=== PATIENT | male | born 1955 | race Caucasian/White ===

== ENCOUNTER 2016-04-20 08:52 | Inpatient (IN) | payer OTHER ==
--- NOTE | 2016-04-20 09:09 | ED ---
General Adult HPI - General Stated complaint: rt facial droop, difficulty speaking Time Seen by Provider: 04/20/16 08:55 Source: RN notes reviewed - History of Present Illness Initial comments: This is a 61-year-old male presents emergency Department because of facial droop on the right. Patient states he was at work and he started to notice that he had really make an effort 20 months status words properly. Patient then noted that the right side of his face was a little droopy. Patient states this happened about 25 minutes ago. Patient denies any numbness or weakness patient denies any headache patient denies any visual disturbance patient denies any ataxia. Patient denies any fever or chills. Patient denies any chest pain palpitations difficulty breathing or shortness of breath per patient denies abdominal pain. Patient denies any nausea vomiting or diarrhea. Patient denies any upper her symptoms. - Related Data Home Medications Medication Instructions Recorded Confirmed Atorvastatin [Lipitor] 80 mg PO HS 04/20/16 04/20/16 Cholestyramine (with Sugar) 4 gm PO QID 04/20/16 04/20/16 [Questran] Fenofibrate 160 mg PO DAILY 04/20/16 04/20/16 Insulin Degludec [Tresiba 64 unit SQ HS 04/20/16 04/20/16 Flextouch U-200] Insulin Lispro [humaLOG Kwikpen] 10 unit SQ TID-W/MEALS 04/20/16 04/20/16 Lisinopril [Zestril] 5 mg PO DAILY 04/20/16 04/20/16 Niacin 500 mg PO HS 04/20/16 04/20/16 Allergies Allergy/AdvReac Type Severity Reaction Status Date / Time No Known Allergies Allergy Verified 04/20/16 09:28 Review of Systems ROS Statement: Those systems with pertinent positive or pertinent negative responses have been documented in the HPI. ROS Other: All systems not noted in ROS Statement are negative. General Exam - General Exam Comments Initial Comments: GENERAL: Patient is well-developed and well-nourished. Patient is nontoxic and well- hydrated and is in mild distress. ENT: Neck is soft and supple. No significant lymphadenopathy is noted. Oropharynx is clear. Moist mucous membranes. Neck has full range of motion without eliciting any pain. EYES: The sclera were anicteric and conjunctiva were pink and moist. Extraocular movements were intact and pupils were equal round and reactive to light. Eyelids were unremarkable. PULMONARY: Unlabored respirations. Good breath sounds bilaterally. No audible rales rhonchi or wheezing was noted. CARDIOVASCULAR: There is a regular rate and rhythm without any murmurs gallops or rubs. ABDOMEN: Soft and nontender with normal bowel sounds. No palpable organomegaly was noted. There is no palpable pulsatile mass. SKIN: Skin is clear with no lesions or rashes and otherwise unremarkable. NEUROLOGIC: Patient is alert and oriented x3. Patient has some facial droop on the right side he also has some weakness to the upper eyelid when he is trying to close his eye. Motor and sensory are also intact. Normal speech, volume and content. Symmetrical smile. Patient's finger to nose testing was normal. Patient had no drift. MUSCULOSKELETAL: Normal extremities with adequate strength and full range of motion. No lower extremity swelling or edema. No calf tenderness. LYMPHATICS: No significant lymphadenopathy is noted PSYCHIATRIC: Normal psychiatric evaluation. Normal interpersonal interactions appears functionally intact in deals appropriately with others. No signs of depression. No signs of anxiety. Course Vital Signs 04/20/16 04/20/16 04/20/16 09:00 09:15 09:30 Temperature 98.7 F Pulse Rate 91 86 86 Respiratory 15 14 14 Rate Blood Pressure 160/81 125/69 138/67 O2 Sat by Pulse 92 L 92 L 95 Oximetry 04/20/16 04/20/16 04/20/16 09:45 10:23 10:45 Temperature Pulse Rate 83 86 82 Respiratory 15 15 14 Rate Blood Pressure 134/69 134/78 130/63 O2 Sat by Pulse 95 95 95 Oximetry Medical Decision Making - Medical Decision Making EKG shows normal sinus rhythm at 83 bpm VA interval is 186 QRS is 86 QT interval 384 QTC is 451 per patient's EKG shows no ST segment elevation or depression or T-wave abnormalities are noted. Patient's CT of the head shows no acute abdomen. Patient's chest x-ray shows no acute abnormality. Patient's NIH was 1 therefore we did not give the patient TPA - Lab Data Result diagrams: 04/20/16 09:26 04/20/16 09:26 Lab Results 04/20/16 04/20/16 04/20/16 Range/Units 09:18 09:26 09:26 WBC 5.5 (3.8-10.6) k/uL RBC 4.96 (4.30-5.90) m/uL Hgb 15.3 (13.0-17.5) gm/dL Hct 42.8 (39.0-53.0) % MCV 86.2 (80.0-100.0) fL MCH 30.6 (25.0-35.0) pg MCHC 35.7 (31.0-37.0) g/dL RDW 13.6 (11.5-15.5) % Plt Count 146 L (150-450) k/uL Neutrophils % 47 % Lymphocytes % 39 % Monocytes % 8 % Eosinophils % 3 % Basophils % 1 % Neutrophils # 2.6 (1.3-7.7) k/uL Lymphocytes # 2.2 (1.0-4.8) k/uL Monocytes # 0.4 (0-1.0) k/uL Eosinophils # 0.2 (0-0.7) k/uL Basophils # 0.0 (0-0.2) k/uL Sodium (137-145) mmol/L Potassium (3.5-5.1) mmol/L Chloride (98-107) mmol/L Carbon Dioxide (22-30) mmol/L Anion Gap mmol/L BUN (9-20) mg/dL Creatinine (0.66-1.25) mg/dL Est GFR (MDRD) Af Amer (>60 ml/min/1.73 sqM) Est GFR (MDRD) Non-Af (>60 ml/min/1.73 sqM) Glucose (74-99) mg/dL POC Glucose (mg/dL) 408 H (75-99) mg/dL POC Glu City Attorney ID Pebbles Becker A Calcium (8.4-10.2) mg/dL Total Bilirubin (0.2-1.3) mg/dL AST (17-59) U/L ALT (21-72) U/L Alkaline Phosphatase (38-126) U/L Total Creatine Kinase 95 (55-170) U/L CK-MB (CK-2) 2.7 H* (0.0-2.4) ng/mL CK-MB (CK-2) Rel Index 2.8 Troponin I 0.019 (0.000-0.034) ng/mL Total Protein (6.3-8.2) g/dL Albumin (3.5-5.0) g/dL 04/20/16 Range/Units 09:26 WBC (3.8-10.6) k/uL RBC (4.30-5.90) m/uL Hgb (13.0-17.5) gm/dL Hct (39.0-53.0) % MCV (80.0-100.0) fL MCH (25.0-35.0) pg MCHC (31.0-37.0) g/dL RDW (11.5-15.5) % Plt Count (150-450) k/uL Neutrophils % % Lymphocytes % % Monocytes % % Eosinophils % % Basophils % % Neutrophils # (1.3-7.7) k/uL Lymphocytes # (1.0-4.8) k/uL Monocytes # (0-1.0) k/uL Eosinophils # (0-0.7) k/uL Basophils # (0-0.2) k/uL Sodium 134 L (137-145) mmol/L Potassium 4.8 (3.5-5.1) mmol/L Chloride 102 (98-107) mmol/L Carbon Dioxide 20 L (22-30) mmol/L Anion Gap 12 mmol/L BUN 17 (9-20) mg/dL Creatinine 0.71 (0.66-1.25) mg/dL Est GFR (MDRD) Af Amer >60 (>60 ml/min/1.73 sqM) Est GFR (MDRD) Non-Af >60 (>60 ml/min/1.73 sqM) Glucose 422 H (74-99) mg/dL POC Glucose (mg/dL) (75-99) mg/dL POC Glu City Attorney ID Calcium 8.7 (8.4-10.2) mg/dL Total Bilirubin 0.6 (0.2-1.3) mg/dL AST 23 (17-59) U/L ALT 47 (21-72) U/L Alkaline Phosphatase 79 (38-126) U/L Total Creatine Kinase (55-170) U/L CK-MB (CK-2) (0.0-2.4) ng/mL CK-MB (CK-2) Rel Index Troponin I (0.000-0.034) ng/mL Total Protein 7.6 (6.3-8.2) g/dL Albumin 3.9 (3.5-5.0) g/dL Disposition Clinical Impression: Cerebrovascular accident, Hyperglycemia Disposition: ADMITTED IP TO THIS HOSP Time of Disposition: 10:48
--- NOTE | 2016-04-20 09:23 | CT ---
EXAMINATION TYPE: CT brain wo con DATE OF EXAM: 04/20/2016 9:18 AM COMPARISON: NONE HISTORY: Rt facial droop, difficulty with speech code stroke. CT DLP: 1147 mGycm. Automated Exposure Control for Dose Reduction was Utilized. TECHNIQUE: CT scan of the head is performed without contrast. FINDINGS: There is no acute intracranial hemorrhage or midline shift identified. There is mild vent ricular and sulcal prominence consistent with mild age-related cerebral atrophy. Vascular calcificati on of distal internal carotid arteries is present bilaterally. Sheth-white matter differentiation is f airly well-maintained. The globes are intact and the visualized sinuses are clear. IMPRESSION: No acute intracranial hemorrhage or midline shift is seen. Mild diffuse cerebral atrophy is noted. If clinical concern for acute stroke persists further investigation with MRI study may be warranted.
[2016-04-20 09:29] LABS: Glucose,Whole Blood 408 mg/dL (75-99)
[2016-04-20 09:49] LABS: Chloride 102 mmol/L (98-107); Potassium 4.8 mmol/L (3.5-5.1); Sodium 134 mmol/L (137-145)
[2016-04-20 09:54] LABS: Basophils % (A) 1 %; CH 30.6; CHCM 35.7; Eosinophils # (A) 0.2 k/uL (0-0.7); Eosinophils % (A) 3 %; HCT 42.8 % (39.0-53.0); HDW 3.02; Luc # (Auto) 0.13; Luc % (Auto) 2; Lymphocytes # (A) 2.2 k/uL (1.0-4.8); Lymphocytes % (A) 39 %; MCV 86.2 fL (80.0-100.0); Mean Platelet Volume 9.4; Monocytes # (A) 0.4 k/uL (0-1.0); Monocytes % (A) 8 %; Neutrophils # (A) 2.6 k/uL (1.3-7.7); Neutrophils % (A) 47 %; RBC 4.96 m/uL (4.30-5.90); RDW 13.6 % (11.5-15.5); WBC 5.5 k/uL (3.8-10.6); WBC (Perox) 4.93
[2016-04-20 09:56] LABS: HGB 15.3 gm/dL (13.0-17.5)
[2016-04-20 09:57] LABS: MCH 30.6 pg (25.0-35.0); MCHC 35.7 g/dL (31.0-37.0)
[2016-04-20 10:11] LABS: Anion Gap 12 mmol/L; Non-African American GFR(MDRD) >60 (>60 ml/min/1.73 sqM)
[2016-04-20] MEDS ORDERED: SODIUM CHLORIDE 0.9% 1,000 ML IV ONE (10:11)
[2016-04-20 10:12] LABS: Blood Urea Nitrogen 17 mg/dL (9-20); Carbon Dioxide 20 mmol/L (22-30); Glucose 422 mg/dL (74-99)
[2016-04-20] MEDS ORDERED: ATORVASTATIN 80 MG TAB PO STA (10:12)
[2016-04-20] MEDS ORDERED: ASPIRIN 81 MG CHEW PO STA (10:12)
--- NOTE | 2016-04-20 10:12 | XR ---
EXAMINATION TYPE: XR chest 2V DATE OF EXAM: 04/20/2016 10:04 AM COMPARISON: 07/16/2014 HISTORY: 61 year-old male altered mental status TECHNIQUE: PA and lateral views FINDINGS: Heart is normal size. Aorta within normal limits. Mild interstitial prominence is unchanged and chron ic. Strandy atelectasis at the left base. Continued elevation of left hemidiaphragm. No consolidation or pleural effusion seen. IMPRESSION: Chronic changes, including elevation of the left hemidiaphragm. Strandy atelectasis at the left base. No acute process seen.
[2016-04-20 10:13] LABS: ALT 47 U/L (21-72); AST 23 U/L (17-59); Alkaline Phosphatase 79 U/L (38-126); Calcium 8.7 mg/dL (8.4-10.2); Total Bilirubin 0.6 mg/dL (0.2-1.3); Total Protein 7.6 g/dL (6.3-8.2)
[2016-04-20 10:41] LABS: Creatine Kinase MB 2.7 ng/mL (0.0-2.4); Troponin I 0.019 ng/mL (0.000-0.034)
[2016-04-20] MEDS ORDERED: INSULIN LISPRO (humaLOG) 300 UNIT/3 ML VIAL SQ ONE (10:45)
--- NOTE | 2016-04-20 12:44 | US ---
EXAMINATION TYPE: US carotid duplex BILAT DATE OF EXAM: 04/20/2016 11:49 AM COMPARISON: CT on PACS CLINICAL HISTORY: Stenosis. EC Patient presented with Right facial numbness and difficulty speaking EXAM MEASUREMENTS: RIGHT: Peak Systolic Velocity (PSV) cm/sec ----- Right CCA: 70.3 ----- Right ICA: 44.8 ----- Right ECA: 72.6 ICA/CCA ratio: 0.6 RIGHT: End Diastole cm/sec ----- Right CCA: 16.8 ----- Right ICA: 9.9 ----- Right ECA: 10.4 LEFT: Peak Systolic Velocity (PSV) cm/sec ----- Left CCA: 67.0 ----- Left ICA: 76.7 ----- Left ECA: 65.9 ICA/CCA ratio: 1.1 LEFT: End Diastole cm/sec ----- Left CCA: 16.4 ----- Left ICA: 27.8 ----- Left ECA: 8.7 VERTEBRALS (direction of flow): Right Vertebral: Antegrade Left Vertebral: Antegrade TECHNOLOGIST IMPRESSION: Mild intimal wall changes at bilateral carotid bifurcation and PSV is wnl b ilaterally. Mild eccentric hyperechoic plaque at right carotid bulb is present on grayscale images. No significan t plaque at left carotid bulb is seen. Velocity measurements and ratios in visualized portion of both internal carotid arteries is within normal limits. IMPRESSION: No hemodynamically significant stenosis is seen in either internal carotid artery.
[2016-04-20] MEDS ORDERED: valACYclovir 500 MG TAB PO STA (13:39)
[2016-04-20] MEDS ORDERED: predniSONE 20 MG TAB PO STA (13:41)
[2016-04-20 13:43] LABS: Glucose,Whole Blood 290 mg/dL (75-99)
[2016-04-20] MEDS: INSULIN LISPRO (humaLOG) 300 UNIT/3 ML VIAL SQ SCH ×4 (13:45→22:00)
[2016-04-20 14:29] VITALS: BMI 33.2
--- NOTE | 2016-04-20 15:18 | HP ---
DATE OF ADMISSION: Patient is a 61-year-old who came in with right-sided facial droop, which started in the morning and patient does not have any clear-cut HSV exacerbation, herpes simplex, or varicella zoster lesions at this point of time. Patient has left-sided facial droop along with involvement of forehead muscles although patient does have weakness in the auricular muscles as well, but able to close the eyes well. Patient denied any other weakness. Patient is complaining of some numbness in the right side of the face as well. Patient denied any fever, chills, denied any nausea or vomiting, patient denied any visual disturbance. Patient denied any speech abnormalities. 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 Patient has elevated blood sugars, because of his insurance issues, he is dealing with approval of his insulin. Patient is very high dose of insulin, which is 64 units of Tresiba which is long acting insulin as well as lispro t.i.d. a.c. Patient will be restarted on these medications. Patient is started on Valtrex as well as prednisone and patient is admitted for rule out TIA or a stroke and Neurology was consulted. Patient had a carotid Doppler, which was essentially within normal limits. REVIEW OF SYSTEMS: CONSTITUTIONAL: No fever, no malaise, no fatigue. HEENT: No recent visual problems or hearing problems. Denied any sore throat. CARDIOVASCULAR: No chest pain, orthopnea, PND, no palpitations, no syncope. PULMONARY: No shortness of breath, no cough, no hemoptysis. GASTROINTESTINAL: No diarrhea, no nausea, no vomiting, no abdominal pain. Normoactive bowel sounds. HEMATOLOGICAL: Denies any bleeding or petechiae. GENITOURINARY: Denies any burning micturition, frequency, or urgency. MUSCULOSKELETAL/RHEUMATOLOGICAL: Denies any joint pain, swelling, or any muscle pain. ENDOCRINE: Denies any polyuria or polydipsia. NEUROLOGICAL: As described in HPI. The rest of the 14 point review of systems is negative. HOME MEDICATIONS: 1. Atorvastatin. 2. Cholestyramine. 3. Fenofibrate. 4. Tresiba. 5. Insulin lispro. 6. Lisinopril. 7. Niacin. ALLERGIES: No known drug allergies. PHYSICAL EXAMINATION: VITAL SIGNS: Temperature 97.5, pulse of 79, respiratory rate of 20, blood pressure is 130/70, saturating at 93% on room air. GENERAL: The patient is alert and oriented x3, not in any acute distress. Well developed, well nourished. HEENT: Pupils are round and equally reacting to light. EOMI. No scleral icterus. No conjunctival pallor. Normocephalic, atraumatic. No pharyngeal erythema. No thyromegaly. CARDIOVASCULAR: S1 and S2 present. No murmurs, rubs, or gallops. PULMONARY: Chest is clear to auscultation, no wheezing or crackles. ABDOMEN: Soft, nontender, nondistended, normoactive bowel sounds. No palpable organomegaly. MUSCULOSKELETAL: No joint swelling or deformity. EXTREMITIES: No cyanosis, clubbing, or pedal edema. SKIN: No rashes. NEUROLOGICAL EXAMINATION: Pretty much as described above in the HPI itself, that is facial droop, right-sided, involvement of forehead muscles consistent with ( ) palsy of the facial nerve which is pretty much Gonzalez's palsy. No other focal neurological deficits were appreciated. LABORATORY DATA: CBC, CMP are abnormal for mildly low potassium, sodium of 134, this is pseudohyponatremia due to hyperglycemia and highly elevated blood sugars of 420s because of noncompliance with his medication regimen due to his insurance issues. ASSESSMENT AND PLAN: 1. Right-sided facial droop, ( ) palsy which is Gonzalez's palsy. Patient is on Valtrex and prednisone, which will be continued and patient probably will be discharged tomorrow with prednisone and patient is basically admitted for neurological evaluation and Neurology was consulted from ER. Patient's carotid Doppler is negative. I do not believe patient needs extensive work-up for transient ischemic attack. This is clear-cut Gonzalez's palsy. 2. Pseudohyponatremia from hyperglycemia, blood sugars need to be corrected to correct sodium. 3. Highly elevated blood sugars due to noncompliance with medications. Patient will be resumed on his regimen long acting insulin at 64 units and patient is apparently awaiting approval from the insurance company, but unfortunately his blood sugars will be elevated at home as well as patient will be discharged on steroids. 4. Hypertension. Patient is on lisinopril probably for ( ) properties because of his diabetes, I believe. 5. Hyperlipidemia. [facility]
[2016-04-20 17:02] LABS: Glucose,Whole Blood 263 mg/dL (75-99)
[2016-04-20] MEDS: CHOLESTYRAMINE (WITH SUGAR) 4 GM PACKET PO SCH ×2 (17:15→20:02)
[2016-04-20] MEDS ORDERED: ARTIFICIAL TEARS-HYPROMELLOSE DROPS 15 ML BTL RIGHT EYE PRN (18:24)
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
[2016-04-20] MEDS: valACYclovir 500 MG TAB PO SCH (20:07)
[2016-04-20] MEDS: predniSONE 20 MG TAB PO SCH (20:07)
[2016-04-20] MEDS ORDERED: NIACIN TR 500 MG CAPSULE.ER PO SCH (21:00)
[2016-04-20] MEDS ORDERED: INSULIN DEGLUDEC 64 UNIT SQ SCH (21:00)
[2016-04-20] MEDS ORDERED: predniSONE 50 MG TAB PO SCH (21:00)
[2016-04-20] MEDS ORDERED: ATORVASTATIN 80 MG TAB PO SCH (21:00)
[2016-04-20] MEDS ORDERED: INSULIN DETEMIR 100 UNIT/ML 10 ML VIAL SQ SCH (21:00)
[2016-04-20 21:33] LABS: Glucose,Whole Blood 368 mg/dL (75-99)
[2016-04-21 06:09] LABS: Glucose,Whole Blood 296 mg/dL (75-99)
[2016-04-21] MEDS: INSULIN LISPRO (humaLOG) 300 UNIT/3 ML VIAL SQ SCH ×4 (07:17→12:13)
[2016-04-21] MEDS: CHOLESTYRAMINE (WITH SUGAR) 4 GM PACKET PO SCH ×2 (08:30→12:13)
[2016-04-21] MEDS: valACYclovir 500 MG TAB PO SCH (08:30)
[2016-04-21] MEDS: predniSONE 20 MG TAB PO SCH ×2 (08:31→08:32)
[2016-04-21 08:43] VITALS: RESP 16; TEMP 96.5
[2016-04-21] MEDS ORDERED: LISINOPRIL 5 MG TAB PO SCH (09:00)
[2016-04-21] MEDS ORDERED: FENOFIBRATE 160 MG TAB PO SCH (09:00)
[2016-04-21] MEDS ORDERED: LORazepam 1 MG TAB PO ONE (10:00)
--- NOTE | 2016-04-21 10:47 | ECHOF ---
Referral Reason:TIA MEASUREMENTS -------- HEIGHT: 177.8 cm WEIGHT: 110.2 kg BP: 118/60 IVSd: 1.3 cm (0.6 - 1.1) LVIDd: 3.0 cm (3.9 - 5.3) LVPWd: 1.3 cm (0.6 - 1.1) IVSs: 1.5 cm LVIDs: 2.1 cm LVPWs: 1.6 cm Ao Diam: 4.4 cm (2.0 - 3.7) AV Cusp: 2.2 cm (1.5 - 2.6) LA Diam: 4.0 cm (2.7 - 3.8) MV EXCURSION: 15.271 mm (> 18.000) MV EF SLOPE: 96 mm/s (70 - 150) EPSS: 1.0 cm MV E Jigar: 1.46 m/s MV DecT: 153 ms MV A Jigar: 0.35 m/s MV E/A Ratio: 4.15 RAP: 5.00 mmHg RVSP: 9.27 mmHg FINDINGS -------- Sinus rhythm. This was a technically difficult study with suboptimal views. There is mild concentric left ventricular hypertrophy. Overall left ventricular systolic function is normal with, an EF between 55 - 60 %. The right ventricle is normal in size and function. The left atrium is normal in size. The right atrium is normal in size. 1.5mg of Definity was utilized for enhancement of images The aortic valve was not well visualized. The mitral valve leaflets are mildly thickened. There is trace mitral regurgitation. Trace tricuspid regurgitation present. The right ventricular systolic pressure, as measured by Doppler, is 9.27mmHg. Pulmonic valve appears structurally normal. The aortic root size is normal. The pericardium is normal. CONCLUSIONS -------- 1. Sinus rhythm. 2. The mitral valve leaflets are mildly thickened. 3. There is trace mitral regurgitation. 4. Trace tricuspid regurgitation present. 5. The right ventricular systolic pressure, as measured by Doppler, is 9.27mmHg. 6. Pulmonic valve appears structurally normal. 7. The aortic root size is normal. 8. The pericardium is normal. 9. This was a technically difficult study with suboptimal views. 10. There is mild concentric left ventricular hypertrophy. 11. Overall left ventricular systolic function is normal with, an EF between 55 - 60 %. 12. The right ventricle is normal in size and function. 13. The left atrium is normal in size. 14. The right atrium is normal in size. 15. 1.5mg of Definity was utilized for enhancement of images 16. The aortic valve was not well visualized. [employer]: Kassi Edward RDCS
[2016-04-21 12:02] LABS: Glucose,Whole Blood 323 mg/dL (75-99)
[2016-04-21 12:21] VITALS: BP 119/69; PULSE 101
--- NOTE | 2016-04-22 14:08 | DS ---
DATE OF ADMISSION: 04/20/2016 DATE OF DISCHARGE: 04/21/2016 The patient is a 61-year-old admitted with right sided facial droop, ( ) palsy secondary to facial palsy, Gonzalez's palsy. Patient has significantly improved symptoms with steroids, systemic steroids. Patient is being discharged on Medrol Dosepak, Valtrex for about a week and an eye patch and Lachrilube. Patient otherwise clinically doing well. The patient underwent work-up for transient ischemic attack. Negative carotid Doppler and echocardiogram are essentially within normal limits. The patient was evaluated by neurology as well. Patient was seen and examined on the day of discharge. Vital signs stable. PHYSICAL EXAMINATION: GENERAL: The patient is alert and oriented x3, not in any acute distress. Well developed, well nourished. HEENT: Pupils are round and equally reacting to light. EOMI. No scleral icterus. No conjunctival pallor. Normocephalic, atraumatic. No pharyngeal erythema. No thyromegaly. CARDIOVASCULAR: S1 and S2 present. No murmurs, rubs, or gallops. PULMONARY: Chest is clear to auscultation, no wheezing or crackles. ABDOMEN: Soft, nontender, nondistended, normoactive bowel sounds. No palpable organomegaly. MUSCULOSKELETAL: No joint swelling or deformity. EXTREMITIES: No cyanosis, clubbing, or pedal edema. NEUROLOGICAL: Improved weakness in the right-sided facial paralysis, although continues to have fascial droop. No issues with closing eye but the patient does not have any other neurological deficits. SKIN: No rashes. The patient's has elevated blood sugars because of his insurance issues, and his long acting insulin which he is going to get in a day and patient will be discharged today. ASSESSMENT AND PLAN: 1. Right-sided facial droop secondary to Gonzalez's palsy. 2. Type 2 diabetes mellitus. 3. Pseudohyponatremia secondary to elevated blood sugars. 4. Hyperlipidemia. 5. Hypertension. Spent greater than 35 minutes in total discharge process. Please refer to my depart summary for further details of discharge medications. Activity as tolerated. DISCHARGE DIET: Cardiac and ADA 1800 calorie diet.
== END 2016-04-21 13:45 | disposition home or self-care (01) | DRG 74 ==
LOC: EC 08:52 → 6SEL 11:09
PROVIDERS: ADMIT Internal Medicine; ATTEND Internal Medicine
DX: G51.0 Bell's palsy (principal); E11.65 Type 2 diabetes mellitus with hyperglycemia; I10 Essential (primary) hypertension; E78.5 Hyperlipidemia, unspecified; F32.9 Major depressive disorder, single episode, unspecified; F41.9 Anxiety disorder, unspecified; Z85.820 Personal history of malignant melanoma of skin; Z91.14 Patient's other noncompliance with medication regimen; Z79.4 Long term (current) use of insulin; Z79.899 Other long term (current) drug therapy
CPT/HCPCS: 36415; 70450; 71020; 80053; 82550; 82553; 84484; 85025; 93005; 93306; 93880

== ENCOUNTER → 2016-12-15 | Outpatient (CLI) | payer OTHER ==
--- NOTE | 2016-12-15 11:59 | US ---
EXAMINATION TYPE: US scrotum with doppler. TECHNIQUE: Grayscale and color Doppler Duplex imaging performed of the scrotum. DATE OF EXAM: 12/15/2016 COMPARISON: NONE CLINICAL HISTORY: 61-year-old male Testicular Pain Left side N50.819 for one week. FINDINGS: EXAM MEASUREMENTS: TESTICLES: Right Testicle: 3.4 x 2.4 x 2.4 cm with a 1.6 cm cyst within. Some internal debris is present. Satis factory arterial flow. Venous flow cannot be documented by the flying instructor. Left Testicle: 4.1 x 2.3 x 3.0 cm with satisfactory arterial and venous flow. Right testicle is slightly smaller but both show normal homogeneous echotexture. EPIDIDYMIS HEAD: Right Epididymis: 0.6 x 0.6 x 0.8 cm Left Epididymis: 1.0 x 1.1 x 1.3 cm Presence of hydroceles: no Presence of varicoceles: Small left-sided varicocele. IMPRESSION: 1. On the left, there is no sonographic evidence for testicular torsion. 2. While venous flow could not be demonstrated in the right testicle, the smaller size, normal homoge neous appearance, and lack of symptoms on the right side argues against testicular torsion. 3. Incidental 1.6 cm cyst or spermatocele within the right testicle. 4. Small left-sided varicocele.
== END | disposition home or self-care (01) ==
LOC: RADUSWWP 10:56
PROVIDERS: ATTEND Family Medicine
DX: I86.1 Scrotal varices (principal); N50.819 Testicular pain, unspecified
CPT/HCPCS: 76870; 93975

== ENCOUNTER → 2016-12-15 | Outpatient (CLI) | payer OTHER ==
--- NOTE | 2016-12-15 14:54 | CT ---
EXAMINATION TYPE: CT abdomen pelvis wo con DATE OF EXAM: 12/15/2016 COMPARISON: Prior CT 04/11/2011 HISTORY: Low back pain, left groin pain CT DLP: 1198.6 mGycm Automated exposure control for dose reduction was used. TECHNIQUE: Helical acquisition of images from the lung bases through the pelvis. FINDINGS: Lack of contrast could compromise sensitivity. LUNG BASES: Some minimal basilar atelectatic change suspected on the left. No pleural or pericardial effusion. AORTA: No significant abnormality is appreciated. LIVER/GB: Liver shows low attenuation likely due to hepatic steatosis, the liver is enlarged. Gallbla dder is unremarkable.. PANCREAS: No significant abnormality is seen. SPLEEN: Spleen is enlarged. ADRENALS: No significant abnormality is seen. KIDNEYS: No significant interval change is seen. REPRODUCTIVE ORGANS: Prostate shows associated calcifications and is enlarged. URINARY BLADDER: No significant abnormality is seen. BOWEL: There is retained stool in much of the colon, colon is redundant. No evident bowel obstructio n. Small anterior abdominal wall hernia in the supraumbilical region contains fat. Small umbilical he rnia contains fat.. FREE AIR: No Free Air is visible. ASCITES: None visible. PELVIC ADENOPATHY: None visualized. RETROPERITONEAL ADENOPATHY: No Retroperitoneal Adenopathy visible. 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 IMPRESSION: NONCONTRAST EXAM. CORRELATE FOR FECAL STASIS. HEPATOSPLENOMEGALY, POSSIBLE HEPATIC STEATOSIS. SPONDYL OLYSIS AT L5.
== END | disposition home or self-care (01) ==
LOC: RADCTMAIN 13:09
PROVIDERS: ATTEND Family Medicine
DX: M47.816 Spondylosis without myelopathy or radiculopathy, lumbar region (principal)
CPT/HCPCS: 74176

== ENCOUNTER 2017-09-24 20:01 | Emergency (ER) | payer OTHER ==
[2017-09-24 20:33] VITALS: RESP 18
[2017-09-24] MEDS ORDERED: MORPHINE SULFATE 4 MG/ML SYRINGE IM STA (21:00)
[2017-09-24] MEDS ORDERED: ORPHENADRINE 30 MG/ML 2 ML VIAL IM STA (21:02)
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
--- NOTE | 2017-09-24 23:23 | CT ---
EXAM: CT Thoracic Spine Without Intravenous Contrast CLINICAL HISTORY: : Pain TECHNIQUE: Axial computed tomography images of the thoracic spine without intravenous contrast. CTDI is 23.4 mGy and DLP is 2927 mGy-cm. This CT exam was performed using one or more of the following dose reduction techniques: automated exposure control, adjustment of the mA and/or kV according to patient size, and/or use of iterative reconstruction technique. Coronal and sagittal reformatted images were created and reviewed. COMPARISON: CT abdomen and pelvis 12/15/16 FINDINGS: : Compression deformity of T12 which is new from the prior study there is approximate 5 mm loss of height anteriorly. The fracture line does not extend into the pedicles or posterior elements. There is minimal retropulsion of the posterior margin of the vertebral body into the canal. There is no evidence for impingement on the conus.. The remaining portion of the thoracic vertebral bodies are unchanged the prior study . Note is made of some atelectasis left lung base. IMPRESSION: Acute fracture T12 vertebral body with 5 mm loss of height anteriorly. Minimal effacement the canal. Fracture line does not involve the pedicles or posterior elements EXAM: CT Lumbar Spine Without Intravenous Contrast CLINICAL HISTORY: Pain TECHNIQUE: Axial computed tomography images of the lumbar spine without intravenous contrast. CTDI is 23.04 mGy and DLP is 2927 mGy-cm. This CT exam was performed using one or more of the following dose reduction techniques: automated exposure control, adjustment of the mA and/or kV according to patient size, and/or use of iterative reconstruction technique. Coronal and sagittal reformatted images were created and reviewed. COMPARISON: CT abdomen and pelvis 12/15/16 FINDINGS: No change in alignment of lumbar spinal compared to prior study. There is bilateral spondylolysis at L5-S1 with no significant spondylolisthesis. This finding is unchanged the prior study. There is a fracture of T12 compression deformity in the prior study 5 mm loss of height anteriorly minimal retropulsion the posterior margin into the canal. No evidence for impingement on the conus. IMPRESSION: Normal lumbar spine CT. Compression deformity of T12 vertebral body 5 mm loss of height with no impingement on the conus. Minimal effacement the canal.
[2017-09-25 00:25] VITALS: BP 154/78; PULSE 55; TEMP 98.2
[2017-09-25] MEDS ORDERED: ACET/COD 300 MG/30 MG STARTER PACK 6 TAB BTL PO STA (00:26)
== END 2017-09-25 00:37 | disposition home or self-care (01) ==
LOC: EC 20:01
DX: S22.089A Unspecified fracture of T11-T12 vertebra, initial encounter for closed fracture (principal); M54.5 Low back pain; E11.9 Type 2 diabetes mellitus without complications; E78.5 Hyperlipidemia, unspecified; Z79.84 Long term (current) use of oral hypoglycemic drugs; Z79.899 Other long term (current) drug therapy; W01.0XXA Fall on same level from slipping, tripping and stumbling without subsequent striking against object, initial encounter; Y92.832 Beach as the place of occurrence of the external cause
CPT/HCPCS: 99284; 96372 ×2; 72128; 72131; J2270; J2360

== ENCOUNTER 2017-10-01 11:24 | Emergency (ER) | payer OTHER ==
[2017-10-01 11:43] VITALS: RESP 18
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
[2017-10-01 12:44] LABS: Basophils % (A) 1 %; Eosinophils # (A) 0.1 k/uL (0-0.7); Eosinophils % (A) 2 %; HCT 49.7 % (39.0-53.0); HGB 16.2 gm/dL (13.0-17.5); Lymphocytes # (A) 1.3 k/uL (1.0-4.8); Lymphocytes % (A) 30 %; MCH 28.4 pg (25.0-35.0); MCHC 32.6 g/dL (31.0-37.0); Mean Platelet Volume 8.1; Monocytes # (A) 0.4 k/uL (0-1.0); Monocytes % (A) 8 %; Neutrophils # (A) 2.5 k/uL (1.3-7.7); Neutrophils % (A) 57 %; Platelet Count 125 k/uL (150-450); RBC 5.71 m/uL (4.30-5.90); RDW 13.7 % (11.5-15.5); WBC 4.5 k/uL (3.8-10.6)
[2017-10-01 12:55] LABS: Anion Gap 12 mmol/L; Blood Urea Nitrogen 23 mg/dL (9-20); Calcium 9.3 mg/dL (8.4-10.2); Carbon Dioxide 19 mmol/L (22-30); Chloride 106 mmol/L (98-107); Glucose 181 mg/dL (74-99); Potassium 4.7 mmol/L (3.5-5.1); Sodium 137 mmol/L (137-145)
--- NOTE | 2017-10-01 13:44 | CT ---
EXAMINATION TYPE: CT abdomen pelvis w con DATE OF EXAM: 10/01/2017 REFERENCE: NONE HISTORY: Pain-Constipation HISTORY: Patient complains of generalized pain and constipation. REFERENCE: NONE CT DLP: 1753.5 mGy Automated exposure control for dose reduction was used. TECHNIQUE: Helical acquisition through the abdomen and pelvis was obtained following the oral ingesti on of without Oral Contrast and following intravenous administration of 100 mL of Isovue 300. The ayden a was reformatted in axial, coronal and sagittal projections. FINDINGS: There is marked elevation of the left hemidiaphragm. This has worsened from the previous s tudy. There are areas of platelike atelectasis within the left lingula and left lower lobe. Visualize d portions of the right lung are clear. There is no pleural or pericardial fluid. The heart is not en larged. Within the abdomen the liver is enlarged measuring 21.7 cm. Is fatty infiltration of the liver. The s pleen is enlarged measuring 16 cm. Both adrenal glands are normal. Both kidneys demonstrate function and appear morphologically normal. The pancreas is unremarkable. There is no significant retroperitoneal, iliac or inguinal adenopathy. The bladder is distended. There is a questionable soft tissue mass at the region of the trigone on th e left. There is some calcification of the prostate gland. There is marked dilatation of the transverse colon and also part of the sigmoid colon. The remaining interval segments are normal in caliber. There is a moderate amount of right sided fecal material. Th e appendix is normal. Small bowel caliber is normal. There is no free fluid and no free air. There is a mild dextroscoliosis. There is been interval development of a wedge compression fracture of the T12 vertebral body this sarbjit ears acute. It is wedged by approximately 10% of the vertebral body height. There is no evidence of r etropulsion. No other bony lesion is seen. IMPRESSION: 1. HEPATOSPLENOMEGALY. 2. DILATED SEGMENTS OF: WITH AREAS IN BETWEEN WHICH ARE NORMAL IN CALIBER MAY REFLECT COLONIC ILEUS. 3. NEWLY APPEARING WEDGE COMPRESSION FRACTURE OF THE T12 VERTEBRAL BODY. 4. ELEVATION OF THE LEFT HEMIDIAPHRAGM WITH ASSOCIATED ATELECTATIC CHANGE. 5. QUESTIONABLE SOFT TISSUE MASS NEAR THE LEFT TRIGONE OF THE BLADDER. DIRECT VISUALIZATION WOULD BE SUGGESTED.
[2017-10-01] MEDS ORDERED: MAGNESIUM CITRATE 296 ML BOTTLE PO ONE (17:12)
[2017-10-01 17:29] VITALS: BP 155/87; PULSE 92; TEMP 98.1
== END 2017-10-01 17:29 | disposition home or self-care (01) ==
LOC: EC 11:24
DX: K56.7 Ileus, unspecified (principal); K59.00 Constipation, unspecified; E11.9 Type 2 diabetes mellitus without complications; E78.5 Hyperlipidemia, unspecified; Z85.820 Personal history of malignant melanoma of skin; Z79.84 Long term (current) use of oral hypoglycemic drugs; Z79.899 Other long term (current) drug therapy
CPT/HCPCS: 36415; 80048; 85025; 74177; 99284; Q9967

== ENCOUNTER 2017-10-05 14:46 | Inpatient (IN) | payer OTHER ==
[2017-10-05] MEDS ORDERED: ACETAMINOPHEN TAB 500 MG TAB PO STA (15:30)
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
[2017-10-05] MEDS: SODIUM CHLORIDE 0.9% 500 ML IV SCH ×2 (16:34→16:35)
[2017-10-05 16:46] LABS: Basophils % (A) 1 %; Eosinophils # (A) 0.1 k/uL (0-0.7); Eosinophils % (A) 1 %; HCT 48.2 % (39.0-53.0); HGB 16.6 gm/dL (13.0-17.5); Lymphocytes # (A) 1.6 k/uL (1.0-4.8); Lymphocytes % (A) 30 %; MCH 29.3 pg (25.0-35.0); MCHC 34.5 g/dL (31.0-37.0); MCV 84.9 fL (80.0-100.0); Mean Platelet Volume 7.4; Monocytes # (A) 0.4 k/uL (0-1.0); Monocytes % (A) 9 %; Neutrophils # (A) 2.9 k/uL (1.3-7.7); Neutrophils % (A) 56 %; Platelet Count 137 k/uL (150-450); RBC 5.68 m/uL (4.30-5.90); RDW 13.4 % (11.5-15.5); WBC 5.1 k/uL (3.8-10.6)
[2017-10-05 16:55] LABS: Albumin 3.9 g/dL (3.5-5.0); Calcium 9.4 mg/dL (8.4-10.2); INR 1.1 (<1.2); Partial Thromboplastin Time 24.4 sec (22.0-30.0); Potassium 4.9 mmol/L (3.5-5.1); Prothrombin Time 10.3 sec (9.0-12.0); Total Bilirubin 0.5 mg/dL (0.2-1.3); Total Protein 7.4 g/dL (6.3-8.2)
[2017-10-05 17:05] LABS: Creatine Kinase 76 U/L (55-170)
[2017-10-05 17:18] LABS: Creatine Kinase MB 1.6 ng/mL (0.0-2.4); Troponin I <0.012 ng/mL (0.000-0.034)
[2017-10-05 18:11] LABS: Amorphous Sediment,Urine Rare /hpf; Appearance,Urine Clear (Clear); Bilirubin,Urine Negative (Negative); Blood,Urine Small (Negative); Color,Urine Yellow; Glucose,Urine (UA) 4+ (Negative); Hyaline Casts,Urine 14 /lpf (0-2); Ketones,Urine 1+ (Negative); Leukocyte Esterase,Urine Negative (Negative); Mucus,Urine Rare /hpf; Nitrite,Urine Negative (Negative); Protein,Urine 3+ (Negative); RBC,Urine 32 /hpf (0-5); Squamous Epithelial Cell,Urine <1 /hpf (0-4); Urobilinogen,Urine <2.0 mg/dL (<2.0); WBC,Urine 4 /hpf (0-5)
--- NOTE | 2017-10-05 18:46 | CT ---
EXAMINATION TYPE: CT abdomen pelvis w con DATE OF EXAM: 10/05/2017 COMPARISON: 10/01/2017 HISTORY: Increased pain with decreased bowel mvements CT DLP: 1982 mGycm Automated exposure control for dose reduction was used. TECHNIQUE: Helical acquisition of images was performed from the lung bases through the pelvis. CONTRAST: Performed without Oral Contrast and with IV Contrast, patient injected with 100 mL of Isovue 300. FINDINGS: LUNG BASES: No significant abnormality is appreciated. LIVER/GB: No significant abnormality is appreciated. PANCREAS: No significant abnormality is seen. SPLEEN: No significant abnormality is seen. ADRENALS: No significant abnormality is seen. KIDNEYS: No significant abnormality is seen. FREE AIR: No free air is visualized. RETROPERITONEAL ADENOPATHY: None visualized REPRODUCTIVE ORGANS: No significant abnormality is seen URINARY BLADDER: SOFT TISSUE MASS NOTED AGAIN, NEAR THE LEFT TRIGONE OF THE BLADDER. DIRECT VISUALIZ ATION IS REQUESTED. MODERATE PLUS URINARY BLADDER DISTENTION NOTED. PELVIC ADENOPATHY: None visualized. OSSEOUS STRUCTURES: No new findings. T12 vertebral compression redemonstrated. BOWEL: The overall gaseous distention pattern seen on the 10/01/2017 study appears mildly improved on today's study. Colonic stool remains throughout the right colon. VASCULATURE: No acute findings. IMPRESSION: 1. MILD IMPROVEMENT IN THE BOWEL GAS PATTERN. 2. SOFT TISSUE MASS, SUSPICIOUS FOR TRANSITIONAL CELL CARCINOMA, NEAR THE LEFT TRIGONE OF THE BLADDER . DIRECT VISUALIZATION WOULD BE SUGGESTED
[2017-10-05] MEDS ORDERED: MORPHINE SULFATE 4 MG/ML SYRINGE IVP STA (19:06)
[2017-10-05] MEDS ORDERED: LIDOCAINE URO-JET JELLY 2% 5 ML KIT URETHRAL ONE (19:26)
[2017-10-05] MEDS ORDERED: NALOXONE 0.4 MG/ML 1 ML VIAL IV PRN (20:02)
[2017-10-05] MEDS ORDERED: MORPHINE SULFATE 4 MG/ML SYRINGE IV PRN (20:09)
[2017-10-05] MEDS ORDERED: ONDANSETRON 4 MG/2 ML VIAL IVP PRN (20:09)
[2017-10-05] MEDS ORDERED: MAGNESIUM CITRATE 296 ML BOTTLE PO PRN (20:50)
--- NOTE | 2017-10-05 21:30 | XR ---
EXAMINATION TYPE: XR chest 2V DATE OF EXAM: 10/05/2017 COMPARISON: 04/20/2016 HISTORY: Constipation TECHNIQUE: Frontal and lateral views of the chest are obtained. FINDINGS: There is elevated left diaphragm. There is patchy linear density at the left lung base. Th e right lung is clear of consolidation. There is no heart failure. Heart size is normal. There are di stended gas-filled loops of bowel in the left upper quadrant. IMPRESSION: Chronic elevated left diaphragm with left basilar atelectasis that is worse than last ex am. No heart failure. Large bowel ileus.
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
[2017-10-05] MEDS: INSULIN DETEMIR 100 UNIT/ML 10 ML VIAL SQ SCH (21:53)
[2017-10-05] MEDS: HEPARIN SODIUM,PORCINE 5,000 UNIT/ML 1 ML VIAL SQ SCH (21:54)
[2017-10-05] MEDS: ATORVASTATIN 80 MG TAB PO SCH (21:54)
[2017-10-06] MEDS: ACETAMINOPHEN TAB 325 MG TAB PO PRN (03:15)
[2017-10-06] MEDS: SODIUM CHLORIDE 0.9% 1,000 ML IV SCH ×3 (04:12→21:33)
[2017-10-06 07:37] LABS: Basophils % (A) 1 %; Eosinophils # (A) 0.1 k/uL (0-0.7); Eosinophils % (A) 2 %; HCT 46.1 % (39.0-53.0); HGB 15.3 gm/dL (13.0-17.5); Lymphocytes # (A) 1.5 k/uL (1.0-4.8); Lymphocytes % (A) 33 %; MCH 29.1 pg (25.0-35.0); MCHC 33.3 g/dL (31.0-37.0); MCV 87.3 fL (80.0-100.0); Mean Platelet Volume 7.3; Monocytes # (A) 0.3 k/uL (0-1.0); Monocytes % (A) 6 %; Neutrophils # (A) 2.6 k/uL (1.3-7.7); Neutrophils % (A) 55 %; Platelet Count 134 k/uL (150-450); RBC 5.28 m/uL (4.30-5.90); RDW 13.4 % (11.5-15.5); WBC 4.7 k/uL (3.8-10.6)
[2017-10-06 07:55] LABS: Anion Gap 8 mmol/L; Blood Urea Nitrogen 25 mg/dL (9-20); Calcium 8.8 mg/dL (8.4-10.2); Carbon Dioxide 24 mmol/L (22-30); Chloride 103 mmol/L (98-107); Glucose 141 mg/dL (74-99); Potassium 4.5 mmol/L (3.5-5.1); Sodium 135 mmol/L (137-145)
[2017-10-06 07:56] LABS: Glucose,Whole Blood 136 mg/dL (75-99)
[2017-10-06] MEDS: INSULIN ASPART 100 UNIT/ML 1 ML 10 ML VIAL SQ SCH ×3 (08:08→18:37)
[2017-10-06] MEDS: KETOROLAC 30 MG/ML 1 ML VIAL IVP PRN ×2 (08:08→19:35)
[2017-10-06] MEDS: HEPARIN SODIUM,PORCINE 5,000 UNIT/ML 1 ML VIAL SQ SCH ×2 (08:09→21:30)
[2017-10-06] MEDS ORDERED: PANTOPRAZOLE 40 MG/10 ML VIAL IV SCH (09:00)
[2017-10-06 11:23] VITALS: BMI 32.1
[2017-10-06 11:59] LABS: Glucose,Whole Blood 128 mg/dL (75-99)
[2017-10-06] MEDS ORDERED: LORazepam 2 MG/ML INJ IV PRN (13:15)
[2017-10-06] MEDS: MOVANTIK 25MG PO SCH (16:31)
[2017-10-06] MEDS: FARXIGA 10MG PO SCH (16:31)
[2017-10-06 17:18] LABS: Glucose,Whole Blood 154 mg/dL (75-99)
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
--- NOTE | 2017-10-06 18:55 | PN ---
PROGRESS NOTE DATE OF SERVICE: 10/06/2017 This 62-year-old gentleman who was admitted with abdominal distention , possible ileus, also had urinary retention. The patient was suspected to have a bladder cancer, also. Dr. Johnson is planning outpatient evaluation. Patient also had significant fall and patient also had colonic dilatation. Surgical evaluation pending at this time. The patient is constipated almost like 2 weeks and the patient also sustained a T12 fracture as well. PAST MEDICAL HISTORY: Reviewed. REVIEW OF SYSTEMS: CARDIOVASCULAR: No angina. RESPIRATORY: No cough. GI: As mentioned earlier. : No dysuria. NERVOUS: No numbness or weakness. CURRENT MEDICATIONS: Reviewed, include: 1. Tylenol 650 every 6 hours p.r.n. 2. Lipitor 80 mg q.h.s. 3. Flexeril 10 mg p.o. t.i.d. 4. Heparin 5 subcu b.i.d. 5. Motrin 400 mg every 6 hours p.r.n. 6. NovoLog. 7. Levemir 82 units subcu q.h.s. 8. Toradol 30 mg every 6 hours. 9. Ativan 0.5 mg . 10.Morphine sulfate. 11.Narcan. 12.Farxiga 10 mg p.o. daily. 13.Movantik 25 mg b.i.d. 14.Zofran 4 mg q.8h p.r.n. 15.Protonix 40 mg daily. PHYSICAL EXAM: Patient is alert, oriented x3. Pulse is 94, blood pressure 130/75, respirations 16, temperature 97.6, pulse ox 93% on room air. HEENT: Conjunctivae normal. Oral mucosa moist. NECK: No jugular venous distention. No carotid bruits. No lymph node enlargement. CARDIOVASCULAR: S1, S2 muffled. RESPIRATORY: Breath sounds diminished in the bases. No rhonchi. No crackles. ABDOMEN: Soft, obese nontender. No mass palpable. LEGS: No edema. No swelling. NERVOUS SYSTEM: No focal deficits. LABS: At this time WBC 4.6, platelets 135. Accu-Cheks noted. UA noted. ASSESSMENT: 1. Abdominal distention, possibly ileus. 2. Urinary retention, on Argueta catheter. 3. Possible trigonal mass suspicious for transitional carcinoma. 4. History of recent T12 fracture. 5. Diabetes mellitus type 2. 6. Hyperlipidemia. 7. History of melanoma. 8. History of hernia repair. 9. Anxiety, depression. 10.Obesity with recent weight loss of about 30 pounds. 11.FULL CODE. RECOMMENDATIONS AND DISCUSSION: Recommend to continue current medical management and symptomatic treatment. Otherwise, closely follow with Surgery and Urology,continue with a conservative line of management. The patient was started on lactulose. Will continue to monitor. Repeat labs. DVT prophylaxis, proton pump inhibitors. Use ketorolac. See orders for further details. Guarded prognosis. Further recommendations to follow. MMODL / IJN: [id number] / MARIE
[2017-10-06] MEDS: LACTULOSE 20 GM/30 ML CUP PO SCH ×2 (19:35→21:31)
[2017-10-06] MEDS ORDERED: MORPHINE ORAL SOLN 10 MG/5 ML CUP PO PRN (20:00)
[2017-10-06 21:29] LABS: Glucose,Whole Blood 161 mg/dL (75-99)
[2017-10-06] MEDS: INSULIN DETEMIR 100 UNIT/ML 10 ML VIAL SQ SCH (21:30)
[2017-10-06] MEDS: ATORVASTATIN 80 MG TAB PO SCH (21:30)
[2017-10-07] MEDS: KETOROLAC 30 MG/ML 1 ML VIAL IVP PRN ×4 (02:18→22:12)
[2017-10-07 06:41] LABS: Glucose,Whole Blood 135 mg/dL (75-99)
[2017-10-07 06:45] LABS: Basophils % (A) 1 %; Eosinophils # (A) 0.1 k/uL (0-0.7); Eosinophils % (A) 3 %; HGB 14.9 gm/dL (13.0-17.5); Lymphocytes # (A) 2.1 k/uL (1.0-4.8); Lymphocytes % (A) 46 %; MCH 28.8 pg (25.0-35.0); MCHC 33.2 g/dL (31.0-37.0); MCV 86.9 fL (80.0-100.0); Mean Platelet Volume 8.3; Monocytes # (A) 0.3 k/uL (0-1.0); Monocytes % (A) 7 %; Neutrophils # (A) 1.8 k/uL (1.3-7.7); Neutrophils % (A) 40 %; Platelet Count 119 k/uL (150-450); RBC 5.18 m/uL (4.30-5.90); RDW 13.2 % (11.5-15.5); WBC 4.5 k/uL (3.8-10.6)
[2017-10-07 07:12] LABS: Anion Gap 7 mmol/L; Calcium 8.7 mg/dL (8.4-10.2); Carbon Dioxide 21 mmol/L (22-30); Chloride 104 mmol/L (98-107); Glucose 133 mg/dL (74-99); Sodium 132 mmol/L (137-145)
[2017-10-07 07:19] LABS: Blood Urea Nitrogen 28 mg/dL (9-20); Potassium 4.6 mmol/L (3.5-5.1)
[2017-10-07] MEDS: INSULIN ASPART 100 UNIT/ML 1 ML 10 ML VIAL SQ SCH ×3 (07:53→17:35)
[2017-10-07] MEDS: HEPARIN SODIUM,PORCINE 5,000 UNIT/ML 1 ML VIAL SQ SCH ×2 (08:03→21:22)
[2017-10-07] MEDS: PANTOPRAZOLE 40 MG TABLET PO SCH (08:05)
[2017-10-07] MEDS: FARXIGA 10MG PO SCH (08:06)
[2017-10-07] MEDS: LACTULOSE 20 GM/30 ML CUP PO SCH ×4 (08:07→21:22)
--- NOTE | 2017-10-07 10:25 | P.PN ---
Subjective Progress Note Date: 10/07/17 Principal diagnosis: Colonic ileus Patient doing well today. He did pass flatus. Still no bowel movement. He is still receiving a variety of stool softeners and cathartics. Denies pain. No nausea or vomiting. Objective - Vital Signs Vital signs: Vital Signs Temp 97.5 F L 10/07/17 05:00 Pulse 92 10/07/17 08:00 Resp 16 10/07/17 08:00 BP 144/84 10/07/17 05:00 Pulse Ox 96 10/07/17 05:00 Intake & Output 10/06/17 10/07/17 10/07/17 18:59 06:59 18:59 Intake Total 500 650 Output Total 1400 1400 Balance -900 650 -1400 Weight 107.501 kg 107.501 kg Intake: Oral 500 650 Output: Urine 1400 1400 Other: Voiding Method Indwelling Catheter Indwelling Catheter Indwelling Catheter - Exam Abdomen: Soft, mild distention, nontender - Labs CBC & Chem 7: 10/07/17 05:58 10/07/17 05:58 Labs: Abnormal Lab Results - Last 24 Hours (Table) 10/06/17 10/06/17 10/06/17 Range/Units 11:58 17:15 21:28 Plt Count (150-450) k/uL Sodium (137-145) mmol/L Carbon Dioxide (22-30) mmol/L BUN (9-20) mg/dL Glucose (74-99) mg/dL POC Glucose (mg/dL) 128 H 154 H 161 H (75-99) mg/dL 10/07/17 10/07/17 10/07/17 Range/Units 05:58 05:58 06:40 Plt Count 119 L (150-450) k/uL Sodium 132 L (137-145) mmol/L Carbon Dioxide 21 L (22-30) mmol/L BUN 28 H (9-20) mg/dL Glucose 133 H (74-99) mg/dL POC Glucose (mg/dL) 135 H (75-99) mg/dL Microbiology - Last 24 Hours (Table) 10/05/17 17:44 Urine Culture - Final Urine,Voided 10/05/17 16:30 Blood Culture - Preliminary Blood No Growth after 24 hours Assessment and Plan Plan: Continue stool softeners and cathartics. Ambulate as tolerated. Outpatient colonoscopy advised.
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
[2017-10-07 11:19] LABS: Glucose,Whole Blood 250 mg/dL (75-99)
[2017-10-07] MEDS: SODIUM CHLORIDE 0.9% 1,000 ML IV SCH ×3 (13:50→23:28)
[2017-10-07 16:59] LABS: Glucose,Whole Blood 135 mg/dL (75-99)
[2017-10-07] MEDS: MOVANTIK 25MG PO SCH (17:32)
[2017-10-07 20:26] LABS: Glucose,Whole Blood 209 mg/dL (75-99)
[2017-10-07] MEDS: INSULIN DETEMIR 100 UNIT/ML 10 ML VIAL SQ SCH (21:22)
[2017-10-07] MEDS: ATORVASTATIN 80 MG TAB PO SCH (21:22)
--- NOTE | 2017-10-07 21:32 | PN ---
PROGRESS NOTE DATE OF SERVICE: 10/07/2017 PRESENTING COMPLAINT: Abdominal distention. INTERVAL HISTORY: This is a patient admitted with ileus and urinary retention. The patient has a Argueta catheter. Dr. Johnson will do an outpatient evaluation. The patient was given multiple laxatives, has passed flatus, but not any bowel movement. No nausea, vomiting. No abdominal pain. The patient has not had a bowel movement for close to 2 weeks. The patient also had a T12 fracture. REVIEW OF SYSTEMS: Done for constitutional, cardiovascular, GI, pulmonary; relevant findings as above. CURRENT MEDICATIONS: Reviewed. The patient has not been taking any pain medications, but has pretty much been in the bed. EXAMINATION: Temperature 98.6, pulse 98, respirations 18, blood pressure 139/86, pulse ox 92% on room air. GENERAL APPEARANCE: Lying in bed, comfortable, awake. EYES: Pupils equal. Conjunctivae normal. HEENT: External appearance of nose and ears normal. Oral cavity dry. NECK: JVD not raised. Mass not palpable. RESPIRATORY: Effort normal. LUNGS: Decreased breath sounds. CARDIOVASCULAR: First and second sounds normal. No edema. ABDOMEN: Distended, soft. Hyperactive bowel sounds. Liver, spleen not palpable. PSYCHIATRY: Alert and oriented x3. Mood and affect were normal. INVESTIGATIONS: White count 4.5, hemoglobin 14.9. Potassium 4.6, BUN 28, creatinine 1.0. Accu-Cheks are noted. ASSESSMENT: 1. Persistent ileus, has failed to improve/respond to multiple laxatives, probably a combination of patient being bedridden, T12 fracture and the patient having received outpatient narcotics. 2. Urinary bladder mass suspicious for malignancy on an outpatient bladder scope. 3. T12 fracture secondary to fall. 4. Diabetes mellitus type 2, chronically on insulin. 5. Hyperlipidemia. 6. Anxiety, depression not otherwise specified. 7. Obesity; BMI 32.1. PLAN: Encourage the patient to ambulate. Continue with the laxative to see how he does. The patient has no nausea, vomiting; hence, I am not sure if NG tube will help at this point. We may have to give the patient a rectal tube. Will get abdominal x-ray in the morning. Care was discussed at the length. Will see how he does with ambulation, if that helps with any bowel passage. MMODL / IJN: [id number] /
[2017-10-08] MEDS: KETOROLAC 30 MG/ML 1 ML VIAL IVP PRN ×4 (04:19→22:18)
[2017-10-08 06:59] LABS: Glucose,Whole Blood 208 mg/dL (75-99)
[2017-10-08] MEDS: INSULIN ASPART 100 UNIT/ML 1 ML 10 ML VIAL SQ SCH ×3 (09:02→18:32)
[2017-10-08 09:07] LABS: Basophils % (A) 1 %; Eosinophils # (A) 0.2 k/uL (0-0.7); Eosinophils % (A) 4 %; HCT 42.7 % (39.0-53.0); HGB 14.5 gm/dL (13.0-17.5); Lymphocytes # (A) 1.3 k/uL (1.0-4.8); Lymphocytes % (A) 34 %; MCH 29.1 pg (25.0-35.0); MCHC 34.1 g/dL (31.0-37.0); MCV 85.4 fL (80.0-100.0); Mean Platelet Volume 7.6; Monocytes # (A) 0.3 k/uL (0-1.0); Monocytes % (A) 7 %; Neutrophils # (A) 1.9 k/uL (1.3-7.7); Neutrophils % (A) 50 %; Platelet Count 131 k/uL (150-450); RDW 13.1 % (11.5-15.5); WBC 3.9 k/uL (3.8-10.6)
[2017-10-08 09:18] LABS: Anion Gap 6 mmol/L; Blood Urea Nitrogen 24 mg/dL (9-20); Calcium 8.7 mg/dL (8.4-10.2); Carbon Dioxide 22 mmol/L (22-30); Chloride 107 mmol/L (98-107); Glucose 228 mg/dL (74-99); Sodium 135 mmol/L (137-145)
[2017-10-08] MEDS: LACTULOSE 20 GM/30 ML CUP PO SCH ×4 (09:20→21:05)
[2017-10-08] MEDS: MOVANTIK 25 MG PO SCH (09:20)
[2017-10-08] MEDS: FARXIGA 10MG PO SCH (09:21)
[2017-10-08] MEDS: HEPARIN SODIUM,PORCINE 5,000 UNIT/ML 1 ML VIAL SQ SCH (09:21)
[2017-10-08] MEDS: PANTOPRAZOLE 40 MG TABLET PO SCH (09:21)
--- NOTE | 2017-10-08 10:02 | XR ---
EXAMINATION TYPE: XR abdomen 2V , 4 VIEWS DATE OF EXAM ORDERED: 10/08/2017 HISTORY: f/u ileus. COMPARISON: Previous study dated 04/12/2011. FINDINGS: The right side of the colon and part of the small bowel is dilated and air-filled. There i s moderate stool present. No free air is seen. There are phleboliths within the pelvis. Both hips are nonspherical. IMPRESSION: 1. DILATED LOOPS OF LARGE AND SMALL BOWEL MAY REFLECT ILEUS. 2. CONSTIPATION. 3. PLEASE CORRELATE CLINICALLY FOR FEMOROACETABULAR IMPINGEMENT SYNDROME.
[2017-10-08] MEDS: ACETAMINOPHEN TAB 325 MG TAB PO PRN ×3 (10:40→22:17)
[2017-10-08] MEDS: CYCLOBENZAPRINE 10 MG TAB PO PRN (10:40)
[2017-10-08] MEDS: BISACODYL 10 MG SUPP RECTAL SCH (10:40)
--- NOTE | 2017-10-08 10:42 | P.PN ---
Subjective Progress Note Date: 10/08/17 Principal diagnosis: Colonic ileus Patient's morning started have some increased back pain. Still passing flatus. Today he says he feels somewhat bloated. No bowel movement. Today's abdominal x-rays show air-filled proximal colon and some small bowel loops as well. No seen and abdominal pain. He is afebrile. Labs reviewed. Objective - Vital Signs Vital signs: Vital Signs Temp 97.8 F 10/08/17 05:00 Pulse 88 10/08/17 05:00 Resp 16 10/08/17 05:00 BP 184/91 10/08/17 05:00 Pulse Ox 92 L 10/08/17 05:00 Intake & Output 10/07/17 10/08/17 10/08/17 18:59 06:59 18:59 Intake Total 600 1780 Output Total 3000 1700 500 Balance -2400 80 -500 Weight 107.501 kg Intake: IV 600 Sodium Chloride 0.9% 1, 600 000 ml @ 75 mls/hr IV . [id number] [facility] Rx#:[id number] Oral 600 1180 Output: Urine 3000 1700 500 Uretheral (Argueta) 1700 Other: Voiding Method Indwelling Catheter Indwelling Catheter # Voids 1 - Exam Abdomen: Soft, mild distention, mild tympany, nontender - Labs CBC & Chem 7: 10/08/17 08:47 10/08/17 08:47 Labs: Abnormal Lab Results - Last 24 Hours (Table) 10/07/17 10/07/17 10/07/17 Range/Units 11:17 16:57 20:25 Plt Count (150-450) k/uL Sodium (137-145) mmol/L BUN (9-20) mg/dL Glucose (74-99) mg/dL POC Glucose (mg/dL) 250 H 135 H 209 H (75-99) mg/dL 10/08/17 10/08/17 10/08/17 Range/Units 06:56 08:47 08:47 Plt Count 131 L (150-450) k/uL Sodium 135 L (137-145) mmol/L BUN 24 H (9-20) mg/dL Glucose 228 H (74-99) mg/dL POC Glucose (mg/dL) 208 H (75-99) mg/dL Microbiology - Last 24 Hours (Table) 10/05/17 16:30 Blood Culture - Preliminary Blood No Growth after 48 hours Assessment and Plan (1) Ileus Narrative/Plan: We'll add Dulcolax daily. Ambulate. Monitor for possible need for decompressive colonoscopy or neostigmine. Current Visit: Yes Status: Acute Code(s): K56.7 - ILEUS, UNSPECIFIED SNOMED Code(s): 943701289
[2017-10-08 11:04] LABS: Glucose,Whole Blood 166 mg/dL (75-99)
[2017-10-08] MEDS ORDERED: LORazepam 2 MG/ML INJ IV STA (12:08)
[2017-10-08] MEDS: SODIUM CHLORIDE 0.9% 1,000 ML IV SCH (14:31)
[2017-10-08 16:57] LABS: Glucose,Whole Blood 172 mg/dL (75-99)
--- NOTE | 2017-10-08 17:30 | PN ---
PROGRESS NOTE DATE OF SERVICE: 10/08/17. PRESENTING COMPLAINT: Abdominal distention. INTERVAL HISTORY: This is a patient who presented with ileus and urinary retention. Has a Argueta catheter for some blood in the same. Dr. Johnson to follow this as an outpatient. The patient was given laxatives. The patient has been passing flatus. Later this afternoon patient had probably about 3 golf ball size bowel movements. Abdominal x-ray showing persistent ileus. The patient recently has T12 fracture and does wear a brace to get about. The patient has been tolerating his diet. REVIEW OF SYSTEMS: Done for constitutional, cardiovascular, GI, pulmonary; relevant findings as above. CURRENT MEDICATIONS: Reviewed that include now Dulcolax. PHYSICAL EXAMINATION: Temperature 98.2, pulse 102, respiratory 20, blood pressure 116/77, pulse 96% on room air. GENERAL APPEARANCE: Lying in bed, comfortable, eating. EYES: Pupils equal. Conjunctivae normal. HEENT: External appearance of nose and ears normal. Oral cavity normal. NECK: JVD not raised. Mass not palpable. RESPIRATORY: Effort, lungs decreased breath sounds. CARDIOVASCULAR: first and second sounds, no edema. ABDOMEN: Distended, soft. Hyperactive bowel sounds. Liver and spleen not palpable. PSYCHIATRY: Alert and oriented x3. Mood and affect normal. INVESTIGATIONS: Abdominal x-ray film interpreted by me shows multiple dilated small and large bowel. Some stool is present. Potassium 5, BUN 24, creatinine 0.90. Accu-Cheks are noted. ASSESSMENT: 1. Persistent ileus, failed treatment with laxatives. The patient had 2 to 3 golf ball sized bowel movement today. 2. Urinary bladder mass suspicious for malignancy. Outpatient bladder scope. 3. T12 fracture secondary to fall, wears a brace. 4. Diabetes mellitus type 2, chronically on insulin. 5. Hyperlipidemia. 6. Anxiety and depression, not otherwise specified. 7. Obesity; BMI 32.1. PLAN: Discussed the abdominal x-ray with Dr. Marti. He will discuss with Dr. Lafleur tomorrow. I did inform the patient that either we may give the patient neostigmine or do a therapeutic colonoscopy if there is no further bowel movements. Encouraged the patient to ambulate. MMODL / IJN: [id number] /
[2017-10-08 20:08] LABS: Glucose,Whole Blood 216 mg/dL (75-99)
[2017-10-08] MEDS: INSULIN DETEMIR 100 UNIT/ML 10 ML VIAL SQ SCH (21:05)
[2017-10-08] MEDS: ATORVASTATIN 80 MG TAB PO SCH (21:05)
[2017-10-09] MEDS: SODIUM CHLORIDE 0.9% 1,000 ML IV SCH ×3 (04:11→18:07)
[2017-10-09] MEDS: KETOROLAC 30 MG/ML 1 ML VIAL IVP PRN ×2 (04:29→19:42)
[2017-10-09] MEDS: ACETAMINOPHEN TAB 325 MG TAB PO PRN ×2 (04:29→19:41)
[2017-10-09 07:11] LABS: Glucose,Whole Blood 164 mg/dL (75-99)
[2017-10-09 07:30] LABS: Basophils % (A) 1 %; Eosinophils # (A) 0.1 k/uL (0-0.7); Eosinophils % (A) 3 %; HCT 42.5 % (39.0-53.0); HGB 14.2 gm/dL (13.0-17.5); Lymphocytes # (A) 1.6 k/uL (1.0-4.8); Lymphocytes % (A) 37 %; MCHC 33.5 g/dL (31.0-37.0); MCV 86.7 fL (80.0-100.0); Mean Platelet Volume 7.7; Monocytes # (A) 0.3 k/uL (0-1.0); Monocytes % (A) 7 %; Neutrophils # (A) 2.1 k/uL (1.3-7.7); Neutrophils % (A) 48 %; Platelet Count 122 k/uL (150-450); RBC 4.89 m/uL (4.30-5.90); RDW 13.3 % (11.5-15.5); WBC 4.3 k/uL (3.8-10.6)
[2017-10-09 07:50] LABS: Anion Gap 9 mmol/L; Blood Urea Nitrogen 16 mg/dL (9-20); Calcium 8.6 mg/dL (8.4-10.2); Carbon Dioxide 23 mmol/L (22-30); Chloride 106 mmol/L (98-107); Glucose 170 mg/dL (74-99); Potassium 4.4 mmol/L (3.5-5.1); Sodium 138 mmol/L (137-145)
[2017-10-09] MEDS: INSULIN ASPART 100 UNIT/ML 1 ML 10 ML VIAL SQ SCH ×3 (08:47→18:03)
[2017-10-09] MEDS: MOVANTIK 25 MG PO SCH (08:49)
[2017-10-09] MEDS: LACTULOSE 20 GM/30 ML CUP PO SCH ×7 (08:50→21:21)
[2017-10-09] MEDS: PANTOPRAZOLE 40 MG TABLET PO SCH (08:51)
[2017-10-09] MEDS: FARXIGA 10MG PO SCH (08:52)
[2017-10-09] MEDS: BISACODYL 10 MG SUPP RECTAL SCH (08:53)
[2017-10-09] MEDS: MORPHINE SULFATE 4 MG/ML SYRINGE IVP PRN ×2 (09:30→13:15)
[2017-10-09 11:21] LABS: Glucose,Whole Blood 153 mg/dL (75-99)
[2017-10-09] MEDS ORDERED: LORazepam 2 MG/ML INJ IV STA (13:13)
--- NOTE | 2017-10-09 14:30 | P.PN ---
Subjective Progress Note Date: 10/09/17 62-year-old male sitting up on the edge of the bed scheduled today for an MRI of the back states has not had a bowel movement not passing gas states he' s had 3 small hard stools over the last several days. Indwelling Argueta catheter in place gross hematuria noted hemoglobin 14.2 this morning being followed by Surgical service for an ileus Objective - Vital Signs Vital signs: Vital Signs Temp 97.9 F 10/09/17 05:00 Pulse 86 10/09/17 08:00 Resp 16 10/09/17 08:00 BP 177/103 10/09/17 05:00 Pulse Ox 94 L 10/09/17 05:00 Intake & Output 10/08/17 10/09/17 10/09/17 18:59 06:59 18:59 Intake Total 900 590 Output Total 2700 1300 1600 Balance -1800 -710 -1600 Weight 107.501 kg Intake: Intake, IV Titration 900 Amount Sodium Chloride 0.9% 1, 900 000 ml @ 75 mls/hr IV . [id number] [facility] Rx#:[id number] Oral 590 Output: Urine 2700 1300 1600 Uretheral (Argueta) 1600 Other: Voiding Method Indwelling Catheter Indwelling Catheter Indwelling Catheter # Voids 1 - Exam Physical exam 62-year-old male sitting up on the edge the bed. Patient states continues to have back discomfort not passing gas with abdominal discomfort Lungs adequate air movement bilaterally Heart S1-S2 audible regular abdomen mildly distended nontender indwelling Argueta catheter in place 3 small hard bowel movements per patient report over the last 48 hours states no nausea no vomiting Extremities no edema - Labs CBC & Chem 7: 10/09/17 07:16 10/09/17 07:16 Labs: Abnormal Lab Results - Last 24 Hours (Table) 10/08/17 10/08/17 10/09/17 Range/Units 16:54 20:06 07:01 Plt Count (150-450) k/uL Glucose (74-99) mg/dL POC Glucose (mg/dL) 172 H 216 H 164 H (75-99) mg/dL 10/09/17 10/09/17 10/09/17 Range/Units 07:16 07:16 11:18 Plt Count 122 L (150-450) k/uL Glucose 170 H (74-99) mg/dL POC Glucose (mg/dL) 153 H (75-99) mg/dL Microbiology - Last 24 Hours (Table) 10/05/17 16:30 Blood Culture - Preliminary Blood No Growth after 72 hours Assessment and Plan Assessment: Impression Present on admission abdominal pain suspect due to an ileus Present on admission urinary retention History of bladder cancer Chronic constipation Plan Continue with the bowel regime as ordered Will give an additional lactulose 30 g every 2 hours for 3 doses monitor the response Will follow with you The above impression and plan of care have been discussed and directed by signing physician. Loretta Lee nurse practitioner acting as scribe for signing physician.
--- NOTE | 2017-10-09 15:32 | MR ---
EXAMINATION TYPE: MR tspine/lspine wo/w con DATE OF EXAM: 10/09/2017 COMPARISON: CT thoracic and lumbar spine September 24, 2017 HISTORY: T12 fracture, back pain, hx bladder ca TECHNIQUE: Multiplanar, multisequence images of the thoracic and lumbar spine are performed without and with IV contrast, utilizing 10 mL intravenous Gadavist FINDINGS: L-SPINE: Sagittal images of the lumbar spine show vertebral body heights to appear satisfactory. There is mini mal or slight grade 1 anterolisthesis of L5 on S1. Bilateral pars defects L5 level are seen better on CT. There is disc desiccation L4-L5 level otherwise the intervertebral discs demonstrate normal heig hts and hydration. Small posterior disc herniation L4-L5 level as seen on sagittal images. The conus medullaris is normal in position and signal attending T12-L1 disc space level. The bone marrow signa l intensity is within normal limits. No suspicious postcontrast enhancement is seen. Axial images show the T12-L1, L1-L2, and L2-L3 levels all to appear within normal limits. Axial images at L3-L4 level show mild facet degenerative changes bilaterally. Spinal canal is preserv ed. Bilateral neural foramina are patent. Axial images at L4-L5 level shows central disc protrusion mildly effacing anterior thecal sac and axi al image 10. Mild facet degenerative changes are present bilaterally. Bilateral neural foramina are p atent. Axial images at L5-S1 level show mild facet arthropathy bilaterally. Spinal canal is preserved. Bilat eral neural foramina are patent. No suspicious retroperitoneal findings are seen. IMPRESSION: Some multilevel degenerative changes mid to lower lumbar spine as detailed above. Bilater al pars defects L5-S1 level with minimal spondylolisthesis. T-SPINE: FINDINGS: Coronal images redemonstrate levoconvex scoliosis in the upper thoracic spine. Spinal cord shows normal caliber and signal as it courses the thoracic spine. There is redemonstration of mild height loss due to acute/subacute fracture involving T12 vertebra. Vertebral body heights and alignme nt otherwise are satisfactory. Disc space heights are maintained. No large posterior disc herniations are seen on sagittal images. There is some effacement of the anterior thecal sac at site of compress ion fracture due to slight posterior retropulsion along superior margin this is best seen on lumbar s pine series 201 image 8. There is some diminished T1 and T2 signal throughout the T12 vertebra with s ome heterogeneous enhancement sparing the fracture involving anterior and superior endplate seen best postcontrast sagittal image 9 series 1701. Review of the axial images shows shows left paracentral effacement due to slight posterior retropulsi on of the superior T12 vertebra. Remainder levels are satisfactory in the thoracic spine. IMPRESSION: No convincing evidence of osseous metastatic disease. Redemonstration of acute/subacute fracture involving T12 vertebra with slight posterior retropulsion of the superior aspect of vertebra into spinal canal estimated 3 mm effacing anterolateral thecal sac to left of midline.
[2017-10-09 17:01] LABS: Glucose,Whole Blood 133 mg/dL (75-99)
--- NOTE | 2017-10-09 17:32 | P.PN ---
Progress Note - Text Progress Note Date: 10/09/17 Mr. Downs's constipation has persisted, and he will likely undergo colonoscopy. He has developed hematuria per the Argueta catheter. This may be due to bladder decompression, though it is of some concern that the computed tomography scan suggested the possibility of a bladder tumor. He is to be discharged home with the Argueta catheter, and arrangements will be made for him to undergo office cystoscopy upon discharge.
--- NOTE | 2017-10-09 18:01 | PN ---
PROGRESS NOTE DATE OF SERVICE: 10/09/2017 PRESENTING COMPLAINT: Abdominal distention. INTERVAL HISTORY: The patient presents with ileus and urinary retention. The patient had a couple of gall sized bowel movements yesterday and none further than that. The patient has been tolerating a diet. Abdomen is still distended. The patient is still having hematuria. Subcu heparin was discontinued yesterday. The patient has got a brace for a recent T12 fracture. The patient had passed some flatus. REVIEW OF SYSTEMS: Done for constitutional, cardiovascular, GI, pulmonary; relevant findings as above. The patient continues to have hematuria. CURRENT MEDICATIONS: Reviewed and include Dulcolax and lactulose. PHYSICAL EXAMINATION: VITAL SIGNS: Temperature 97.6, pulse 94, respiration 16, blood pressure 164/87, pulse ox 96% on room air. GENERAL APPEARANCE: Sitting up in bed, awake. EYES: Pupils equal. Conjunctivae normal. HEENT: External appearance of nose and ears normal. Oral cavity normal. NECK: JVD not raised. Mass not palpable. RESPIRATORY: Effort normal. LUNGS: Decreased breath sounds. CARDIOVASCULAR: 1st and 2nd sounds normal. No edema. ABDOMEN: Distended, soft. Hyperactive bowel sounds. Liver and spleen not palpable. PSYCHIATRY: Alert and oriented x3. Mood and affect normal. INVESTIGATIONS: White count 4.3, hemoglobin 14.2, potassium 4.4. Thoracolumbar spine MRI shows acute subacute fracture T12 vertebra. ASSESSMENT: 1. Persistent ileus, failed treatment with laxatives. Abdomen still distended. 2. Urinary bladder masses, patient with malignancy with persistent hematuria which is actually increased. Will probably need inpatient intervention as patient continues to bleed. 3. Subacute T12 fracture for which patient is wearing a brace. 4. Diabetes mellitus type 2, chronically on insulin. 5. Hyperlipidemia. 6. Anxiety and depression, not otherwise specified. 7. Obesity; BMI 32.1. 8. Severe hematuria from bladder mass. Hemoglobin has dropped from 16.6 down to 14.2. PLAN: Discussed with Dr. Lafleur. He wishes to continue with laxative today. Otherwise, we will do further intervention tomorrow. Urology is being reconsulted for possible intervention in view of persistent severe hematuria. We will keep a close eye on patient's hemoglobin. Care was discussed with the patient. MMODL / IJN: [id number] /
[2017-10-09 20:08] LABS: Glucose,Whole Blood 173 mg/dL (75-99)
[2017-10-09] MEDS: INSULIN DETEMIR 100 UNIT/ML 10 ML VIAL SQ SCH (20:36)
[2017-10-09] MEDS: ATORVASTATIN 80 MG TAB PO SCH (20:36)
[2017-10-10] MEDS: KETOROLAC 30 MG/ML 1 ML VIAL IVP PRN ×3 (01:43→16:07)
[2017-10-10] MEDS: ACETAMINOPHEN TAB 325 MG TAB PO PRN ×2 (01:44→07:28)
[2017-10-10 07:07] LABS: Glucose,Whole Blood 152 mg/dL (75-99)
[2017-10-10 07:08] LABS: Basophils % (A) 1 %; Eosinophils # (A) 0.2 k/uL (0-0.7); Eosinophils % (A) 2 %; HCT 41.5 % (39.0-53.0); HGB 13.8 gm/dL (13.0-17.5); Lymphocytes # (A) 1.6 k/uL (1.0-4.8); Lymphocytes % (A) 21 %; MCHC 33.3 g/dL (31.0-37.0); Mean Platelet Volume 7.4; Monocytes # (A) 0.5 k/uL (0-1.0); Monocytes % (A) 6 %; Neutrophils # (A) 5.3 k/uL (1.3-7.7); Neutrophils % (A) 68 %; Platelet Count 144 k/uL (150-450); RBC 4.78 m/uL (4.30-5.90); RDW 13.2 % (11.5-15.5); WBC 7.8 k/uL (3.8-10.6)
[2017-10-10 07:18] LABS: Anion Gap 4 mmol/L; Blood Urea Nitrogen 13 mg/dL (9-20); Calcium 8.5 mg/dL (8.4-10.2); Carbon Dioxide 25 mmol/L (22-30); Chloride 107 mmol/L (98-107); Glucose 151 mg/dL (74-99); Potassium 4.3 mmol/L (3.5-5.1); Sodium 136 mmol/L (137-145)
[2017-10-10] MEDS: LACTULOSE 20 GM/30 ML CUP PO SCH ×4 (07:26→20:24)
[2017-10-10] MEDS: PANTOPRAZOLE 40 MG TABLET PO SCH (07:27)
[2017-10-10] MEDS: FARXIGA 10MG PO SCH (07:34)
[2017-10-10] MEDS: MOVANTIK 25 MG PO SCH (07:34)
[2017-10-10] MEDS: INSULIN ASPART 100 UNIT/ML 1 ML 10 ML VIAL SQ SCH ×3 (08:08→17:30)
--- NOTE | 2017-10-10 09:34 | P.PN ---
Progress Note - Text Progress Note Date: 10/10/17 The patient had a small bowel movement overnight. He reports lower back and lower abdominal pain. The Argueta catheter continues to drain bloody urine. The hemoglobin level today was 13.8. Rather than perform cystoscopy in the office as an outpatient, he may benefit from cystoscopy with possible bladder tumor resection under anesthesia on October 12. This of course is somewhat dependent on plans for colonoscopy. CLARIFICATION: Mr. Downs has no prior history of bladder cancer. He has never been diagnosed with bladder cancer. The computed tomography scan has shown a possible bladder lesion. The false positive rate regarding computed tomography scan findings of the bladder is high. Cystoscopy will be performed to confirm whether or not he indeed has a bladder tumor, but in the meantime it should not be stated as fact that he has bladder cancer.
--- NOTE | 2017-10-10 10:14 | P.PN ---
Subjective Progress Note Date: 10/10/17 62-year-old male sitting up on the edge of the bed. Patient states has had a small hard formed stool last evening nonsense. Indwelling Argueta catheter gross hematuria persist. Hemoglobin 13.8. Electrolytes reviewed within normal limits continues on a bowel regime has received lactulose 30 g every 2 hours for 3 doses yesterday in addition to lactulose 20 g 4 times a day abdomen slightly distended few hypoactive bowel tones noted continues to report having bilateral lower back pain lower abdominal pain Objective - Vital Signs Vital signs: Vital Signs Temp 98.3 F 10/10/17 06:05 Pulse 90 10/10/17 06:05 Resp 16 10/10/17 06:05 BP 169/94 10/10/17 06:05 Pulse Ox 95 10/10/17 06:05 Intake & Output 10/09/17 10/10/17 10/10/17 18:59 06:59 18:59 Intake Total 600 1180 Output Total 3300 700 400 Balance -2700 480 -400 Weight 107.501 kg Intake: IV 600 Sodium Chloride 0.9% 1, 600 000 ml @ 75 mls/hr IV . [id number] [facility] Rx#:[id number] Oral 1180 Output: Urine 3300 700 400 Uretheral (Argueta) 2000 Other: Voiding Method Indwelling Catheter Indwelling Catheter # Voids 1 - Exam Physical exam 62-year-old male sitting up on the edge of the bed lungs adequate air movement bilaterally on room air no cough no shortness of breath Heart S1-S2 audible denies chest pain Abdomen slightly distended few hypoactive bowel tones indwelling Argueta catheter in place bloody urine noted no bowel movement except small hard formed stool last evening nonsense states no appetite extremities no edema - Labs CBC & Chem 7: 10/10/17 06:44 10/10/17 06:44 Labs: Abnormal Lab Results - Last 24 Hours (Table) 10/09/17 10/09/17 10/09/17 Range/Units 11:18 16:59 20:07 Plt Count (150-450) k/uL Sodium (137-145) mmol/L Glucose (74-99) mg/dL POC Glucose (mg/dL) 153 H 133 H 173 H (75-99) mg/dL 10/10/17 10/10/17 10/10/17 Range/Units 06:44 06:44 07:04 Plt Count 144 L (150-450) k/uL Sodium 136 L (137-145) mmol/L Glucose 151 H (74-99) mg/dL POC Glucose (mg/dL) 152 H (75-99) mg/dL Microbiology - Last 24 Hours (Table) 10/05/17 16:30 Blood Culture - Preliminary Blood No Growth after 96 hours Assessment and Plan Assessment: Impression Present on admission abdominal pain suspect due to an ileus Present on admission urinary retention Chronic constipation Plan Continue recommendations by urology Continue with the bowel regime as ordered Give milk of molasses enema now Will follow with you The above impression and plan of care have been discussed and directed by signing physician. Loretta Lee nurse practitioner acting as scribe for signing physician.
[2017-10-10 11:09] LABS: Glucose,Whole Blood 192 mg/dL (75-99)
[2017-10-10] MEDS ORDERED: PEG 3350-NA SULF,BICARB,CL/KCL 4,000 ML BOTTLE PO ONE (12:01)
[2017-10-10] MEDS: BISACODYL 10 MG SUPP RECTAL SCH (14:16)
[2017-10-10 16:34] LABS: Glucose,Whole Blood 228 mg/dL (75-99)
[2017-10-10 20:11] LABS: Glucose,Whole Blood 154 mg/dL (75-99)
[2017-10-10] MEDS: INSULIN DETEMIR 100 UNIT/ML 10 ML VIAL SQ SCH (20:20)
[2017-10-10] MEDS: ATORVASTATIN 80 MG TAB PO SCH (20:21)
[2017-10-10] MEDS: IBUPROFEN 400 MG TAB PO PRN (22:37)
--- NOTE | 2017-10-11 04:20 | PN ---
PROGRESS NOTE DATE OF SERVICE: 10/10/2017 PRESENTING COMPLAINT: Severe ileus. INTERVAL HISTORY: The patient presents severe ileus and urinary retention. The patient had a bowel movement earlier today, has been ordered GoLYTELY by Dr. Lafleur. Abdominal distention is still present. Patient has been tolerating some diet. The patient's hematuria still present. Dr. Johnson is planning to do a cystoscopy. REVIEW OF SYSTEMS: Review of systems done for constitutional, cardiovascular, GI, pulmonary; relevant findings as above. Hematuria persists. CURRENT MEDICATIONS: Current medications are reviewed including laxatives and GoLYTELY. PHYSICAL EXAMINATION: On examination, temperature 98.5, pulse 100, respirations 16, blood pressure 154/90, pulse ox 93% on room air. GENERAL APPEARANCE: Sitting at the edge of bed, awake. EYES: Pupils equal. Conjunctivae normal. HENT: External appearance of nose and ears normal. Oral cavity normal. NECK: JVD not raised. Mass not palpable. RESPIRATORY: Effort normal. LUNGS: Decreased breath sounds. CARDIOVASCULAR: First and second sounds normal. No edema. ABDOMEN: Distended, soft. Hyperactive bowel sounds. Liver and spleen not palpable. PSYCHIATRY: Alert and oriented x3. Mood and affect normal. Argueta catheter showing hematuria. INVESTIGATIONS: Hemoglobin 13.8. Accu-Cheks are noted. ASSESSMENT: 1. Persistent ileus with some response to laxative. Patient did have a bowel movement earlier today, now currently on GoLYTELY. 2. Urinary bladder mass with persistent hematuria pending cystoscopy by Dr. Johnson. 3. Acute T12 fracture for which patient is wearing a brace. 4. Diabetes mellitus type 2, chronically on insulin. 5. Hyperlipidemia. 6. Anxiety and depression, not otherwise specified. 7. Obesity, body mass index 32.1. PLAN: We will see how patient does with GoLYTELY, did have a of bowel movement earlier today. Because of hematuria still persisting, looking for a cystoscopy to be done. At the present time, it is not known whether the patient actually has a malignancy or not in the bladder. Will follow. MMODL / IJN: [id number] /
[2017-10-11] MEDS: IBUPROFEN 400 MG TAB PO PRN (04:57)
[2017-10-11] MEDS: SODIUM CHLORIDE 0.9% 1,000 ML IV SCH ×4 (05:01→19:24)
[2017-10-11 07:21] LABS: Glucose,Whole Blood 150 mg/dL (75-99)
[2017-10-11 08:13] LABS: HGB 12.6 gm/dL (13.0-17.5); MCH 29.4 pg (25.0-35.0); MCHC 34.1 g/dL (31.0-37.0); MCV 86.3 fL (80.0-100.0); Mean Platelet Volume 7.6; Platelet Count 132 k/uL (150-450); RBC 4.29 m/uL (4.30-5.90); RDW 13.6 % (11.5-15.5)
[2017-10-11 11:37] LABS: Glucose,Whole Blood 194 mg/dL (75-99)
[2017-10-11] MEDS: BISACODYL 10 MG SUPP RECTAL SCH (12:49)
[2017-10-11] MEDS: INSULIN ASPART 100 UNIT/ML 1 ML 10 ML VIAL SQ SCH ×3 (12:49→17:03)
[2017-10-11] MEDS: PANTOPRAZOLE 40 MG TABLET PO SCH (12:50)
[2017-10-11] MEDS: FARXIGA 10MG PO SCH (12:50)
[2017-10-11] MEDS: LACTULOSE 20 GM/30 ML CUP PO SCH ×5 (12:50→21:41)
[2017-10-11] MEDS: MOVANTIK 25 MG PO SCH (12:50)
--- NOTE | 2017-10-11 16:22 | P.PN ---
Progress Note - Text Progress Note Date: 10/11/17 The patient had only a small bowel movement following GoLYTELY. His discomfort is essentially unchanged. His Argueta catheter became plugged by a clot last night, requiring irrigation. 1700 mL of urine drained from the bladder. Hematuria is still present. He is scheduled to undergo cystoscopy, evacuation of clot, and possible transurethral resection of bladder tumor on 10/12/2017. I reviewed the procedure in detail with the patient. Potential risks include anesthesia, persistent bleeding, infection, and bladder perforation.
[2017-10-11 16:57] LABS: Glucose,Whole Blood 121 mg/dL (75-99)
[2017-10-11] MEDS ORDERED: MAGNESIUM CITRATE 296 ML BOTTLE PO ONE (17:09)
[2017-10-11] MEDS: KETOROLAC 30 MG/ML 1 ML VIAL IVP PRN (17:59)
--- NOTE | 2017-10-11 17:59 | PN ---
PROGRESS NOTE DATE OF SERVICE: 10/11/2017 PRESENTING COMPLAINT: Ileus and hematuria. INTERVAL HISTORY: This patient presented with severe ileus, for which patient has had multiple laxatives, was given GoLYTELY yesterday, had some bowel movement but not a whole lot. Patient has been tolerating some diet. The patient has been having persistent hematuria; pending cystoscopy tomorrow. Does feel tired. Does wear a back brace. REVIEW OF SYSTEMS: Done for constitutional, cardiovascular, GI, pulmonary, genitourinary; relevant findings as above. Hematuria is persisting. CURRENT MEDICATIONS: Reviewed. They include IV fluids. PHYSICAL EXAMINATION: Temperature 98.1, pulse 90, respiration 16, blood pressure 149/82, pulse ox 94% on room air. GENERAL APPEARANCE: Sitting on bed, awake. EYES: Pupils equal. Conjunctivae normal. HEENT: External appearance of nose and ears normal. Oral cavity normal. NECK: JVD not raised. Mass not palpable. RESPIRATORY: Effort normal. LUNGS: Decreased breath sounds. CARDIOVASCULAR: First and second sounds normal. No edema. ABDOMEN: Distended, soft. Liver and spleen not palpable. PSYCHIATRY: Alert and oriented x3. Mood and affect normal. Argueta catheter is still showing significant hematuria. INVESTIGATIONS: White count 6, hemoglobin 12.6. ASSESSMENT: 1. Severe ileus with some response to laxatives. The patient has had multiple laxatives, being followed by Dr. Lafleur. 2. Urinary bladder mass with persistent hematuria, pending cystoscopy by Dr. Johnson due for tomorrow. 3. T12 fracture, for which patient wears a brace. 4. Diabetes mellitus, type 2, chronically on insulin. 5. Hyperlipidemia. 6. Anxiety and depression not otherwise specified. 7. Obesity; body mass index 32.1. 8. Acute blood loss anemia. Patient dropped hemoglobin from 16.2 to 12.6. PLAN: Continue current medication and treatment plan. Await cystoscopy tomorrow and follow with Dr. Lafleur. MMODL / IJN: [id number] /
--- NOTE | 2017-10-11 18:55 | P.PN ---
Progress Note - Text Progress Note Date: 10/11/17 The patient had a bowel prep yesterday. He states he had 3 small bowel movements. He is also had some flatus. He is slightly less distended. On exam his vital signs are stable. His abdomen is soft. There is some distention. Patient's is concerned that he feels he should've have more stool output after the bowel prep. Colonic ileus. Patiently given a bottle of Citro mag. We'll also start him on Reglan.
[2017-10-11] MEDS ORDERED: SODIUM CHLORIDE 0.9% IVPB ONE (19:30)
[2017-10-11] MEDS ORDERED: NEOSTIGMINE IVPB ONE (19:30)
[2017-10-11] MEDS: METOCLOPRAMIDE 5 MG/ML 2 ML VIAL IVP SCH (19:43)
[2017-10-11 20:23] LABS: Glucose,Whole Blood 245 mg/dL (75-99)
[2017-10-11] MEDS: INSULIN DETEMIR 100 UNIT/ML 10 ML VIAL SQ SCH (21:41)
[2017-10-11] MEDS: ATORVASTATIN 80 MG TAB PO SCH (21:41)
[2017-10-12] MEDS: METOCLOPRAMIDE 5 MG/ML 2 ML VIAL IVP SCH ×5 (00:36→23:38)
[2017-10-12] MEDS: KETOROLAC 30 MG/ML 1 ML VIAL IVP PRN ×3 (03:15→23:38)
[2017-10-12] MEDS: CYCLOBENZAPRINE 10 MG TAB PO PRN (06:59)
[2017-10-12 07:12] LABS: Glucose,Whole Blood 210 mg/dL (75-99)
[2017-10-12 07:12] LABS: Basophils % (A) 1 %; Eosinophils # (A) 0.2 k/uL (0-0.7); Eosinophils % (A) 3 %; HCT 35.9 % (39.0-53.0); Lymphocytes # (A) 1.7 k/uL (1.0-4.8); Lymphocytes % (A) 32 %; MCH 29.1 pg (25.0-35.0); MCHC 33.4 g/dL (31.0-37.0); MCV 87.1 fL (80.0-100.0); Mean Platelet Volume 7.3; Monocytes # (A) 0.4 k/uL (0-1.0); Monocytes % (A) 7 %; Neutrophils # (A) 2.9 k/uL (1.3-7.7); Neutrophils % (A) 55 %; Platelet Count 141 k/uL (150-450); RBC 4.12 m/uL (4.30-5.90); RDW 13.3 % (11.5-15.5); WBC 5.3 k/uL (3.8-10.6)
[2017-10-12] MEDS: PANTOPRAZOLE 40 MG TABLET PO SCH (08:18)
[2017-10-12] MEDS: INSULIN ASPART 100 UNIT/ML 1 ML 10 ML VIAL SQ SCH ×3 (08:19→18:02)
[2017-10-12] MEDS: MOVANTIK 25 MG PO SCH ×2 (08:19→08:21)
[2017-10-12] MEDS: FARXIGA 10MG PO SCH (08:21)
[2017-10-12] MEDS: BISACODYL 10 MG SUPP RECTAL SCH (08:24)
[2017-10-12] MEDS: LACTULOSE 20 GM/30 ML CUP PO SCH ×4 (08:24→21:04)
--- NOTE | 2017-10-12 10:08 | XR ---
EXAMINATION TYPE: XR abdomen 2V DATE OF EXAM: 10/12/2017 CLINICAL DATA: 62-year-old male with ileus, [facility] COMPARISON: 10/08/2017 FINDINGS: No evidence for free intraperitoneal air. Marked diffuse gaseous distention of the colon. Some scattered air-fluid levels are present on the ri ght. Distal transverse colon measures up to 10.9 cm in caliber versus 8.3 cm, previously. No dilated small bowel loops are seen. Paucity of rectal gas. IMPRESSION: 1. Overall worsening diffuse gaseous distention of the colon now measuring up to 10.9 cm versus 8.3 c m, previously. Given the paucity of rectal gas, consider distal colonic obstruction. Clinically cor relate to exclude the possibility of sigmoid volvulus. 2. No free air seen.
[2017-10-12] MEDS: SODIUM CHLORIDE 0.9% 1,000 ML IV SCH ×2 (11:46→18:28)
[2017-10-12 12:04] LABS: Glucose,Whole Blood 137 mg/dL (75-99)
[2017-10-12 13:06] LABS: Glucose,Whole Blood 133 mg/dL (75-99)
--- NOTE | 2017-10-12 14:01 | P.PN ---
Subjective Progress Note Date: 10/12/17 62-year-old male sitting up on the edge of the bed. Patient is scheduled today by urology to undergo procedure cystoscopy evacuation of a, possible transurethral resection of the bladder tumor today for workup of hematuria patient states he has had 2-3 small bowel movements yesterday evening passing some gas. Abdomen less distended this morning. Indwelling Argueta catheter hematuria persist Objective - Vital Signs Vital signs: Vital Signs Temp 98.2 F 10/12/17 05:00 Pulse 93 10/12/17 05:00 Resp 16 10/12/17 05:00 BP 161/87 10/12/17 05:00 Pulse Ox 96 10/12/17 05:00 Intake & Output 10/11/17 10/12/17 10/12/17 18:59 06:59 18:59 Intake Total 525 50 Output Total 1800 820 Balance -1275 -770 Weight 107.501 kg Intake: Intake, IV Titration 525 50 Amount Neostigmine 0.5 mg In 50 Sodium Chloride 0.9% 50 ml @ 606 mls/hr IVPB ONCE ONE Rx#:[id number] Sodium Chloride 0.9% 1, 525 000 ml @ 75 mls/hr IV . [id number] [facility] Rx#:[id number] Output: Urine 1800 820 Other: Voiding Method Indwelling Catheter Indwelling Catheter Indwelling Catheter - Exam Physical exam 62-year-old male sitting up on the edge of the bed reports he continues to have abdominal discomfort no stool this morning lungs adequate air movement no shortness of breath Heart S1-S2 audible denies chest pain Abdomen slightly distended few hypoactive bowel tones indwelling Argueta catheter in place bloody urine noted states had 2-3 small hard stools last evening extremities no edema - Labs CBC & Chem 7: 10/12/17 06:41 10/10/17 06:44 Labs: Abnormal Lab Results - Last 24 Hours (Table) 10/11/17 10/11/17 10/12/17 Range/Units 16:57 20:22 06:41 RBC 4.12 L (4.30-5.90) m/uL Hgb 12.0 L (13.0-17.5) gm/dL Hct 35.9 L (39.0-53.0) % Plt Count 141 L (150-450) k/uL POC Glucose (mg/dL) 121 H 245 H (75-99) mg/dL 10/12/17 10/12/17 10/12/17 Range/Units 07:10 12:02 13:05 RBC (4.30-5.90) m/uL Hgb (13.0-17.5) gm/dL Hct (39.0-53.0) % Plt Count (150-450) k/uL POC Glucose (mg/dL) 210 H 137 H 133 H (75-99) mg/dL Microbiology - Last 24 Hours (Table) 10/05/17 16:30 Blood Culture - Final Blood No Growth after 144 hours Assessment and Plan Assessment: Impression Present on admission abdominal pain suspect due to an ileus Present on admission urinary retention Chronic constipation Plan Continue recommendations by urology Continue with the bowel regime as ordered Attempt to increase activity Continue with Reglan as ordered Will follow with you The above impression and plan of care have been discussed and directed by signing physician. Loretta Lee nurse practitioner acting as scribe for signing physician.
[2017-10-12] MEDS ORDERED: HYDROmorphone 0.5 MG/0.5 ML SYRINGE IVP PRN (14:12)
[2017-10-12] MEDS ORDERED: IV FLUID CONTINUATION 1,000 ML IV ONE (14:20)
[2017-10-12] MEDS ORDERED: SUCCINYLCHOLINE CHLORIDE 100 MG/5 ML SYR IV ONE (15:36)
[2017-10-12] MEDS ORDERED: ROCURONIUM BROMIDE 10 MG/ML 10 ML VIAL IV ONE (15:36)
[2017-10-12] MEDS ORDERED: PHENYLEPHRINE-0.9% NACL SYG 1 MG/10 ML SYRINGE ONE (15:36)
[2017-10-12] MEDS ORDERED: MIDAZOLAM 2 MG/2 ML VIAL ONE (15:36)
[2017-10-12] MEDS ORDERED: NEOSTIGMINE 1 MG/ML 10 ML VIAL ONE (15:36)
[2017-10-12] MEDS ORDERED: GLYCOPYRROLATE 0.2 MG/ML 2 ML VIAL ONE (15:36)
[2017-10-12] MEDS ORDERED: ONDANSETRON 4 MG/2 ML VIAL ONE (15:36)
[2017-10-12] MEDS ORDERED: HYDROmorphone (PF) 1 MG/ML ONE (15:36)
[2017-10-12] MEDS ORDERED: fentaNYL (PF) 50 MCG/ML 2 ML AMP ONE (15:36)
[2017-10-12] MEDS ORDERED: PROPOFOL 10 MG/ML 20 ML VIAL IV ONE (15:36)
[2017-10-12] MEDS ORDERED: LACTATED RINGERS 1,000 ML IV ONE (15:44)
--- NOTE | 2017-10-12 16:55 | P.OP ---
Date of Procedure: 10/12/17 Preoperative Diagnosis: Gross Hematuria, Bladder Tumor Postoperative Diagnosis: Same, Urinary Clot Retention Procedure(s) Performed: Cystoscopy, evacuation of clot, TURBT (Medium) Anesthesia: ANGELOA Surgeon: Leonardo Johnson Estimated Blood Loss (ml): 20 IV fluids (ml): 500 Pathology: other (Bladder tumor fragments) Condition: stable Disposition: PACU Indications for Procedure: The patient is a 62-year-old male who recently sustained a T12 compression fracture. He was found to be in urinary retention. A computed tomography scan showed a possible left posterior lateral bladder wall tumor. He has since developed gross hematuria with clots. Operative Findings: A large amount of clot was noted within the bladder. A tumor was noted to overlie the left hemitrigone, obscuring the left ureteral orifice. This appears to have a low-grade, noninvasive appearance. Description of Procedure: The patient was taken in the operating room and placed in the dorsal lithotomy position, with his legs supported in Marek stirrups. The external genitalia was prepped and draped sterilely. The 30 lens was used to introduce the 19- Vietnamese start cystoscopic sheath through the urethra and into the bladder under direct vision. The anterior urethra appeared normal. The prostatic urethra showed evidence of lateral lobe enlargement. A large amount of clot was noted within the bladder. This was removed using the [employer] evacuator. It was then possible to visually inspect the bladder. The right ureteral orifice appeared normal. The left ureteral orifice was obscured by a papillary tumor, measuring approximately 3-4 cm in size. There was evidence of catheter cystitis diffusely throughout the bladder. No additional tumors or foreign bodies were seen. The cystoscope was removed, and the 24-Vietnamese Storz resectoscope sheath was introduced into the bladder. Using the cutting loop, the tumor was resected down to the muscle. Excellent hemostasis was attained. Care was taken to identify the left ureteral orifice, and to avoid the use of electrocautery immediately adjacent to it. Following the resection, clear urine effluxed from the left ureteral orifice. The resected tissue was saved and sent for pathologic examination. An 18-Vietnamese Argueta catheter was inserted. The return was essentially clear. The patient tolerated the procedure well. He was taken to the recovery room in stable condition.
[2017-10-12 16:57] LABS: Glucose,Whole Blood 149 mg/dL (75-99)
[2017-10-12] MEDS: LACTATED RINGERS 1,000 ML IV SCH (17:38)
[2017-10-12 19:57] LABS: Glucose,Whole Blood 172 mg/dL (75-99)
[2017-10-12] MEDS: INSULIN DETEMIR 100 UNIT/ML 10 ML VIAL SQ SCH (21:03)
[2017-10-12] MEDS: ATORVASTATIN 80 MG TAB PO SCH (21:04)
[2017-10-12 22:50] VITALS: RESP 16
--- NOTE | 2017-10-12 23:07 | PN ---
PROGRESS NOTE DATE OF SERVICE: 10/12/2017 PRESENTING COMPLAINT: Ileus and hematuria. INTERVAL HISTORY: This patient presented with severe ileus, received multiple laxatives, has had intermittent bowel movements. Being followed by Dr. Lafleur. No bowel movement today. The patient has been n.p.o. after midnight since yesterday. The patient did go down for a cystoscopy by Dr. Johnson. Papillary tumor was removed as well as blood clot was removed. The patient is now back in the room. There is some blood in the urinary bag, though much transit manager. No nausea, vomiting. Slight abdominal distention. REVIEW OF SYSTEMS: Done for constitutional, cardiovascular, GI, pulmonary, genitourinary; relevant findings as above. CURRENT MEDICATIONS: Reviewed. PHYSICAL EXAMINATION: Temperature 97, pulse 90, respiration 16, blood pressure 140/79, pulse ox 98% on room air. GENERAL APPEARANCE: Lying in bed, awake. EYES: Pupils equal. Conjunctivae normal. HEENT: External appearance of nose and ears normal. Oral cavity normal. NECK: JVD not raised. Mass not palpable. RESPIRATORY: Effort normal. LUNGS: Decreased breath sounds. CARDIOVASCULAR: First and second sounds normal. No edema. ABDOMEN: Distended less. Soft. Bowel sounds are present. Liver and spleen not palpable. PSYCHIATRY: Alert and oriented x3. Mood and affect normal. Argueta catheter showing much transit manager hematuria. INVESTIGATIONS: Accu-Cheks are noted. Hemoglobin is 12.0. ASSESSMENT: 1. Severe ileus with some response to laxatives, as the patient has had some bowel movements. Being followed by Dr. Lafleur. No nausea, vomiting. No abdominal tenderness. 2. Urinary bladder mass with persistent hematuria. Patient did undergo cystoscopy today. Papillary mass was removed along with blood clots. 3. T12 fracture, subacute, for which patient wears a brace. 4. Diabetes mellitus, type 2, chronically on insulin. 5. Hyperlipidemia. 6. Anxiety, depression not otherwise specified. 7. Obesity; body mass index 32.1. 8. Acute blood loss anemia from severe hematuria. PLAN: Repeat a CBC in the morning. Care was discussed with the patient. Will follow up with Dr. Lafleur. MMODL / IJN: [id number] /
[2017-10-13] MEDS: METOCLOPRAMIDE 5 MG/ML 2 ML VIAL IVP SCH ×4 (05:41→23:33)
[2017-10-13] MEDS: SODIUM CHLORIDE 0.9% 1,000 ML IV SCH ×2 (05:42→17:43)
[2017-10-13 07:10] LABS: Glucose,Whole Blood 150 mg/dL (75-99)
[2017-10-13 07:22] LABS: HCT 35.2 % (39.0-53.0); HGB 11.6 gm/dL (13.0-17.5); MCH 28.9 pg (25.0-35.0); MCHC 32.9 g/dL (31.0-37.0); MCV 87.8 fL (80.0-100.0); Mean Platelet Volume 7.3; Platelet Count 155 k/uL (150-450); RBC 4.01 m/uL (4.30-5.90); RDW 13.2 % (11.5-15.5); WBC 8.3 k/uL (3.8-10.6)
[2017-10-13] MEDS ORDERED: PROPOFOL 10 MG/ML 20 ML VIAL IV ONE (07:51)
[2017-10-13] MEDS ORDERED: LIDOCAINE 1% INJ 10MG/ML (20 ML MDV) ONE (07:51)
--- NOTE | 2017-10-13 07:56 | P.PN ---
Progress Note - Text Progress Note Date: 10/13/17 Mr. Downs underwent cystoscopy, evacuation of clot, and bladder tumor resection yesterday. He is currently quite comfortable, rating his pain as a "2 ". The Argueta catheter is draining blood-tinged urine. He is urologically stable for discharge. Arrangements will be made for him to undergo a cystometrogram in the office in approximately 2 weeks.
[2017-10-13] MEDS: PANTOPRAZOLE 40 MG TABLET PO SCH (08:04)
[2017-10-13] MEDS: INSULIN ASPART 100 UNIT/ML 1 ML 10 ML VIAL SQ SCH ×3 (08:04→17:38)
[2017-10-13] MEDS: FARXIGA 10MG PO SCH (08:05)
[2017-10-13] MEDS: LACTULOSE 20 GM/30 ML CUP PO SCH ×4 (08:05→20:44)
[2017-10-13] MEDS: MOVANTIK 25 MG PO SCH (08:05)
[2017-10-13] MEDS: BISACODYL 10 MG SUPP RECTAL SCH (08:09)
[2017-10-13 12:14] LABS: Glucose,Whole Blood 117 mg/dL (75-99)
--- NOTE | 2017-10-13 14:22 | P.PN ---
Subjective Progress Note Date: 10/13/17 Principal diagnosis: Colonic ileus Patient still passing air and did have a small bowel movement today. No nausea or vomiting. Denies abdominal pain. Yesterday's x-rays suspected possible distal colonic obstruction. Objective - Vital Signs Vital signs: Vital Signs Temp 98.4 F 10/13/17 08:53 Pulse 101 H 10/13/17 08:53 Resp 16 10/13/17 08:53 BP 132/78 10/13/17 08:53 Pulse Ox 94 L 10/13/17 08:53 Intake & Output 10/12/17 10/13/17 10/13/17 18:59 06:59 18:59 Intake Total 1450 2260 Output Total 1170 1300 500 Balance 280 960 -500 Intake: IV 1450 600 Sodium Chloride 0.9% 1, 750 600 000 ml @ 75 mls/hr IV . [id number] LINETTE Rx#:[id number] Oral 0 1660 Output: Urine 1150 1300 500 Uretheral (Argueta) 500 Estimated Blood Loss 20 Other: Voiding Method Indwelling Catheter Indwelling Catheter Indwelling Catheter # Voids 1 - Exam Abdomen: Soft, mild distention, mild tympany, nontender - Labs CBC & Chem 7: 10/13/17 06:51 10/10/17 06:44 Labs: Abnormal Lab Results - Last 24 Hours (Table) 10/12/17 10/12/17 10/13/17 Range/Units 16:54 19:55 06:51 RBC 4.01 L (4.30-5.90) m/uL Hgb 11.6 L (13.0-17.5) gm/dL Hct 35.2 L (39.0-53.0) % POC Glucose (mg/dL) 149 H 172 H (75-99) mg/dL 10/13/17 10/13/17 Range/Units 07:09 12:13 RBC (4.30-5.90) m/uL Hgb (13.0-17.5) gm/dL Hct (39.0-53.0) % POC Glucose (mg/dL) 150 H 117 H (75-99) mg/dL Assessment and Plan (1) Ileus Narrative/Plan: Will order a Gastrografin enema today. Continue ambulation. Current Visit: Yes Status: Acute Code(s): K56.7 - ILEUS, UNSPECIFIED SNOMED Code(s): 211413331
[2017-10-13] MEDS: LACTATED RINGERS 1,000 ML IV SCH (14:32)
--- NOTE | 2017-10-13 16:22 | FL ---
EXAMINATION TYPE: FL barium enema DATE OF EXAM: 10/13/2017 COMPARISON: 10/12/2017, 10/05/2017 HISTORY: Abdominal distention TECHNIQUE: A double contrast barium enema study is performed. FINDINGS: Records Analysis Manager view of the abdomen shows diffuse dilation of the bowel with a maximum dimension trang suring 11 cm. Following contrast administration there is marked dilation of the sigmoid colon. There is a question of a subtle area of irregularity and narrowing of the sigmoid colon. The patient could not retain the contrast which spilled onto the table. Contrast could only be seen to fill to the level of the splen ic flexure. Transverse colon and right colon were not seen. No free air or free contrast noted. Case discussed with the referring physician. IMPRESSION: 1. Limited exam. The patient could only tolerate a small amount of contrast to the level of the splen ic flexure. There did appear to be marked dilation of the sigmoid colon with a question of an area of irregularity involving the mid sigmoid colon. Given the limitations exam direct visualization is rec ommended to exclude a mucosal lesion or obstruction.
[2017-10-13] MEDS: KETOROLAC 30 MG/ML 1 ML VIAL IVP PRN (16:39)
[2017-10-13 17:07] LABS: Glucose,Whole Blood 167 mg/dL (75-99)
--- NOTE | 2017-10-13 18:53 | PN ---
PROGRESS NOTE DATE OF SERVICE: 10/13/2017 PRESENTING COMPLAINT: Abdominal distention. INTERVAL HISTORY: This patient presented with hematuria, status post bladder tumor being removed. Now he has got some blood-stained urine. Abdomen is still distended. No nausea or vomiting. No pain. He has been tolerating his diet. Very small bowel movement. REVIEW OF SYSTEMS: Done for constitutional, cardiovascular, GI, pulmonary; relevant findings as above. CURRENT MEDICATIONS: Reviewed. PHYSICAL EXAMINATION: Temperature 98.4, pulse 101, respiration 16, blood pressure 132/78, pulse ox 94% on room air. GENERAL APPEARANCE: Sitting in bed, comfortable. EYES: Pupils equal. Conjunctivae normal. HEENT: External appearance of nose and ears normal. Oral cavity normal. NECK: JVD not raised. Mass not palpable. RESPIRATORY: Effort normal. LUNGS: Decreased breath sounds. CARDIOVASCULAR: First and second sounds normal. No edema. ABDOMEN: Distended, soft. Bowel sounds are present. Liver and spleen not palpable. PSYCHIATRY: Alert and oriented x3. Mood and affect normal. GENITOURINARY: Blood-tinged urine in the urinary bag. INVESTIGATIONS: White count 8.3, hemoglobin 11.6. Abdominal x-ray shows ileus with colonic stool. ASSESSMENT: 1. Ileus with colonic stool. Cannot rule out obstruction. Patient has been passing flatus. 2. Urinary bladder mass with persistent hematuria, status post papillary mass removed. Per Dr. Johnson, patient to have a Argueta for another 2 weeks. Will follow up with him in the office. 3. T12 fracture, for which patient has a brace. 4. Diabetes mellitus, type 2, chronically on insulin. 5. Hyperlipidemia. 6. Anxiety and depression not otherwise specified. 7. Obesity; body mass index 32.1. 8. Acute blood loss anemia from hematuria from bladder mass. PLAN: Dr. Marti is covering for Dr. Lafleur. We both individually looked at the belly films. We both agreed that the patient needs further testing. Barium enema was done. I did look at the film. There are distant loops of bowel with a question about distal colon obstruction. I did talk to Dr. Marti again. He is planning to do a lower endoscopy tomorrow. I think that will put the matter to rest. Total time spent today was about 45 minutes, with over 25 minutes of discussion. MMODL / IJN: [id number] /
[2017-10-13 20:37] LABS: Glucose,Whole Blood 155 mg/dL (75-99)
[2017-10-13] MEDS: ATORVASTATIN 80 MG TAB PO SCH (20:44)
[2017-10-13] MEDS: INSULIN DETEMIR 100 UNIT/ML 10 ML VIAL SQ SCH (20:44)
[2017-10-14] MEDS: METOCLOPRAMIDE 5 MG/ML 2 ML VIAL IVP SCH ×2 (05:51→13:03)
[2017-10-14] MEDS: KETOROLAC 30 MG/ML 1 ML VIAL IVP PRN (05:57)
[2017-10-14 05:59] VITALS: BP 148/82; PULSE 84; TEMP 97.3
[2017-10-14 07:28] LABS: HCT 33.4 % (39.0-53.0); HGB 10.8 gm/dL (13.0-17.5); MCH 27.8 pg (25.0-35.0); MCHC 32.3 g/dL (31.0-37.0); Mean Platelet Volume 7.6; Platelet Count 155 k/uL (150-450); RBC 3.88 m/uL (4.30-5.90); RDW 13.2 % (11.5-15.5); WBC 6.6 k/uL (3.8-10.6)
[2017-10-14 07:30] LABS: Glucose,Whole Blood 188 mg/dL (75-99)
[2017-10-14] MEDS ORDERED: IV FLUID CONTINUATION 950 ML IV ONE (07:54)
--- NOTE | 2017-10-14 08:20 | P.PCN ---
Date of Procedure: 10/14/17 Procedure(s) Performed: PREOPERATIVE DIAGNOSIS: Ileus versus obstruction POSTOPERATIVE DIAGNOSIS: Eric syndrome PROCEDURE: Decompressive colonoscopy ANESTHESIA: [facility] [place] SURGEON: Arnie Marti M.D. SPECIMENS: None ENDOSCOPIC PROCEDURE: The patient was placed on the endoscopy table in the left decubitus position. The Olympus colonoscope was inserted into the anus and passed under direct visualization to the mid transverse colon. The patient had liquid stool with enough particulate matter that I could not evacuate the stool in the transverse colon. As I was evaluating the distal colon there were several areas that were air filled. There was no mucosal abnormalities identified. I did not see evidence of sigmoid volvulus on this evaluation. All air was evacuated that could be visualized in the distal one half of the colon. Digital rectal examination was normal. The patient was taken to the recovery room in stable condition per anesthesia guidelines. RECOMMENDATIONS: Resume diet. Discharge per medicine.
[2017-10-14] MEDS: FARXIGA 10MG PO SCH (09:44)
[2017-10-14] MEDS: MOVANTIK 25 MG PO SCH (09:44)
[2017-10-14] MEDS: LACTULOSE 20 GM/30 ML CUP PO SCH ×2 (09:47→13:01)
[2017-10-14] MEDS: PANTOPRAZOLE 40 MG TABLET PO SCH (09:47)
[2017-10-14] MEDS: INSULIN ASPART 100 UNIT/ML 1 ML 10 ML VIAL SQ SCH ×2 (09:47→13:01)
[2017-10-14] MEDS: BISACODYL 10 MG SUPP RECTAL SCH (09:48)
[2017-10-14 11:21] LABS: Glucose,Whole Blood 215 mg/dL (75-99)
--- NOTE | 2017-10-14 11:49 | P.PN ---
Progress Note - Text Progress Note Date: 10/14/17 The patient is feeling much better today, and reports minimal discomfort. Sigmoidoscopy revealed no pathology. The Argueta catheters draining clear yellow urine. He may be discharged home today with the Argueta catheter. Arrangements will be made for him to undergo a cystometrogram in my office in approximately 2 weeks. The pathology report is pending at this time.
[2017-10-14] MEDS: LACTATED RINGERS 1,000 ML IV SCH (17:13)
[2017-10-14] MEDS: SODIUM CHLORIDE 0.9% 1,000 ML IV SCH (17:13)
--- NOTE | 2017-10-15 07:31 | DS ---
DISCHARGE SUMMARY DATE OF ADMISSION: 10/05/17. DATE OF DISCHARGE: 10/14/17 FINAL DIAGNOSES: 1. Acute ileus, present on admission. 2. Urinary bladder mass causing severe hematuria. 3. Subacute T12 fracture for which patient has a brace. 4. Diabetes mellitus type 2, chronically on insulin. 5. Hyperlipidemia. 6. Anxiety and depression, not otherwise specified. 7. Obesity; BMI 32.1. 8. Acute blood loss anemia from hematuria from bladder mass. HOSPITAL COURSE: This patient recently had a fall with a T12 fracture, has a brace. Presented with abdominal distention. Found to have ileus. Several rounds of laxatives were given. Did have some response. Patient had been passing gas. No nausea, vomiting. Minimal abdominal pain if any. The patient yesterday did undergo decompressive colonoscopy. Several areas of air- filled colon was noticed. Air was evacuated. The patient is doing much better. The patient is also having severe hematuria and a bladder tumor was resected. Hematuria did improve. The patient did drop his hemoglobin from 16.6 down to 10.8, but remained hemodynamically stable. On examination today, afebrile, pulse 84, blood pressure 148/82, pulse 84. ABDOMEN: Slightly distended, soft, nontender. Bowel sounds are present. LUNGS: Slightly decreased breath sounds. Hematuria cleared up. The patient will be going home with a Argueta catheter. I discussed with Dr. Johnson at length today and also discussed with the patient and also discussed with Dr. Marti from General Surgery. CONSULTATION: 1. Dr. Johnson from Urology. 2. Dr. Marti and Dr. Lafleur from General Surgery. DISCHARGE MEDICATIONS: 1. Lipitor 80 mg q.h.s. 2. Farxiga 10 mg a day. 3. Tresiba 2 units subcu q.h.s. 4. Lispro 20 units subcu a.c. t.i.d. 5. Flexeril 10 mg p.o. t.i.d. p.r.n. 6. Mag citrate p.r.n. daily. 7. Tylenol 650 mg q.6h p.r.n. 8. Metamucil 6 grams p.o. b.i.d. 9. Lactulose 20 g p.o. daily. 10.Naproxen 250 mg p.o. b.i.d. The patient to keep the Argueta catheter. Follow up with Dr. Marti in 1 week, Dr. Johnson in 2 weeks and the office will call to make appointment. Dr. Brett Choe in 3-5 days. CBC to be done. CBC and BMP to be done in 3 days. Discussion and discharge planning more than 35 minutes. MMCELINAL / HARLEYN: [id number] /
--- NOTE | 2017-10-19 16:28 | CDI ---
Last Revision, February 2017 Documentation Clarification Form Date: 10/19/17 From: Madie Stovall Phone: If you have a question regardint this query, please contact Iona Gabriel at [phone] between 8am and 5pm. Admit Date: 10/10/2017 7:59:00 AM Patient Name: Neo Downs Visit Number: [id number] Discharge Date: 10/14/17 ATTENTION: The Clinical Documentation Specialists (CDI) and [facility] Coding Staff appreciate your assistance in clarifying documentation. Please respond to the clarification below the line at the bottom and electronically sign. The CDI & [facility] Coding staff will review the response and follow-up if needed. Please note: Queries are made part of the Legal Health Record. If you have any questions, please contact the author of this message via ITS. 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 Abdundant blood clot. Documentation states: Urinary bladder mass. Patient history/risk factors: Patient admitted for acute ileus and also had hematuira. Clinical Indicators: Severe hematuria with large amount of clot in the bladder. Treatment: Resection of the bladder tumor. In your professional opinion, do you agree with the pathology report specifying papillary transitional cell carcinoma as malignant neoplasm of bladder? Yes No Other (please specify) Unable to determine low grade papillary TCC not invoving either lamina propia or muscularis propria MTDD
== END 2017-10-14 16:45 | disposition home health service (06) | DRG 345 ==
LOC: EC 14:46 → 5MS5E 20:01 → OBSVTOIN 10-09 17:50 → INTOOBSV 10-09 17:50 → 5MS5E 10-09 23:52 → OBSVTOIN 10-10 07:59 → 5MS5E 10-13 15:40
PROVIDERS: ADMIT Hospitalist; ATTEND Hospitalist
PROC: 0TCB8ZZ Extirpation of Matter from Bladder, Via Natural or Artificial Opening Endoscopic (ICD-10-PCS; 2017-10-12)
PROC: 0TBB8ZZ Excision of Bladder, Via Natural or Artificial Opening Endoscopic (ICD-10-PCS; 2017-10-12 13:50)
PROC: 0D9G8ZZ Drainage of Left Large Intestine, Via Natural or Artificial Opening Endoscopic (ICD-10-PCS; principal; 2017-10-14 08:00)
DX: K56.7 Ileus, unspecified (principal); S22.089A Unspecified fracture of T11-T12 vertebra, initial encounter for closed fracture; D62 Acute posthemorrhagic anemia; N02.9 Recurrent and persistent hematuria with unspecified morphologic changes; C67.0 Malignant neoplasm of trigone of bladder; N32.9 Bladder disorder, unspecified; I10 Essential (primary) hypertension; E11.9 Type 2 diabetes mellitus without complications; E66.9 Obesity, unspecified; E78.5 Hyperlipidemia, unspecified; F32.9 Major depressive disorder, single episode, unspecified; F41.9 Anxiety disorder, unspecified; M54.5 Low back pain; R33.9 Retention of urine, unspecified; K59.09 Other constipation; T40.605A Adverse effect of unspecified narcotics, initial encounter; F40.240 Claustrophobia; Z68.32 Body mass index [BMI] 32.0-32.9, adult; Z74.01 Bed confinement status; Z79.4 Long term (current) use of insulin; Z79.899 Other long term (current) drug therapy; Z85.820 Personal history of malignant melanoma of skin; Z85.89 Personal history of malignant neoplasm of other organs and systems; Z82.3 Family history of stroke; Z80.0 Family history of malignant neoplasm of digestive organs; Z80.3 Family history of malignant neoplasm of breast; Y92.009 Unspecified place in unspecified non-institutional (private) residence as the place of occurrence of the external cause
CPT/HCPCS: 36415; 45393; 51702; 51798; 71046; 72157; 72158; 74019; 74177; 74270; 80048; 80053; 81001; 82272; 82550; 82553; 83605; 84484; 85025; 85027; 85610; 85652; 85730; 86140; 87040; 87086; 88307; 93005; 94760; 96361; 96374; 99285

== ENCOUNTER 2018-11-27 13:11 | Inpatient (IN) | payer OTHER ==
[2018-11-27 13:57] LABS: Basophils # (A) 0.2 k/uL (0-0.2); Basophils % (A) 2 %; Eosinophils # (A) 0.1 k/uL (0-0.7); Eosinophils % (A) 1 %; HCT 41.7 % (39.0-53.0); HGB 14.2 gm/dL (13.0-17.5); Lymphocytes # (A) 1.9 k/uL (1.0-4.8); Lymphocytes % (A) 19 %; MCH 29.1 pg (25.0-35.0); MCV 85.7 fL (80.0-100.0); Mean Platelet Volume 7.4; Monocytes # (A) 0.7 k/uL (0-1.0); Monocytes % (A) 7 %; Neutrophils # (A) 6.9 k/uL (1.3-7.7); Neutrophils % (A) 69 %; Platelet Count 213 k/uL (150-450); RBC 4.87 m/uL (4.30-5.90); RDW 12.7 % (11.5-15.5)
[2018-11-27 14:08] LABS: Albumin 3.7 g/dL (3.5-5.0); Calcium 8.7 mg/dL (8.4-10.2); Potassium 4.4 mmol/L (3.5-5.1); Total Bilirubin 0.4 mg/dL (0.2-1.3); Total Protein 7.6 g/dL (6.3-8.2)
[2018-11-27] MEDS ORDERED: ONDANSETRON 4 MG/2 ML VIAL IVP STA (15:42)
[2018-11-27] MEDS ORDERED: SODIUM CHLORIDE 0.9% 1,000 ML IV STA (15:42)
[2018-11-27 15:48] LABS: Appearance,Urine Clear (Clear); Bilirubin,Urine Negative (Negative); Blood,Urine Small (Negative); Color,Urine Yellow; Glucose,Urine (UA) 4+ (Negative); Hyaline Casts,Urine 12 /lpf (0-2); Ketones,Urine Negative (Negative); Leukocyte Esterase,Urine Small (Negative); Mucus,Urine Few /hpf; Nitrite,Urine Positive (Negative); PH, Urine 5.5 (5.0-8.0); Protein,Urine 2+ (Negative); RBC,Urine 1 /hpf (0-5); Squamous Epithelial Cell,Urine <1 /hpf (0-4); Urobilinogen,Urine <2.0 mg/dL (<2.0); WBC,Urine 20 /hpf (0-5)
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
--- NOTE | 2018-11-27 16:29 | CT ---
EXAMINATION TYPE: CT abdomen pelvis w con DATE OF EXAM: 11/27/2018 COMPARISON: 10/05/2017 HISTORY: 63-year-old male Right sided pain with nausea TECHNIQUE: Contiguous axial scanning of the abdomen and pelvis following administration of 100 ml Iso virgen 300 IV contrast. Delayed images through the kidneys and coronal/sagittal reconstructions perform ed. CT DLP: 2321 mGycm Automated exposure control for dose reduction was used. FINDINGS: Heart normal size without pericardial effusion. Strandy atelectasis left base. Liver enlarged measuring 22.1 cm with low attenuation compatible with hepatic steatosis. Portal venou s system is patent. No biliary ductal dilatation. Gallbladder, adrenal glands, kidneys, and atrophic pancreas show no gross abnormal body. Spleen enlar ged at 16.0 cm on coronal series. No dilated small bowel, free fluid, or free air. No mesenteric or retroperitoneal lymphadenopathy. There is masslike annular thickening at the base of the cecum and a thickened, fluid-filled appendix measuring 1.5 cm wide and focal devitalization/perforation seen on axial image 69. Severe regional in flammation and fat stranding is demonstrated. Mild to moderate circumferential bladder wall thickening. Prostate gland measures 5.1 cm wide. No abn ormal fluid collection in the pelvis or pelvic lymphadenopathy. Bones: Degenerative changes right SI joint and facet arthropathy mid to lower lumbar spine. There is vertebral compression collapse of T12 with mild retropulsion into the ventral spinal canal and a hori zontal cleft of air. The vertebral body fracture was seen on 10/05/2017 but height loss has progressed since then. IMPRESSION: 1. RUPTURED ACUTE APPENDICITIS. SEVERE REGIONAL INFLAMMATION WITHOUT FREE AIR OR ABSCESS. 2. ANNULAR THICKENING AT THE BASE OF THE CECUM LIKELY CONTIGUOUS INFLAMMATION RATHER THAN NEOPLASM. A TTENTION AT SURGERY. 3. HEPATOSPLENOMEGALY (LIVER 22.1 CM AND SPLEEN 16.0 CM). HEPATIC STEATOSIS. 4. CIRCUMFERENTIAL BLADDER WALL THICKENING COULD REPRESENT CHRONIC BLADDER WALL HYPERTROPHY OR CYSTIT IS. 5. 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 THERE IS A HORIZONT AL CLEFT OF AIR WITHIN THAT COULD REPRESENT KUMMEL'S DISEASE.
[2018-11-27] MEDS ORDERED: PIPERACILLIN-TAZOBACTAM 3.375 GM in SODIUM CHLORIDE 0.9% 100 ML IVPB STA (16:41)
[2018-11-27] MEDS ORDERED: NALOXONE 0.4 MG/ML 1 ML VIAL IV PRN (16:42)
[2018-11-27] MEDS: SODIUM CHLORIDE 0.9% 1,000 ML IV SCH (17:33)
[2018-11-27] MEDS: MORPHINE SULFATE 4 MG/ML SYRINGE IV PRN ×2 (18:55→23:51)
[2018-11-28 07:15] LABS: Glucose,Whole Blood 222 mg/dL (75-99)
[2018-11-28] MEDS: MORPHINE SULFATE 4 MG/ML SYRINGE IV PRN ×5 (07:17→23:03)
[2018-11-28] MEDS: PIPERACILLIN-TAZOBACTAM 3.375 GM in SODIUM CHLORIDE 0.9% 100 ML IVPB SCH ×2 (10:25→18:01)
[2018-11-28 12:13] LABS: Glucose,Whole Blood 195 mg/dL (75-99)
[2018-11-28] MEDS: SODIUM CHLORIDE 0.9% 1,000 ML IV SCH (12:43)
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
[2018-11-28] MEDS: metroNIDAZOLE-NS PMX 500 MG in SALINE 1 100ML.BAG IVPB SCH ×2 (16:06→23:04)
[2018-11-28] MEDS ORDERED: MORPHINE SULFATE 4 MG/ML SYRINGE IV PRN (16:13)
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
[2018-11-28 17:06] LABS: Glucose,Whole Blood 185 mg/dL (75-99)
[2018-11-28] MEDS: INSULIN ASPART (NovoLOG) 100 UNIT/ML VIAL SQ SCH ×2 (18:02→21:17)
[2018-11-28 20:35] LABS: Glucose,Whole Blood 169 mg/dL (75-99)
[2018-11-28] MEDS: ACETAMINOPHEN TAB 325 MG TAB PO PRN (21:28)
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
[2018-11-29] MEDS: PIPERACILLIN-TAZOBACTAM 3.375 GM in SODIUM CHLORIDE 0.9% 100 ML IVPB SCH ×3 (00:36→16:34)
[2018-11-29 02:50] LABS: Glucose,Whole Blood 147 mg/dL (75-99)
[2018-11-29] MEDS: SODIUM CHLORIDE 0.9% 1,000 ML IV SCH ×2 (03:57→18:10)
[2018-11-29] MEDS: MORPHINE SULFATE 4 MG/ML SYRINGE IV PRN (03:57)
[2018-11-29] MEDS: ONDANSETRON 4 MG/2 ML VIAL IVP PRN (04:01)
[2018-11-29 07:32] LABS: Glucose,Whole Blood 183 mg/dL (75-99)
[2018-11-29] MEDS: INSULIN ASPART (NovoLOG) 100 UNIT/ML VIAL SQ SCH ×4 (08:04→21:32)
[2018-11-29] MEDS: metroNIDAZOLE-NS PMX 500 MG in SALINE 1 100ML.BAG IVPB SCH ×3 (08:04→23:40)
[2018-11-29 08:18] LABS: African American GFR (CKD) >90 (>60 ml/min/1.73 sqM); Anion Gap 8 mmol/L; Blood Urea Nitrogen 16 mg/dL (9-20); Carbon Dioxide 26 mmol/L (22-30); Chloride 101 mmol/L (98-107); Glucose 176 mg/dL (74-99); Potassium 4.5 mmol/L (3.5-5.1); Sodium 135 mmol/L (137-145)
[2018-11-29 08:24] LABS: Basophils # (A) 0.1 k/uL (0-0.2); Basophils % (A) 1 %; Eosinophils # (A) 0.1 k/uL (0-0.7); Eosinophils % (A) 1 %; HCT 35.8 % (39.0-53.0); Lymphocytes # (A) 1.8 k/uL (1.0-4.8); Lymphocytes % (A) 15 %; MCH 29.3 pg (25.0-35.0); MCHC 33.6 g/dL (31.0-37.0); MCV 87.3 fL (80.0-100.0); Mean Platelet Volume 7.9; Monocytes # (A) 0.6 k/uL (0-1.0); Monocytes % (A) 5 %; Neutrophils # (A) 9.4 k/uL (1.3-7.7); Neutrophils % (A) 76 %; Platelet Count 177 k/uL (150-450); RDW 12.5 % (11.5-15.5); WBC 12.3 k/uL (3.8-10.6)
[2018-11-29] MEDS: traMADol 50 MG TAB PO PRN ×3 (09:10→21:47)
--- NOTE | 2018-11-29 11:39 | P.PN ---
Subjective Progress Note Date: 11/29/18 Principal diagnosis: ruptured appendicitis Patient was seen and examined. No acute events overnight. Patient reports pain that is well-controlled in the abdomen. Only got tramadol this morning. Tolerating clear liquid diet well. He denies any chest pain, shortness of breath or palpitations. No nausea or vomiting. No fever or chills. Objective - Vital Signs Vital signs: Vital Signs Temp 99.4 F 11/29/18 07:00 Pulse 89 11/29/18 07:00 Resp 14 11/29/18 07:00 BP 142/80 11/29/18 07:00 Pulse Ox 90 L 11/29/18 07:00 Intake & Output 11/28/18 11/29/18 11/29/18 18:59 06:59 18:59 Intake Total 1954 Output Total 400 Balance 1955 - Intake: Intake, IV Titration 1155 Amount Piperacillin-Tazobactam 3 100 .375 gm In Sodium Chloride 0.9% 100 ml @ 25 mls/hr IVPB Q8HR [facility] Rx# :[id number] Sodium Chloride 0.9% 1, 455 000 ml @ 70 mls/hr IV . [id number] [facility] Rx#:[id number] Sodium Chloride 0.9% 1, 600 000 ml @ 999 mls/hr IV . Q1H1M STA Rx#:[id number] Oral 800 Output: Urine 400 Other: # Voids 1 - Exam General: [non toxic], [mild distress], [appears at stated age] Derm: [warm], [dry] Head: [atraumatic], [normocephalic], [symmetric] Eyes: [EOMI], [no lid lag], [anicteric sclera] Mouth: [no lip lesion], [mucus membranes moist] Cardiovascular: [S1S2 reg], [no murmur], [positive DP pulse bilateral], Lungs: [CTA bilateral], [no rhonchi, no rales] , [no accessory muscle use] Abdominal: [soft], [tenderness to palpation in the right lower quadrant with rebound], [no guarding], [no appreciable organomegaly], [positive psoas sign], [midline surgical abdominal scar noted] Ext: [no gross muscle atrophy], [no edema], [no contractures] Neuro: [ CN II-XI grossly intact], [no focal neuro deficits] Psych: [Alert], [oriented], [appropriate affect] - Labs CBC & Chem 7: 11/29/18 07:19 11/29/18 07:19 Labs: Abnormal Lab Results - Last 24 Hours (Table) 11/28/18 11/28/18 11/28/18 Range/Units 12:11 17:00 20:34 WBC (3.8-10.6) k/uL RBC (4.30-5.90) m/uL Hgb (13.0-17.5) gm/dL Hct (39.0-53.0) % Neutrophils # (1.3-7.7) k/uL Sodium (137-145) mmol/L Glucose (74-99) mg/dL POC Glucose (mg/dL) 195 H 185 H 169 H (75-99) mg/dL Calcium (8.4-10.2) mg/dL 11/29/18 11/29/18 11/29/18 Range/Units 02:49 07:19 07:19 WBC 12.3 H (3.8-10.6) k/uL RBC 4.10 L (4.30-5.90) m/uL Hgb 12.0 L (13.0-17.5) gm/dL Hct 35.8 L (39.0-53.0) % Neutrophils # 9.4 H (1.3-7.7) k/uL Sodium 135 L (137-145) mmol/L Glucose 176 H (74-99) mg/dL POC Glucose (mg/dL) 147 H (75-99) mg/dL Calcium 8.0 L (8.4-10.2) mg/dL 11/29/18 Range/Units 07:31 WBC (3.8-10.6) k/uL RBC (4.30-5.90) m/uL Hgb (13.0-17.5) gm/dL Hct (39.0-53.0) % Neutrophils # (1.3-7.7) k/uL Sodium (137-145) mmol/L Glucose (74-99) mg/dL POC Glucose (mg/dL) 183 H (75-99) mg/dL Calcium (8.4-10.2) mg/dL Microbiology - Last 24 Hours (Table) 11/29/18 02:50 Urine Culture - Preliminary Urine,Voided 11/27/18 17:00 Blood Culture - Preliminary Blood No Growth after 24 hours Assessment and Plan Assessment: Assessment and plan Acute ruptured appendicitis Urinary tract infection Diabetes mellitus, insulin-dependent with hyperglycemia History of bladder cancer History of melanoma Resolved: acute kidney injury Patient is afebrile with no leukocytosis (upturning leukocytosis of 12.3 today). As seen on CT abdomen and pelvis. Patient does not appear toxic at this time. He appears hemodynamically stable as well. Plans: Start Zosyn and Flagyl. Continue normal saline at 70 mL per hour. Zofran as needed for nausea or vomiting. Morphine 4 mg IV every 4 hours as needed for severe pain, tramadol. Tylenol as needed for fever. As per surgery, no surgical intervention at this time, treat with antibiotics, surgery deferred to about few weeks. Clear liquid diet and advance. Follow blood culture. Follow infectious disease consultation. Urinalysis shows small leukocyte esterase. Reports UTI like symptoms. CT abdomen and pelvis shows signs of cystitis. Plans: Continue IV antibiotics. Follow urine culture. Orlrl-bc-wxeu glucose 183. Patient is on 116 units Tresiba at night and 26 unit of Lispro 3 times a day with meals. Plans: Insulin sliding scale. Regular Accu-Cheks. Hypoglycemic precautions. Patient sees Dr. Shane for treatment of bladder cancer. Plans: Need adequate outpatient follow-up. Plans: Needs adequate outpatient follow-up. [Patient admitted for ruptured appendicitis. WBC count of trending today. On IV antibiotics. General surgery and ID on board. Possible DC in 2-3 days.]
[2018-11-29 11:53] LABS: Glucose,Whole Blood 183 mg/dL (75-99)
--- NOTE | 2018-11-29 13:27 | P.PN ---
Subjective Progress Note Date: 11/29/18 CHIEF COMPLAINT: Abdominal pain HISTORY OF PRESENT ILLNESS: Patient examined this morning at the bedside. He continues to report abdominal pain. He states it is about the same as yesterday. Tolerating clear liquid diet. Denies nausea or vomiting. WBC increased to 12.3. T-max over the last 24 hours 101.2F. Temperature this morning 99.4. PHYSICAL EXAM: VITAL SIGNS: Reviewed. GENERAL: Well-developed in no acute distress. HEENT: No sclera icterus. Extraocular movements grossly intact. Moist buccal mucosa. Head is atraumatic, normocephalic. ABDOMEN: Soft. Obese. Mildly distended. Tenderness to right lower quadrant. Old midline surgical scar. NEUROLOGIC: Alert and oriented. Cranial nerves II through XII grossly intact. ASSESSMENT: 1. Acute ruptured appendicitis PLAN: Monitor WBC. Continue antibiotics. Infectious disease following Continue clear liquid diet Per Dr. Lafleur, due to inflammation at the base of the cecum, no immediate surgical intervention as patient would also require colectomy. Patient will require appendectomy in a few weeks per Dr. Lafleur. Nurse practitioner note has been reviewed by physician. Signing provider agrees with the documented findings, assessment, and plan of care. Objective - Vital Signs Vital signs: Vital Signs Temp 99.4 F 11/29/18 07:00 Pulse 89 11/29/18 07:00 Resp 14 11/29/18 07:00 BP 142/80 11/29/18 07:00 Pulse Ox 90 L 11/29/18 07:00 Intake & Output 11/28/18 11/29/18 11/29/18 18:59 06:59 18:59 Intake Total 1954 Output Total 400 Balance 1954 - Intake: Intake, IV Titration 1155 Amount Piperacillin-Tazobactam 3 100 .375 gm In Sodium Chloride 0.9% 100 ml @ 25 mls/hr IVPB Q8HR [facility] Rx# :[id number] Sodium Chloride 0.9% 1, 455 000 ml @ 70 mls/hr IV . [id number] [facility] Rx#:[id number] Sodium Chloride 0.9% 1, 600 000 ml @ 999 mls/hr IV . Q1H1M STA Rx#:[id number] Oral 800 Output: Urine 400 Other: # Voids 1 - Labs CBC & Chem 7: 11/29/18 07:19 11/29/18 07:19 Labs: Abnormal Lab Results - Last 24 Hours (Table) 11/28/18 11/28/18 11/29/18 Range/Units 17:00 20:34 02:49 WBC (3.8-10.6) k/uL RBC (4.30-5.90) m/uL Hgb (13.0-17.5) gm/dL Hct (39.0-53.0) % Neutrophils # (1.3-7.7) k/uL Sodium (137-145) mmol/L Glucose (74-99) mg/dL POC Glucose (mg/dL) 185 H 169 H 147 H (75-99) mg/dL Calcium (8.4-10.2) mg/dL 11/29/18 11/29/18 11/29/18 Range/Units 07:19 07:19 07:31 WBC 12.3 H (3.8-10.6) k/uL RBC 4.10 L (4.30-5.90) m/uL Hgb 12.0 L (13.0-17.5) gm/dL Hct 35.8 L (39.0-53.0) % Neutrophils # 9.4 H (1.3-7.7) k/uL Sodium 135 L (137-145) mmol/L Glucose 176 H (74-99) mg/dL POC Glucose (mg/dL) 183 H (75-99) mg/dL Calcium 8.0 L (8.4-10.2) mg/dL 11/29/18 Range/Units 11:51 WBC (3.8-10.6) k/uL RBC (4.30-5.90) m/uL Hgb (13.0-17.5) gm/dL Hct (39.0-53.0) % Neutrophils # (1.3-7.7) k/uL Sodium (137-145) mmol/L Glucose (74-99) mg/dL POC Glucose (mg/dL) 183 H (75-99) mg/dL Calcium (8.4-10.2) mg/dL Microbiology - Last 24 Hours (Table) 11/29/18 02:50 Urine Culture - Preliminary Urine,Voided 11/27/18 17:00 Blood Culture - Preliminary Blood No Growth after 24 hours
[2018-11-29 17:16] LABS: Glucose,Whole Blood 159 mg/dL (75-99)
[2018-11-29 21:05] LABS: Glucose,Whole Blood 152 mg/dL (75-99)
--- NOTE | 2018-11-29 23:53 | PN ---
PROGRESS NOTE DATE OF SERVICE: 11/29/2018. REASON FOR FOLLOWUP: Ruptured appendicitis. INTERVAL HISTORY: The patient is currently afebrile. The patient has been breathing comfortably. The patient's abdominal pain is about 5 out of 10 today. Has been slightly controlled with oral pain medication, then IV. No nausea or vomiting. Did have some diarrhea but no worsening. PHYSICAL EXAMINATION: Blood pressure is 152/82 with a pulse of 94, temperature 98.9. He is 95% on room air. General description is a middle-aged male lying in bed in no distress. Respiratory system: Unlabored breathing. Clear to auscultation anteriorly. Heart S1, S2. Regular rate and rhythm. Abdomen soft, mildly distended. No guarding. No rigidity. LABS: No new labs have been obtained today. DIAGNOSTIC IMPRESSION AND PLAN: Patient with acute ruptured appendicitis and inflammation in the right lower quadrant area with no evidence of any abscess. Currently on Zosyn. We will try to arrange for IV Rocephin x10 days along with oral Flagyl. Continue supportive care. MMODL / IJN: [id number] /
[2018-11-30] MEDS: PIPERACILLIN-TAZOBACTAM 3.375 GM in SODIUM CHLORIDE 0.9% 100 ML IVPB SCH ×3 (01:53→17:23)
[2018-11-30 02:51] LABS: Glucose,Whole Blood 121 mg/dL (75-99)
[2018-11-30] MEDS: traMADol 50 MG TAB PO PRN ×3 (05:13→21:48)
[2018-11-30 07:14] LABS: Glucose,Whole Blood 137 mg/dL (75-99)
[2018-11-30] MEDS: INSULIN ASPART (NovoLOG) 100 UNIT/ML VIAL SQ SCH ×4 (07:30→21:48)
[2018-11-30] MEDS: metroNIDAZOLE-NS PMX 500 MG in SALINE 1 100ML.BAG IVPB SCH ×2 (07:31→17:25)
[2018-11-30] MEDS: SODIUM CHLORIDE 0.9% 1,000 ML IV SCH ×2 (07:38→21:51)
[2018-11-30 07:40] LABS: Basophils % (A) 0 %; Eosinophils # (A) 0.2 k/uL (0-0.7); Eosinophils % (A) 2 %; HCT 34.7 % (39.0-53.0); HGB 11.7 gm/dL (13.0-17.5); Lymphocytes # (A) 1.5 k/uL (1.0-4.8); Lymphocytes % (A) 14 %; MCH 29.4 pg (25.0-35.0); MCHC 33.7 g/dL (31.0-37.0); MCV 87.1 fL (80.0-100.0); Mean Platelet Volume 7.9; Monocytes # (A) 0.6 k/uL (0-1.0); Monocytes % (A) 6 %; Neutrophils # (A) 8.3 k/uL (1.3-7.7); Neutrophils % (A) 77 %; Platelet Count 180 k/uL (150-450); RBC 3.99 m/uL (4.30-5.90); RDW 12.4 % (11.5-15.5); WBC 10.9 k/uL (3.8-10.6)
[2018-11-30 08:16] LABS: ALT 24 U/L (21-72); AST 21 U/L (17-59); African American GFR (CKD) >90 (>60 ml/min/1.73 sqM); Alkaline Phosphatase 77 U/L (38-126); Anion Gap 10 mmol/L; Blood Urea Nitrogen 15 mg/dL (9-20); Calcium 7.6 mg/dL (8.4-10.2); Carbon Dioxide 24 mmol/L (22-30); Chloride 100 mmol/L (98-107); Glucose 135 mg/dL (74-99); Potassium 4.3 mmol/L (3.5-5.1); Sodium 134 mmol/L (137-145); Total Bilirubin 0.7 mg/dL (0.2-1.3); Total Protein 6.4 g/dL (6.3-8.2)
--- NOTE | 2018-11-30 11:21 | P.PN ---
Subjective Progress Note Date: 11/30/18 Principal diagnosis: ruptured appendicitis Patient was seen and examined. No acute events overnight. Patient reports pain that his abdominal pain is well-controlled. Only got tramadol this morning. Tolerating clear liquid diet well, requesting something more substantial. He denies any chest pain, shortness of breath or palpitations. No nausea or vomiting. No fever or chills. Objective - Vital Signs Vital signs: Vital Signs Temp 99.0 F 11/30/18 07:00 Pulse 87 11/30/18 07:00 Resp 18 11/30/18 07:00 BP 152/88 11/30/18 07:00 Pulse Ox 94 L 11/30/18 07:00 Intake & Output 11/29/18 11/30/18 11/30/18 18:59 06:59 18:59 Intake Total 356 10 Balance 356 10 Intake: Oral 356 10 Other: # Voids 3 - Exam General: [non toxic], [mild distress], [appears at stated age] Derm: [warm], [dry] Head: [atraumatic], [normocephalic], [symmetric] Eyes: [EOMI], [no lid lag], [anicteric sclera] Mouth: [no lip lesion], [mucus membranes moist] Cardiovascular: [S1S2 reg], [no murmur], [positive DP pulse bilateral], Lungs: [CTA bilateral], [no rhonchi, no rales] , [no accessory muscle use] Abdominal: [soft], [tenderness to palpation in the right lower quadrant with rebound], [no guarding], [no appreciable organomegaly], [positive psoas sign], [midline surgical abdominal scar noted] Ext: [no gross muscle atrophy], [no edema], [no contractures] Neuro: [ CN II-XI grossly intact], [no focal neuro deficits] Psych: [Alert], [oriented], [appropriate affect] - Labs CBC & Chem 7: 11/30/18 07:18 11/30/18 07:18 Labs: Abnormal Lab Results - Last 24 Hours (Table) 11/29/18 11/29/18 11/29/18 Range/Units 11:51 17:04 20:54 WBC (3.8-10.6) k/uL RBC (4.30-5.90) m/uL Hgb (13.0-17.5) gm/dL Hct (39.0-53.0) % Neutrophils # (1.3-7.7) k/uL Sodium (137-145) mmol/L Glucose (74-99) mg/dL POC Glucose (mg/dL) 183 H 159 H 152 H (75-99) mg/dL Calcium (8.4-10.2) mg/dL Albumin (3.5-5.0) g/dL 11/30/18 11/30/18 11/30/18 Range/Units 02:39 07:02 07:18 WBC 10.9 H (3.8-10.6) k/uL RBC 3.99 L (4.30-5.90) m/uL Hgb 11.7 L (13.0-17.5) gm/dL Hct 34.7 L (39.0-53.0) % Neutrophils # 8.3 H (1.3-7.7) k/uL Sodium (137-145) mmol/L Glucose (74-99) mg/dL POC Glucose (mg/dL) 121 H 137 H (75-99) mg/dL Calcium (8.4-10.2) mg/dL Albumin (3.5-5.0) g/dL 11/30/18 Range/Units 07:18 WBC (3.8-10.6) k/uL RBC (4.30-5.90) m/uL Hgb (13.0-17.5) gm/dL Hct (39.0-53.0) % Neutrophils # (1.3-7.7) k/uL Sodium 134 L (137-145) mmol/L Glucose 135 H (74-99) mg/dL POC Glucose (mg/dL) (75-99) mg/dL Calcium 7.6 L (8.4-10.2) mg/dL Albumin 3.0 L (3.5-5.0) g/dL Microbiology - Last 24 Hours (Table) 11/27/18 17:00 Blood Culture - Preliminary Blood No Growth after 48 hours 11/29/18 02:50 Urine Culture - Preliminary Urine,Voided Assessment and Plan Assessment: Assessment and plan Acute ruptured appendicitis Urinary tract infection Diabetes mellitus, insulin-dependent with hyperglycemia History of bladder cancer History of melanoma Resolved: acute kidney injury Patient is afebrile with a mild leukocytosis that is downtrending today from 12.3-10.9. As seen on CT abdomen and pelvis. Patient does not appear toxic at this time. He appears hemodynamically stable as well. Plans: Continue Zosyn and Flagyl, attempting to get coverage for IV Rocephin as per ID. Continue normal saline at 70 mL per hour. Zofran as needed for nausea or vomiting. Mor phine 4 mg IV every 4 hours as needed for severe pain, tramadol. Tylenol as needed for fever. As per surgery, no surgical intervention at this time, treat with antibiotics, surgery deferred to about few weeks. Clear liquid diet and advance. Follow blood culture. Follow infectious disease consultation. Urinalysis shows small leukocyte esterase. Reports UTI like symptoms. CT abdomen and pelvis shows signs of cystitis. Urine culture negative. Blood cultures are negative at 48 hours. Plans: Continue IV antibiotics. Follow urine culture. [id number] glucose 135. Patient is on 116 units Tresiba at night and 26 unit of Lispro 3 times a day with meals. Plans: Insulin sliding scale. Regular Accu-Cheks. Hypoglycemic precautions. Patient sees Dr. Shane for treatment of bladder cancer. Plans: Need adequate outpatient follow-up. Plans: Needs adequate outpatient follow-up. [Patient admitted for ruptured appendicitis. Checking approval for Rocephin, obtain midline if approved, will need 10 days along with oral Flagyl. Needs ID clearance. Follow general surgery for discharge planning.]
[2018-11-30 11:47] LABS: Glucose,Whole Blood 121 mg/dL (75-99)
--- NOTE | 2018-11-30 12:34 | P.PN ---
Progress Note - Text Progress Note Date: 11/30/18 The patient feels better. His pain is a 1-2 out of 10. He is requesting more to eat. On exam his vital signs are stable. His abdomen soft. Status post perforated appendicitis. Patient continue receive IV antibiotic. We anticipate discharge home on Monday or Monday. He will undergo interval appendectomy 4-6 weeks from now
[2018-11-30] MEDS: ACETAMINOPHEN TAB 325 MG TAB PO PRN (14:15)
[2018-11-30 16:57] LABS: Glucose,Whole Blood 148 mg/dL (75-99)
--- NOTE | 2018-11-30 17:15 | PN ---
PROGRESS NOTE DATE OF SERVICE: 11/30/2018. REASON FOR FOLLOWUP: Acute appendicitis, perforation. INTERVAL HISTORY: The patient did spike a fever of 101 degrees Fahrenheit this afternoon. This morning the patient was afebrile. He was overall feeling better. Denies having any chest pain or shortness of breath or cough. No worsening abdominal pain. No nausea, vomiting or diarrhea. PHYSICAL EXAMINATION: Blood pressure 152/83 with a pulse of 101, temperature 101.1. He is 93% on room air. General description is a middle-aged male lying in bed in no distress. RESPIRATORY SYSTEM: Unlabored breathing. Clear to auscultation anteriorly. HEART: S1, S2. Regular rate and rhythm. ABDOMEN: Soft. Mildly distended. No guarding or rigidity. No organomegaly. EXTREMITIES: No edema of the feet. LABS: Hemoglobin is 11.7 with a white count of 10.9, BUN of 15, creatinine 0.83. Blood culture initial has been negative. DIAGNOSTIC IMPRESSION AND PLAN: Patient with acute perforated appendicitis with no drainable abscess. The patient did spike a new fever. Recommend holding his discharge until the patient is afebrile for at least 48 hours. Blood culture repeated. Currently on broad-spectrum antibiotics that is to continue while monitoring his clinical course closely. at the bedside with multiple questions. Those were answered. MMODL / IJN: [id number] /
[2018-11-30 21:14] LABS: Glucose,Whole Blood 155 mg/dL (75-99)
[2018-11-30] MEDS: MELATONIN 3 MG TABLET PO SCH (22:23)
[2018-12-01] MEDS: metroNIDAZOLE-NS PMX 500 MG in SALINE 1 100ML.BAG IVPB SCH ×4 (00:26→23:33)
[2018-12-01] MEDS: PIPERACILLIN-TAZOBACTAM 3.375 GM in SODIUM CHLORIDE 0.9% 100 ML IVPB SCH ×4 (01:47→23:33)
[2018-12-01 02:53] LABS: Glucose,Whole Blood 137 mg/dL (75-99)
[2018-12-01] MEDS: traMADol 50 MG TAB PO PRN (06:00)
[2018-12-01 07:22] LABS: Glucose,Whole Blood 140 mg/dL (75-99)
[2018-12-01 07:54] LABS: Basophils # (A) 0.1 k/uL (0-0.2); Basophils % (A) 1 %; Eosinophils # (A) 0.2 k/uL (0-0.7); Eosinophils % (A) 2 %; HCT 34.5 % (39.0-53.0); HGB 11.6 gm/dL (13.0-17.5); Lymphocytes # (A) 1.4 k/uL (1.0-4.8); Lymphocytes % (A) 15 %; MCH 29.4 pg (25.0-35.0); MCHC 33.7 g/dL (31.0-37.0); MCV 87.4 fL (80.0-100.0); Mean Platelet Volume 7.7; Monocytes # (A) 0.6 k/uL (0-1.0); Monocytes % (A) 7 %; Neutrophils # (A) 6.4 k/uL (1.3-7.7); Neutrophils % (A) 73 %; Platelet Count 194 k/uL (150-450); RBC 3.94 m/uL (4.30-5.90); RDW 12.5 % (11.5-15.5); WBC 8.8 k/uL (3.8-10.6)
[2018-12-01] MEDS: INSULIN ASPART (NovoLOG) 100 UNIT/ML VIAL SQ SCH ×4 (09:01→21:00)
--- NOTE | 2018-12-01 09:51 | P.PN ---
Subjective Progress Note Date: 12/01/18 Principal diagnosis: ruptured appendicitis Patient was seen and examined. No acute events overnight. Patient reports slight worsening of his right lower quadrant pain, 4/10 in severity today. Tolerating low fiber diet well. He denies any chest pain, shortness of breath or palpitations. No nausea or vomiting. No fever or chills. Objective - Vital Signs Vital signs: Vital Signs Temp 98.6 F 12/01/18 02:45 Pulse 83 12/01/18 02:45 Resp 17 12/01/18 02:45 BP 135/78 12/01/18 02:45 Pulse Ox 95 12/01/18 02:45 Intake & Output 11/30/18 12/01/18 12/01/18 18:59 06:59 18:59 Intake Total 250 Balance 250 Intake: Oral 250 Other: # Voids 3 1 - Exam General: [non toxic], [mild distress], [appears at stated age] Derm: [warm], [dry] Head: [atraumatic], [normocephalic], [symmetric] Cardiovascular: [S1S2 reg], [no murmur], [positive DP pulse bilateral], Lungs: [CTA bilateral], [no rhonchi, no rales] , [no accessory muscle use] Abdominal: [soft], [tenderness to palpation in the right lower quadrant with rebound], [no guarding], [no appreciable organomegaly], [positive psoas sign], [midline surgical abdominal scar noted] Ext: [no gross muscle atrophy], [no edema], [no contractures] Neuro: [no focal neuro deficits] Psych: [Alert], [oriented], [appropriate affect] - Labs CBC & Chem 7: 12/01/18 06:57 11/30/18 07:18 Labs: Abnormal Lab Results - Last 24 Hours (Table) 11/30/18 11/30/18 11/30/18 Range/Units 11:36 16:47 21:12 RBC (4.30-5.90) m/uL Hgb (13.0-17.5) gm/dL Hct (39.0-53.0) % POC Glucose (mg/dL) 121 H 148 H 155 H (75-99) mg/dL 12/01/18 12/01/18 12/01/18 Range/Units 02:53 06:57 07:20 RBC 3.94 L (4.30-5.90) m/uL Hgb 11.6 L (13.0-17.5) gm/dL Hct 34.5 L (39.0-53.0) % POC Glucose (mg/dL) 137 H 140 H (75-99) mg/dL Microbiology - Last 24 Hours (Table) 11/27/18 17:00 Blood Culture - Preliminary Blood No Growth after 72 hours 11/29/18 02:50 Urine Culture - Final Urine,Voided Assessment and Plan Assessment: Assessment and plan Acute ruptured appendicitis Urinary tract infection Diabetes mellitus, insulin-dependent with hyperglycemia History of bladder cancer History of melanoma Resolved: acute kidney injury Patient is afebrile with a mild leukocytosis that is downtrending today from 12.3-10.9-within normal limits. As seen on CT abdomen and pelvis. Patient does not appear toxic at this time. He appears hemodynamically stable as well. Plans: Continue Zosyn and Flagyl, attempting to get coverage for IV Rocephin as per ID. Continue normal saline at 70 mL per hour. Zofran as needed for nausea or vomiting. Toradol IV every 6 hours as needed for severe pain, tramadol. Tylenol as needed for fever. As per surgery, no surgical intervention at this time, treat with antibiotics, surgery deferred to about few weeks. Low fiber diet and advance. Follow blood culture. Follow infectious disease consultation. Urinalysis shows small leukocyte esterase. Reports UTI like symptoms. CT abdomen and pelvis shows signs of cystitis. Urine culture negative. Blood cultures are negative at 72 hours. Urine culture negative. Plans: Continue IV antibiotics. [id number] glucose 140. Patient is on 116 units Tresiba at night and 26 unit of Lispro 3 times a day with meals. Plans: Insulin sliding scale. Regular Accu-Cheks. Hypoglycemic precautions. Patient sees Dr. Shane for treatment of bladder cancer. Plans: Need adequate outpatient follow-up. Plans: Needs adequate outpatient follow-up. [Patient admitted for ruptured appendicitis. Has mid-line, plans for IV Rocephin on DC. Needs to be afebrile for 48H as per ID. Follow general surgery for discharge planning.]
[2018-12-01] MEDS: KETOROLAC 30 MG/ML 1 ML VIAL IVP PRN ×3 (10:33→23:34)
--- NOTE | 2018-12-01 10:54 | P.PN ---
Subjective Progress Note Date: 12/01/18 Principal diagnosis: Appendicitis Patient says his pain today is slightly more than it was yesterday. T-max 101.1. Blood cell count 8.8. No nausea or vomiting. Objective - Vital Signs Vital signs: Vital Signs Temp 98.5 F 12/01/18 07:00 Pulse 90 12/01/18 07:00 Resp 18 12/01/18 07:00 BP 145/80 12/01/18 07:00 Pulse Ox 95 12/01/18 07:00 Intake & Output 11/30/18 12/01/18 12/01/18 18:59 06:59 18:59 Intake Total 250 Output Total 350 Balance 250 -350 Intake: Oral 250 Output: Urine 350 Other: # Voids 3 1 1 - Exam Abdomen: Soft, mild distention, mild lower right tenderness - Labs CBC & Chem 7: 12/01/18 06:57 11/30/18 07:18 Labs: Abnormal Lab Results - Last 24 Hours (Table) 11/30/18 11/30/18 11/30/18 Range/Units 11:36 16:47 21:12 RBC (4.30-5.90) m/uL Hgb (13.0-17.5) gm/dL Hct (39.0-53.0) % POC Glucose (mg/dL) 121 H 148 H 155 H (75-99) mg/dL 12/01/18 12/01/18 12/01/18 Range/Units 02:53 06:57 07:20 RBC 3.94 L (4.30-5.90) m/uL Hgb 11.6 L (13.0-17.5) gm/dL Hct 34.5 L (39.0-53.0) % POC Glucose (mg/dL) 137 H 140 H (75-99) mg/dL Microbiology - Last 24 Hours (Table) 11/27/18 17:00 Blood Culture - Preliminary Blood No Growth after 72 hours 11/29/18 02:50 Urine Culture - Final Urine,Voided Assessment and Plan (1) Acute appendicitis with rupture Narrative/Plan: Continue antibiotics. Continue diet as ordered. Repeat labs tomorrow. Ambulate. Current Visit: Yes Status: Acute Code(s): K35.32 - ACUTE APPENDICITIS WITH PERF AND LOC PERITONITIS, W/O ABSCS SNOMED Code(s): 82593326
[2018-12-01 11:57] LABS: Glucose,Whole Blood 169 mg/dL (75-99)
[2018-12-01] MEDS: SODIUM CHLORIDE 0.9% 1,000 ML IV SCH (13:37)
--- NOTE | 2018-12-01 15:15 | P.PN ---
Subjective Progress Note Date: 12/01/18 63-year-old male who has a history of some abdominal pain presents and was found evidence of a ruptured appendix. Due to the status he is being treated with antibiotic therapy with surgical intervention being planned in the future. He was still having some fever and there is no been some change of his antibiotic therapy. He is feeling slowly better today but still having abdominal pain. Appetite is poor is not having nausea or emesis. He is no hematemesis motor medication. He is not having significant diarrhea. Objective - Vital Signs Vital signs: Vital Signs Temp 98.5 F 12/01/18 07:00 Pulse 90 12/01/18 07:00 Resp 18 12/01/18 07:00 BP 145/80 12/01/18 07:00 Pulse Ox 95 12/01/18 07:00 Intake & Output 11/30/18 12/01/18 12/01/18 18:59 06:59 18:59 Intake Total 250 1720 Output Total 350 Balance 250 1370 Intake: Intake, IV Titration 760 Amount Piperacillin-Tazobactam 3 100 .375 gm In Sodium Chloride 0.9% 100 ml @ 25 mls/hr IVPB Q8HR [facility] Rx# :[id number] Sodium Chloride 0.9% 1, 560 000 ml @ 70 mls/hr IV . [id number] [facility] Rx#:[id number] metroNIDAZOLE-NS PMX 500 100 mg In Saline 1 100ml.bag @ 100 mls/hr IVPB Q8HR [facility] Rx#:[id number] Oral 250 960 Output: Urine 350 Other: # Voids 3 1 1 - Exam Pleasant 63-year-old male still has some abdominal pain HEENT: Anicteric conjunctiva are pink and moist nasal mucosa grossly intact without significant lesions, there is no thrush. Neck: The neck is supple without significant lymphadenopathy or thyromegaly. Lungs: Good bilateral air entry without significant crackles or wheezing. There is no significant bronchial sounds. There is no egophony or dullness. Heart: Regular rate and rhythm with an audible S1-S2, no S3 no S4. There is no significant murmur click or rub, PMI was nondisplaced. Abdomen: Obese, Positive bowel sounds soft some generalized tenderness especially right lower quadrant but without palpable masses or organomegaly. There was no guarding or rebound. Extremities: The upper extremities have excellent pulses they are symmetric, no significant petechiae or telangiectasia. No splinter hemorrhages were noted. The lower extremities are free from significant edema. The peripheral pulses were 2+ and symmetric. Neuro: Awake alert oriented to person place and time. There are no acute new gross focal sensory motor deficits. - Labs CBC & Chem 7: 12/01/18 06:57 11/30/18 07:18 Labs: Abnormal Lab Results - Last 24 Hours (Table) 11/30/18 11/30/18 12/01/18 Range/Units 16:47 21:12 02:53 RBC (4.30-5.90) m/uL Hgb (13.0-17.5) gm/dL Hct (39.0-53.0) % POC Glucose (mg/dL) 148 H 155 H 137 H (75-99) mg/dL 12/01/18 12/01/18 12/01/18 Range/Units 06:57 07:20 11:56 RBC 3.94 L (4.30-5.90) m/uL Hgb 11.6 L (13.0-17.5) gm/dL Hct 34.5 L (39.0-53.0) % POC Glucose (mg/dL) 140 H 169 H (75-99) mg/dL Microbiology - Last 24 Hours (Table) 11/27/18 17:00 Blood Culture - Preliminary Blood No Growth after 72 hours 11/29/18 02:50 Urine Culture - Final Urine,Voided Laboratory Results WBC 8.8 k/uL (3.8-10.6) 12/01/18 06:57 RBC 3.94 m/uL (4.30-5.90) L 12/01/18 06:57 Hgb 11.6 gm/dL (13.0-17.5) L 12/01/18 06:57 Hct 34.5 % (39.0-53.0) L 12/01/18 06:57 MCV 87.4 fL (80.0-100.0) 12/01/18 06:57 MCH 29.4 pg (25.0-35.0) 12/01/18 06:57 MCHC 33.7 g/dL (31.0-37.0) 12/01/18 06:57 RDW 12.5 % (11.5-15.5) 12/01/18 06:57 Plt Count 194 k/uL (150-450) 12/01/18 06:57 Neutrophils % 73 % 12/01/18 06:57 Lymphocytes % 15 % 12/01/18 06:57 Monocytes % 7 % 12/01/18 06:57 Eosinophils % 2 % 12/01/18 06:57 Basophils % 1 % 12/01/18 06:57 Neutrophils # 6.4 k/uL (1.3-7.7) 12/01/18 06:57 Lymphocytes # 1.4 k/uL (1.0-4.8) 12/01/18 06:57 Monocytes # 0.6 k/uL (0-1.0) 12/01/18 06:57 Eosinophils # 0.2 k/uL (0-0.7) 12/01/18 06:57 Basophils # 0.1 k/uL (0-0.2) 12/01/18 06:57 Sodium 134 mmol/L (137-145) L 11/30/18 07:18 Potassium 4.3 mmol/L (3.5-5.1) 11/30/18 07:18 Chloride 100 mmol/L (98-107) 11/30/18 07:18 Carbon Dioxide 24 mmol/L (22-30) 11/30/18 07:18 Anion Gap 10 mmol/L 11/30/18 07:18 BUN 15 mg/dL (9-20) 11/30/18 07:18 Creatinine 0.83 mg/dL (0.66-1.25) 11/30/18 07:18 Est GFR (CKD-EPI)AfAm >90 (>60 ml/min/1.73 sqM) 11/30/18 07:18 Est GFR (CKD-EPI)NonAf >90 (>60 ml/min/1.73 sqM) 11/30/18 07:18 Glucose 135 mg/dL (74-99) H 11/30/18 07:18 POC Glucose (mg/dL) 169 mg/dL (75-99) H 12/01/18 11:56 POC Glu D[employer] BELLA Evangelina Villalpando 12/01/18 11:56 Plasma Lactic Acid Román 1.0 mmol/L (0.7-2.0) 11/30/18 15:58 Calcium 7.6 mg/dL (8.4-10.2) L 11/30/18 07:18 Total Bilirubin 0.7 mg/dL (0.2-1.3) 11/30/18 07:18 AST 21 U/L (17-59) 11/30/18 07:18 ALT 24 U/L (21-72) 11/30/18 07:18 Alkaline Phosphatase 77 U/L (38-126) 11/30/18 07:18 Total Protein 6.4 g/dL (6.3-8.2) 11/30/18 07:18 Albumin 3.0 g/dL (3.5-5.0) L 11/30/18 07:18 Amylase 40 U/L (30-110) 11/27/18 13:35 Lipase 38 U/L (23-300) 11/27/18 13:35 Urine Color Yellow 11/27/18 15:30 Urine Appearance Clear (Clear) 11/27/18 15:30 Urine pH 5.5 (5.0-8.0) 11/27/18 15:30 Ur Specific [place] 1.020 (1.001-1.035) 11/27/18 15:30 Urine Protein 2+ (Negative) H 11/27/18 15:30 Urine Glucose (UA) 4+ (Negative) H 11/27/18 15:30 Urine Ketones Negative (Negative) 11/27/18 15:30 Urine Blood Small (Negative) H 11/27/18 15:30 Urine Nitrite Positive (Negative) 11/27/18 15:30 Urine Bilirubin Negative (Negative) 11/27/18 15:30 Urine Urobilinogen <2.0 mg/dL (<2.0) 11/27/18 15:30 Ur Leukocyte Esterase Small (Negative) H 11/27/18 15:30 Urine RBC 1 /hpf (0-5) 11/27/18 15:30 Urine WBC 20 /hpf (0-5) H 11/27/18 15:30 Urine WBC Clumps Few /hpf (None) H 11/27/18 15:30 Ur Squamous Epith Cells <1 /hpf (0-4) 11/27/18 15:30 Hyaline Casts 12 /lpf (0-2) H 11/27/18 15:30 Urine Mucus Few /hpf (None) H 11/27/18 15:30 Microbiology 11/27/18 17:00 Blood Blood Culture - Preliminary No Growth after 72 hours 11/29/18 02:50 Urine,Voided Urine Culture - Final Assessment and Plan (1) Acute appendicitis with rupture Narrative/Plan: 63-year-old male who has a history of diabetes mellitus type 2 somewhat poorly controlled with some neuropathy presents to hospital with significant abdominal pain but evidence of a ruptured appendix by computed tomography scan. He was seen by surgery and his plans for late surgical intervention. He did have some fever that was persisting and antibiotic therapy was altered. He is now feeling somewhat better. Still has poor appetite. He does have a midline into the left arm. At this time will be prudent for the patient to present for outpatient intravenous antibiotic therapy likely transition to ertapenem for outpatient therapy for a few weeks given the current acuity of his difficulties. Close follow-up with the surgeon for the late surgical intervention. Current Visit: Yes Status: Acute Code(s): K35.32 - ACUTE APPENDICITIS WITH PERF AND LOC PERITONITIS, W/O ABSCS SNOMED Code(s): 54866883 (2) Fever Current Visit: Yes Status: Acute Code(s): R50.9 - FEVER, UNSPECIFIED SNOMED Code(s): 215954170 (3) Leukocytosis Current Visit: Yes Status: Acute Code(s): D72.829 - ELEVATED WHITE BLOOD CE LL COUNT, UNSPECIFIED SNOMED Code(s): 837310528
[2018-12-01 17:28] LABS: Glucose,Whole Blood 144 mg/dL (75-99)
[2018-12-01] MEDS: ONDANSETRON 4 MG/2 ML VIAL IVP PRN (18:12)
[2018-12-01 20:23] LABS: Glucose,Whole Blood 144 mg/dL (75-99)
[2018-12-01] MEDS: MELATONIN 3 MG TABLET PO SCH (21:00)
[2018-12-02 01:38] LABS: Glucose,Whole Blood 151 mg/dL (75-99)
[2018-12-02] MEDS: ACETAMINOPHEN TAB 325 MG TAB PO PRN ×2 (03:39→22:52)
[2018-12-02] MEDS: SODIUM CHLORIDE 0.9% 1,000 ML IV SCH ×2 (03:40→17:54)
[2018-12-02 06:48] LABS: Basophils # (A) 0.1 k/uL (0-0.2); Basophils % (A) 1 %; Eosinophils # (A) 0.1 k/uL (0-0.7); Eosinophils % (A) 2 %; HCT 34.3 % (39.0-53.0); HGB 11.6 gm/dL (13.0-17.5); Lymphocytes % (A) 12 %; MCH 29.3 pg (25.0-35.0); MCHC 33.7 g/dL (31.0-37.0); Mean Platelet Volume 7.6; Monocytes # (A) 0.6 k/uL (0-1.0); Monocytes % (A) 7 %; Neutrophils # (A) 6.8 k/uL (1.3-7.7); Neutrophils % (A) 77 %; Platelet Count 202 k/uL (150-450); RBC 3.94 m/uL (4.30-5.90); RDW 12.5 % (11.5-15.5); WBC 8.8 k/uL (3.8-10.6)
[2018-12-02 07:00] LABS: Glucose,Whole Blood 144 mg/dL (75-99)
[2018-12-02 07:16] LABS: African American GFR (CKD) >90 (>60 ml/min/1.73 sqM); Anion Gap 7 mmol/L; Blood Urea Nitrogen 18 mg/dL (9-20); Calcium 7.8 mg/dL (8.4-10.2); Carbon Dioxide 24 mmol/L (22-30); Chloride 102 mmol/L (98-107); Glucose 144 mg/dL (74-99); Sodium 133 mmol/L (137-145)
[2018-12-02] MEDS: metroNIDAZOLE-NS PMX 500 MG in SALINE 1 100ML.BAG IVPB SCH ×3 (07:42→22:51)
[2018-12-02] MEDS: INSULIN ASPART (NovoLOG) 100 UNIT/ML VIAL SQ SCH ×4 (07:42→20:27)
[2018-12-02] MEDS: KETOROLAC 30 MG/ML 1 ML VIAL IVP PRN ×3 (07:43→20:27)
--- NOTE | 2018-12-02 08:59 | P.PN ---
Subjective Progress Note Date: 12/02/18 Principal diagnosis: Ruptured appendicitis 12/02/2018: Patient rates his pain as 4/10 mostly in the right lower quadrant. He has been nauseated with no vomiting. He states that his pain was better Monday then has been worse since. He denies chest pain or shortness of breath. He is able to tolerate a diet. He has been constipated but this passing flatus. Remains afebrile since 11/30/2018 Objective - Vital Signs Vital signs: Vital Signs Temp 98.8 F 12/02/18 07:00 Pulse 81 12/02/18 07:00 Resp 16 12/02/18 07:00 BP 156/73 12/02/18 07:00 Pulse Ox 95 12/02/18 07:00 Intake & Output 12/01/18 12/02/18 12/02/18 18:59 06:59 18:59 Intake Total 1720 900 Output Total 350 Balance 1370 900 Intake: Intake, IV Titration 760 900 Amount Piperacillin-Tazobactam 3 100 100 .375 gm In Sodium Chloride 0.9% 100 ml @ 25 mls/hr IVPB Q8HR [facility] Rx# :[id number] Sodium Chloride 0.9% 1, 560 700 000 ml @ 70 mls/hr IV . [id number] [facility] Rx#:[id number] metroNIDAZOLE-NS PMX 500 100 100 mg In Saline 1 100ml.bag @ 100 mls/hr IVPB Q8HR [facility] Rx#:[id number] Oral 960 Output: Urine 350 Other: Voiding Method Toilet # Voids 1 2 - Exam General: [non toxic], not in distress, [appears at stated age] Derm: [warm], [dry] Head: [atraumatic], [normocephalic], [symmetric] Cardiovascular: [S1S2 reg], [no murmur] Lungs: [CTA bilateral], [no rhonchi, no rales] , [no accessory muscle use] Abdominal: [soft], [tenderness to palpation in the right lower quadrant with rebound], [no guarding], [no appreciable organomegaly], , [midline surgical abdominal scar noted] obese. Ext: [no gross muscle atrophy], [no edema], [no contractures] Neuro: [no focal neuro deficits] Psych: [Alert], [oriented], [appropriate affect] - Labs CBC & Chem 7: 12/02/18 06:04 12/02/18 06:04 Labs: Abnormal Lab Results - Last 24 Hours (Table) 12/01/18 12/01/18 12/01/18 Range/Units 11:56 17:27 20:22 RBC (4.30-5.90) m/uL Hgb (13.0-17.5) gm/dL Hct (39.0-53.0) % Sodium (137-145) mmol/L Glucose (74-99) mg/dL POC Glucose (mg/dL) 169 H 144 H 144 H (75-99) mg/dL Calcium (8.4-10.2) mg/dL 12/02/18 12/02/18 12/02/18 Range/Units 01:37 06:04 06:04 RBC 3.94 L (4.30-5.90) m/uL Hgb 11.6 L (13.0-17.5) gm/dL Hct 34.3 L (39.0-53.0) % Sodium 133 L (137-145) mmol/L Glucose 144 H (74-99) mg/dL POC Glucose (mg/dL) 151 H (75-99) mg/dL Calcium 7.8 L (8.4-10.2) mg/dL 12/02/18 Range/Units 06:58 RBC (4.30-5.90) m/uL Hgb (13.0-17.5) gm/dL Hct (39.0-53.0) % Sodium (137-145) mmol/L Glucose (74-99) mg/dL POC Glucose (mg/dL) 144 H (75-99) mg/dL Calcium (8.4-10.2) mg/dL Microbiology - Last 24 Hours (Table) 11/27/18 17:00 Blood Culture - Preliminary Blood No Growth after 96 hours 11/30/18 15:36 Blood Culture - Preliminary Blood No Growth after 24 hours Assessment and Plan Plan: Assessment and plan 1. Acute ruptured appendicitis: Continue IV Zosyn and Flagyl, ID following, surgery following. Patient remains afebrile since 11/30/2018, leukocytoses resolved. Continue pain control as indicated, continue normal saline at 70 mL per hour. No surgical intervention at this time. Low fiber diet and advance 2. Acute Urinary tract infection, unspecified organism on location: Continue IV Zosyn 3. Diabetes mellitus, insulin-dependent 2 with hyperglycemia: Continue insulin sliding scale. 4. History of bladder cancer: Patient sees Dr. Shane for treatment of bladder cancer. Plans: Need adequate outpatient follow-up. 5. History of melanoma: Outpatient follow-up 6. Acute kidney injury secondary to hypovolemia: Resolved, continue IV fluids, avoid nephrotoxins, monitor. [Patient admitted for ruptured appendicitis. Has mid-line, plans for IV Rocephin on DC. Needs to be afebrile for 48H as per ID. Follow general surgery for discharge planning. Possible discharge tomorrow if abdominal pain is better.]
[2018-12-02] MEDS: PIPERACILLIN-TAZOBACTAM 3.375 GM in SODIUM CHLORIDE 0.9% 100 ML IVPB SCH ×2 (10:07→17:01)
[2018-12-02] MEDS: traMADol 50 MG TAB PO PRN ×3 (10:16→22:50)
--- NOTE | 2018-12-02 11:07 | P.PN ---
Subjective Progress Note Date: 12/02/18 Principal diagnosis: Appendicitis Patient doing well today. Pain is about the same as yesterday. T-max 99.3. White blood cell count normal. Passing flatus. No nausea or vomiting. Objective - Vital Signs Vital signs: Vital Signs Temp 98.8 F 12/02/18 07:00 Pulse 81 12/02/18 07:00 Resp 16 12/02/18 07:00 BP 156/73 12/02/18 07:00 Pulse Ox 95 12/02/18 07:00 Intake & Output 12/01/18 12/02/18 12/02/18 18:59 06:59 18:59 Intake Total 1720 900 Output Total 350 Balance 1370 900 Intake: Intake, IV Titration 760 900 Amount Piperacillin-Tazobactam 3 100 100 .375 gm In Sodium Chloride 0.9% 100 ml @ 25 mls/hr IVPB Q8HR [facility] Rx# :[id number] Sodium Chloride 0.9% 1, 560 700 000 ml @ 70 mls/hr IV . [id number] [facility] Rx#:[id number] metroNIDAZOLE-NS PMX 500 100 100 mg In Saline 1 100ml.bag @ 100 mls/hr IVPB Q8HR [facility] Rx#:[id number] Oral 960 Output: Urine 350 Other: Voiding Method Toilet # Voids 1 2 - Exam Abdomen: Soft, mild distention, mild right lower quadrant tenderness - Labs CBC & Chem 7: 12/02/18 06:04 12/02/18 06:04 Labs: Abnormal Lab Results - Last 24 Hours (Table) 12/01/18 12/01/18 12/01/18 Range/Units 11:56 17:27 20:22 RBC (4.30-5.90) m/uL Hgb (13.0-17.5) gm/dL Hct (39.0-53.0) % Sodium (137-145) mmol/L Glucose (74-99) mg/dL POC Glucose (mg/dL) 169 H 144 H 144 H (75-99) mg/dL Calcium (8.4-10.2) mg/dL 12/02/18 12/02/18 12/02/18 Range/Units 01:37 06:04 06:04 RBC 3.94 L (4.30-5.90) m/uL Hgb 11.6 L (13.0-17.5) gm/dL Hct 34.3 L (39.0-53.0) % Sodium 133 L (137-145) mmol/L Glucose 144 H (74-99) mg/dL POC Glucose (mg/dL) 151 H (75-99) mg/dL Calcium 7.8 L (8.4-10.2) mg/dL 12/02/18 Range/Units 06:58 RBC (4.30-5.90) m/uL Hgb (13.0-17.5) gm/dL Hct (39.0-53.0) % Sodium (137-145) mmol/L Glucose (74-99) mg/dL POC Glucose (mg/dL) 144 H (75-99) mg/dL Calcium (8.4-10.2) mg/dL Microbiology - Last 24 Hours (Table) 11/27/18 17:00 Blood Culture - Preliminary Blood No Growth after 96 hours 11/30/18 15:36 Blood Culture - Preliminary Blood No Growth after 24 hours Assessment and Plan (1) Acute appendicitis with rupture Narrative/Plan: Patient doing well with nonoperative management. Continue IV antibiotics. Continue diet as tolerated. Current Visit: Yes Status: Acute Code(s): K35.32 - ACUTE APPENDICITIS WITH PERF AND LOC PERITONITIS, W/O ABSCS SNOMED Code(s): 98200149
[2018-12-02 11:43] LABS: Glucose,Whole Blood 177 mg/dL (75-99)
[2018-12-02 17:21] LABS: Glucose,Whole Blood 195 mg/dL (75-99)
[2018-12-02 20:17] LABS: Glucose,Whole Blood 182 mg/dL (75-99)
[2018-12-02] MEDS: MELATONIN 3 MG TABLET PO SCH (20:27)
[2018-12-03] MEDS: PIPERACILLIN-TAZOBACTAM 3.375 GM in SODIUM CHLORIDE 0.9% 100 ML IVPB SCH ×3 (00:17→15:52)
[2018-12-03 02:09] LABS: Glucose,Whole Blood 144 mg/dL (75-99)
[2018-12-03] MEDS: KETOROLAC 30 MG/ML 1 ML VIAL IVP PRN (04:33)
[2018-12-03 06:46] LABS: Glucose,Whole Blood 132 mg/dL (75-99)
[2018-12-03 07:55] LABS: Basophils # (A) 0.1 k/uL (0-0.2); Basophils % (A) 1 %; Eosinophils # (A) 0.2 k/uL (0-0.7); Eosinophils % (A) 2 %; HCT 36.6 % (39.0-53.0); HGB 12.2 gm/dL (13.0-17.5); Lymphocytes # (A) 1.3 k/uL (1.0-4.8); Lymphocytes % (A) 14 %; MCH 28.9 pg (25.0-35.0); MCHC 33.2 g/dL (31.0-37.0); MCV 87.1 fL (80.0-100.0); Mean Platelet Volume 7.8; Monocytes # (A) 0.6 k/uL (0-1.0); Monocytes % (A) 7 %; Neutrophils % (A) 76 %; Platelet Count 238 k/uL (150-450); RDW 13.4 % (11.5-15.5); WBC 9.3 k/uL (3.8-10.6)
[2018-12-03 08:09] LABS: ALT 27 U/L (21-72); AST 22 U/L (17-59); African American GFR (CKD) >90 (>60 ml/min/1.73 sqM); Albumin 2.8 g/dL (3.5-5.0); Alkaline Phosphatase 90 U/L (38-126); Anion Gap 8 mmol/L; Blood Urea Nitrogen 18 mg/dL (9-20); Calcium 7.9 mg/dL (8.4-10.2); Carbon Dioxide 27 mmol/L (22-30); Chloride 100 mmol/L (98-107); Glucose 143 mg/dL (74-99); Potassium 4.2 mmol/L (3.5-5.1); Sodium 135 mmol/L (137-145); Total Bilirubin 0.4 mg/dL (0.2-1.3); Total Protein 6.4 g/dL (6.3-8.2)
[2018-12-03] MEDS: INSULIN ASPART (NovoLOG) 100 UNIT/ML VIAL SQ SCH ×4 (09:04→20:33)
[2018-12-03] MEDS: metroNIDAZOLE-NS PMX 500 MG in SALINE 1 100ML.BAG IVPB SCH ×3 (09:04→23:04)
[2018-12-03] MEDS: traMADol 50 MG TAB PO PRN ×2 (09:18→15:53)
[2018-12-03] MEDS: IOPAMIDOL-300 CONTRAST 30 ML VIAL (ORAL USE) PO PRN ×2 (11:35→12:33)
[2018-12-03 12:18] LABS: Glucose,Whole Blood 136 mg/dL (75-99)
--- NOTE | 2018-12-03 12:38 | P.PN ---
Subjective Progress Note Date: 12/03/18 CHIEF COMPLAINT: Abdominal pain HISTORY OF PRESENT ILLNESS: Patient examined this morning at the bedside. Patient reports his pain increased Monday evening and has not improved since then. He is currently rating it 5/10. He is tolerating diet. He is passing flatu s. No BM. Patient states he does not think he has had a bowel movement in about a week. WBC 9.3. Patient febrile yesterday with tmax 100.3. Afebrile this AM. PHYSICAL EXAM: VITAL SIGNS: Reviewed. GENERAL: Well-developed in no acute distress. HEENT: No sclera icterus. Extraocular movements grossly intact. Moist buccal mucosa. Head is atraumatic, normocephalic. ABDOMEN: Soft. Obese. Tenderness to right lower quadrant. Old midline surgical scar. NEUROLOGIC: Alert and oriented. Cranial nerves II through XII grossly intact. ASSESSMENT: 1. Acute ruptured appendicitis PLAN: Monitor WBC. Continue antibiotics. Possible IV antibiotics at discharge. Defer to infectious disease Continue diet as tolerated Repeat CT scan abdomen pelvis with IV and oral contrast Nurse practitioner note has been reviewed by physician. Signing provider agrees with the documented findings, assessment, and plan of care. Objective - Vital Signs Vital signs: Vital Signs Temp 98.8 F 12/03/18 07:00 Pulse 78 12/03/18 08:00 Resp 16 12/03/18 08:00 BP 154/81 12/03/18 07:00 Pulse Ox 95 12/03/18 07:00 Intake & Output 12/02/18 12/03/18 12/03/18 18:59 06:59 18:59 Intake Total 120 1360 Balance 120 1360 Intake: Intake, IV Titration 1110 Amount Piperacillin-Tazobactam 3 100 .375 gm In Sodium Chloride 0.9% 100 ml @ 25 mls/hr IVPB Q8HR [facility] Rx# :[id number] Sodium Chloride 0.9% 1, 910 000 ml @ 70 mls/hr IV . [id number] [facility] Rx#:[id number] metroNIDAZOLE-NS PMX 500 100 mg In Saline 1 100ml.bag @ 100 mls/hr IVPB Q8HR [facility] Rx#:[id number] Oral 120 250 Other: Voiding Method Toilet Toilet # Voids 2 - Labs CBC & Chem 7: 12/03/18 07:02 12/03/18 07:02 Labs: Abnormal Lab Results - Last 24 Hours (Table) 12/02/18 12/02/18 12/03/18 Range/Units 17:19 20:13 02:08 RBC (4.30-5.90) m/uL Hgb (13.0-17.5) gm/dL Hct (39.0-53.0) % Sodium (137-145) mmol/L Glucose (74-99) mg/dL POC Glucose (mg/dL) 195 H 182 H 144 H (75-99) mg/dL Calcium (8.4-10.2) mg/dL Albumin (3.5-5.0) g/dL 12/03/18 12/03/18 12/03/18 Range/Units 06:44 07:02 07:02 RBC 4.20 L (4.30-5.90) m/uL Hgb 12.2 L (13.0-17.5) gm/dL Hct 36.6 L (39.0-53.0) % Sodium 135 L (137-145) mmol/L Glucose 143 H (74-99) mg/dL POC Glucose (mg/dL) 132 H (75-99) mg/dL Calcium 7.9 L (8.4-10.2) mg/dL Albumin 2.8 L (3.5-5.0) g/dL 12/03/18 Range/Units 12:06 RBC (4.30-5.90) m/uL Hgb (13.0-17.5) gm/dL Hct (39.0-53.0) % Sodium (137-145) mmol/L Glucose (74-99) mg/dL POC Glucose (mg/dL) 136 H (75-99) mg/dL Calcium (8.4-10.2) mg/dL Albumin (3.5-5.0) g/dL Microbiology - Last 24 Hours (Table) 11/27/18 17:00 Blood Culture - Preliminary Blood No Growth after 120 hours 11/30/18 15:36 Blood Culture - Preliminary Blood No Growth after 48 hours
--- NOTE | 2018-12-03 14:16 | CT ---
EXAMINATION TYPE: CT abdomen pelvis w con DATE OF EXAM: 12/03/2018 COMPARISON: 11/27/2018 INDICATION: Acute ruptured appendix DLP: 2106.2 mGycm, Automated exposure control for dose reduction was used. CONTRAST: 100 mL of Isovue 300. Study performed with Oral Contrast TECHNIQUE: Axial images were obtained from above the diaphragm to the pubic rami in the axial plane a t 5 mm thick sections. Reconstructed images are reviewed on the computer in the coronal plane. FINDINGS: Limited CT sections are obtained the lung bases. The lung bases are clear. There is elevation of th e left diaphragm. Some compressive atelectasis may be adjacent. Minimal coronary artery calcification s present. CT ABDOMEN: Liver: Mild fatty infiltration of liver. Spleen: Normal Pancreas: Normal Adrenal glands: The adrenal glands are normal. Gallbladder: Normal Kidneys: No masses are evident. No hydronephrosis is present. No cysts are present. Delayed images were obtained through the kidneys, which remain unremarkable. Aorta: Normal Inferior vena cava: Normal. CT PELVIS: Within the right lower quadrant there are inflammatory changes. Slight conformation or abscess may be present with lobulated hypodensity measuring 1.8 and 2.5 cm in transverse dimension. These may commu nicate and are near the region of the patient's recent ruptured appendix. Findings are developing fro m comparison have increased in size. There are loops of bowel which are incompletely distended or lack oral contrast limiting their evalu ation. Distended loops of bowel appear unremarkable. Oral contrast extends to the distal small bowel. Appendix: Not visualized. Urinary bladder: Distended Genitourinary structures: Prostate is somewhat prominent Osseous structures: No suspicious lytic or sclerotic lesions. IMPRESSIONS: 1. Phlegmon or abscess formation at the right lower quadrant is developing from 11/27/2018. These are as appear to communicate. The largest area measures 2.5 cm.
--- NOTE | 2018-12-03 14:38 | XR ---
EXAMINATION TYPE: XR abdomen 2V DATE OF EXAM: 12/03/2018 COMPARISON: 10/13/2017 INDICATION: Postop ileus TECHNIQUE: Single view abdomen upright view FINDINGS: There is prominent colonic bowel gas. Nonspecific small bowel gas is present. No free air is evident. No mass effect is evident. Psoas margins are normal. No suspicious differential air-fluid levels are present. No organomegaly is present. IMPRESSION: 1. Nonspecific abdomen.
[2018-12-03] MEDS: ENOXAPARIN 40 MG/0.4 ML SYRINGE SQ SCH (15:41)
[2018-12-03 16:54] LABS: Glucose,Whole Blood 118 mg/dL (75-99)
--- NOTE | 2018-12-03 17:08 | P.PN ---
Subjective Progress Note Date: 12/03/18 Patient seen and examined follow-up, reports to be weak and has been up and ambulatory but does get pretty fatigued. Denies bowel movement but is passing gas, rates pain at a 3 or 4-10. Leukocytosis has resolved continues on antibiotics per ID Objective - Vital Signs Vital signs: Vital Signs Temp 98.8 F 12/03/18 15:00 Pulse 86 12/03/18 15:00 Resp 16 12/03/18 15:00 BP 165/98 12/03/18 15:00 Pulse Ox 94 L 12/03/18 15:00 Intake & Output 12/02/18 12/03/18 12/03/18 18:59 06:59 18:59 Intake Total 120 1360 590 Balance 120 1360 590 Intake: Intake, IV Titration 1110 590 Amount Piperacillin-Tazobactam 3 100 .375 gm In Sodium Chloride 0.9% 100 ml @ 25 mls/hr IVPB Q8HR [facility] Rx# :[id number] Sodium Chloride 0.9% 1, 910 490 000 ml @ 70 mls/hr IV . [id number] [facility] Rx#:[id number] metroNIDAZOLE-NS PMX 500 100 100 mg In Saline 1 100ml.bag @ 100 mls/hr IVPB Q8HR [facility] Rx#:[id number] Oral 120 250 Other: Voiding Method Toilet Toilet # Voids 2 - Exam Constitutional: No acute distress, conversant, pleasant Eyes: Anicteric sclerae, moist conjunctiva, no lid-lag, PERRLA ENMT: NC/AT,Oropharynx clear, no erythema, exudates Neck:Supple, FROM, no masses, or JVD, No carotid bruits; No thyromegaly Lungs: Clear to auscultation, Clear to percussion, Normal respiratory effort, no accessory muscle use Cardiovascular: Heart regular in rate and rhythm, No murmurs, gallops, or rubs no peripheral edema Abdominal: Soft tender to palpation right lower quadrant, nom distended, no guarding, no rebound or rigidity, Normoactive bowel sounds No hepatomegaly, No splenomegaly, No palpable mass No abdominal wall hernia noted Skin: Normal temperature, tone, texture, turgor, No induration No subcutaneous nodules, No rash, lesions, No ulcers Extremities:No digital cyanosis No clubbing, Pedal pulses intact and symmetrical Radial pulses intact and symmetrical Normal gait and station, No calf tenderness Psychiatric: Alert and oriented to person, place and time, Appropriate affect Intact judgement Neuro: Muscles Strength 5/5 in all 4 extremities, Sensation to light touch grossly present throughout, Cranial nerves II-XII grossly intact. No focal s ensory deficits - Labs CBC & Chem 7: 12/03/18 07:02 12/03/18 07:02 Labs: Abnormal Lab Results - Last 24 Hours (Table) 12/02/18 12/02/18 12/03/18 Range/Units 17:19 20:13 02:08 RBC (4.30-5.90) m/uL Hgb (13.0-17.5) gm/dL Hct (39.0-53.0) % Sodium (137-145) mmol/L Glucose (74-99) mg/dL POC Glucose (mg/dL) 195 H 182 H 144 H (75-99) mg/dL Calcium (8.4-10.2) mg/dL Albumin (3.5-5.0) g/dL 12/03/18 12/03/18 12/03/18 Range/Units 06:44 07:02 07:02 RBC 4.20 L (4.30-5.90) m/uL Hgb 12.2 L (13.0-17.5) gm/dL Hct 36.6 L (39.0-53.0) % Sodium 135 L (137-145) mmol/L Glucose 143 H (74-99) mg/dL POC Glucose (mg/dL) 132 H (75-99) mg/dL Calcium 7.9 L (8.4-10.2) mg/dL Albumin 2.8 L (3.5-5.0) g/dL 12/03/18 12/03/18 Range/Units 12:06 16:51 RBC (4.30-5.90) m/uL Hgb (13.0-17.5) gm/dL Hct (39.0-53.0) % Sodium (137-145) mmol/L Glucose (74-99) mg/dL POC Glucose (mg/dL) 136 H 118 H (75-99) mg/dL Calcium (8.4-10.2) mg/dL Albumin (3.5-5.0) g/dL Microbiology - Last 24 Hours (Table) 11/27/18 17:00 Blood Culture - Preliminary Blood No Growth after 120 hours 11/30/18 15:36 Blood Culture - Preliminary Blood No Growth after 48 hours Assessment and Plan (1) Sepsis Narrative/Plan: * Secondary to acute appendicitis with rupture and subsequent appendiceal abscess as seen on repeat CT today * Febrile overnight, no leukocytosis * Continue current antibiotic regimen with Flagyl and Zosyn Current Visit: Yes Status: Acute Code(s): A41.9 - SEPSIS, UNSPECIFIED ORGANISM SNOMED Code(s): 47724837 (2) Appendiceal abscess Narrative/Plan: * IR consulted for I&D however abscess appears to small at this time and not amenable for drainage * Continue antibiotics * Defer management to general surgery Current Visit: Yes Status: Acute Code(s): K35.33 - ACUTE APPENDICITIS WITH PERF AND LOC PERITONITIS, WITH ABSCS SNOMED Code(s): 95320700 (3) Acute appendicitis with rupture Current Visit: Yes Status: Acute Code(s): K35.32 - ACUTE APPENDICITIS WITH PERF AND LOC PERITONITIS, W/O ABSCS SNOMED Code(s): 04517028 (4) Type 2 diabetes mellitus with peripheral neuropathy Narrative/Plan: * Blood sugar stable and controlled continue current regimen * Current Visit: Yes Status: Acute Code(s): E11.42 - TYPE 2 DIABETES MELLITUS WITH DIABETIC POLYNEUROPATHY SNOMED Code(s): 04767039 Plan: * Disposition continue current treatment plan * Patient may need to have appendectomy/colectomy
--- NOTE | 2018-12-03 19:15 | PN ---
PROGRESS NOTE DATE OF SERVICE: 12/03/2018. REASON FOR FOLLOWUP: Perforated appendix with abdominal abscess. INTERVAL HISTORY: The patient is currently afebrile. Patient has been breathing comfortably. Patient denies chest pain, shortness of breath or cough. No nausea, no vomiting. No abdominal pain, no worsening abdominal pain. No diarrhea. PHYSICAL EXAMINATION: Blood pressure 165/90 with a pulse of 86, temperature 98.8. He is 94% on room air. General description is a middle-aged male lying in bed in no distress. Respiratory system: Unlabored breathing. Clear to auscultation anteriorly. Heart S1, S2. Regular rate and rhythm. Abdomen soft, no tenderness. No guarding. No rigidity. Extremities: No edema of the feet. LABS: Hemoglobin is 12.1, white count 9.3, BUN of 18, creatinine 0.7. Repeat CT showing development of an abscess. DIAGNOSTIC IMPRESSION AND PLAN: Patient admitted to the hospital with abdominal pain. The patient has been diagnosed with acute ruptured appendicitis. The patient did have a fever. Further workup including a CT now showing evidence of an abscess. The patient would benefit from a CT- guided drainage of this abscess in order to completely clear up this infection. Continue Zosyn at this point. Monitor clinical course closely. Continue supportive care. MMODL / IJN: [id number] /
[2018-12-03 20:16] LABS: Glucose,Whole Blood 172 mg/dL (75-99)
[2018-12-03] MEDS: SODIUM CHLORIDE 0.9% 1,000 ML IV SCH ×2 (20:30→20:34)
[2018-12-03] MEDS: MELATONIN 3 MG TABLET PO SCH (20:33)
[2018-12-04] MEDS: PIPERACILLIN-TAZOBACTAM 3.375 GM in SODIUM CHLORIDE 0.9% 100 ML IVPB SCH ×2 (00:09→09:18)
--- NOTE | 2018-12-04 00:12 | P.PN ---
Progress Note - Text Progress Note Date: 12/03/18 Interval history: Patient admitted with ruptured appendix. Being managed with IV antibiotics. Today-abdomen is distended. Did pass some flatus. No bowel movement. Her nausea vomiting. Tired. Running low-grade fevers Review of systems: Was done for constitutional, cardiovascular, GI, pulmonary. relevant finding as above Active Medications Acetaminophen (Tylenol Tab) 650 mg PO Q6HR PRN PRN Reason: Mild Pain or Fever > 100.5 Last Admin: 12/02/18 22:52 Dose: 650 mg Documented by: Enoxaparin Sodium (Lovenox) 40 mg SQ DAILY [facility] Last Admin: 12/03/18 15:41 Dose: Not Given Documented by: Sodium Chloride (Saline 0.9%) 1,000 mls @ 70 mls/hr IV .[id number] [facility] Last Admin: 12/03/18 20:34 Dose: 70 mls/hr Documented by: Piperacillin Sod/Tazobactam (Sod 3.375 gm/ Sodium Chloride) 100 mls @ 25 mls/hr IVPB Q8HR [facility] Last Admin: 12/03/18 15:52 Dose: 25 mls/hr Documented by: Metronidazole 500 mg/ IV (Solution) 100 mls @ 100 mls/hr IVPB Q8HR [facility] Last Admin: 12/03/18 23:04 Dose: 100 mls/hr Documented by: Insulin Aspart (Novolog) 0 unit SQ ACHS [facility]; Protocol Last Admin: 12/03/18 20:33 Dose: 2 unit Documented by: Ketorolac Tromethamine (Toradol) 15 mg IVP Q6HR PRN PRN Reason: Breakthrough Pain Stop: 12/05/18 09:43 Last Admin: 12/03/18 04:33 Dose: 15 mg Documented by: Melatonin (Melatonin) 3 mg PO HS [facility] Last Admin: 12/03/18 20:33 Dose: 3 mg Documented by: Naloxone HCl (Narcan) 0.2 mg IV Q2M PRN PRN Reason: Opioid Reversal Ondansetron HCl (Zofran) 4 mg IVP Q8HR PRN PRN Reason: Nausea And Vomiting Last Admin: 12/01/18 18:12 Dose: 4 mg Documented by: Tramadol HCl (Ultram) 50 mg PO Q6H PRN PRN Reason: Moderate Pain Last Admin: 12/03/18 15:53 Dose: 50 mg Documented by: On examination: VITAL SIGNS: 98.8, 78, 16, 154/81, 95% room air GENERAL APPEARANCE: Propped up in a chair, but tired. HEENT: Normal external appearance of nose and ear. Oral cavity normal EYES: Pupils equal. Conjunctiva normal. NECK: JVD not raised. Mass not palpable. RESPIRATORY: Respiratory effort normal. Lungs clear to auscultation. CARDIOVASCULAR: First and second sounds normal. No edema. ABDOMEN: Abdomen distended, some tenderness, tympanitic bowel sounds PSYCHIATRY: Alert and oriented x3. Mood and affect normal. INVESTIGATIONS, reviewed in the clinical context: White count 9.3 hemoglobin 12.2 potassium 4.2 creatinine [address] abdomen-reports abscess formation right lower quadrant Assessment: -Ruptured appendix, with sepsis -Right lower quadrant abscess formation will need surgical intervention -Diabetes mellitus type 2 -Hyperlipidemia -Anxiety depression not otherwise specified -Obesity BMI 33.9 Plan: Patient is an IV Zosyn. Also in IV Flagyl. Surgical intervention to be decided by Dr. Lafleur. On Lovenox for DVT prophylaxis.
[2018-12-04] MEDS: traMADol 50 MG TAB PO PRN (00:50)
[2018-12-04 01:35] LABS: Glucose,Whole Blood 127 mg/dL (75-99)
[2018-12-04 07:25] LABS: Basophils # (A) 0.1 k/uL (0-0.2); Basophils % (A) 2 %; Eosinophils # (A) 0.2 k/uL (0-0.7); Eosinophils % (A) 2 %; HCT 35.7 % (39.0-53.0); HGB 11.7 gm/dL (13.0-17.5); Lymphocytes # (A) 1.3 k/uL (1.0-4.8); Lymphocytes % (A) 14 %; MCH 28.3 pg (25.0-35.0); MCHC 32.6 g/dL (31.0-37.0); MCV 86.8 fL (80.0-100.0); Mean Platelet Volume 7.2; Monocytes # (A) 0.5 k/uL (0-1.0); Monocytes % (A) 6 %; Neutrophils # (A) 7.3 k/uL (1.3-7.7); Neutrophils % (A) 76 %; Platelet Count 244 k/uL (150-450); RBC 4.12 m/uL (4.30-5.90); RDW 12.4 % (11.5-15.5); WBC 9.7 k/uL (3.8-10.6)
[2018-12-04 07:38] LABS: Glucose,Whole Blood 119 mg/dL (75-99)
[2018-12-04 07:48] LABS: ALT 23 U/L (21-72); AST 21 U/L (17-59); African American GFR (CKD) >90 (>60 ml/min/1.73 sqM); Albumin 2.8 g/dL (3.5-5.0); Alkaline Phosphatase 87 U/L (38-126); Anion Gap 8 mmol/L; Blood Urea Nitrogen 12 mg/dL (9-20); Calcium 8.1 mg/dL (8.4-10.2); Carbon Dioxide 27 mmol/L (22-30); Chloride 99 mmol/L (98-107); Glucose 128 mg/dL (74-99); Potassium 4.3 mmol/L (3.5-5.1); Sodium 134 mmol/L (137-145); Total Bilirubin 0.4 mg/dL (0.2-1.3); Total Protein 6.4 g/dL (6.3-8.2)
[2018-12-04] MEDS: INSULIN ASPART (NovoLOG) 100 UNIT/ML VIAL SQ SCH ×2 (07:55→13:30)
[2018-12-04] MEDS: metroNIDAZOLE-NS PMX 500 MG in SALINE 1 100ML.BAG IVPB SCH (08:00)
[2018-12-04] MEDS: ENOXAPARIN 40 MG/0.4 ML SYRINGE SQ SCH (08:00)
[2018-12-04 08:47] VITALS: BP 150/85; PULSE 82; RESP 16; TEMP 98.6
[2018-12-04] MEDS: SODIUM CHLORIDE 0.9% 1,000 ML IV SCH (09:19)
--- NOTE | 2018-12-04 09:54 | P.PN ---
Subjective Progress Note Date: 12/04/18 Patient seen and examined follow-up, afebrile. Wanting to go home Objective - Vital Signs Vital signs: Vital Signs Temp 98.6 F 12/04/18 07:26 Pulse 82 12/04/18 07:26 Resp 16 12/04/18 07:26 BP 150/85 12/04/18 07:26 Pulse Ox 93 L 12/04/18 07:26 Intake & Output 12/03/18 12/04/18 12/04/18 18:59 06:59 18:59 Intake Total 590 236 Balance 590 236 Intake: Intake, IV Titration 590 Amount Sodium Chloride 0.9% 1, 490 000 ml @ 70 mls/hr IV . [id number] [facility] Rx#:[id number] metroNIDAZOLE-NS PMX 500 100 mg In Saline 1 100ml.bag @ 100 mls/hr IVPB Q8HR [facility] Rx#:[id number] Oral 236 Other: Voiding Method Toilet Toilet Toilet # Voids 2 - Exam Constitutional: No acute distress, conversant, pleasant Eyes: Anicteric sclerae, moist conjunctiva, no lid-lag, PERRLA ENMT: NC/AT,Oropharynx clear, no erythema, exudates Neck:Supple, FROM, no masses, or JVD, No carotid bruits; No thyromegaly Lungs: Clear to auscultation, Clear to percussion, Normal respiratory effort, no accessory muscle use Cardiovascular: Heart regular in rate and rhythm, No murmurs, gallops, or rubs no peripheral edema Abdominal: Soft tender to palpation right lower quadrant, nom distended, no guarding, no rebound or rigidity, Normoactive bowel sounds No hepatomegaly, No splenomegaly, No palpable mass No abdominal wall hernia noted Skin: Normal temperature, tone, texture, turgor, No induration No subcutaneous nodules, No rash, lesions, No ulcers Extremities:No digital cyanosis No clubbing, Pedal pulses intact and symmetrical Radial pulses intact and symmetrical Normal gait and station, No calf tenderness Psychiatric: Alert and oriented to person, place and time, Appropriate affect Intact judgement Neuro: Muscles Strength 5/5 in all 4 extremities, Sensation to light touch grossly present throughout, Cranial nerves II-XII grossly intact. No focal sensory deficits - Labs CBC & Chem 7: 12/04/18 06:23 12/04/18 06:23 Labs: Abnormal Lab Results - Last 24 Hours (Table) 12/03/18 12/03/18 12/03/18 Range/Units 12:06 16:51 20:15 RBC (4.30-5.90) m/uL Hgb (13.0-17.5) gm/dL Hct (39.0-53.0) % Sodium (137-145) mmol/L Glucose (74-99) mg/dL POC Glucose (mg/dL) 136 H 118 H 172 H (75-99) mg/dL Calcium (8.4-10.2) mg/dL Albumin (3.5-5.0) g/dL 12/04/18 12/04/18 12/04/18 Range/Units 01:33 06:23 06:23 RBC 4.12 L (4.30-5.90) m/uL Hgb 11.7 L (13.0-17.5) gm/dL Hct 35.7 L (39.0-53.0) % Sodium 134 L (137-145) mmol/L Glucose 128 H (74-99) mg/dL POC Glucose (mg/dL) 127 H (75-99) mg/dL Calcium 8.1 L (8.4-10.2) mg/dL Albumin 2.8 L (3.5-5.0) g/dL 12/04/18 Range/Units 07:27 RBC (4.30-5.90) m/uL Hgb (13.0-17.5) gm/dL Hct (39.0-53.0) % Sodium (137-145) mmol/L Glucose (74-99) mg/dL POC Glucose (mg/dL) 119 H (75-99) mg/dL Calcium (8.4-10.2) mg/dL Albumin (3.5-5.0) g/dL Microbiology - Last 24 Hours (Table) 11/27/18 17:00 Blood Culture - Final Blood No Growth after 144 hours 11/30/18 15:36 Blood Culture - Preliminary Blood No Growth after 72 hours Assessment and Plan (1) Sepsis Narrative/Plan: * Secondary to acute appendicitis with rupture and subsequent appendiceal abscess as seen on repeat CT today * Febrile overnight, no leukocytosis * Appendiceal abscess too small for CT-guided IR drainage * ID recommending continuing antibiotics with Invanz for 2 weeks * The patient to follow-up with general surgery the outpatient setting Status: Acute Code(s): A41.9 - SEPSIS, UNSPECIFIED ORGANISM SNOMED Code(s): 59297526 (2) Appendiceal abscess Narrative/Plan: * IR consulted for I&D however abscess appears to small at this time and not amenable for drainage * Continue antibiotics * Defer management to general surgery Status: Acute Code(s): K35.33 - ACUTE APPENDICITIS WITH PERF AND LOC PERITONITIS, WITH ABSCS SNOMED Code(s): 73007210 (3) Acute appendicitis with rupture Status: Acute Code(s): K35.32 - ACUTE APPENDICITIS WITH PERF AND LOC PERITONITIS, W/O ABSCS SNOMED Code(s): 95402971 (4) Type 2 diabetes mellitus with peripheral neuropathy Narrative/Plan: * Blood sugar stable and controlled continue current regimen * Status: Acute Code(s): E11.42 - TYPE 2 DIABETES MELLITUS WITH DIABETIC POLYNEUROPATHY SNOMED Code(s): 69476416 Plan: * Disposition continue current treatment plan * Patient may need to have appendectomy/colectomy
[2018-12-04 12:00] LABS: Glucose,Whole Blood 152 mg/dL (75-99)
[2018-12-04] MEDS ORDERED: NA PHOS,M-B/NA PHOS,DI-BA 133 ML ENEMA RECTAL STA (12:20)
--- NOTE | 2018-12-04 13:04 | P.DS ---
Providers Date of admission: 11/27/18 17:02 Expected date of discharge: 12/04/18 Attending physician: Liam Lafleur Consults: 11/28/18 08:44 Consult Physician Routine Consulting Provider: Sebastian Story Consult Reason/Comments: medical management Do you want consulting provider notified?: Yes 11/28/18 14:48 Consult Physician Routine Consulting Provider: Madeline Larsen Consult Reason/Comments: acute ruptured appendix Do you want consulting provider notified?: Yes Primary care physician: Brett [facility] Hospital Course: 63-year-old male who presented to emergency room due to to abdominal pain. Patient reports his pain began the Monday before Labor Day. It has been intermittent since that time. He reports episodes of nausea, vomiting, and diarrhea. He states he saw his PCP on Monday after Labor Day and was told if it did not get better by that Monday to come back. Patient states he never went back to be reevaluated by his PCP. He states he went to urgent care yesterday and was sent to the hospital for further evaluation. Patient underwent workup in ER including CT scan abdomen and pelvis revealing acute ruptured appendicitis. Patient was started on IV antibiotics and infectious disease consult was obtained. Due to significant surrounding inflammation of the colon, the patient was managed nonsurgically as he would likely require colectomy also if surgical intervention performed immediately. He is being discharged today in stable condition on IV antibiotics per ID recommendations. He will follow up with Dr. Lafleur in 1 week to discuss future appendectomy Discharge Diagnosis: 1. Acute ruptured appendicitis Nurse practitioner note has been reviewed by physician. Signing provider agrees with the documented findings, assessment, and plan of care. Patient Condition at Discharge: Stable Plan - Discharge Summary Discharge Rx Participant: No New Discharge Prescriptions: New Hydrocodone/Acetaminophen [[place] 5-325] 1 tab PO Q4HR PRN 3 Days #18 tab PRN Reason: Pain Ertapenem [INVanz] 1 gm IVPB Q24H #14 bag No Action Insulin Lispro [humaLOG Kwikpen] 26 unit SQ AC-TID Insulin Degludec [Tresiba Flextouch U-200] 116 unit SQ HS Naproxen 250 mg PO BID PRN PRN Reason: Pain Discharge Medication List Insulin Degludec [Tresiba Flextouch U-200] 116 unit SQ HS 11/27/18 [History] Insulin Lispro [humaLOG Kwikpen] 26 unit SQ AC-TID 11/27/18 [History] Naproxen 250 mg PO BID PRN 11/27/18 [History] Ertapenem [INVanz] 1 gm IVPB Q24H #14 bag 12/04/18 [Rx] Hydrocodone/Acetaminophen [[place] 5-325] 1 tab PO Q4HR PRN 3 Days #18 tab 12/04/18 [Rx] Follow up Appointment(s)/Referral(s): [facility], [NON-STAFF] - Brett Choe DO [Primary Care Provider] - 1-2 days Madeline Larsen MD [STAFF PHYSICIAN] - 1 Week Liam Lafleur MD [STAFF PHYSICIAN] - 1 Week Ambulatory/Diagnostic Orders: Basic Metabolic Panel [LAB.AMB] Location: None Selected C Reactive Protein [LAB.AMB] Location: None Selected Complete Blood Count w/diff [LAB.AMB] Location: None Selected Activity/Diet/Wound Care/Special Instructions: IV antibiotics through [facility] #[phone] - they will call prior to delivery either tonight or early on 12/05/18. [facility] care will be out on 12/05/18 to start infusions and education.
[2018-12-04 13:24] VITALS: BMI 33.9
[2018-12-04] MEDS ORDERED: ERTAPENEM 1 GM in SODIUM CHLORIDE 0.9% 50 ML IVPB ONE (13:30)
--- NOTE | 2018-12-04 15:21 | PN ---
PROGRESS NOTE DATE OF SERVICE: 12/04/2018 REASON FOR FOLLOWUP: Ruptured appendicitis with an abscess. INTERVAL HISTORY: The patient is currently afebrile. The patient has been breathing comfortably. The patient's abdominal pain has been steadily controlled with pain medication. No worsening, no nausea, no vomiting and no diarrhea. PHYSICAL EXAMINATION: Blood pressure is 150/85 with a pulse of 82, temperate is 98.6, he is 93% on room air. General description is a middle-aged male, lying in bed in no distress. RESPIRATORY SYSTEM: Unlabored breathing, clear to auscultation anteriorly. HEART: S1, S2. Regular rate and rhythm. ABDOMEN: Soft, no tenderness. EXTREMITIES: No edema of the feet. LABS: Hemoglobin is 11.9, white count of 9.5, BUN of 12, creatinine 0.90. DIAGNOSTIC IMPRESSION AND PLAN: Patient with acute appendicitis with a developed abscess. On repeat CT which was considered to be too small to be drained, a CT-guided, in view of developing abscess, antibiotic for discharge will be switched to Invanz 1 g daily with a dose before discharge. Continue with Invanz 1 g daily for 2 weeks with a repeat CT at that point. Prescription provided to the nurse case management and follow up in the office in 1 week. Continue supportive care. MMODL / IJN: [id number] /
--- NOTE | 2018-12-05 01:24 | P.PN ---
Progress Note - Text Progress Note Date: 12/04/18 Interval history: Patient admitted with ruptured appendix. Being managed with IV antibiotics. Today-putting his diet. Has not had a bowel movement. Has passed flatus. PICC line has been placed. Review of systems: Was done for constitutional, cardiovascular, GI, pulmonary. relevant finding as above Current medications reviewed from today's electronic records On examination: VITAL SIGNS: 98.6, 82, 16, 150/85, 93% room air GENERAL APPEARANCE: Propped up in a chair, but tired. HEENT: Normal external appearance of nose and ear. Oral cavity normal EYES: Pupils equal. Conjunctiva normal. NECK: JVD not raised. Mass not palpable. RESPIRATORY: Respiratory effort normal. Lungs clear to auscultation. CARDIOVASCULAR: First and second sounds normal. No edema. ABDOMEN: Abdomen distended, some tenderness, bowel sounds present PSYCHIATRY: Alert and oriented x3. Mood and affect normal. INVESTIGATIONS, reviewed in the clinical context: White count 9.3 hemoglobin 12.2 potassium 4.2 creatinine [address] abdomen-reports abscess formation right lower quadrant Assessment: -Ruptured appendix, with sepsis -Right lower quadrant abscess formation will need surgical intervention -Diabetes mellitus type 2 -Hyperlipidemia -Anxiety depression not otherwise specified -Obesity BMI 33.9 Plan: Dr. Lafleur's discharging the patient. Antibiotics are being arranged by Dr. Fischer. Care was discussed the patient.
--- NOTE | 2018-12-05 09:21 | CDI ---
Documentation Clarification Form Date: 12/05/2018 From: Na Mena Phone: If questions call Iona Gabriel @ [phone], Hours-8:30 am & 5 pm M- Gita Admit Date: 11/27/2018 5:02:00 PM Patient Name: Neo Downs Visit Number: [id number] Discharge Date: 12/04/2018 2:54:00 PM ATTENTION: The Clinical Documentation Specialists (CDI) and [facility] Coding Staff appreciate your assistance in clarifying documentation. Please respond to the clarification below the line at the bottom and electronically sign. The CDI & [facility] Coding staff will review the response and follow-up if needed. Please note: Queries are made part of the Legal Health Record. If you have any questions, please contact the author of this message via ITS. Dr. Liam Lafleur The diagnosis sepsis was documented in the Dr Larsen's consult, PNs 12/03, 12/04 & 12/05, but is not consistently noted in subsequent documentation. History/Risk Factors: acute ruptured appendicitis Clinical Indicators: On 11/29: WBC-12.3, neutrophils 9.4, lactic acid 0.8 on 11/30-1.0 On 11/28: T-101.2 On 11/30: P-101 Treatment: IV fluids, IV Zosyn then IV Invanz Please clarify if sepsis was: Sepsis- POA Sepsis - not POA Sepsis ruled out Other, please specify Clinically unable to determine Sepsis not present on admission MTDD
--- NOTE | 2018-12-07 16:35 | P.PN ---
Progress Note - Text Progress Note Date: 12/02/18 REASON FOR FOLLOWUP: Perforated appendix with abdominal abscess. INTERVAL HISTORY: The patient did have low-grade fever 100.3 today. Patient has been breathing comfortably. Patient denies chest pain, shortness of breath or cough. No nausea, no vomiting. The patient denies worsening abdominal pain and No diarrhea. PHYSICAL EXAMINATION: Blood pressure 165/90 with a pulse of 86, temperature 98.8. He is 94% on room air. General description is a middle-aged male lying in bed in no distress. Respiratory system: Unlabored breathing. Clear to auscultation anteriorly. Heart S1, S2. Regular rate and rhythm. Abdomen soft, no tenderness. No guarding. No rigidity. Extremities: No edema of the feet. LABS: Hemoglobin is 12.1, white count 8.8, BUN of 18, creatinine 0.7. DIAGNOSTIC IMPRESSION AND PLAN: Patient admitted to the hospital with abdominal pain. The patient has been diagnosed with acute ruptured appendicitis. The patient did have a fever over the weekend in view of this new fever Recommend obtaining a CT of abdominal pelvis in the a.m. to make sure patient not developing any abscess that may need to be be drained, Continue with Zosyn at this point and continue supportive care care.
== END 2018-12-04 14:54 | disposition home health service (06) | DRG 371 ==
LOC: EC 13:11 → 4SSUR 17:02
PROVIDERS: ADMIT Surgery; ATTEND Surgery
PROC: 05HF33Z Insertion of Infusion Device into Left Cephalic Vein, Percutaneous Approach (ICD-10-PCS; principal; 2018-11-30 13:30)
DX: K35.33 Acute appendicitis with perforation, localized peritonitis, and gangrene, with abscess (principal); A41.9 Sepsis, unspecified organism; N17.9 Acute kidney failure, unspecified; N39.0 Urinary tract infection, site not specified; E11.42 Type 2 diabetes mellitus with diabetic polyneuropathy; E11.65 Type 2 diabetes mellitus with hyperglycemia; G51.0 Bell's palsy; E78.5 Hyperlipidemia, unspecified; F41.8 Other specified anxiety disorders; E66.9 Obesity, unspecified; Z68.33 Body mass index [BMI] 33.0-33.9, adult; Z79.4 Long term (current) use of insulin; Z71.3 Dietary counseling and surveillance; Z85.51 Personal history of malignant neoplasm of bladder; Z85.820 Personal history of malignant melanoma of skin; Z87.81 Personal history of (healed) traumatic fracture; Z85.3 Personal history of malignant neoplasm of breast; Z85.038 Personal history of other malignant neoplasm of large intestine; Z98.890 Other specified postprocedural states; Z82.3 Family history of stroke; E86.1 Hypovolemia; K59.00 Constipation, unspecified
CPT/HCPCS: 36410; 36415; 74019; 74177; 76937; 80048; 80053; 81001; 82150; 83605; 83690; 85025; 87040; 87086; 96361; 96365; 96375; 99285

== ENCOUNTER 2018-12-15 20:25 | Inpatient (IN) | payer OTHER ==
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
[2018-12-15] MEDS: SODIUM CHLORIDE 0.9% 1,000 ML IV SCH (22:04)
[2018-12-15 22:05] LABS: Basophils # (A) 0.1 k/uL (0-0.2); Basophils % (A) 1 %; Eosinophils # (A) 0.2 k/uL (0-0.7); Eosinophils % (A) 2 %; HCT 37.3 % (39.0-53.0); HGB 12.7 gm/dL (13.0-17.5); Lymphocytes # (A) 2.2 k/uL (1.0-4.8); Lymphocytes % (A) 20 %; MCH 29.6 pg (25.0-35.0); MCHC 34.2 g/dL (31.0-37.0); MCV 86.6 fL (80.0-100.0); Mean Platelet Volume 7.1; Monocytes # (A) 0.7 k/uL (0-1.0); Monocytes % (A) 6 %; Neutrophils # (A) 7.9 k/uL (1.3-7.7); Neutrophils % (A) 70 %; Platelet Count 285 k/uL (150-450); RDW 12.4 % (11.5-15.5); WBC 11.3 k/uL (3.8-10.6)
[2018-12-15 22:15] LABS: INR 1.1 (<1.2); Partial Thromboplastin Time 25.9 sec (22.0-30.0); Prothrombin Time 11.3 sec (9.0-12.0)
[2018-12-15 22:22] LABS: ALT 28 U/L (21-72); AST 19 U/L (17-59); African American GFR (CKD) >90 (>60 ml/min/1.73 sqM); Albumin 3.2 g/dL (3.5-5.0); Alkaline Phosphatase 99 U/L (38-126); Anion Gap 9 mmol/L; Blood Urea Nitrogen 20 mg/dL (9-20); Calcium 8.6 mg/dL (8.4-10.2); Carbon Dioxide 26 mmol/L (22-30); Chloride 99 mmol/L (98-107); Glucose 246 mg/dL (74-99); Potassium 4.2 mmol/L (3.5-5.1); Sodium 134 mmol/L (137-145); Total Bilirubin 0.4 mg/dL (0.2-1.3); Total Protein 7.1 g/dL (6.3-8.2)
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
[2018-12-15] MEDS ORDERED: MORPHINE SULFATE 4 MG/ML SYRINGE IVP STA (23:26)
[2018-12-15] MEDS ORDERED: ONDANSETRON 4 MG/2 ML VIAL IVP STA (23:26)
[2018-12-16] MEDS ORDERED: HYDROmorphone 0.5 MG/0.5 ML SYRINGE IVP PRN (00:27)
[2018-12-16] MEDS ORDERED: NALOXONE 0.4 MG/ML 1 ML VIAL IV PRN (00:27)
[2018-12-16] MEDS: MORPHINE SULFATE 4 MG/ML SYRINGE IV PRN ×5 (03:18→23:00)
[2018-12-16] MEDS: SODIUM CHLORIDE 0.9% 1,000 ML IV SCH ×3 (05:27→21:43)
[2018-12-16 07:17] LABS: Glucose,Whole Blood 225 mg/dL (75-99)
[2018-12-16] MEDS: INSULIN ASPART (NovoLOG) 100 UNIT/ML VIAL SQ SCH ×4 (08:44→21:44)
[2018-12-16] MEDS: ONDANSETRON 4 MG/2 ML VIAL IVP PRN ×2 (08:53→19:57)
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
[2018-12-16] MEDS: metroNIDAZOLE-NS PMX 500 MG in SALINE 1 100ML.BAG IVPB SCH ×3 (10:42→23:58)
--- NOTE | 2018-12-16 10:47 | XR ---
EXAMINATION TYPE: XR chest 2V DATE OF EXAM: 12/16/2018 HISTORY: cough. REFERENCE: Previous study dated 10/05/2017. FINDINGS: There is elevation of the left hemidiaphragm and there is colonic interposition on the left . There is atelectasis of the left lung base. There is also some mild airspace disease in the right kristopher g base. The heart is not enlarged. Pleural spaces are clear. IMPRESSION: 1. CHRONIC ELEVATION OF THE LEFT HEMIDIAPHRAGM. 2. BIBASILAR ATELECTASIS OR EARLY AIRSPACE DISEASE.
[2018-12-16 12:00] LABS: Glucose,Whole Blood 203 mg/dL (75-99)
[2018-12-16] MEDS: PIPERACILLIN-TAZOBACTAM 3.375 GM in SODIUM CHLORIDE 0.9% 100 ML IVPB SCH ×2 (12:00→18:30)
[2018-12-16] MEDS: ALBUTEROL NEBULIZED 2.5 MG/3 ML INHALATION PRN ×2 (12:43→16:50)
[2018-12-16 17:28] LABS: Glucose,Whole Blood 171 mg/dL (75-99)
[2018-12-16 21:02] LABS: Glucose,Whole Blood 181 mg/dL (75-99)
[2018-12-16] MEDS ORDERED: ACETAMINOPHEN TAB 325 MG TAB PO PRN (23:05)
[2018-12-17] MEDS: PIPERACILLIN-TAZOBACTAM 3.375 GM in SODIUM CHLORIDE 0.9% 100 ML IVPB SCH ×3 (00:58→15:28)
[2018-12-17] MEDS: SODIUM CHLORIDE 0.9% 1,000 ML IV SCH ×3 (06:08→21:15)
[2018-12-17 07:04] LABS: Glucose,Whole Blood 165 mg/dL (75-99)
[2018-12-17] MEDS: metroNIDAZOLE-NS PMX 500 MG in SALINE 1 100ML.BAG IVPB SCH ×3 (07:45→23:59)
[2018-12-17] MEDS: INSULIN ASPART (NovoLOG) 100 UNIT/ML VIAL SQ SCH ×4 (07:46→21:15)
[2018-12-17] MEDS ORDERED: IV FLUID CONTINUATION 600 ML IV ONE (08:38)
[2018-12-17] MEDS ORDERED: LIDOCAINE 1% 20 ML VIAL (10MG/ML) FOR IV START INTRADERMA ONE (09:05)
[2018-12-17 09:07] LABS: Glucose,Whole Blood 181 mg/dL (75-99)
[2018-12-17] MEDS ORDERED: LACTATED RINGERS 1,000 ML IV ONE ×3 (09:07→11:14)
[2018-12-17] MEDS ORDERED: MIDAZOLAM PF (FBP) 2 MG/2 ML VIAL IVP ONE (09:23)
[2018-12-17] MEDS ORDERED: fentaNYL (PF) 50 MCG/ML 2 ML AMP IVP ONE (09:23)
[2018-12-17] MEDS ORDERED: DEXAMETHASONE SOD PHOSPHATE 10 MG/ML 1 ML VIAL IV ONE (09:43)
[2018-12-17] MEDS ORDERED: ONDANSETRON 4 MG/2 ML VIAL IVP ONE (09:43)
[2018-12-17] MEDS ORDERED: NALOXONE 0.4 MG/ML 1 ML VIAL IV PRN ×2 (09:46→11:14)
[2018-12-17] MEDS ORDERED: IV FLUID CONTINUATION 100 ML IV ONE (09:54)
[2018-12-17] MEDS ORDERED: LIDOCAINE 1% INJ 10MG/ML (20 ML MDV) ONE (09:55)
[2018-12-17] MEDS ORDERED: fentaNYL (PF) 50 MCG/ML 2 ML AMP ONE (09:55)
[2018-12-17] MEDS ORDERED: MIDAZOLAM 2 MG/2 ML VIAL ONE (09:55)
[2018-12-17] MEDS ORDERED: GLYCOPYRROLATE 0.2 MG/ML 2 ML VIAL ONE (09:55)
[2018-12-17] MEDS ORDERED: SUCCINYLCHOLINE CHLORIDE 100 MG/5 ML SYR IV ONE (09:55)
[2018-12-17] MEDS ORDERED: NEOSTIGMINE 1 MG/ML 10 ML VIAL ONE (09:55)
[2018-12-17] MEDS ORDERED: ROCURONIUM BROMIDE 10 MG/ML 10 ML VIAL IV ONE (09:55)
[2018-12-17] MEDS ORDERED: PROPOFOL 10 MG/ML 20 ML VIAL IV ONE (09:55)
[2018-12-17] MEDS ORDERED: ROPIVACAINE 400 MG, HYDROMORPHONE (PF) 5 MG in SODIUM CHLORIDE 0.9% 170 ML EPIDURAL PRN (10:00)
[2018-12-17] MEDS ORDERED: HYDROcodone/APAP 5-325MG 1 EACH TAB PO PRN (11:14)
[2018-12-17] MEDS ORDERED: ACETAMINOPHEN TAB 325 MG TAB PO PRN (11:14)
[2018-12-17 11:16] LABS: Glucose,Whole Blood 186 mg/dL (75-99)
[2018-12-17] MEDS: HYDROmorphone 0.5 MG/0.5 ML SYRINGE IVP PRN ×2 (11:20→17:22)
--- NOTE | 2018-12-17 11:32 | P.OP ---
Date of Procedure: 12/17/18 Preoperative Diagnosis: Perforated appendicitis with abscess Postoperative Diagnosis: Perforated appendicitis with abscess Incisional hernia Adhesions Procedure(s) Performed: Exploratory laparotomy Lysis of adhesions Drainage of abdominal abscess Appendectomy Repair of incisional hernia Anesthesia: RUMA Surgeon: Liam Lafleur Estimated Blood Loss (ml): 50 Pathology: other (Appendix, abscess cavity culture) Condition: stable Disposition: PACU Description of Procedure: The patient's placed on the operative table in supine position. He received general anesthesia. His abdomen was prepped and draped usual fashion. A shunt had a previous laparotomy scar the lower portion spell incised and then the abdomen was entered through a midline. Cautery used to dissect through the subcutaneous tissue. The fascia was opened midline. There were adhesions noted to the abdominal wall these were lysed with sharp dissection proximal to 15 minutes of operative time used to lyse adhesions. The Bookwalter tract with wound. The area was explored. There is known to any inflammatory changes within the perineal cavity. In the right lower quadrant there was significant inflammation. The cecum was bluntly dissected off of the abdominal wall and abscess cavity is entered. The abscess cavity was aspirated approximately 60 mL appear fluid was removed. The abscess was cultured. At this point the cecum and terminal ileum examined. The appendix was visualized. The distal appendiceal tip was obliterated. At this point the appendix was mobilized the mesentery was divided with left cautery and then the appendix was ligated with a PDS Endoloop. Vic scissors the appendix and was sent to pathology. The abdomen was irrigated. A 10 flat MELVIN drain was placed through separate stab incision and the catheter was positioned in the abscess cavity the fascia was closed with looped #1 PDS suture. The hernia was repaired with fascial closure. Skin was closed stable. Silverlon dressing was applied. Abdominal binder was applied. Patient top she will was sent to recovery room in stable condition.
[2018-12-17] MEDS ORDERED: MEPERIDINE 50 MG/ML SYRINGE IVP ONE (11:52)
[2018-12-17 13:33] LABS: Glucose,Whole Blood 264 mg/dL (75-99)
--- NOTE | 2018-12-17 16:40 | P.PN ---
Subjective Progress Note Date: 12/17/18 Patient is a 63-year-old male with a PMH of diabetes mellitus and hyperlipidemia who was admitted for persistent right lower quadrant abdominal pain due to ruptured appendicitis, diagnosed with abscess. The patient is status post POD # 0 for exploratory laparotmy, lysis of adhesions, and drainage of the abdominal abscess. The patient was seen at the bedside on 12/17. He notes 3/10 continued abdominal pain at the surgical site. He denied fever, chills, chest pain, or SOB. Objective - Vital Signs Vital signs: Vital Signs Temp 98.1 F 12/17/18 13:15 Pulse 92 12/17/18 13:15 Resp 16 12/17/18 13:15 BP 131/79 12/17/18 13:15 Pulse Ox 91 L 12/17/18 13:15 Intake & Output 12/16/18 12/17/18 12/17/18 18:59 06:59 18:59 Intake Total 720 2000 Output Total 660 Balance 720 1340 Intake: IV 2000 Oral 720 Output: Drainage 60 Right Lower Abdomen 60 Urine 500 Estimated Blood Loss 100 Other: Voiding Method Toilet # Voids 3 2 # Bowel Movements 0 - Exam General: Non-toxic, in no acute distress, appears stated age, normal weight HEENT: NC/AT, anicteric sclerae, moist conjunctiva, no lid-lag, PERRLA Cardiovascular: S1/S2 wnl, no murmurs, rubs, or gallops Lungs: Clear to auscultation, normal respiratory effort, no accessory muscle use Abdominal: Post-surgical, dressing clean and dry Skin: Warm, dry Extremities: No edema or contractures Psychiatric: Alert and oriented to person, place and time, appropriate affect Neuro: CN II-XII grossly intact, no focal neuro deficits - Labs CBC & Chem 7: 12/15/18 21:42 12/15/18 21:42 Labs: Abnormal Lab Results - Last 24 Hours (Table) 12/16/18 12/16/18 12/17/18 Range/Units 17:26 21:01 07:01 POC Glucose (mg/dL) 171 H 181 H 165 H (75-99) mg/dL 12/17/18 12/17/18 12/17/18 Range/Units 09:04 11:13 13:31 POC Glucose (mg/dL) 181 H 186 H 264 H (75-99) mg/dL Microbiology - Last 24 Hours (Table) 12/15/18 22:05 Blood Culture - Preliminary Blood No Growth after 24 hours Assessment and Plan Plan: Acute ruptures appendicitis w/ abscess, s/p ex-lap w/ drainage POD # 0 -As per the surgical service -Currently on Zosyn and Flagyl -C/w IVFs -Pain control -F/u cultures Hx of bladder ca -Follows as outpt w/ Dr Shane Type 2 DM -WOJCIECH with FS -C/w Levemir 20 U qhs DVT prophylaxis -Heparin Discussed with: Patient Anticipated discharge date: 12/[address]: Home A total of 35 minutes was spent on the care of this complex patient more than 50% of the time was spent in counseling and care coordination.
[2018-12-17] MEDS ORDERED: BENZOCAINE/MENTHOL LOZENG 1 EACH LOZENGE MUCOUS MEM PRN (16:59)
[2018-12-17 17:04] LABS: Glucose,Whole Blood 226 mg/dL (75-99)
[2018-12-17] MEDS: guaiFENesin SYRUP 100MG/5ML 200 MG/10 ML CUP PO PRN (17:22)
[2018-12-17 20:38] LABS: Glucose,Whole Blood 171 mg/dL (75-99)
[2018-12-17] MEDS: INSULIN DETEMIR (LEVEMIR) 100 UNIT/ML SYR SQ SCH (21:14)
[2018-12-17] MEDS: HEPARIN SODIUM,PORCINE 5,000 UNIT/ML 1 ML VIAL SQ SCH (21:15)
[2018-12-18] MEDS: HYDROmorphone 0.5 MG/0.5 ML SYRINGE IVP PRN
[2018-12-18] MEDS: PIPERACILLIN-TAZOBACTAM 3.375 GM in SODIUM CHLORIDE 0.9% 100 ML IVPB SCH ×3 (01:43→16:03)
[2018-12-18] MEDS: guaiFENesin SYRUP 100MG/5ML 200 MG/10 ML CUP PO PRN ×3 (03:14→19:38)
[2018-12-18] MEDS: SODIUM CHLORIDE 0.9% 1,000 ML IV SCH ×2 (06:12→13:00)
[2018-12-18 07:04] LABS: Glucose,Whole Blood 127 mg/dL (75-99)
[2018-12-18] MEDS: INSULIN ASPART (NovoLOG) 100 UNIT/ML VIAL SQ SCH ×4 (07:09→23:20)
[2018-12-18] MEDS: metroNIDAZOLE-NS PMX 500 MG in SALINE 1 100ML.BAG IVPB SCH ×2 (08:39→16:04)
[2018-12-18] MEDS: HEPARIN SODIUM,PORCINE 5,000 UNIT/ML 1 ML VIAL SQ SCH ×2 (08:40→23:19)
[2018-12-18 09:11] LABS: Calcium 8.2 mg/dL (8.4-10.2); Potassium 4.8 mmol/L (3.5-5.1); Total Bilirubin 0.7 mg/dL (0.2-1.3); Total Protein 6.7 g/dL (6.3-8.2)
[2018-12-18 09:26] LABS: Basophils # (A) 0.1 k/uL (0-0.2); Basophils % (A) 1 %; Eosinophils % (A) 0 %; HCT 34.2 % (39.0-53.0); Lymphocytes # (A) 1.5 k/uL (1.0-4.8); Lymphocytes % (A) 15 %; MCH 28.7 pg (25.0-35.0); MCHC 32.2 g/dL (31.0-37.0); MCV 89.3 fL (80.0-100.0); Mean Platelet Volume 6.9; Monocytes # (A) 0.6 k/uL (0-1.0); Monocytes % (A) 6 %; Neutrophils # (A) 7.7 k/uL (1.3-7.7); Neutrophils % (A) 77 %; Platelet Count 248 k/uL (150-450); RBC 3.84 m/uL (4.30-5.90); RDW 12.2 % (11.5-15.5); WBC 10.1 k/uL (3.8-10.6)
--- NOTE | 2018-12-18 10:58 | P.PN ---
Subjective Progress Note Date: 12/18/18 Patient is a 63-year-old male with a PMH of diabetes mellitus and hyperlipidemia who was admitted for persistent right lower quadrant abdominal pain due to ruptured appendicitis, diagnosed with abscess. The patient is status post POD # 1 for exploratory laparotmy, lysis of adhesions, and drainage of the abdominal abscess. The patient was seen at the bedside on 12/18. The patient notes that his pain has improved to a 1/10. He was in good spirits and denied additional complaints. Denied fever, chills, nausea, vomiting, or diarrhea. Objective - Vital Signs Vital signs: Vital Signs Temp 98.6 F 12/18/18 05:10 Pulse 89 12/18/18 05:10 Resp 16 12/18/18 05:10 BP 105/62 12/18/18 05:10 Pulse Ox 90 L 12/18/18 05:10 Intake & Output 12/17/18 12/18/18 12/18/18 18:59 06:59 18:59 Intake Total 2000 Output Total 760 220 Balance 1240 -220 Intake: IV 1999 Output: Gastric Drainage 60 Drainage 160 160 Right Lower Abdomen 160 160 Urine 500 Estimated Blood Loss 100 Other: Voiding Method Indwelling Catheter Indwelling Catheter Indwelling Catheter - Exam General: Non-toxic, in no acute distress, appears stated age, normal weight HEENT: NC/AT, anicteric sclerae, moist conjunctiva, no lid-lag, PERRLA Cardiovascular: S1/S2 wnl, no murmurs, rubs, or gallops Lungs: Clear to auscultation, normal respiratory effort, no accessory muscle use Abdominal: Post-surgical, dressing clean and dry Skin: Warm, dry Extremities: No edema or contractures Psychiatric: Alert and oriented to person, place and time, appropriate affect Neuro: CN II-XII grossly intact, no focal neuro deficits - Labs CBC & Chem 7: 12/18/18 08:18 12/18/18 08:18 Labs: Abnormal Lab Results - Last 24 Hours (Table) 12/17/18 12/17/18 12/17/18 Range/Units 11:13 13:31 17:02 RBC (4.30-5.90) m/uL Hgb (13.0-17.5) gm/dL Hct (39.0-53.0) % Sodium (137-145) mmol/L BUN (9-20) mg/dL Glucose (74-99) mg/dL POC Glucose (mg/dL) 186 H 264 H 226 H (75-99) mg/dL Calcium (8.4-10.2) mg/dL Albumin (3.5-5.0) g/dL 12/17/18 12/18/18 12/18/18 Range/Units 20:28 07:00 08:18 RBC 3.84 L (4.30-5.90) m/uL Hgb 11.0 L (13.0-17.5) gm/dL Hct 34.2 L (39.0-53.0) % Sodium (137-145) mmol/L BUN (9-20) mg/dL Glucose (74-99) mg/dL POC Glucose (mg/dL) 171 H 127 H (75-99) mg/dL Calcium (8.4-10.2) mg/dL Albumin (3.5-5.0) g/dL 12/18/18 Range/Units 08:18 RBC (4.30-5.90) m/uL Hgb (13.0-17.5) gm/dL Hct (39.0-53.0) % Sodium 136 L (137-145) mmol/L BUN 22 H (9-20) mg/dL Glucose 126 H (74-99) mg/dL POC Glucose (mg/dL) (75-99) mg/dL Calcium 8.2 L (8.4-10.2) mg/dL Albumin 3.0 L (3.5-5.0) g/dL Microbiology - Last 24 Hours (Table) 12/17/18 11:00 Gram Stain - Preliminary Appendix Wound Culture - Preliminary Gram Neg Bacilli 12/15/18 22:05 Blood Culture - Preliminary Blood No Growth after 48 hours 12/17/18 11:00 Anaerobic Culture - Preliminary Appendix Assessment and Plan Plan: Acute ruptured appendicitis w/ abscess, s/p ex-lap w/ drainage POD # 1 -Management as per the surgical service -Currently on Zosyn and Flagyl -C/w IVFs -Pain control as per surgery service -F/u cultures Hx of bladder ca -Follows as outpt w/ Dr Shane Type 2 DM -WOJCIECH with FS -C/w Levemir 20 U qhs DVT prophylaxis -Heparin Discussed with: Patient Anticipated discharge date: 12/[address]: Home A total of 35 minutes was spent on the care of this complex patient more than 50% of the time was spent in counseling and care coordination.
[2018-12-18 11:10] LABS: Glucose,Whole Blood 128 mg/dL (75-99)
--- NOTE | 2018-12-18 13:40 | P.PN ---
Subjective Progress Note Date: 12/18/18 CHIEF COMPLAINT: perforated appendicitis with abscess HISTORY OF PRESENT ILLNESS: patient is status post exploratory laparotomy, lysis of adhesions, drainage of abdominal abscess, appendectomy, and repair of incisional hernia. Postoperative #1. Patient examined at the bedside. Patient denies abdominal pain. Epidural infusing. Argueta catheter noted. MELVIN drain with serosanguineous drainage. Patient is tolerating clear liquid diet. Denies nausea or vomiting. Potassium flatus. He is requesting of his diet advanced. WBC 10.1. Hemoglobin 11.0. PHYSICAL EXAM: VITAL SIGNS: Reviewed. GENERAL: Well-developed in no acute distress. HEENT: No sclera icterus. Extraocular movements grossly intact. Moist buccal mucosa. Head is atraumatic, normocephalic. ABDOMEN: Soft. Nondistended. Nontender. Surgical dressing noted. MELVIN drain wi th serosanguineous drainage. NEUROLOGIC: Alert and oriented. Cranial nerves II through XII grossly intact. ASSESSMENT: 1. Perforated appendicitis with abscess, status post exploratory laparotomy, lysis of adhesions, drainage of abdominal abscess, appendectomy, and repair of i ncisional hernia PLAN: 1. Pain control. Continue epidural. Will discontinue postoperative day #3 () 2. Continue Argueta catheter while epidural is in place 3. Incentive spirometer 10 times an hour while awake 4. Activity as tolerated 5. Continue antibiotics 6. Advance diet to full liquids Nurse practitioner note has been reviewed by physician. Signing provider agrees with the documented findings, assessment, and plan of care. Objective - Vital Signs Vital signs: Vital Signs Temp 98.6 F 12/18/18 05:10 Pulse 89 12/18/18 05:10 Resp 16 12/18/18 05:10 BP 105/62 12/18/18 05:10 Pulse Ox 90 L 12/18/18 05:10 Intake & Output 12/17/18 12/18/18 12/18/18 18:59 06:59 18:59 Intake Total 1999 Output Total 760 220 Balance 1240 -220 Intake: IV 1999 Output: Gastric Drainage 60 Drainage 160 160 Right Lower Abdomen 160 160 Urine 500 Estimated Blood Loss 100 Other: Voiding Method Indwelling Catheter Indwelling Catheter Indwelling Catheter - Labs CBC & Chem 7: 12/18/18 08:18 12/18/18 08:18 Labs: Abnormal Lab Results - Last 24 Hours (Table) 12/17/18 12/17/18 12/18/18 Range/Units 17:02 20:28 07:00 RBC (4.30-5.90) m/uL Hgb (13.0-17.5) gm/dL Hct (39.0-53.0) % Sodium (137-145) mmol/L BUN (9-20) mg/dL Glucose (74-99) mg/dL POC Glucose (mg/dL) 226 H 171 H 127 H (75-99) mg/dL Calcium (8.4-10.2) mg/dL Albumin (3.5-5.0) g/dL 12/18/18 12/18/18 12/18/18 Range/Units 08:18 08:18 11:09 RBC 3.84 L (4.30-5.90) m/uL Hgb 11.0 L (13.0-17.5) gm/dL Hct 34.2 L (39.0-53.0) % Sodium 136 L (137-145) mmol/L BUN 22 H (9-20) mg/dL Glucose 126 H (74-99) mg/dL POC Glucose (mg/dL) 128 H (75-99) mg/dL Calcium 8.2 L (8.4-10.2) mg/dL Albumin 3.0 L (3.5-5.0) g/dL Microbiology - Last 24 Hours (Table) 12/17/18 11:00 Gram Stain - Preliminary Appendix Wound Culture - Preliminary Gram Neg Bacilli 12/15/18 22:05 Blood Culture - Preliminary Blood No Growth after 48 hours 12/17/18 11:00 Anaerobic Culture - Preliminary Appendix
--- NOTE | 2018-12-18 14:07 | P.PN ---
Progress Note - Text 12/18 605am 63 year old male s/p open appy. pt has an epidural catheter for postop pain control with the solution running at 4cc/hr and a vas of 1. no motor or sensory deficits. plan to continue epidural infusion.
[2018-12-18] MEDS: METOCLOPRAMIDE 5 MG/ML 2 ML VIAL IVP PRN (14:28)
[2018-12-18 17:26] LABS: Glucose,Whole Blood 150 mg/dL (75-99)
[2018-12-18 20:45] LABS: Glucose,Whole Blood 168 mg/dL (75-99)
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
[2018-12-18] MEDS: INSULIN DETEMIR (LEVEMIR) 100 UNIT/ML SYR SQ SCH (23:19)
[2018-12-18 23:43] LABS: Glucose,Whole Blood 208 mg/dL (75-99)
[2018-12-19] MEDS: metroNIDAZOLE-NS PMX 500 MG in SALINE 1 100ML.BAG IVPB SCH ×3 (00:58→16:29)
[2018-12-19] MEDS: SODIUM CHLORIDE 0.9% 1,000 ML IV SCH ×4 (01:02→22:44)
[2018-12-19] MEDS: PIPERACILLIN-TAZOBACTAM 3.375 GM in SODIUM CHLORIDE 0.9% 100 ML IVPB SCH ×3 (02:35→17:46)
[2018-12-19] MEDS: HYDROmorphone 0.5 MG/0.5 ML SYRINGE IVP PRN (02:38)
[2018-12-19 07:05] LABS: Glucose,Whole Blood 134 mg/dL (75-99)
--- NOTE | 2018-12-19 07:57 | P.PN ---
Progress Note - Text Progress Note Date: 12/19/18 Patient with complaints of periodic pain in RLQ. Currently well controlled. Received dilaudid for breakthrough pain. Epidural running @ 4 ml/hr. Tolerating fluids. VSS Epidural site clean and dry A/P POD#2 s/p open appendectomy - increase epidural rate to 8 ml/hr
[2018-12-19] MEDS: INSULIN ASPART (NovoLOG) 100 UNIT/ML VIAL SQ SCH ×4 (08:23→22:43)
[2018-12-19] MEDS: HEPARIN SODIUM,PORCINE 5,000 UNIT/ML 1 ML VIAL SQ SCH ×2 (08:25→22:42)
[2018-12-19 12:15] LABS: Glucose,Whole Blood 163 mg/dL (75-99)
--- NOTE | 2018-12-19 12:21 | P.PN ---
Subjective Progress Note Date: 12/19/18 Patient is a 63-year-old male with a PMH of diabetes mellitus and hyperlipidemia who was admitted for persistent right lower quadrant abdominal pain due to ruptured appendicitis, diagnosed with abscess. The patient is status post POD # 2 for exploratory laparotmy, lysis of adhesions, and drainage of the abdominal abscess. The patient was seen at the bedside on 12/19. The patient endorsed continued mild right upper quadrant abdominal pain. He denied fever, chills, nausea, vomiting. Also denied diarrhea, chest pain, shortness of breath. The patient endorsed a rash over his back that appeared overnight. It is non- pruritic and non-tender. He any history of allergies or having noticed urticaria else-where. He notes that it has improved on its own throughout the day today. Objective - Vital Signs Vital signs: Vital Signs Temp 98.1 F 12/19/18 07:40 Pulse 90 12/19/18 07:40 Resp 18 12/19/18 08:00 BP 135/82 12/19/18 07:40 Pulse Ox 91 L 12/19/18 07:40 Intake & Output 12/18/18 12/19/18 12/19/18 18:59 06:59 18:59 Intake Total 301 Output Total 30 1680 280 Balance -30 -9724 -280 Intake: Oral 301 Output: Drainage 30 480 280 Right Lower Abdomen 30 480 280 Urine 1200 Uretheral (Argueta) 600 Other: Voiding Method Indwelling Catheter Indwelling Catheter Indwelling Catheter # Voids 1 - Exam General: Non-toxic, in no acute distress, appears stated age, normal weight HEENT: NC/AT, anicteric sclerae, moist conjunctiva, no lid-lag, PERRLA Cardiovascular: S1/S2 wnl, no murmurs, rubs, or gallops Lungs: Clear to auscultation, normal respiratory effort, no accessory muscle use Abdominal: Post-surgical, dressing clean and dry Skin: Warm, dry, diffuse urticarial rash overlying back, non-tender, non- erythematous Extremities: No edema or contractures Psychiatric: Alert and oriented to person, place and time, appropriate affect Neuro: CN II-XII grossly intact, no focal neuro deficits - Labs CBC & Chem 7: 12/18/18 08:18 12/18/18 08:18 Labs: Abnormal Lab Results - Last 24 Hours (Table) 12/18/18 12/18/18 12/18/18 Range/Units 17:24 20:40 23:40 POC Glucose (mg/dL) 150 H 168 H 208 H (75-99) mg/dL 12/19/18 Range/Units 06:46 POC Glucose (mg/dL) 134 H (75-99) mg/dL Microbiology - Last 24 Hours (Table) 12/17/18 11:00 Gram Stain - Final Appendix Wound Culture - Final Escherichia coli 12/15/18 22:05 Blood Culture - Preliminary Blood No Growth after 72 hours Assessment and Plan Plan: Acute ruptured appendicitis w/ abscess, s/p ex-lap w/ drainage POD # 2 -Management as per the surgical service -Currently on Zosyn and Flagyl. ID recs appreciated. Patient to be discharged w/ mid-line and 14 day course of Ertapenem -C/w IVFs -Pain control as per surgery service -F/u cultures Rash overlying his back, likely urticaria -Pt denied facial swelling, SOB, speech changes, visual changes, or hx of known allergens -Possibly drug reaction -Monitor for now -Will give Loratidine now Hx of bladder ca -Follows as outpt w/ Dr Shane Type 2 DM -WOJCIECH with FS -C/w Levemir 20 U qhs DVT prophylaxis -Heparin Discussed with: Patient Anticipated discharge date: 12/[address]: Home A total of 35 minutes was spent on the care of this complex patient more than 50% of the time was spent in counseling and care coordination.
[2018-12-19] MEDS ORDERED: diphenhydrAMINE 25 MG CAP PO PRN (13:21)
[2018-12-19] MEDS: LORATADINE 10 MG TAB PO SCH (13:34)
--- NOTE | 2018-12-19 14:02 | P.PN ---
Subjective Progress Note Date: 12/19/18 CHIEF COMPLAINT: perforated appendicitis with abscess HISTORY OF PRESENT ILLNESS: Patient is status post exploratory laparotomy, lysis of adhesions, drainage of abdominal abscess, appendectomy, and repair of incisional hernia. Postoperative #2. Patient examined this morning. He is sitting up in the chair. Denies abdominal pain. Epidural infusing at 4cc/hr. F oley catheter noted. MELVIN drain with serosanguineous drainage. Patient is tolerating full liquid diet. Denies nausea or vomiting. Patient denies passing flatus this morning. Denies BM. PHYSICAL EXAM: VITAL SIGNS: Reviewed. GENERAL: Well-developed in no acute distress. HEENT: No sclera icterus. Extraocular movements grossly intact. Moist buccal mucosa. Head is atraumatic, normocephalic. ABDOMEN: Soft. Nondistended. Nontender. Surgical dressing noted. MELVIN drain with serosanguineous drainage. NEUROLOGIC: Alert and oriented. Cranial nerves II through XII grossly intact. ASSESSMENT: 1. Perforated appendicitis with abscess, status post exploratory laparotomy, lysis of adhesions, drainage of abdominal abscess, appendectomy, and repair of incisional hernia PLAN: 1. Pain control. Continue epidural. 2. Continue Argueta catheter while epidural is in place 3. Incentive spirometer 10 times an hour while awake 4. Activity as tolerated 5. Continue antibiotics. Patient evaluated by Dr. Fischer. Will be discharged with Midline and IV antibiotics. 6. Continue full liquid diet. Nurse practitioner note has been reviewed by physician. Signing provider agrees with the documented findings, assessment, and plan of care. Objective - Vital Signs Vital signs: Vital Signs Temp 98.1 F 12/19/18 07:40 Pulse 90 12/19/18 07:40 Resp 18 12/19/18 08:00 BP 135/82 12/19/18 07:40 Pulse Ox 91 L 12/19/18 07:40 Intake & Output 12/18/18 12/19/18 12/19/18 18:59 06:59 18:59 Intake Total 301 Output Total 30 1680 280 Balance -30 -1379 -280 Intake: Oral 301 Output: Drainage 30 480 280 Right Lower Abdomen 30 480 280 Urine 1200 Uretheral (Argueta) 600 Other: Voiding Method Indwelling Catheter Indwelling Catheter Indwelling Catheter # Voids 1 - Labs CBC & Chem 7: 12/18/18 08:18 12/18/18 08:18 Labs: Abnormal Lab Results - Last 24 Hours (Table) 12/18/18 12/18/18 12/18/18 Range/Units 17:24 20:40 23:40 POC Glucose (mg/dL) 150 H 168 H 208 H (75-99) mg/dL 12/19/18 12/19/18 Range/Units 06:46 12:13 POC Glucose (mg/dL) 134 H 163 H (75-99) mg/dL Microbiology - Last 24 Hours (Table) 12/17/18 11:00 Gram Stain - Final Appendix Wound Culture - Final Escherichia coli 12/15/18 22:05 Blood Culture - Preliminary Blood No Growth after 72 hours
[2018-12-19] MEDS: ONDANSETRON 4 MG/2 ML VIAL IVP PRN (14:26)
[2018-12-19 17:13] LABS: Glucose,Whole Blood 154 mg/dL (75-99)
--- NOTE | 2018-12-19 17:14 | XR ---
EXAMINATION TYPE: XR chest 2V DATE OF EXAM: 12/19/2018 COMPARISON: Prior chest x-ray 12/16/2018 HISTORY: Shortness of breath TECHNIQUE: Frontal and lateral views of the chest are obtained. FINDINGS: Elevated left hemidiaphragm with colon present is again seen. There is basilar atelectatic change on the left as on prior. No pneumothorax. Heart size is likely stable. Patient is rotated. Gila ng volumes are low. IMPRESSION: Diaphragmatic elevation is chronic.
[2018-12-19 20:44] LABS: Glucose,Whole Blood 168 mg/dL (75-99)
--- NOTE | 2018-12-19 22:39 | PN ---
PROGRESS NOTE DATE OF SERVICE: 12/19/2018 REASON FOR FOLLOWUP: Abdominal abscess. INTERVAL HISTORY: The patient is a 63-year-old male who was recently admitted to this facility with ruptured appendicitis and a small abscess that was considered to be too small to be drained. The patient was discharged home on IV Invanz 1 gram daily. He presented back to the [facility] ER on 12/15/2018 with the chief complaint of worsening abdominal pain of one-day duration. Pain was mostly in the right lower abdominal area, more sharp in nature, almost 10/10 in severity, with associated nausea but no vomiting. Subsequently he did have a CT of abdomen and pelvis with evidence of an abdominal abscess. The patient did have a fever, elevated white count and tachycardia. He was taken to the OR on 12/17/2018 and he is status post laparotomy with appendectomy incisional hernia repair and lysis of adhesions. The patient has been treated with Zosyn and Flagyl. ID Service has been following the patient for his antibiotic therapy. Since admission to the hospital the patient's fever has resolved. Highest temperature last night was 99.9. The patient is still complaining of lower abdominal pain, more of a dull aching, intensity 4 to 5 out of 10, and no radiation. No further nausea or vomiting. He did not have any bowel movement. REVIEW OF SYSTEMS: Positive points have been mentioned in the HPI. Rest of the systems are negative. Past medical and surgical history reviewed; no change. Medication reviewed. PHYSICAL EXAMINATION: Blood pressure 129/82 with a pulse of 90, temperature 98.2. He is 96% on 2 L nasal cannula. General description is a middle-aged male lying in bed in no distress. RESPIRATORY SYSTEM: Unlabored breathing. Clear to auscultation anteriorly. HEART: S1, S2. Regular rate and rhythm. ABDOMEN: Soft. Mildly distended. No guarding. No rigidity. MELVIN drain with mostly blood-tinged secretions. EXTREMITIES: No edema of feet. SKIN EXAMINATION: No rash or mass palpable. Neurologically the patient is awake, alert, oriented x3. Mood and affect normal. LABS: Hemoglobin is 11. White count of 11.3 on admission. No blood work done today. BUN of 22, creatinine 1.18. DIAGNOSTIC IMPRESSION AND PLAN: Patient admitted to hospital with abdominal abscess and evidence of sepsis, failing outpatient IV antibiotic therapy, now with an Escherichia coli with intermediate sensitivity to Zosyn. We will discontinue the Zosyn, start the patient on Rocephin 2 grams daily, and continue with Diflucan. Repeat a CBC and CRP in the morning, with the discharge plan depending on his clinical response. Continue with supportive care. LUIZ / HARLEYN: [id number] /
[2018-12-19] MEDS: INSULIN DETEMIR (LEVEMIR) 100 UNIT/ML SYR SQ SCH (22:43)
[2018-12-20] MEDS: ONDANSETRON 4 MG/2 ML VIAL IVP PRN (00:23)
[2018-12-20] MEDS: metroNIDAZOLE-NS PMX 500 MG in SALINE 1 100ML.BAG IVPB SCH ×4 (00:23→23:47)
--- NOTE | 2018-12-20 04:59 | P.PN ---
Progress Note - Text Progress Note Date: 12/20/18 63 yo male s/p open appendectomy, POD#3. Epidural was stopped yesterday around 2:30pm after the patient was found to be diaphoretic, with drop in saturation and increase in MELVIN drain output. Epidural was running at 4cc/hr yesterday. Patient feels much better now. Off oxygen, stable vitals. Had no complaints overnight. VAS=o. Patient is ambulating. Epidural catheter site intact. No motor or sensory deficits. Will hold heparin and D/C epidural today.
[2018-12-20] MEDS: SODIUM CHLORIDE 0.9% 1,000 ML IV SCH ×4 (05:05→23:49)
[2018-12-20] MEDS: METOCLOPRAMIDE 5 MG/ML 2 ML VIAL IVP PRN (05:10)
[2018-12-20 07:03] LABS: Appearance,Urine Cloudy (Clear); Bilirubin,Urine Negative (Negative); Blood,Urine Small (Negative); Color,Urine Yellow; Glucose,Urine (UA) Trace (Negative); Ketones,Urine 1+ (Negative); Leukocyte Esterase,Urine Trace (Negative); Nitrite,Urine Negative (Negative); PH, Urine 5.5 (5.0-8.0); Protein,Urine 2+ (Negative); RBC,Urine 7 /hpf (0-5); Specific Gravity,Urine 1.019 (1.001-1.035); Urobilinogen,Urine <2.0 mg/dL (<2.0)
[2018-12-20] MEDS: LORATADINE 10 MG TAB PO SCH (07:14)
[2018-12-20] MEDS: HEPARIN SODIUM,PORCINE 5,000 UNIT/ML 1 ML VIAL SQ SCH ×2 (07:15→21:13)
[2018-12-20 07:23] LABS: Glucose,Whole Blood 112 mg/dL (75-99)
[2018-12-20] MEDS: INSULIN ASPART (NovoLOG) 100 UNIT/ML VIAL SQ SCH ×4 (07:27→20:31)
--- NOTE | 2018-12-20 08:06 | P.PN ---
Subjective Progress Note Date: 12/20/18 Patient is a 63-year-old male with a PMH of diabetes mellitus and hyperlipidemia who was admitted for persistent right lower quadrant abdominal pain due to ruptured appendicitis, diagnosed with abscess. The patient is status post POD # 3 for exploratory laparotmy, lysis of adhesions, and drainage of the abdominal abscess. The patient was seen at the bedside on 12/20. The patient notes his abdominal pain is nearly resolved. He also reports no further episodes of urticaria or rash elsewhere. Denied SOB, facial swelling, or chest pain. Denied nausea, vomiting, fever, chills, diarrhea. Objective - Vital Signs Vital signs: Vital Signs Temp 98.6 F 12/20/18 04:52 Pulse 93 12/20/18 04:52 Resp 20 12/20/18 04:52 BP 123/82 12/20/18 04:52 Pulse Ox 92 L 12/20/18 04:52 Intake & Output 12/19/18 12/20/18 12/20/18 18:59 06:59 18:59 Intake Total 100 Output Total 930 80 930 Balance -930 20 -930 Intake: Oral 100 Output: Drainage 430 80 80 Right Lower Abdomen 430 80 80 Urine 500 850 Uretheral (Argueta) 500 850 Other: Voiding Method Indwelling Catheter Toilet Urinal # Voids 0 - Exam General: Non-toxic, in no acute distress, appears stated age, normal weight HEENT: NC/AT, anicteric sclerae, moist conjunctiva, no lid-lag, PERRLA Cardiovascular: S1/S2 wnl, no murmurs, rubs, or gallops Lungs: Clear to auscultation, normal respiratory effort, no accessory muscle use Abdominal: Post-surgical, dressing clean and dry Skin: Warm, dry, diffuse urticarial rash resolved entirely Extremities: No edema or contractures Psychiatric: Alert and oriented to person, place and time, appropriate affect Neuro: CN II-XII grossly intact, no focal neuro deficits - Labs CBC & Chem 7: 12/18/18 08:18 12/18/18 08:18 Labs: Abnormal Lab Results - Last 24 Hours (Table) 12/19/18 12/19/18 12/19/18 Range/Units 12:13 17:11 20:42 POC Glucose (mg/dL) 163 H 154 H 168 H (75-99) mg/dL Urine Protein (Negative) Urine Glucose (UA) (Negative) Urine Ketones (Negative) Urine Blood (Negative) Ur Leukocyte Esterase (Negative) Urine RBC (0-5) /hpf 12/20/18 12/20/18 Range/Units 06:30 07:21 POC Glucose (mg/dL) 112 H (75-99) mg/dL Urine Protein 2+ H (Negative) Urine Glucose (UA) Trace H (Negative) Urine Ketones 1+ H (Negative) Urine Blood Small H (Negative) Ur Leukocyte Esterase Trace H (Negative) Urine RBC 7 H (0-5) /hpf Microbiology - Last 24 Hours (Table) 12/15/18 22:05 Blood Culture - Preliminary Blood No Growth after 96 hours 12/17/18 11:00 Gram Stain - Final Appendix Wound Culture - Final Escherichia coli Assessment and Plan Plan: Acute ruptured appendicitis w/ abscess, s/p ex-lap w/ drainage POD # 3 -Management as per the surgical service -Currently on Ceftriaxone and Flagyl as per ID recs. Patient to be discharged w/ mid-line and 14 day course of Ertapenem -C/w IVFs -Pain control as per surgery service -F/u cultures Rash overlying his back, likely urticaria, resolved -Possibly drug reaction -Monitor for now Hx of bladder ca -Follows as outpt w/ Dr Shane Type 2 DM -WOJCIECH with FS -C/w Levemir 20 U qhs DVT prophylaxis -Heparin Discussed with: Patient Anticipated discharge date: 12/[address]: Home A total of 35 minutes was spent on the care of this complex patient more than 50% of the time was spent in counseling and care coordination.
[2018-12-20 08:40] LABS: Basophils % (A) 0 %; Eosinophils # (A) 0.3 k/uL (0-0.7); Eosinophils % (A) 3 %; HCT 33.9 % (39.0-53.0); HGB 10.9 gm/dL (13.0-17.5); Lymphocytes # (A) 1.3 k/uL (1.0-4.8); Lymphocytes % (A) 15 %; MCH 28.9 pg (25.0-35.0); MCHC 32.3 g/dL (31.0-37.0); MCV 89.5 fL (80.0-100.0); Mean Platelet Volume 6.4; Monocytes # (A) 0.6 k/uL (0-1.0); Monocytes % (A) 7 %; Neutrophils # (A) 6.2 k/uL (1.3-7.7); Neutrophils % (A) 72 %; Platelet Count 263 k/uL (150-450); RBC 3.78 m/uL (4.30-5.90); RDW 12.4 % (11.5-15.5); WBC 8.5 k/uL (3.8-10.6)
--- NOTE | 2018-12-20 08:49 | XR ---
EXAMINATION TYPE: XR abdomen 2V DATE OF EXAM: 12/20/2018 CLINICAL HISTORY: Abdominal distention, history of surgery for ruptured appendix TECHNIQUE: Supine and upright views of the abdomen are obtained. COMPARISON: CT abdomen and pelvis 5 days ago. FINDINGS: Redemonstration of elevated left hemidiaphragm. Gas prominent dilated bowel loops throughou t the abdomen and upper pelvis are seen. Percutaneous drainage catheter right pelvis noted. Vertical skin aimee. No pneumoperitoneum. IMPRESSION: Overall nonspecific bowel gas pattern. Favor postoperative ileus.
[2018-12-20 08:57] LABS: Calcium 7.8 mg/dL (8.4-10.2); Potassium 3.9 mmol/L (3.5-5.1)
[2018-12-20] MEDS: METOCLOPRAMIDE 5 MG/ML 2 ML VIAL IVP SCH ×4 (09:47→23:47)
[2018-12-20] MEDS: DOCUSATE 100 MG CAP PO SCH ×2 (09:47→21:13)
[2018-12-20 09:50] LABS: C Reactive Protein 213.5 mg/L (<10.0)
[2018-12-20] MEDS: HYDROmorphone 0.5 MG/0.5 ML SYRINGE IVP PRN ×2 (10:01→21:12)
[2018-12-20] MEDS: BISACODYL 10 MG SUPP RECTAL SCH (10:04)
[2018-12-20] MEDS ORDERED: TAMSULOSIN 0.4 MG CAP.ER.24H PO STA (11:45)
--- NOTE | 2018-12-20 12:11 | P.PN ---
Subjective Progress Note Date: 12/20/18 CHIEF COMPLAINT: perforated appendicitis with abscess HISTORY OF PRESENT ILLNESS: Patient is status post exploratory laparotomy, lysis of adhesions, drainage of abdominal abscess, appendectomy, and repair of incisional hernia. Postoperative #3. Patient examined this morning at the bedside. Patient states his pain is tolerable. Epidural was discontinued yest erday. Patient has not been able to void since discontinuation of his epidural. He was straight cath this morning around 7 AM with 800 mL of urine. Patient reports this has happened to him before after his back surgery. Patient states he was passing flatus yesterday but has not passed flatus yet this morning. Denies having a bowel movement. Patient denies nausea or vomiting. He does report abdominal bloating. reports only taking in a few sips of water this morning to wet his mouth PHYSICAL EXAM: VITAL SIGNS: Reviewed. GENERAL: Well-developed in no acute distress. HEENT: No sclera icterus. Extraocular movements grossly intact. Moist buccal mucosa. Head is atraumatic, normocephalic. ABDOMEN: Soft. Distended. Nontender. Surgical dressing noted. MELVIN drain with serosanguineous drainage. NEUROLOGIC: Alert and oriented. Cranial nerves II through XII grossly intact. ASSESSMENT: 1. Perforated appendicitis with abscess, status post exploratory laparotomy, lysis of adhesions, drainage of abdominal abscess, appendectomy, and repair of i ncisional hernia, wound cultures positive for ecoli, patient does not meet sepsis criteria at this time 2. Postoperative ileus, an unexpected but potential outcome of surgery 3. Postoperative urinary retention, an unexpected but potential outcome of surgery PLAN: 1. Pain control 2. Start Flomax 3. Incentive spirometer 10 times an hour while awake 4. Activity as tolerated 5. Continue antibiotics. Patient evaluated by infectious disease. Will be discharged with Midline and IV antibiotics. 6. Downgrade diet to clear liquids 7. Begin Reglan 10mg IV Q6 hours and daily dulcolax suppositories Nurse practitioner note has been reviewed by physician. Signing provider agrees with the documented findings, assessment, and plan of care. Objective - Vital Signs Vital signs: Vital Signs Temp 98.6 F 12/20/18 04:52 Pulse 93 12/20/18 04:52 Resp 20 12/20/18 04:52 BP 123/82 12/20/18 04:52 Pulse Ox 92 L 12/20/18 04:52 Intake & Output 12/19/18 12/20/18 12/20/18 18:59 06:59 18:59 Intake Total 100 Output Total 930 80 980 Balance -930 20 -980 Intake: Oral 100 Output: Drainage 430 80 130 Right Lower Abdomen 430 80 130 Urine 500 850 Uretheral (Argueta) 500 850 Urine/Stool Mix 0 Other: Voiding Method Indwelling Catheter Toilet Urinal # Voids 0 0 - Labs CBC & Chem 7: 12/20/18 08:14 12/20/18 08:14 Labs: Abnormal Lab Results - Last 24 Hours (Table) 12/19/18 12/19/18 12/19/18 Range/Units 12:13 17:11 20:42 RBC (4.30-5.90) m/uL Hgb (13.0-17.5) gm/dL Hct (39.0-53.0) % BUN (9-20) mg/dL Glucose (74-99) mg/dL POC Glucose (mg/dL) 163 H 154 H 168 H (75-99) mg/dL Calcium (8.4-10.2) mg/dL C-Reactive Protein (<10.0) mg/L Urine Protein (Negative) Urine Glucose (UA) (Negative) Urine Ketones (Negative) Urine Blood (Negative) Ur Leukocyte Esterase (Negative) Urine RBC (0-5) /hpf 12/20/18 12/20/18 12/20/18 Range/Units 06:30 07:21 08:14 RBC 3.78 L (4.30-5.90) m/uL Hgb 10.9 L (13.0-17.5) gm/dL Hct 33.9 L (39.0-53.0) % BUN (9-20) mg/dL Glucose (74-99) mg/dL POC Glucose (mg/dL) 112 H (75-99) mg/dL Calcium (8.4-10.2) mg/dL C-Reactive Protein (<10.0) mg/L Urine Protein 2+ H (Negative) Urine Glucose (UA) Trace H (Negative) Urine Ketones 1+ H (Negative) Urine Blood Small H (Negative) Ur Leukocyte Esterase Trace H (Negative) Urine RBC 7 H (0-5) /hpf 12/20/18 Range/Units 08:14 RBC (4.30-5.90) m/uL Hgb (13.0-17.5) gm/dL Hct (39.0-53.0) % BUN 27 H (9-20) mg/dL Glucose 115 H (74-99) mg/dL POC Glucose (mg/dL) (75-99) mg/dL Calcium 7.8 L (8.4-10.2) mg/dL C-Reactive Protein 213.5 H (<10.0) mg/L Urine Protein (Negative) Urine Glucose (UA) (Negative) Urine Ketones (Negative) Urine Blood (Negative) Ur Leukocyte Esterase (Negative) Urine RBC (0-5) /hpf Microbiology - Last 24 Hours (Table) 12/15/18 22:05 Blood Culture - Preliminary Blood No Growth after 96 hours 12/17/18 11:00 Gram Stain - Final Appendix Wound Culture - Final Escherichia coli
[2018-12-20 12:15] LABS: Glucose,Whole Blood 113 mg/dL (75-99)
[2018-12-20 17:12] LABS: Glucose,Whole Blood 129 mg/dL (75-99)
[2018-12-20 20:32] LABS: Glucose,Whole Blood 111 mg/dL (75-99)
[2018-12-20] MEDS: INSULIN DETEMIR (LEVEMIR) 100 UNIT/ML SYR SQ SCH (21:13)
--- NOTE | 2018-12-20 23:41 | PN ---
PROGRESS NOTE DATE OF SERVICE: 12/20/2018 REASON FOR FOLLOWUP: Abdominal abscess from ruptured appendicitis. INTERVAL HISTORY: The patient is currently afebrile. The patient has been breathing comfortably. He denies having any chest pain or cough. No nausea, no vomiting worsening abdominal pain. Has been complaining of some urine retention. No diarrhea. PHYSICAL EXAMINATION: Blood pressure is 148/87 with a pulse of 96, temperature 98.3. He is 92% on room air. General description is a middle-aged male lying in bed in no distress. RESPIRATORY SYSTEM: Unlabored breathing. Clear to auscultation anteriorly. HEART: S1, S2. Regular rate and rhythm. ABDOMEN: Soft. No tenderness. LABS: Hemoglobin is 10.9, white count of 8.5 with a BUN of 27, creatinine 1.09. DIAGNOSTIC IMPRESSION AND PLAN: Patient with an abdominal abscess from ruptured appendicitis, status post appendectomy and drainage of the abscess. Patient is currently covered with Rocephin and Flagyl; to continue. If the patient continues to improve, hopefully to finish therapy with oral antibiotics. Continue with supportive care. MMODL / IJN: [id number] /
[2018-12-21 05:22] VITALS: BP 170/95; PULSE 92; RESP 20; TEMP 97.7
[2018-12-21] MEDS: METOCLOPRAMIDE 5 MG/ML 2 ML VIAL IVP SCH ×2 (06:08→11:17)
[2018-12-21] MEDS: INSULIN ASPART (NovoLOG) 100 UNIT/ML VIAL SQ SCH ×2 (06:53→11:35)
[2018-12-21 07:08] LABS: Glucose,Whole Blood 124 mg/dL (75-99)
[2018-12-21] MEDS: metroNIDAZOLE-NS PMX 500 MG in SALINE 1 100ML.BAG IVPB SCH (07:46)
[2018-12-21] MEDS: DOCUSATE 100 MG CAP PO SCH (07:46)
[2018-12-21] MEDS: HEPARIN SODIUM,PORCINE 5,000 UNIT/ML 1 ML VIAL SQ SCH (07:46)
[2018-12-21] MEDS: BISACODYL 10 MG SUPP RECTAL SCH (07:46)
[2018-12-21] MEDS: SODIUM CHLORIDE 0.9% 1,000 ML IV SCH (07:46)
[2018-12-21] MEDS: LORATADINE 10 MG TAB PO SCH (07:46)
[2018-12-21] MEDS ORDERED: TAMSULOSIN 0.4 MG CAP.ER.24H PO SCH (08:30)
[2018-12-21 11:27] LABS: Glucose,Whole Blood 202 mg/dL (75-99)
--- NOTE | 2018-12-21 11:32 | P.PN ---
Subjective Progress Note Date: 12/21/18 Patient is a 63-year-old male with a PMH of diabetes mellitus and hyperlipidemia who was admitted for persistent right lower quadrant abdominal pain due to ruptured appendicitis, diagnosed with abscess. The patient is status post POD # 4 for exploratory laparotmy, lysis of adhesions, and drainage of the abdominal abscess. The patient was seen at the bedside on 12/21. The patient notes his abdominal pa in is nearly resolved. He also reports no further episodes of urticaria or rash elsewhere. Patient reporting some retention having increased postvoid residuals on bladder scanning continue Flomax. Objective - Vital Signs Vital signs: Vital Signs Temp 97.7 F 12/21/18 05:11 Pulse 92 12/21/18 05:11 Resp 20 12/21/18 05:11 BP 170/95 12/21/18 05:11 Pulse Ox 93 L 12/21/18 05:11 Intake & Output 12/20/18 12/21/18 12/21/18 18:59 06:59 18:59 Output Total 2024 1440 Balance -2024 -144 Output: Drainage 175 90 Right Lower Abdomen 175 90 Urine 1850 1350 Straight 675 Uretheral (Argueta) 1850 Urine/Stool Mix 0 Other: # Voids 0 # Bowel Movements 1 - Exam Constitutional: No acute distress, conversant, pleasant Eyes: Anicteric sclerae, moist conjunctiva, no lid-lag, PERRLA ENMT: NC/AT,Oropharynx clear, no erythema, exudates Neck:Supple, FROM, no masses, or JVD, No carotid bruits; No thyromegaly Lungs: Clear to auscultation, Clear to percussion, Normal respiratory effort, no accessory muscle use Cardiovascular: Heart regular in rate and rhythm, No murmurs, gallops, or rubs no peripheral edema Abdominal: Soft tender to palpation around incision, nom distended, abdominal binder in place, post surgical, dressing clean dry and intact Skin: Normal temperature, tone, texture, turgor, No induration No subcutaneous nodules, No rash, lesions, No ulcers Extremities:No digital cyanosis No clubbing, Pedal pulses intact and symmetrical Radial pulses intact and symmetrical Normal gait and station, No calf tenderness Psychiatric: Alert and oriented to person, place and time, Appropriate affect Intact judgement Neuro: Muscles Strength 5/5 in all 4 extremities, Sensation to light touch grossly present throughout, Cranial nerves II-XII grossly intact. No focal sensory deficits - Labs CBC & Chem 7: 12/20/18 08:14 12/20/18 08:14 Labs: Abnormal Lab Results - Last 24 Hours (Table) 12/20/18 12/20/18 12/20/18 Range/Units 08:14 08:14 12:13 RBC 3.78 L (4.30-5.90) m/uL Hgb 10.9 L (13.0-17.5) gm/dL Hct 33.9 L (39.0-53.0) % BUN 27 H (9-20) mg/dL Glucose 115 H (74-99) mg/dL POC Glucose (mg/dL) 113 H (75-99) mg/dL Calcium 7.8 L (8.4-10.2) mg/dL C-Reactive Protein 213.5 H (<10.0) mg/L 12/20/18 12/20/18 12/21/18 Range/Units 17:00 20:28 06:48 RBC (4.30-5.90) m/uL Hgb (13.0-17.5) gm/dL Hct (39.0-53.0) % BUN (9-20) mg/dL Glucose (74-99) mg/dL POC Glucose (mg/dL) 129 H 111 H 124 H (75-99) mg/dL Calcium (8.4-10.2) mg/dL C-Reactive Protein (<10.0) mg/L Microbiology - Last 24 Hours (Table) 12/15/18 22:05 Blood Culture - Preliminary Blood No Growth after 120 hours 12/17/18 11:00 Anaerobic Culture - Final Appendix Anaerobic Gm Negative Bacilli Anaerobic Gm Negative Bacilli#2 Assessment and Plan Plan: Acute ruptured appendicitis w/ abscess, s/p ex-lap w/ drainage POD # 4 -Management as per the surgical service -Currently on Ceftriaxone and Flagyl as per ID recs. Patient to be discharged w/ mid-line and 14 day course of Ertapenem -C/w IVFs -Pain control as per surgery service -F/u cultures Rash overlying his back, likely urticaria, resolved -Possibly drug reaction -Monitor for now Hx of bladder ca -Follows as outpt w/ Dr Shane Urinary retention * Continue Flomax Type 2 DM -WOJCIECH with FS -C/w Levemir 20 U qhs DVT prophylaxis -Heparin Patient stable for discharge Recommend continuing Flomax Discussed with: Patient Anticipated discharge date: 12/[address]: Home A total of 35 minutes was spent on the care of this complex patient more than 50% of the time was spent in counseling and care coordination.
--- NOTE | 2018-12-21 13:09 | P.DS ---
Providers Date of admission: 12/16/18 00:27 Expected date of discharge: 12/21/18 Attending physician: Liam Lafleur Consults: 12/16/18 08:37 Consult Physician Routine Consulting Provider: Jusitne Colon Consult Reason/Comments: medical management Do you want consulting provider notified?: Yes 12/16/18 09:29 Consult Physician Routine Consulting Provider: Madeline Larsen Consult Reason/Comments: Ruptured appendicitis with abscess Do you want consulting provider notified?: Yes Primary care physician: Brett [facility] Course: 63 year old male who underwent exploratory laparotomy, lysis of adhesions, drainage of abdominal abscess, appendectomy, and repair of incisional hernia. Patient was started on clear liquid diet postoperatively. He did develop an ileus which has since resolved. His diet was advanced as tolerated. He is passing flatus and having a bowel movement. Patient had an epidural placed for pain management which has since been discontinued. His pain is controlled on oral medications. Patient has been experiencing urinary retention and required frequent straight catheterization. He was started on Flomax. An indwelling urinary catheter will be placed today prior to discharge. He is to follow up outpatient with Dr. Lafleur and will have urinary catheter removed at that time. Patient was also evaluated by infectious disease during hospital patient. He is being discharged home on oral antibiotics per infectious disease recommendations. He is stable for discharge home today. Please see EMR for further hospital course details. Discharge Diagnosis 1. Perforated appendicitis with abscess, status post exploratory laparotomy, lysis of adhesions, drainage of abdominal abscess, appendectomy, and repair of incisional hernia, wound cultures positive for ecoli, patient does not meet sepsis criteria at this time 2. Postoperative ileus, an unexpected but potential outcome of surgery 3. Postoperative urinary retention, an unexpected but potential outcome of surgery Nurse practitioner note has been reviewed by physician. Signing provider agrees with the documented findings, assessment, and plan of care. Patient Condition at Discharge: Stable Plan - Discharge Summary New Discharge Prescriptions: New Ciprofloxacin HCl [Cipro] 500 mg PO Q12HR #20 tablet metroNIDAZOLE [Flagyl] 500 mg PO Q8HR #30 tab Hydrocodone/Acetaminophen [[place] 5-325] 1 tab PO Q6HR PRN 3 Days #12 tab PRN Reason: Pain Docusate [Colace] 100 mg PO BID #30 capsule Tamsulosin HCl [Flomax] 0.4 mg PO DAILY #14 capsule Discontinued Ertapenem [INVanz] 1 gm IVPB Q24H #14 bag No Action Insulin Lispro [humaLOG Kwikpen] 10 unit SQ AC-TID Insulin Degludec [Tresiba Flextouch U-200] 50 unit SQ HS Discharge Medication List Insulin Degludec [Tresiba Flextouch U-200] 50 unit SQ HS 11/27/18 [History] Insulin Lispro [humaLOG Kwikpen] 10 unit SQ AC-TID 11/27/18 [History] Ciprofloxacin HCl [Cipro] 500 mg PO Q12HR #20 tablet 12/21/18 [Rx] Docusate [Colace] 100 mg PO BID #30 capsule 12/21/18 [Rx] Hydrocodone/Acetaminophen [[place] 5-325] 1 tab PO Q6HR PRN 3 Days #12 tab 12/21/18 [Rx] Tamsulosin HCl [Flomax] 0.4 mg PO DAILY #14 capsule 12/21/18 [Rx] metroNIDAZOLE [Flagyl] 500 mg PO Q8HR #30 tab 12/21/18 [Rx] Follow up Appointment(s)/Referral(s): [facility], [NON-STAFF] - Brett Choe DO [Primary Care Provider] - 1-2 days Madeline Larsen MD [STAFF PHYSICIAN] - 1 Week Liam Lafleur MD [STAFF PHYSICIAN] - 1 Week (NEEDS APPT SCHEDULED FOR Monday12/25/18) Activity/Diet/Wound Care/Special Instructions: No driving while taking [place] No lifting over 10 pounds You may shower. No soaking or tub baths Very light activity until you are reevaluated at your follow up appointment with your surgeon Argueta catheter will be discontinued on Monday at Dr. Lafleur's office Keep a record of MELVIN drain output
--- NOTE | 2018-12-21 16:20 | PN ---
PROGRESS NOTE DATE OF SERVICE: 12/21/2018 REASON FOR FOLLOWUP: Abdominal abscess. INTERVAL HISTORY: The patient was seen on early this afternoon. The patient has been afebrile, has been breathing comfortably. The patient denies having any chest pain, shortness of breath or cough. No nausea or vomiting. No abdominal pain. He did have a small bowel movement. No diarrhea. PHYSICAL EXAMINATION: Blood pressure is 170/95 with a pulse of 92, temperature 97.7. He is 93% on room air. General description is a middle-aged male lying in bed in no distress. RESPIRATORY SYSTEM: Unlabored breathing. Clear to auscultation anteriorly. HEART: S1, S2. Regular rate and rhythm. ABDOMEN: Soft. No tenderness. LABS: No new labs have been obtained today. DIAGNOSTIC IMPRESSION AND PLAN: Patient with abdominal abscess in this patient who had perforated appendicitis, status post laparotomy and drainage of the abscess. Culture positive for E coli sensitive to Cipro along with anaerobes. Antibiotic will be transitioned to oral Cipro and Flagyl for 10 days. Prescription has been sent to pharmacy. Outpatient followup in a week. Questions and concerns were answered. MMODL / IJN: [id number] /
== END 2018-12-21 15:01 | disposition home health service (06) | DRG 339 ==
LOC: EC 20:25 → 4MS4W 12-16 00:27
PROVIDERS: ADMIT Surgery; ATTEND Surgery
PROC: 0DTJ0ZZ Resection of Appendix, Open Approach (ICD-10-PCS; principal; 2018-12-17 10:30)
PROC: 0YQ50ZZ Repair Right Inguinal Region, Open Approach (ICD-10-PCS; principal; 2018-12-17 10:30)
DX: K35.33 Acute appendicitis with perforation, localized peritonitis, and gangrene, with abscess (principal); K56.7 Ileus, unspecified; C67.9 Malignant neoplasm of bladder, unspecified; E11.65 Type 2 diabetes mellitus with hyperglycemia; E78.5 Hyperlipidemia, unspecified; Z79.2 Long term (current) use of antibiotics; Z79.4 Long term (current) use of insulin; Z82.3 Family history of stroke; Z85.820 Personal history of malignant melanoma of skin; B96.20 Unspecified Escherichia coli [E. coli] as the cause of diseases classified elsewhere; R33.9 Retention of urine, unspecified; L27.0 Generalized skin eruption due to drugs and medicaments taken internally; T50.905A Adverse effect of unspecified drugs, medicaments and biological substances, initial encounter; K40.90 Unilateral inguinal hernia, without obstruction or gangrene, not specified as recurrent
CPT/HCPCS: 36415; 71046; 74019; 74177; 80048; 80053; 81001; 83605; 85025; 85610; 85730; 86140; 87040; 87070; 87075; 87077; 87186; 87205; 88304; 94640; 96374; 96375; 99285

== ENCOUNTER → 2019-12-10 | Outpatient (CLI) | payer OTHER ==
--- NOTE | 2019-12-10 21:42 | XR ---
EXAMINATION TYPE: XR thoracic spine 2V DATE OF EXAM: 12/10/2019 CLINICAL HISTORY: History of T12 fracture 12 years ago with back pain. TECHNIQUE: Frontal, lateral, a nd swimmer's view of thoracic spine are obtained. COMPARISON: MRI thoracic spine October 09, 2017. FINDINGS: Thoracic spine show stable dextroconvex scoliotic curvature centered lower thoracic spine a nd levoconvex scoliotic curvature upper thoracic spine. Now moderate to severe anterior compression o r height loss at T12 vertebra progressed from 2018 study in severity. Vertebral bodies and disc spa ce heights are otherwise fairly well maintained. Mild multilevel anterior and lateral spurring noted in the thoracic spine. Elevated left hemidiaphragm redemonstrated. IMPRESSION: No as above acute fracture or dislocation is seen in the thoracic spine.
== END | disposition home or self-care (01) ==
LOC: RAD 16:59
PROVIDERS: ATTEND Family Medicine
DX: S29.019D Strain of muscle and tendon of unspecified wall of thorax, subsequent encounter (principal)
CPT/HCPCS: 72070

== ENCOUNTER → 2019-12-16 | Outpatient (CLI) | payer OTHER | END | disposition home or self-care (01) | LOC: LABWHC1 10:09 | PROVIDERS: ATTEND Family Medicine | DX: Z20.828 Contact with and (suspected) exposure to other viral communicable diseases (principal) | CPT/HCPCS: U0003; C9803 ==

== ENCOUNTER → 2019-12-24 | Outpatient (CLI) | payer OTHER ==
--- NOTE | 2019-12-25 07:41 | XR ---
EXAMINATION TYPE: XR foot complete LT DATE OF EXAM: 12/24/2019 CLINICAL HISTORY: pain TECHNIQUE: Frontal, lateral and oblique images of the left foot are obtained. COMPARISON: None. FINDINGS: There is no acute fracture/dislocation evident. The joint spaces appear within normal smith its. The overlying soft tissue appears unremarkable. No bony destructive process identified. IMPRESSION: There is no acute fracture or dislocation. ICD 10 NO FRACTURE, INITIAL EVALUATION
== END | disposition home or self-care (01) ==
LOC: RAD 16:46
PROVIDERS: ATTEND Family Medicine
DX: E13.621 Other specified diabetes mellitus with foot ulcer (principal)

== ENCOUNTER → 2020-01-02 | Outpatient (CLI) | payer OTHER ==
--- NOTE | 2020-01-08 15:05 | P.ARTDOP ---
Arterial Doppler LOWER EXTREMITY ARTERIAL DOPPLER: DATE OF SERVICE: 01/02/2020 Reason for study: Ulcer left foot. Doppler waveforms: Multiphasic bilaterally throughout. Pulse volume recording: []. Pressure gradients: None. Ankle-brachial indices: Greater than 1 bilaterally. Toe brachial indices: 0.88 on the right, [] on the left Impression: Normal study.
== END | disposition home or self-care (01) ==
LOC: RADUSWWP 13:23
PROVIDERS: ATTEND Podiatrist
DX: L97.522 Non-pressure chronic ulcer of other part of left foot with fat layer exposed (principal); E11.65 Type 2 diabetes mellitus with hyperglycemia; I10 Essential (primary) hypertension; E11.42 Type 2 diabetes mellitus with diabetic polyneuropathy; I73.9 Peripheral vascular disease, unspecified
CPT/HCPCS: 93922

== ENCOUNTER → 2020-01-15 | Outpatient (CLI) | payer MEDICARE, OTHER ==
[2020-01-15 16:52] LABS: Basophils % (A) 0 %; Eosinophils # (A) 0.1 k/uL (0-0.7); Eosinophils % (A) 2 %; HCT 42.8 % (39.0-53.0); HGB 14.2 gm/dL (13.0-17.5); Lymphocytes # (A) 2.1 k/uL (1.0-4.8); Lymphocytes % (A) 43 %; MCH 29.8 pg (25.0-35.0); MCHC 33.2 g/dL (31.0-37.0); Mean Platelet Volume 8.1; Monocytes # (A) 0.3 k/uL (0-1.0); Monocytes % (A) 6 %; Neutrophils # (A) 2.1 k/uL (1.3-7.7); Neutrophils % (A) 45 %; Platelet Count 163 k/uL (150-450); RBC 4.76 m/uL (4.30-5.90); RDW 13.3 % (11.5-15.5); WBC 4.7 k/uL (3.8-10.6)
[2020-01-16 03:44] LABS: African American GFR (CKD) 56.2 (60.0-200.0); Albumin 3.8 g/dL (3.80-4.90); Albumin/Globulin Ratio 1.52 (1.60-3.17); Anion Gap 9.2 mmol/L (4.00-12.00); BUN/Creat Ratio 19.33 Ratio (12.00-20.00); Calcium 8.8 mg/dL (8.7-10.3); Carbon Dioxide 20.8 mmol/L (21.6-31.8); Globulin 2.5 g/dL (1.6-3.3); Non-African American GFR(CKD) 48.5 (60.0-200.0); Potassium 4.8 mmol/L (3.5-5.5); Total Bilirubin 0.2 mg/dL (0.3-1.2); Total Protein 6.3 g/dL (6.2-8.2)
== END | disposition home or self-care (01) ==
LOC: LABWHC1 15:14
PROVIDERS: ATTEND Podiatrist
DX: L97.522 Non-pressure chronic ulcer of other part of left foot with fat layer exposed (principal); E11.65 Type 2 diabetes mellitus with hyperglycemia; I10 Essential (primary) hypertension; I73.9 Peripheral vascular disease, unspecified; E11.42 Type 2 diabetes mellitus with diabetic polyneuropathy
CPT/HCPCS: 36415; 80053; 84134; 85025

== ENCOUNTER 2020-04-25 09:18 | Emergency (ER) | payer MEDICARE, OTHER ==
[2020-04-25 09:22] VITALS: TEMP 98.6
[2020-04-25] MEDS ORDERED: HYDROcodone/APAP 5-325MG 1 EACH TAB PO STA (09:39)
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
[2020-04-25 10:04] VITALS: BP 150/89; PULSE 80; RESP 18
[2020-04-25 10:26] LABS: Appearance,Urine Clear (Clear); Bacteria,Urine Rare /hpf; Bilirubin,Urine Negative (Negative); Blood,Urine Small (Negative); Color,Urine Light Yellow; Glucose,Urine (UA) 4+ (Negative); Ketones,Urine Negative (Negative); Leukocyte Esterase,Urine Negative (Negative); Nitrite,Urine Negative (Negative); PH, Urine 6.5 (5.0-8.0); Protein,Urine 3+ (Negative); RBC,Urine 2 /hpf (0-5); Specific Gravity,Urine 1.028 (1.001-1.035); Urobilinogen,Urine <2.0 mg/dL (<2.0); WBC,Urine 1 /hpf (0-5)
[2020-04-25] MEDS ORDERED: traMADol 50 MG STARTER PACK 3 TAB BTL PO STA (10:38)
== END 2020-04-25 10:45 | disposition home or self-care (01) ==
LOC: EC 09:18
DX: S39.012A Strain of muscle, fascia and tendon of lower back, initial encounter (principal); E11.9 Type 2 diabetes mellitus without complications; Z79.4 Long term (current) use of insulin; Z85.51 Personal history of malignant neoplasm of bladder; Z80.0 Family history of malignant neoplasm of digestive organs; Z80.3 Family history of malignant neoplasm of breast; X58.XXXA Exposure to other specified factors, initial encounter
CPT/HCPCS: 81001; 99283

== ENCOUNTER 2020-04-26 06:34 | Emergency (ER) | payer MEDICARE, OTHER ==
[2020-04-26 06:43] VITALS: RESP 18
[2020-04-26] MEDS ORDERED: ONDANSETRON 4 MG/2 ML VIAL IVP STA (06:55)
[2020-04-26] MEDS ORDERED: SODIUM CHLORIDE 0.9% 1,000 ML IV STA (06:55)
[2020-04-26] MEDS ORDERED: KETOROLAC 15 MG/ML 1 ML VIAL IVP STA ×2 (06:55→08:04)
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
[2020-04-26 07:28] LABS: ALT 21 U/L (4-49); AST 28 U/L (17-59); African American GFR (CKD) >90 (>60 ml/min/1.73 sqM); Albumin 3.4 g/dL (3.5-5.0); Alkaline Phosphatase 81 U/L (38-126); Amylase 42 U/L (30-110); Anion Gap 9 mmol/L; Blood Urea Nitrogen 25 mg/dL (9-20); Calcium 8.7 mg/dL (8.4-10.2); Carbon Dioxide 16 mmol/L (22-30); Chloride 103 mmol/L (98-107); Glucose 340 mg/dL (74-99); Lipase 38 U/L (23-300); Non-African American GFR(CKD) 82 (>60 ml/min/1.73 sqM); Sodium 128 mmol/L (137-145); Total Bilirubin 0.6 mg/dL (0.2-1.3); Total Protein 7.5 g/dL (6.3-8.2)
--- NOTE | 2020-04-26 07:36 | CT ---
EXAMINATION TYPE: CT abdomen pelvis wo con DATE OF EXAM: 04/26/2020 COMPARISON: 12/15/2018 HISTORY: Right flank pain, stone suspected CT DLP: 1096.4 mGycm Automated exposure control for dose reduction was used. TECHNIQUE: Helical acquisition of images was performed from the lung bases through the pelvis. FINDINGS: LUNG BASES: Left lower lobe subsegmental consolidation. Elevated left hemidiaphragm. LIVER/GB: No significant abnormality is appreciated. PANCREAS: No significant abnormality is seen. SPLEEN: No significant abnormality is seen. ADRENALS: No significant abnormality is seen. KIDNEYS: No hydronephrosis or nephrolithiasis. Perinephric stranding noted. There is mild thickening of the posterior lateral left bladder wall which is nonspecific. Correlation with cystoscopy could be obtained to exclude mucosal lesion. No bladder calculi. ADENOPATHY: None visualized. OSSEOUS STRUCTURES: Severe compression fracture T12 stable from prior exam. Multilevel hypertrophic and degenerative changes seen.. BOWEL: Short tubular structure in the right lower quadrant could represent appendix or appendiceal s tump measures 9 mm prominent but there is no inflammatory change correlate clinically.. OTHER: Small fat-containing periumbilical hernia. Aorta of normal caliber. IMPRESSION: 1. No evidence of renal stone or obstruction. 2. Mild bladder wall thickening posterior laterally in the left. Consider follow-up cystoscopy to exc lude mucosal lesion. 3. No active inflammatory changes are seen. There is a mildly prominent tubular short structure measu ring 9 mm in the right lower quadrant could represent an appendix or appendiceal stump correlate clin ically to exclude early appendicitis or stump appendicitis.
[2020-04-26 07:44] LABS: Potassium 5.2 mmol/L (3.5-5.1)
[2020-04-26 07:47] LABS: Basophils % (A) 0 %; Eosinophils # (A) 0.1 k/uL (0-0.7); Eosinophils % (A) 1 %; HCT 38.2 % (39.0-53.0); HGB 14.1 gm/dL (13.0-17.5); Lymphocytes # (A) 1.1 k/uL (1.0-4.8); Lymphocytes % (A) 19 %; MCH 31.4 pg (25.0-35.0); MCHC 36.8 g/dL (31.0-37.0); MCV 85.1 fL (80.0-100.0); Mean Platelet Volume 8.7; Monocytes # (A) 0.4 k/uL (0-1.0); Monocytes % (A) 6 %; Neutrophils # (A) 4.3 k/uL (1.3-7.7); Neutrophils % (A) 72 %; Platelet Count 149 k/uL (150-450); RBC 4.49 m/uL (4.30-5.90); WBC 5.9 k/uL (3.8-10.6)
[2020-04-26 08:14] LABS: Appearance,Urine Clear (Clear); Bacteria,Urine Rare /hpf; Bilirubin,Urine Negative (Negative); Blood,Urine Small (Negative); Color,Urine Light Yellow; Glucose,Urine (UA) 4+ (Negative); Ketones,Urine Negative (Negative); Leukocyte Esterase,Urine Negative (Negative); Mucus,Urine Rare /hpf; Nitrite,Urine Negative (Negative); PH, Urine 6.5 (5.0-8.0); Protein,Urine 3+ (Negative); RBC,Urine 4 /hpf (0-5); Specific Gravity,Urine 1.031 (1.001-1.035); Urobilinogen,Urine <2.0 mg/dL (<2.0); WBC,Urine 1 /hpf (0-5)
[2020-04-26 09:06] VITALS: BP 165/87; PULSE 75; TEMP 98
== END 2020-04-26 09:05 | disposition home or self-care (01) ==
LOC: EC 06:34
DX: N20.0 Calculus of kidney (principal); E11.9 Type 2 diabetes mellitus without complications; N32.89 Other specified disorders of bladder; Z79.4 Long term (current) use of insulin; Z79.899 Other long term (current) drug therapy; Z85.51 Personal history of malignant neoplasm of bladder; Z85.820 Personal history of malignant melanoma of skin; Z86.16 Personal history of COVID-19
CPT/HCPCS: 36415; 80053; 82150; 83690; 85025; 81001; 74176; 99284; 96374; 96375; 96376; 96361; J2405; J1885

== ENCOUNTER 2020-04-30 05:51 | Inpatient (IN) | payer MEDICARE, OTHER ==
[2020-04-30] MEDS ORDERED: ONDANSETRON 4 MG/2 ML VIAL IVP STA (06:18)
[2020-04-30] MEDS ORDERED: MORPHINE SULFATE 4 MG/ML SYRINGE IVP STA (06:18)
[2020-04-30] MEDS ORDERED: SODIUM CHLORIDE 0.9% 1,000 ML IV STA (06:18)
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
[2020-04-30 06:35] LABS: Basophils % (A) 1 %; Eosinophils # (A) 0.1 k/uL (0-0.7); Eosinophils % (A) 2 %; HCT 42.2 % (39.0-53.0); HGB 14.3 gm/dL (13.0-17.5); Lymphocytes % (A) 36 %; MCH 29.4 pg (25.0-35.0); MCHC 33.7 g/dL (31.0-37.0); MCV 87.1 fL (80.0-100.0); Mean Platelet Volume 8.3; Monocytes # (A) 0.3 k/uL (0-1.0); Monocytes % (A) 6 %; Neutrophils # (A) 2.8 k/uL (1.3-7.7); Neutrophils % (A) 53 %; Platelet Count 163 k/uL (150-450); RBC 4.85 m/uL (4.30-5.90); RDW 13.7 % (11.5-15.5); WBC 5.4 k/uL (3.8-10.6)
[2020-04-30 06:45] LABS: Appearance,Urine Clear (Clear); Bilirubin,Urine Negative (Negative); Blood,Urine Small (Negative); Color,Urine Light Yellow; Glucose,Urine (UA) 4+ (Negative); Hyaline Casts,Urine 1 /lpf (0-2); Ketones,Urine Negative (Negative); Leukocyte Esterase,Urine Negative (Negative); Mucus,Urine Rare /hpf; Nitrite,Urine Negative (Negative); Protein,Urine 3+ (Negative); RBC,Urine 3 /hpf (0-5); Specific Gravity,Urine 1.017 (1.001-1.035); Squamous Epithelial Cell,Urine <1 /hpf (0-4); Urobilinogen,Urine <2.0 mg/dL (<2.0); WBC,Urine <1 /hpf (0-5)
[2020-04-30 06:47] LABS: ALT 21 U/L (4-49); AST 24 U/L (17-59); African American GFR (CKD) 80 (>60 ml/min/1.73 sqM); Albumin 3.2 g/dL (3.5-5.0); Alkaline Phosphatase 79 U/L (38-126); Anion Gap 7 mmol/L; Blood Urea Nitrogen 29 mg/dL (9-20); Calcium 8.2 mg/dL (8.4-10.2); Carbon Dioxide 22 mmol/L (22-30); Chloride 103 mmol/L (98-107); Glucose 223 mg/dL (74-99); Non-African American GFR(CKD) 69 (>60 ml/min/1.73 sqM); Potassium 4.4 mmol/L (3.5-5.1); Sodium 132 mmol/L (137-145); Total Bilirubin 0.4 mg/dL (0.2-1.3); Total Protein 6.6 g/dL (6.3-8.2)
[2020-04-30 07:14] LABS: C Reactive Protein <5.0 mg/L (<10.0)
--- NOTE | 2020-04-30 09:00 | US ---
EXAMINATION TYPE: US scrotum with doppler. Grayscale and color Doppler Duplex imaging performed of milo carrasco scrotum. DATE OF EXAM: 04/30/2020 COMPARISON: CT CLINICAL HISTORY: testicular pain. Right flank pain; right scrotal pain radiating upward EXAM MEASUREMENTS: TESTICLES: Right Testicle: 3.7 x 2.7 x 1.8 cm Left Testicle: 3.9 x 2.8 x 2.2 cm EPIDIDYMIS HEAD: Right Epididymis: 0.6 x 0.6 cm Left Epididymis: 1.0 x 1.1 cm Right testicular cyst is seen = 1.8 x 1.5 x 1.1cm Presence of varicoceles: veins noted inferiorly on right measure at 0.25cm at lower minimum for vari cocele. Color flow and PW Doppler was performed to assess for testicular vascularity; good bilateral color fl ow and waveforms are seen. There is no evidence of testicular torsion. IMPRESSION: 1. Right testicular cyst. No solid masses are seen. 2. Right-sided varicoceles.
[2020-04-30] MEDS ORDERED: ONDANSETRON 4 MG/2 ML VIAL IVP PRN (09:22)
[2020-04-30] MEDS ORDERED: NALOXONE 0.4 MG/ML 1 ML VIAL IV PRN (09:22)
[2020-04-30] MEDS ORDERED: CYCLOBENZAPRINE 5 MG TAB PO PRN (09:24)
[2020-04-30] MEDS: SODIUM CHLORIDE 0.9% 1,000 ML IV SCH ×2 (11:48→22:15)
[2020-04-30] MEDS: MORPHINE SULFATE 4 MG/ML SYRINGE IV PRN ×3 (11:49→23:06)
[2020-04-30 13:32] LABS: Glucose,Whole Blood 156 mg/dL (75-99)
[2020-04-30] MEDS: INSULIN ASPART (NovoLOG) 100 UNIT/ML VIAL SQ SCH ×4 (14:00→20:26)
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
[2020-04-30 16:46] LABS: Glucose,Whole Blood 184 mg/dL (75-99)
[2020-04-30] MEDS: HEPARIN SODIUM,PORCINE 5,000 UNIT/ML 1 ML VIAL SQ SCH ×2 (16:59→23:06)
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
[2020-04-30 19:57] LABS: Glucose,Whole Blood 116 mg/dL (75-99)
[2020-04-30] MEDS: INSULIN DETEMIR (LEVEMIR) 100 UNIT/ML SYR SQ SCH (20:25)
[2020-04-30] MEDS: DOCUSATE 100 MG CAP PO SCH (21:32)
[2020-05-01] MEDS: MORPHINE SULFATE 4 MG/ML SYRINGE IV PRN ×2 (04:48→10:59)
[2020-05-01 07:18] LABS: Glucose,Whole Blood 185 mg/dL (75-99)
[2020-05-01] MEDS: DOCUSATE 100 MG CAP PO SCH ×2 (08:46→20:22)
[2020-05-01] MEDS: HEPARIN SODIUM,PORCINE 5,000 UNIT/ML 1 ML VIAL SQ SCH ×3 (08:46→23:52)
[2020-05-01] MEDS: LOSARTAN 50 MG TAB PO SCH (08:46)
[2020-05-01] MEDS: INSULIN ASPART (NovoLOG) 100 UNIT/ML VIAL SQ SCH ×7 (08:47→20:22)
--- NOTE | 2020-05-01 09:28 | CT ---
EXAMINATION TYPE: CT urogram wo/w con DATE OF EXAM: 05/01/2020 COMPARISON: 04/26/2020 HISTORY: hematuria CONTRAST: Performed without Oral Contrast and without and with IV Contrast, patient Isovue 300/[address] Urography was performed with unenhanced followed by enhanced images of the kidneys, ureters and ur inary bladder. Delayed images were obtained. 3d reconstruction was performed at a separate work sta tion. FINDINGS: KIDNEYS/BLADDER: No hydronephrosis. No nephrolithiasis. No distinct renal mass. Urinary bladder gr ossly unremarkable. LUNG BASES-: No visible nodule. No infiltrate. Chronic elevation left hemidiaphragm. LIVER/GB: No calcified gallstones. No space occupying hepatic lesion. Biliary tree is of normal ca liber. PANCREAS: No inflammation. No distinct mass. SPLEEN: No splenic enlargement. No lesion seen. ADRENALS: No nodule. No thickening. BOWEL: Normal appendix. Normal bowel caliber. No inflammation. GENITAL ORGANS: No gross abnormality. LYMPH NODES: No greater than 1cm abdominal or pelvic lymph nodes are appreciated. AORTA: No significant abnormality. OSSEOUS STRUCTURES: No significant abnormality is seen. OTHER: No significant additional abnormality is seen. IMPRESSION: 1. No distinct abnormality to account for the patient's symptoms of hematuria.
[2020-05-01 12:07] LABS: Glucose,Whole Blood 74 mg/dL (75-99)
[2020-05-01 12:22] LABS: African American GFR (CKD) >90 (>60 ml/min/1.73 sqM); Anion Gap 5 mmol/L; Blood Urea Nitrogen 18 mg/dL (9-20); Calcium 8.4 mg/dL (8.4-10.2); Carbon Dioxide 23 mmol/L (22-30); Chloride 104 mmol/L (98-107); Glucose 135 mg/dL (74-99); Non-African American GFR(CKD) 81 (>60 ml/min/1.73 sqM); Potassium 4.5 mmol/L (3.5-5.1); Sodium 132 mmol/L (137-145)
[2020-05-01] MEDS: SODIUM CHLORIDE 0.9% 1,000 ML IV SCH (12:32)
[2020-05-01] MEDS: polyethylene glycoL 3350 17 GM POWD.PACK PO SCH (12:32)
[2020-05-01] MEDS: LACTULOSE 20 GM/30 ML CUP PO SCH ×2 (12:32→22:09)
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
[2020-05-01 17:12] LABS: Glucose,Whole Blood 102 mg/dL (75-99)
[2020-05-01] MEDS ORDERED: NA PHOS,M-B/NA PHOS,DI-BA 133 ML ENEMA RECTAL ONE (17:40)
--- NOTE | 2020-05-01 18:10 | P.PN ---
Subjective Progress Note Date: 05/01/20 No acute overnight events, pain in abdomen and testicle improved today His postvoid residuals 0 mL. He underwent a CT Urogram that showed no abnormality Objective - Vital Signs Vital signs: Vital Signs Temp 98.1 F 05/01/20 16:00 Pulse 85 05/01/20 16:00 Resp 16 05/01/20 16:00 BP 134/79 05/01/20 16:00 Pulse Ox 94 L 05/01/20 16:00 Intake & Output 04/30/20 05/01/20 05/01/20 18:59 06:59 18:59 Intake Total 940 Output Total 0 Balance 940 0 Weight 117.934 kg Intake: Oral 940 Output: Post Void Residual 0 Other: Voiding Method Toilet Toilet Toilet # Voids 3 # Bowel Movements 1 - Constitutional General appearance: Present: no acute distress - EENT Eyes: Present: EOMI, normal appearance ENT: Present: hearing grossly normal - Gastrointestinal General gastrointestinal: Absent: distended, tenderness - Psychiatric Psychiatric: Present: A&O x's 3, appropriate affect, intact judgment & insight - Labs CBC & Chem 7: 04/30/20 06:25 05/01/20 10:39 Labs: Abnormal Lab Results - Last 24 Hours (Table) 04/30/20 05/01/20 05/01/20 Range/Units 19:56 07:16 10:39 Sodium 132 L (137-145) mmol/L Glucose 135 H (74-99) mg/dL POC Glucose (mg/dL) 116 H 185 H (75-99) mg/dL 05/01/20 05/01/20 Range/Units 12:05 17:10 Sodium (137-145) mmol/L Glucose (74-99) mg/dL POC Glucose (mg/dL) 74 L 102 H (75-99) mg/dL Assessment and Plan Assessment: 65-year-old male presents to the hospital with right lower back pain, with radiation down to the scrotum. The scrotal ultrasound that showed evidence of right varicocele. This noncontrasted CT showed some thickening along the posterior bladder wall, but no acute process. Of note he has history of low- grade TA bladder cancer, and melanoma. Discussed with him given his history of malignancy, microscopic hematuria and the finding of right varicocele we'll obtain a contrasted CT. CT urogram showed no abnormality within the collecting system, or the retroperitoneum. Plan: -Ok for discharge from urology standpoint -Follow-up as an outpatient with Dr. Johnson for cystoscopy, given his history of low-grade bladder cancer, and the thickening on CT of the bladder wall
[2020-05-01 19:52] LABS: Glucose,Whole Blood 133 mg/dL (75-99)
[2020-05-01] MEDS: INSULIN DETEMIR (LEVEMIR) 100 UNIT/ML SYR SQ SCH (20:17)
[2020-05-02] MEDS: SODIUM CHLORIDE 0.9% 1,000 ML IV SCH (01:16)
[2020-05-02 07:14] LABS: Glucose,Whole Blood 118 mg/dL (75-99)
[2020-05-02] MEDS: INSULIN ASPART (NovoLOG) 100 UNIT/ML VIAL SQ SCH ×4 (08:27→12:44)
[2020-05-02] MEDS: DOCUSATE 100 MG CAP PO SCH (08:30)
[2020-05-02] MEDS: HEPARIN SODIUM,PORCINE 5,000 UNIT/ML 1 ML VIAL SQ SCH (08:30)
[2020-05-02] MEDS: LACTULOSE 20 GM/30 ML CUP PO SCH (08:30)
[2020-05-02] MEDS: LOSARTAN 50 MG TAB PO SCH (08:30)
[2020-05-02] MEDS: polyethylene glycoL 3350 17 GM POWD.PACK PO SCH (08:32)
[2020-05-02] MEDS ORDERED: bisacodyL 10 MG SUPP RECTAL SCH (09:00)
--- NOTE | 2020-05-02 09:00 | P.PN ---
Subjective Progress Note Date: 05/02/20 Principal diagnosis: Flank pain Patient says pain is much improved today. It is now down to 2 out of 10 where it was 9 out of 10 yesterday morning. Says it's involving both lower back regions with radiation to the scrotum bilaterally. Tolerating diet. No nausea or vomiting. He has had bowel function. Objective - Vital Signs Vital signs: Vital Signs Temp 98.1 F 05/02/20 04:16 Pulse 76 05/02/20 04:16 Resp 14 05/02/20 04:16 BP 162/89 05/02/20 04:16 Pulse Ox 97 05/02/20 04:16 Intake & Output 05/01/20 05/02/20 05/02/20 18:59 06:59 18:59 Intake Total 900 1500 Output Total 400 Balance 900 1100 Intake: Intake, IV Titration 900 900 Amount Sodium Chloride 0.9% 1, 900 900 000 ml @ 75 mls/hr IV . [id number] [facility] Rx#:[id number] Oral 600 Output: Stool 400 Other: Voiding Method Toilet Toilet # Voids 3 1 # Bowel Movements 1 - Exam Abdomen: Soft, nontender, nondistended - Labs CBC & Chem 7: 04/30/20 06:25 05/01/20 10:39 Labs: Abnormal Lab Results - Last 24 Hours (Table) 05/01/20 05/01/20 05/01/20 Range/Units 10:39 12:05 17:10 Sodium 132 L (137-145) mmol/L Glucose 135 H (74-99) mg/dL POC Glucose (mg/dL) 74 L 102 H (75-99) mg/dL 05/01/20 05/02/20 Range/Units 19:50 07:13 Sodium (137-145) mmol/L Glucose (74-99) mg/dL POC Glucose (mg/dL) 133 H 118 H (75-99) mg/dL Assessment and Plan (1) Intractable abdominal pain Narrative/Plan: 65-year-old male with atypical pain right flank leading to the right groin. Some hematuria. CAT scan shows constipation but no other acute abnormalities. Continue diet as tolerated. Continue to monitor the patient's pain which is improving. Continue stool softeners. We'll follow. Current Visit: Yes Status: Acute Code(s): R10.9 - UNSPECIFIED ABDOMINAL PAIN SNOMED Code(s): 48557042
[2020-05-02 11:46] LABS: Basophils # (A) 0.02 X 10*3/uL (0.00-0.10); Basophils % (A) 0.4 %; Eosinophils # (A) 0.12 X 10*3/uL (0.04-0.35); Eosinophils % (A) 2.6 %; HGB 12.7 g/dL (13.0-17.0); Lymphocytes # (A) 1.46 X 10*3/uL (0.90-5.00); Lymphocytes % (A) 31.5 %; MCH 28.4 pg (27.0-32.0); MCHC 32.6 g/dL (32.0-37.0); MCV 87.2 fL (80.0-97.0); Mean Platelet Volume 11.8 fL (9.5-12.2); Monocytes # (A) 0.35 X 10*3/uL (0.20-1.00); Monocytes % (A) 7.5 %; Neutrophils # (A) 2.67 X 10*3/uL (1.80-7.70); Neutrophils % (A) 57.6 %; Platelet Count 161 X 10*3/uL (140-440); RBC 4.47 X 10*6/uL (4.40-5.60); RDW 13.3 % (11.5-14.5); WBC 4.64 X 10*3/uL (4.50-10.00)
[2020-05-02 11:57] LABS: Glucose,Whole Blood 97 mg/dL (75-99)
[2020-05-02 12:16] VITALS: BP 178/95; PULSE 79; RESP 17; TEMP 97.9
[2020-05-02 12:50] LABS: African American GFR (CKD) 81.2 (60.0-200.0); BUN/Creat Ratio 12.73 Ratio (12.00-20.00); Non-African American GFR(CKD) 70.1 (60.0-200.0); Potassium 4.6 mmol/L (3.5-5.5)
--- NOTE | 2020-05-02 19:42 | P.PN ---
Subjective Progress Note Date: 05/02/20 No acute overnight events, pain in abdomen and testicle improved today, minimal pain this am. Voiding w/o issue Objective - Vital Signs Vital signs: Vital Signs Temp 97.9 F 05/02/20 12:15 Pulse 79 05/02/20 12:15 Resp 17 05/02/20 12:15 BP 178/95 05/02/20 12:15 Pulse Ox 97 05/02/20 12:15 Intake & Output 05/02/20 05/02/20 05/03/20 06:59 18:59 06:59 Intake Total 1500 Output Total 400 Balance 1100 Intake: Intake, IV Titration 900 Amount Sodium Chloride 0.9% 1, 900 000 ml @ 75 mls/hr IV . [id number] [facility] Rx#:[id number] Oral 600 Output: Stool 400 Other: Voiding Method Toilet Toilet # Voids 1 # Bowel Movements 1 - Constitutional General appearance: Present: cooperative, no acute distress - Psychiatric Psychiatric: Present: A&O x's 3, appropriate affect - Labs CBC & Chem 7: 05/02/20 08:06 05/02/20 08:06 Labs: Abnormal Lab Results - Last 24 Hours (Table) 05/01/20 05/02/20 05/02/20 Range/Units 19:50 07:13 08:06 Hgb 12.7 L (13.0-17.0) g/dL Hct 39.0 L (39.6-50.0) % Sodium (135-145) mmol/L Glucose (70-110) mg/dL POC Glucose (mg/dL) 133 H 118 H (75-99) mg/dL Calcium (8.7-10.3) mg/dL 05/02/20 Range/Units 08:06 Hgb (13.0-17.0) g/dL Hct (39.6-50.0) % Sodium 134 L (135-145) mmol/L Glucose 199 H (70-110) mg/dL POC Glucose (mg/dL) (75-99) mg/dL Calcium 8.0 L (8.7-10.3) mg/dL Assessment and Plan Assessment: 65-year-old male presents to the hospital with right lower back pain, with radiation down to the scrotum. The scrotal ultrasound that showed evidence of right varicocele. This noncontrasted CT showed some thickening along the posterior bladder wall, but no acute process. Of note he has history of low- grade TA bladder cancer, and melanoma. Discussed with him given his history of malignancy, microscopic hematuria and the finding of right varicocele we'll obtain a contrasted CT. CT urogram showed no abnormality within the collecting system, or the retroperitoneum. Plan: -Ok for discharge from urology standpoint -Follow-up as an outpatient with Dr. Johnson for cystoscopy, given his history of low-grade bladder cancer, and the thickening on CT of the bladder wall
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
== END 2020-05-02 15:00 | disposition home or self-care (01) | DRG 729 ==
LOC: EC 05:51 → 5NMEDONC 09:20
PROVIDERS: ADMIT Internal Medicine; ATTEND Internal Medicine
DX: I86.1 Scrotal varices (principal); E87.1 Hypo-osmolality and hyponatremia; E11.42 Type 2 diabetes mellitus with diabetic polyneuropathy; E11.65 Type 2 diabetes mellitus with hyperglycemia; E66.9 Obesity, unspecified; E78.5 Hyperlipidemia, unspecified; E86.1 Hypovolemia; E88.09 Other disorders of plasma-protein metabolism, not elsewhere classified; I10 Essential (primary) hypertension; N44.2 Benign cyst of testis; K59.00 Constipation, unspecified; K43.2 Incisional hernia without obstruction or gangrene; R31.29 Other microscopic hematuria; Z68.35 Body mass index [BMI] 35.0-35.9, adult; Z79.4 Long term (current) use of insulin; Z79.899 Other long term (current) drug therapy; Z82.3 Family history of stroke; Z85.51 Personal history of malignant neoplasm of bladder; Z85.820 Personal history of malignant melanoma of skin; Z86.16 Personal history of COVID-19; Z90.49 Acquired absence of other specified parts of digestive tract; Z20.822 Contact with and (suspected) exposure to COVID-19; Z90.6 Acquired absence of other parts of urinary tract; Z80.3 Family history of malignant neoplasm of breast; Z80.0 Family history of malignant neoplasm of digestive organs; G51.0 Bell's palsy; F40.240 Claustrophobia
CPT/HCPCS: 36415; 74178; 74400; 76870; 80048; 80053; 81001; 83605; 85025; 86140; 87635; 93975; 96361; 96374; 96375; 99285

== ENCOUNTER 2020-07-09 09:41 | Emergency (ER) | payer MEDICARE, OTHER ==
[2020-07-09 09:58] VITALS: RESP 18; TEMP 97.5
[2020-07-09 10:01] LABS: Glucose,Whole Blood 197 mg/dL (75-99)
[2020-07-09] MEDS ORDERED: SODIUM CHLORIDE 0.9% 1,000 ML IV STA (10:28)
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
[2020-07-09 10:55] LABS: Basophils % (A) 1 %; Eosinophils # (A) 0.1 k/uL (0-0.7); Eosinophils % (A) 2 %; HCT 41.3 % (39.0-53.0); HGB 14.5 gm/dL (13.0-17.5); Lymphocytes # (A) 1.8 k/uL (1.0-4.8); Lymphocytes % (A) 33 %; MCH 29.6 pg (25.0-35.0); MCV 84.4 fL (80.0-100.0); Mean Platelet Volume 8.5; Monocytes # (A) 0.3 k/uL (0-1.0); Monocytes % (A) 6 %; Neutrophils # (A) 3.2 k/uL (1.3-7.7); Neutrophils % (A) 58 %; Platelet Count 139 k/uL (150-450); RBC 4.89 m/uL (4.30-5.90); WBC 5.6 k/uL (3.8-10.6)
--- NOTE | 2020-07-09 11:01 | XR ---
EXAMINATION TYPE: XR chest 1V portable DATE OF EXAM: 07/09/2020 COMPARISON: Chest x-ray December 19, 2018. CT abdomen and pelvis April 26, 2020 HISTORY: Weakness TECHNIQUE: Single AP portable frontal upright view of the chest is obtained. FINDINGS: Redemonstration of elevated left hemidiaphragm with left basilar linear scarring and/or ate lectasis. Right lung remains clear. The cardiac silhouette size remains within normal limits. The o sseous structures are intact. IMPRESSION: Persistent elevated left hemidiaphragm with left basilar linear scarring and/or atelecta sis. No significant change from prior.
[2020-07-09 11:03] LABS: African American GFR (CKD) >90 (>60 ml/min/1.73 sqM); Anion Gap 6 mmol/L; Blood Urea Nitrogen 28 mg/dL (9-20); Calcium 8.4 mg/dL (8.4-10.2); Carbon Dioxide 22 mmol/L (22-30); Chloride 102 mmol/L (98-107); Glucose 201 mg/dL (74-99); Magnesium 1.8 mg/dL (1.6-2.3); Non-African American GFR(CKD) 78 (>60 ml/min/1.73 sqM); Potassium 4.5 mmol/L (3.5-5.1); Sodium 130 mmol/L (137-145)
[2020-07-09 12:16] VITALS: BP 140/76; PULSE 87
== END 2020-07-09 12:15 | disposition home or self-care (01) ==
LOC: EC 09:41
DX: R53.1 Weakness (principal); E11.9 Type 2 diabetes mellitus without complications; I10 Essential (primary) hypertension; N17.9 Acute kidney failure, unspecified; E78.5 Hyperlipidemia, unspecified; E11.40 Type 2 diabetes mellitus with diabetic neuropathy, unspecified; Z90.49 Acquired absence of other specified parts of digestive tract; Z79.4 Long term (current) use of insulin; Z85.820 Personal history of malignant melanoma of skin
CPT/HCPCS: 36415; 71045; 80048; 83735; 84484; 85025; 87636; 96360; 96361; 99285

== ENCOUNTER 2021-08-23 17:34 | Emergency (ER) | payer MEDICARE, OTHER ==
[2021-08-23] MEDS ORDERED: IBUPROFEN 400 MG TAB PO STA (22:14)
[2021-08-23] MEDS ORDERED: BEBTELOVIMAB (EUA) 175 MG/2 ML VIAL IV ONE (22:15)
[2021-08-23 22:27] VITALS: BP 134/80; PULSE 93; RESP 18; TEMP 98.4
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
== END 2021-08-23 23:51 | disposition home or self-care (01) ==
LOC: EC 17:34
DX: U07.1 COVID-19 (principal); E11.9 Type 2 diabetes mellitus without complications; I10 Essential (primary) hypertension; E78.5 Hyperlipidemia, unspecified
CPT/HCPCS: 87635; 99284; Q0222

== ENCOUNTER 2021-12-17 20:36 | Inpatient (IN) | payer MEDICARE, OTHER ==
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
[2021-12-17 21:18] LABS: Basophils % (A) 0 %; Eosinophils # (A) 0.1 k/uL (0-0.7); Eosinophils % (A) 1 %; HGB 12.4 gm/dL (13.0-17.5); Lymphocytes # (A) 0.6 k/uL (1.0-4.8); Lymphocytes % (A) 6 %; MCH 27.9 pg (25.0-35.0); MCHC 33.6 g/dL (31.0-37.0); Mean Platelet Volume 8.7; Monocytes # (A) 0.5 k/uL (0-1.0); Monocytes % (A) 5 %; Neutrophils # (A) 8.2 k/uL (1.3-7.7); Neutrophils % (A) 87 %; Platelet Count 153 k/uL (150-450); RBC 4.46 m/uL (4.30-5.90); RDW 12.9 % (11.5-15.5); WBC 9.4 k/uL (3.8-10.6)
[2021-12-17 21:25] LABS: Partial Thromboplastin Time 22.3 sec (22.0-30.0)
[2021-12-17 21:32] LABS: Calcium 8.5 mg/dL (8.4-10.2); Magnesium 1.6 mg/dL (1.6-2.3); Total Bilirubin 0.3 mg/dL (0.2-1.3); Total Protein 6.5 g/dL (6.3-8.2)
--- NOTE | 2021-12-17 21:38 | CT ---
EXAMINATION TYPE: CT brain wo con DATE OF EXAM: 12/17/2021 COMPARISON: None HISTORY: left sided weakness CT DLP: 1194.4 mGycm Automated exposure control for dose reduction was used. There is some cerebral cortical atrophy. There is no mass effect or midline shift. No sign of intracr anial hemorrhage. There is a 4 cm area of hypodensity in the enciso-white matter right posterior fronta l lobe consistent with an old infarct. The calvarium is intact. The skull base is intact. There is no rmal aeration of the mastoid sinuses. 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 No acute intracranial abnormality. Cerebral atrophy.
--- NOTE | 2021-12-17 21:46 | XR ---
EXAMINATION TYPE: XR chest 2V DATE OF EXAM: 12/17/2021 COMPARISON: 07/09/2020 HISTORY: Weakness TECHNIQUE: 2 views FINDINGS: There is some linear density at the left lung base. Heart size is normal. There is atelecta sis left lung base. Right lung is clear. No heart failure. IMPRESSION: There is some atelectasis at the left lung base without change. Elevated left diaphragm. No heart failure seen.
[2021-12-17] MEDS ORDERED: ONDANSETRON 4 MG/2 ML VIAL IVP STA (21:49)
[2021-12-17] MEDS ORDERED: ASPIRIN 325 MG TAB PO STA (23:47)
--- NOTE | 2021-12-18 00:22 | CT ---
EXAMINATION TYPE: CT chest wo con DATE OF EXAM: 12/17/2021 COMPARISON: 04/28/2010 HISTORY: chest pain, elevated d dimer. pt is diabetic with bun-41, creatine-1.74, gfr-40. no contrast per dr CT DLP: 513.2 mGycm Automated exposure control for dose reduction was used. Images obtained from the thoracic inlet to the diaphragm with no contrast. There is elevated left diaphragm. There is infiltrate and atelectasis left lung base. Heart size is f airly normal. No pericardial effusion. No pleural effusion. There are a few paratracheal lymph nodes up to 1 cm. There are no hilar masses. The thoracic spine is intact. No compression fracture. Sternum is intact. No evidence of rib fracture. IMPRESSION: Infiltrate atelectasis left lung base with elevated left diaphragm. This appears new compared to the old exam. This could relate to diaphragm paralysis. No suspicious pulmonary mass.
[2021-12-18] MEDS ORDERED: HYDROcodone/APAP 5-325MG 1 EACH TAB PO PRN (01:27)
[2021-12-18] MEDS ORDERED: ACETAMINOPHEN TAB 325 MG TAB PO PRN (01:27)
[2021-12-18] MEDS ORDERED: NALOXONE 0.4 MG/ML 1 ML VIAL IV PRN (01:27)
[2021-12-18] MEDS ORDERED: ONDANSETRON 4 MG/2 ML VIAL IVP PRN (01:27)
[2021-12-18] MEDS ORDERED: HEPARIN SODIUM 1,000 UN/ML (10ML VL) IV ONE (02:15)
[2021-12-18] MEDS ORDERED: NITROGLYCERIN SL TABS 0.4 MG TAB SUBLINGUAL STA (02:15)
[2021-12-18] MEDS ORDERED: HEPARIN SODIUM 1,000 UN/ML (10ML VL) IV PRN (02:15)
[2021-12-18] MEDS: HEPARIN SOD,PORK IN 0.45% NACL 25,000 UNIT in 0.45% NACL 1 250ML.BAG IV SCH (03:24)
[2021-12-18] MEDS: ATORVASTATIN 80 MG TAB PO SCH (08:15)
[2021-12-18 08:27] LABS: Appearance,Urine Clear (Clear); Bilirubin,Urine Negative (Negative); Blood,Urine Small (Negative); Color,Urine Yellow; Glucose,Urine (UA) 4+ (Negative); Hyaline Casts,Urine 1 /lpf (0-2); Ketones,Urine Negative (Negative); Leukocyte Esterase,Urine Negative (Negative); Mucus,Urine Rare /hpf; Nitrite,Urine Negative (Negative); Protein,Urine 3+ (Negative); RBC,Urine 2 /hpf (0-5); Squamous Epithelial Cell,Urine <1 /hpf (0-4); Urobilinogen,Urine <2.0 mg/dL (<2.0); WBC,Urine 1 /hpf (0-5)
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
[2021-12-18] MEDS ORDERED: VERAPAMIL 2.5 MG/ML 2 ML AMP ONE ×2 (12:37→13:30)
[2021-12-18] MEDS: LIDOCAINE 1% INJ 10MG/ML (30 ML VIAL-PF) SQ ONE ×2 (13:17→13:37)
[2021-12-18] MEDS ORDERED: VERAPAMIL SYRINGE (5 MG/10 ML) INTRAARTER ONE ×2 (13:21→13:31)
[2021-12-18] MEDS ORDERED: MIDAZOLAM 2 MG/2 ML VIAL IV ONE ×3 (13:21→14:01)
[2021-12-18] MEDS ORDERED: SODIUM CHLORIDE 0.9% 500 ML 500 ML IV ONE (13:22)
[2021-12-18] MEDS ORDERED: HEPARIN SODIUM 1,000 UN/ML (10ML VL) ONE (13:54)
[2021-12-18] MEDS: HEPARIN SODIUM 1,000 UN/ML (10ML VL) IV ONE ×2 (13:56→14:20)
[2021-12-18] MEDS ORDERED: TICAGRELOR 90 MG TAB ONE (14:07)
[2021-12-18] MEDS ORDERED: TICAGRELOR 90 MG TAB PO ONE (14:09)
[2021-12-18] MEDS ORDERED: IOPAMIDOL-370 125ML BTL INJ ONE (14:14)
[2021-12-18] MEDS ORDERED: NITROGLYCERIN SL TABS 0.4 MG TAB SUBLINGUAL PRN (14:30)
[2021-12-18] MEDS ORDERED: ZOLPIDEM 5 MG TAB PO PRN (14:30)
[2021-12-18] MEDS ORDERED: SODIUM CHLORIDE 0.9% 1,000 ML in EMPTY BAG 1 BAG IV SCH (14:30)
[2021-12-18] MEDS ORDERED: ATROPINE SULFATE 0.1 MG/ML 10ML SYRINGE IV PRN (14:30)
[2021-12-18] MEDS ORDERED: RX INFO: IV CONTRAST WAS GIVEN 1 EACH MISC MISCELLANE PRN (14:30)
[2021-12-18] MEDS ORDERED: MAG HYDROX/AL HYDROX/SIMETH 30 ML CUP PO PRN (14:30)
--- NOTE | 2021-12-18 14:37 | P.PCN ---
Date of Procedure: 12/18/21 Operative Findings: CARDIAC CATHETERIZATION AND PERCUTANEOUS CORONARY INTERVENTION PERFORMING PHYSICIAN: Ramses Hudson MD, RPVI PROCEDURE PERFORMED: 1. Selective right and left coronary angiogram 2. Successful stenting of mid LAD using 3.5 x 23 mm Xience IGNACIA which with an excellent angiographic results 3. Right common femoral artery angiogram INDICATION: Acute non-ST elevation myocardial infarction in this 66-year-old gentleman with diabetes and hypertension and dyslipidemia COMPLICATION: None APPROACH: Right radial artery Right common femoral artery LEVEL OF SEDATION: Moderate with the sedation time off 63 minutes PROCEDURE DESCRIPTION: After obtaining an informed consent the patient was brought to the cardiac labor economics teacher. The right radial artery was cannulated using micropuncture technique, the micropuncture wire passed easily then I placed a 6-St Helenian sheath. I gave the patient 2 mg of verapamil intra-arterial. I did selective right coronary angiogram using JR4 catheter. Attempting doing left coronary angiogram from right radial approach was unsuccessful because of extreme tortuosity. At that point I decided to go from the groin. The right common femoral artery was cannulated using micropuncture technique, the micropuncture wire passed easily then I placed a 6-St Helenian sheath at the right common femoral artery. I did selective left coronary angiogram using JL4 catheter. After that I did intervene on the LAD. The procedure was completed without any complication SELECTIVE CORONARY ANGIOGRAM: The right coronary artery: Is a large caliber vessel and a dominant vessel. The RCA is chronically occluded in the proximal portion and fills by collateral from the left coronary system and also some bridging collateral Left main: Is angiographically normal. Bifurcates into LCx and LAD The left circumflex: Large caliber vessel. The LCx is a nondominant vessel. The proximal LCx is angiographically normal and gives rises into an OM1 which appeared to be a large caliber vessel and seems to be angiographically normal. OM 2 is a medium caliber vessel seems to be subtotally occluded in the distal portion but becomes a small caliber vessel. The left anterior descending artery: The proximal LAD appeared to have mild disease only. The mid LAD has a tubular lesion up to about 80%. The LAD in the midportion gives rise into a large diagonal branch which seems to be angiographically normal mid LAD distally appears to be angiographically normal. PCI OF THE LAD: Anticoagulation was initiated using heparin with continuous ACT monitoring. Engaging the left main was performed using CLS 3.5 guiding catheter. I did wire the LAD using a whisper wire. After that I did balloon angioplasty using 30 by 12 mm balloon before I deployed 3.5 x 23 mm stent where the stent was positioned under fluoroscopy guidance and deployed under 10 carmela for 20 seconds. The following angiogram showed excellent angiographic results and the procedure was completed without any complication CONCLUSION: Acute non-ST deviation myocardial infarction Critical disease involving the mid LAD. I performed successful stenting of the LAD Chronic total occlusion of the RCA POSTPROCEDURE MANAGEMENT: #1 dual antiplatelet therapy using aspirin and Brilinta for 12 month #2 aggressive cholesterol control #3 follow-up with the patient
[2021-12-18 15:24] LABS: Glucose,Whole Blood 223 mg/dL (70-110)
[2021-12-18] MEDS ORDERED: DEXTROSE 50% SYRINGE 50 ML IVP PRN ×2 (17:21)
[2021-12-18 17:38] LABS: Glucose,Whole Blood 296 mg/dL (70-110)
[2021-12-18] MEDS: INSULIN ASPART (NovoLOG) 100 UNIT/ML VIAL SQ SCH ×3 (17:41→21:03)
[2021-12-18 19:53] LABS: Glucose,Whole Blood 214 mg/dL (70-110)
[2021-12-18] MEDS ORDERED: INSULIN DETEMIR (LEVEMIR) 100 UNIT/ML SYR SQ SCH (21:00)
[2021-12-18] MEDS: TICAGRELOR 90 MG TAB PO SCH (21:03)
[2021-12-19] MEDS: HEPARIN SOD,PORK IN 0.45% NACL 25,000 UNIT in 0.45% NACL 1 250ML.BAG IV SCH (04:57)
[2021-12-19 07:03] LABS: Glucose,Whole Blood 107 mg/dL (70-110)
[2021-12-19] MEDS: INSULIN ASPART (NovoLOG) 100 UNIT/ML VIAL SQ SCH ×4 (07:06→12:36)
--- NOTE | 2021-12-19 07:18 | P.PN ---
Subjective Progress Note Date: 12/19/21 Principal diagnosis: Acute non-ST elevation myocardial infarction This is a very pleasant 66-year-old gentleman with a past medical history significant for diabetes as well as dyslipidemia was brought to the hospital by ambulance for further evaluation. The patient was in his usual state of health until yesterday when he was at home sitting on the couch and he felt that she n eeded to go to the bathroom. He went to the bathroom and he was sitting he could not get up and he felt extremely weak. He tried again get up where he fell but he did not lose his consciousness. Because he was so weak his grandson called the ambulance and the patient was brought to the hospital for further evaluation. He reports chest discomfort in the middle of the chest and slightly on the left side as a dull kind of discomfort was no radiation and no associated symptoms. No shortness of breath. No sweating. No presyncope or syncope. He underwent further investigation including an EKG which showed sinus rhythm with nonspecific changes most prominent inferiorly. Cardiac enzymes came in to be abnormal and consistent with acute coronary syndrome. The kidney function is slightly abnormal with a GFR of 47. Currently the patient on heparin and he stated that since he was started on heparin he felt better. Giving the above finding I advised proceeding with coronary angiogram for ruling out severe underlying coronary artery disease which could be the etiology of his weakness as well as chest discomfort. Also going to obtain an echocardiogram was Doppler to assess ejection fraction and for any wall motion abnormalities. Continue aspirin and statin and further recommendation to follow the heart catheterization December 192021 The patient was seen this morning. He underwent a heart catheterization yesterday and stenting of the left anterior descending artery and he was found to have chronic total occlusion of the right coronary artery. He was seen today. He is asymptomatic. He stated that he was feeling overall better in terms of the weakness he presented to the hospital with and he has no more symptoms of chest pain or chest discomfort. Hemodynamically he is stable. The right groin is soft and nontender and without any bruises. He is on dual antiplatelet therapy along with beta lex and high intensity statin. No echo was done yesterday. The patient would like to go home. Objective - Vital Signs Vital signs: Vital Signs Temp 97.9 F 12/19/21 03:21 Pulse 84 12/19/21 03:21 Resp 18 12/19/21 03:21 BP 160/78 12/19/21 03:21 Pulse Ox 97 12/19/21 03:21 FiO2 Intake & Output 12/18/21 12/19/21 12/19/21 18:59 06:59 18:59 Intake Total 640 600 Balance 640 600 Weight 99.79 kg Intake: IV 400 Intake, IV Titration 600 Amount Sodium Chloride 0.9% 1, 600 000 ml In Empty Bag 1 bag @ 75 mls/hr IV .[id number] [facility] Rx#:[id number] Oral 240 Other: # Voids 2 - Constitutional General appearance: Present: no acute distress - Respiratory Respiratory: bilateral: CTA - Cardiovascular Rhythm: regular Heart sounds: normal: S1, S2 Abnormal Heart Sounds: Present: systolic murmur - Labs CBC & Chem 7: 12/17/21 21:07 12/17/21 21:07 Labs: Abnormal Lab Results - Last 24 Hours (Table) 12/17/21 12/18/21 12/18/21 Range/Units 21:07 08:00 08:05 APTT (22.0-30.0) sec POC Glucose (mg/dL) (70-110) mg/dL Hemoglobin A1c 13.4 H (0.0-6.0) % Troponin I 0.050 H* (0.000-0.034) ng/mL Urine Protein 3+ H (Negative) Urine Glucose (UA) 4+ H (Negative) Urine Blood Small H (Negative) Urine Mucus Rare H (None) /hpf 12/18/21 12/18/21 12/18/21 Range/Units 10:32 15:21 17:35 APTT 34.3 H (22.0-30.0) sec POC Glucose (mg/dL) 223 H 296 H (70-110) mg/dL Hemoglobin A1c (0.0-6.0) % Troponin I (0.000-0.034) ng/mL Urine Protein (Negative) Urine Glucose (UA) (Negative) Urine Blood (Negative) Urine Mucus (None) /hpf 12/18/21 Range/Units 19:52 APTT (22.0-30.0) sec POC Glucose (mg/dL) 214 H (70-110) mg/dL Hemoglobin A1c (0.0-6.0) % Troponin I (0.000-0.034) ng/mL Urine Protein (Negative) Urine Glucose (UA) (Negative) Urine Blood (Negative) Urine Mucus (None) /hpf Assessment and Plan Assessment: Assessment #1 acute coronary syndrome #2 status post PCI of the LAD #3 chest discomfort has resolved #4 diabetes #5 dyslipidemia Plan #1 continue the current medical regimen including dual antiplatelet therapy and high intensity statin and anti-ischemic medication was beta lex #2 the patient is stable hemodynamically and asymptomatic from the cardiac standpoint #3 he will white to discharge home
[2021-12-19] MEDS ORDERED: METOPROLOL SUCCINATE (ER) 25 MG TAB.ER.24H PO SCH (09:00)
[2021-12-19] MEDS: ATORVASTATIN 80 MG TAB PO SCH (09:10)
[2021-12-19] MEDS: TICAGRELOR 90 MG TAB PO SCH (09:10)
[2021-12-19 09:16] VITALS: BP 168/85; PULSE 87; RESP 16; TEMP 98.3
[2021-12-19 10:24] LABS: Basophils % (A) 0 %; Eosinophils # (A) 0.1 k/uL (0-0.7); Eosinophils % (A) 2 %; HCT 34.7 % (39.0-53.0); HGB 11.4 gm/dL (13.0-17.5); Lymphocytes # (A) 1.1 k/uL (1.0-4.8); Lymphocytes % (A) 14 %; MCH 27.8 pg (25.0-35.0); MCHC 32.8 g/dL (31.0-37.0); MCV 84.7 fL (80.0-100.0); Mean Platelet Volume 9.3; Monocytes # (A) 0.4 k/uL (0-1.0); Monocytes % (A) 6 %; Neutrophils # (A) 5.5 k/uL (1.3-7.7); Neutrophils % (A) 75 %; Platelet Count 150 k/uL (150-450); RDW 13.4 % (11.5-15.5); WBC 7.3 k/uL (3.8-10.6)
[2021-12-19 10:43] LABS: Albumin 2.7 g/dL (3.5-5.0); Calcium 7.7 mg/dL (8.4-10.2); Total Bilirubin 0.3 mg/dL (0.2-1.3); Total Protein 5.8 g/dL (6.3-8.2)
--- NOTE | 2021-12-19 10:58 | HP ---
HISTORY AND PHYSICAL CHIEF COMPLAINTS: Weakness and chest pain. HISTORY OF PRESENT ILLNESS: This 66-year-old gentleman with a past medical history of diabetes mellitus, hypertension, hyperlipidemia, and other multiple medical issues, being followed by Dr. Brett Choe. The pain is complaining of chest pain which is mostly in the central part of chest and left side of the chest and the patient was unable to get up from the floor. Patient came to [facility]. Troponin went up to 0.050. Cardiology performed cardiac catheterization and LAD stenting also. There is no history of any fever, rigors, or chills. PAST MEDICAL HISTORY: Reviewed, include diabetes mellitus, hypertension, and hyperlipidemia. HOME MEDICATIONS: Reviewed include Lipitor, dose and rest of medications noted. ALLERGIES: None. FAMILY HISTORY: History of CVA, TIA. SOCIAL HISTORY: No history of smoking. REVIEW OF SYSTEMS: A 14-point review is negative as mentioned earlier. PHYSICAL EXAMINATION: VITAL SIGNS: Pulse is 88, blood pressure 144/80, and respirations 16. HEENT: Conjunctivae normal. CARDIOVASCULAR: S1, S2. RESPIRATIONS: Breath sounds diminished at the bases a few scattered rhonchi. No crackles. ABDOMEN: Soft. LEGS: No edema. No swelling. NERVOUS SYSTEM: No focal deficits. LABS: Reviewed, creatinine 1.47. ASSESSMENT: 1. Acute ,nstmi cardiac cath and LAD stenting. 2. Diabetes mellitus. 3. Hypertension. 4. Hyperlipidemia. 5. Multiple medical issues. RECOMMENDATIONS: This is a 66-year-old gentleman who presented with multiple complex medical issues, we will monitor the patient closely and continue the current management dual antiplatelet therapy. Otherwise, monitor blood sugars closely. Resume the home medications. Guarded prognosis. Further recommendations to follow. MMODL / IJN: [id number] / MTDGigi
[2021-12-19 11:44] LABS: Glucose,Whole Blood 164 mg/dL (70-110)
--- NOTE | 2021-12-20 00:35 | DS ---
DISCHARGE SUMMARY FINAL DIAGNOSES: 1. Acute coronary syndrome and acute non ST elevation myocardial infarction, status post cardiac catheterization and left anterior descending stenting. 2. Diabetes mellitus, type 2. 3. Hypertension. 4. Hyperlipidemia. 5. Multiple medical issues. DISCHARGE DISPOSITION: The patient will be discharged in stable condition with guarded prognosis. HISTORY OF PRESENT ILLNESS: This is a 66-year-old gentleman with a past medical history of multiple medical issues, admitted with acute coronary syndrome, cardiac cath stenting of the LAD. The labs are noted and Cardiology recommended outpatient followup. PHYSICAL EXAMINATION: VITAL SIGNS: Stable. CARDIOVASCULAR: S1, S2. ABDOMEN: Soft. NERVOUS SYSTEM: No focal deficits. DISCHARGE INSTRUCTIONS: Diet is cardiac. Activity as tolerated. Follow up with Dr. Brett Choe in 1 to 2 days. Follow up with Cardiology. Followup labs in the outpatient setting. DISCHARGE MEDICATIONS: Medications will be as follows: 1. Aspirin 81 mg daily. 2. Insulin as before. 3. Lipitor 80 mg daily. 4. Brilinta 90 mg p.o. b.i.d. 5. Nitrostat p.r.n. 6. Toprol-XL 25 mg p.o. daily. Consider CORI inhibitors once the creatinine is improved. Once again, the patient will be discharged in stable condition with guarded prognosis. MMODL / IJN: [id number] /
== END 2021-12-19 12:41 | disposition home health service (06) | DRG 247 ==
LOC: EC 20:36 → 3SCARD 12-18 00:36 → UNDOADMOB 12-18 00:36 → 6NMEDSUR 12-18 00:36 → 3SCARD 12-18 02:39 → 6NMEDSUR 12-18 02:39 → 3SCARD 12-18 12:40
PROVIDERS: ADMIT Hospitalist; ATTEND Hospitalist
PROC: B41F1ZZ Fluoroscopy of Right Lower Extremity Arteries using Low Osmolar Contrast (ICD-10-PCS; 2021-12-18)
PROC: 027034Z Dilation of Coronary Artery, One Artery with Drug-eluting Intraluminal Device, Percutaneous Approach (ICD-10-PCS; principal; 2021-12-18 13:00)
PROC: B2111ZZ Fluoroscopy of Multiple Coronary Arteries using Low Osmolar Contrast (ICD-10-PCS; 2021-12-18 13:00)
DX: I21.4 Non-ST elevation (NSTEMI) myocardial infarction (principal); J98.11 Atelectasis; N17.9 Acute kidney failure, unspecified; I25.110 Atherosclerotic heart disease of native coronary artery with unstable angina pectoris; E11.42 Type 2 diabetes mellitus with diabetic polyneuropathy; G51.0 Bell's palsy; E11.9 Type 2 diabetes mellitus without complications; E78.5 Hyperlipidemia, unspecified; I10 Essential (primary) hypertension; J98.6 Disorders of diaphragm; Z79.4 Long term (current) use of insulin; Z79.82 Long term (current) use of aspirin; Z79.899 Other long term (current) drug therapy; Z85.820 Personal history of malignant melanoma of skin; Z86.16 Personal history of COVID-19; Z87.440 Personal history of urinary (tract) infections; Z82.3 Family history of stroke; Z87.19 Personal history of other diseases of the digestive system
CPT/HCPCS: 36415; 70450; 71046; 71250; 80053; 81001; 83036; 83605; 83735; 84484; 85025; 85379; 85610; 85730; 87635; 93005; 93454; 96365; 96366; 96375; 99285

== ENCOUNTER 2022-01-09 15:35 | Observation (INO) | payer MEDICARE, OTHER ==
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
[2022-01-09 16:07] LABS: Basophils % (A) 1 %; Eosinophils # (A) 0.1 k/uL (0-0.7); Eosinophils % (A) 1 %; HCT 41.8 % (39.0-53.0); HGB 14.1 gm/dL (13.0-17.5); Lymphocytes # (A) 0.7 k/uL (1.0-4.8); Lymphocytes % (A) 10 %; MCH 28.5 pg (25.0-35.0); MCHC 33.8 g/dL (31.0-37.0); MCV 84.3 fL (80.0-100.0); Mean Platelet Volume 8.4; Monocytes # (A) 0.1 k/uL (0-1.0); Monocytes % (A) 2 %; Neutrophils # (A) 5.9 k/uL (1.3-7.7); Neutrophils % (A) 87 %; Platelet Count 215 k/uL (150-450); RBC 4.96 m/uL (4.30-5.90); RDW 13.1 % (11.5-15.5); WBC 6.8 k/uL (3.8-10.6)
--- NOTE | 2022-01-09 16:11 | XR ---
EXAMINATION TYPE: XR chest 2V DATE OF EXAM: 01/09/2022 COMPARISON: 12/17/2021 HISTORY: Weakness. Chest pain TECHNIQUE: FINDINGS: There is elevated left diaphragm. There is gas and fluid filled distended stomach. There is atelectasis left lung base. Heart size is normal. No heart failure. IMPRESSION: There is chronic atelectasis left lung base and elevated left diaphragm that could relate to diaphragm paralysis. No change compared to old exam. No heart failure.
[2022-01-09 16:15] LABS: INR 1.1 (<1.2); Partial Thromboplastin Time 22.4 sec (22.0-30.0); Prothrombin Time 11.3 sec (9.0-12.0)
[2022-01-09 16:18] LABS: Albumin 3.3 g/dL (3.5-5.0); Calcium 8.4 mg/dL (8.4-10.2); Magnesium 1.8 mg/dL (1.6-2.3); Potassium 4.3 mmol/L (3.5-5.1); Total Bilirubin 0.4 mg/dL (0.2-1.3); Total Protein 6.7 g/dL (6.3-8.2)
[2022-01-09] MEDS ORDERED: SODIUM CHLORIDE 0.9% 1,000 ML IV STA (16:59)
[2022-01-09] MEDS ORDERED: NALOXONE 0.4 MG/ML 1 ML VIAL IV PRN (18:05)
[2022-01-09] MEDS ORDERED: ONDANSETRON 4 MG/2 ML VIAL IVP PRN (18:05)
[2022-01-09] MEDS: SODIUM CHLORIDE 0.9% 1,000 ML IV SCH (18:41)
[2022-01-09 20:27] LABS: Appearance,Urine Clear (Clear); Bilirubin,Urine Negative (Negative); Blood,Urine Small (Negative); Color,Urine Light Yellow; Glucose,Urine (UA) 4+ (Negative); Hyaline Casts,Urine 1 /lpf (0-2); Ketones,Urine Negative (Negative); Leukocyte Esterase,Urine Negative (Negative); Mucus,Urine Rare /hpf; Nitrite,Urine Negative (Negative); PH, Urine 6.5 (5.0-8.0); Protein,Urine 3+ (Negative); RBC,Urine <1 /hpf (0-5); Specific Gravity,Urine 1.018 (1.001-1.035); Urobilinogen,Urine <2.0 mg/dL (<2.0); WBC,Urine <1 /hpf (0-5)
[2022-01-09] MEDS ORDERED: ATORVASTATIN 80 MG TAB PO SCH (21:00)
[2022-01-09 21:04] LABS: Glucose,Whole Blood 306 mg/dL (70-110)
[2022-01-09] MEDS: TICAGRELOR 90 MG TAB PO SCH (21:08)
[2022-01-09] MEDS: INSULIN ASPART (NovoLOG) 100 UNIT/ML VIAL SQ SCH (21:33)
[2022-01-10] MEDS ORDERED: DEXTROSE 50% SYRINGE 50 ML IVP PRN ×2 (01:13)
[2022-01-10] MEDS: SODIUM CHLORIDE 0.9% 1,000 ML IV SCH ×2 (01:44→12:13)
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
[2022-01-10] MEDS: INSULIN ASPART (NovoLOG) 100 UNIT/ML VIAL SQ SCH ×4 (06:23→13:32)
[2022-01-10 07:47] LABS: Glucose,Whole Blood 199 mg/dL (70-110)
[2022-01-10 08:34] VITALS: RESP 18; TEMP 98.1
[2022-01-10] MEDS: HEPARIN SODIUM,PORCINE/PF 5,000 UNIT/0.5 ML SYRINGE SQ SCH ×2 (08:34→16:24)
[2022-01-10] MEDS: TICAGRELOR 90 MG TAB PO SCH (08:36)
[2022-01-10] MEDS ORDERED: METOPROLOL SUCCINATE (ER) 25 MG TAB.ER.24H PO SCH (09:00)
[2022-01-10] MEDS ORDERED: INSULIN DETEMIR (LEVEMIR) 100 UNIT/ML SYR SQ SCH ×2 (09:00→22:00)
[2022-01-10] MEDS ORDERED: ASPIRIN 81 MG PO SCH (09:00)
[2022-01-10 09:25] VITALS: PULSE 79
[2022-01-10 09:36] LABS: African American GFR (CKD) 47.6 (60.0-200.0); Blood Urea Nitrogen 28.9 mg/dL (9.0-27.0); Calcium 7.9 mg/dL (8.7-10.3); Non-African American GFR(CKD) 41.1 (60.0-200.0); Potassium 3.9 mmol/L (3.5-5.5)
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
[2022-01-10] MEDS ORDERED: amLODIPine 10 MG TAB PO SCH (12:00)
[2022-01-10 12:17] LABS: Glucose,Whole Blood 170 mg/dL (70-110)
[2022-01-10 14:35] VITALS: BP 150/78
--- NOTE | 2022-01-10 15:21 | P.DS ---
Providers Date of admission: 01/09/22 18:55 Expected date of discharge: 01/10/22 Attending physician: Colleen Hallman MD Consults: 01/10/22 09:28 Consult Physician Routine Consulting Provider: Ramses Hudson Consult Reason/Comments: weakness since stent Do you want consulting provider notified?: Yes Primary care physician: Brett Choe Hospital Course: Discharge Diagnosis: Fatigue with generalized weakness likely multifactoral KEAGAN, suspect due to recent initiation of CORI given cardiomyopathy will continue with CORI with close monitoring HTN, urgency Ischemic cardiomyopathy with EF 40% CAD with recent NSTEMI and stent to the LAD DM2 Hospital Course: Patient is a 66-year-old male with diabetes, hypertension, and recent non-STEMI requiring a stent to his LAD who presented to the hospital with complaints of fatigue. Initially on arrival to the ER he was mildly tachycardic with pulse of 101. Laboratory analysis demonstrated a creatinine of 1.95 up from 1.74 on prior admission to the hospital 12/17/21. Initial troponin was negative. EKG was nonischemic. He was admitted for further monitoring. He stated this weakness was similar to prior to his heart attack. Cardiology was consulted. He had an echocardiogram performed in their office on 01/04/22 which showed an ejection fraction of 40%. He did have mildly elevated blood pressures of 180/93 and was started on Norvasc. He was monitored throughout the afternoon. His blood pressure improved to 150/78. He is doing well. He was determined stable for discharge with adequate outpatient follow-up. Follow-up: Medications include Norvasc 10 mg daily. Remainder of medications are unchanged from prior discharge. He'll follow up with Dr. Hudson on 01/24/22. He will follow-up with Dr. Choe in 1-2 days. He was given instructions to make a log of his blood pressures to bring to his appointments Dr. Hudson. He would benefit from repeat BMP in 1 week given recent initiation of ACEI. Patient seen and examined at bedside. Feeling less fatigued. No chest pain. Wants to go home. Vital signs reviewed and stable. General: nontoxic, no distress, appears at stated age Derm: warm, dry Head: atraumatic, normocephalic, symmetric Eyes: EOMI, no lid lag, anicteric sclera Mouth: no lip lesion, mucus membranes moist Cardiovascular: S1S2 reg, no murmur, positive posterior tibial pulse bilateral, Lungs: CTA bilateral, no rhonchi, no rales , no accessory muscle use Abdominal: soft, nontender to palpation, no guarding, no appreciable or ganomegaly Ext: no gross muscle atrophy, no edema, no contractures Neuro: CN II-XI grossly intact, no focal neuro deficits Psych: Alert, oriented, appropriate affect A total of 25 minutes of time were spent preparing this complex discharge summary. Patient was discharged on 01/10/22. Patient Condition at Discharge: Stable Plan - Discharge Summary New Discharge Prescriptions: New amLODIPine [Norvasc] 10 mg PO DAILY #30 tab Continue Insulin Lispro [humaLOG Kwikpen] 24 unit SQ TID-W/MEALS Insulin Degludec [Tresiba Flextouch U-200 Pen] 60 unit SQ DAILY Atorvastatin Calcium [Lipitor] 80 mg PO DAILY lisinopriL [Zestril] 2.5 mg PO DAILY Fenofibrate [Lofibra] 160 mg PO DAILY Exenatide Microspheres [Bydureon Bcise Auto-Injector] 2 mg SQ DIRECTED Aspirin EC [Ecotrin Low Dose] 81 mg PO DAILY Ticagrelor [Brilinta] 90 mg PO BID #60 tab Nitroglycerin Sl Tabs [Nitrostat] 0.4 mg SUBLINGUAL Q5M PRN #20 tab PRN Reason: Chest Pain Metoprolol Succinate (ER) [Toprol XL] 25 mg PO DAILY #30 tab Discharge Medication List Insulin Degludec [Tresiba Flextouch U-200 Pen] 60 unit SQ DAILY 11/27/18 [History] Insulin Lispro [humaLOG Kwikpen] 24 unit SQ TID-W/MEALS 11/27/18 [History] Atorvastatin Calcium [Lipitor] 80 mg PO DAILY 08/23/21 [History] Aspirin EC [Ecotrin Low Dose] 81 mg PO DAILY 12/17/21 [History] Metoprolol Succinate (ER) [Toprol XL] 25 mg PO DAILY #30 tab 12/19/21 [Rx] Nitroglycerin Sl Tabs [Nitrostat] 0.4 mg SUBLINGUAL Q5M PRN #20 tab 12/19/21 [Rx] Ticagrelor [Brilinta] 90 mg PO BID #60 tab 12/19/21 [Rx] Exenatide Microspheres [Bydureon Bcise Auto-Injector] 2 mg SQ DIRECTED 01/09/22 [History] Fenofibrate [Lofibra] 160 mg PO DAILY 01/09/22 [History] lisinopriL [Zestril] 2.5 mg PO DAILY 01/09/22 [History] amLODIPine [Norvasc] 10 mg PO DAILY #30 tab 01/10/22 [Rx] Follow up Appointment(s)/Referral(s): Ramses Hudson MD [STAFF PHYSICIAN] - 01/24/22 Brett Choe DO [Primary Care Provider] - 1-2 days Activity/Diet/Wound Care/Special Instructions: Activity: as tolerated Diet: heart healthy Special Instructions: Take blood pressure once daily after taking medications and make a list of these numbers to bring to your appointment with Dr. Hudson Thank you for trusting us with your care. We wish you well on your journey to better health. Please let Dr. Choe know we suggest repeat BMP in 1 week to follow renal function due to recent starting of lisinopril. Discharge Disposition: HOME SELF-CARE
== END 2022-01-10 16:30 | disposition home or self-care (01) ==
LOC: EC 15:35 → 6NMEDSUR 18:55
PROVIDERS: ADMIT Internal Medicine; ATTEND Internal Medicine
DX: N17.9 Acute kidney failure, unspecified (principal); I25.5 Ischemic cardiomyopathy; I16.0 Hypertensive urgency; I25.2 Old myocardial infarction; R53.1 Weakness; I25.10 Atherosclerotic heart disease of native coronary artery without angina pectoris; E11.9 Type 2 diabetes mellitus without complications; I08.1 Rheumatic disorders of both mitral and tricuspid valves; I10 Essential (primary) hypertension; E78.5 Hyperlipidemia, unspecified; D50.0 Iron deficiency anemia secondary to blood loss (chronic); E11.42 Type 2 diabetes mellitus with diabetic polyneuropathy; J98.6 Disorders of diaphragm; J98.11 Atelectasis; F32.A Depression, unspecified; F41.9 Anxiety disorder, unspecified; F40.240 Claustrophobia; Z20.822 Contact with and (suspected) exposure to COVID-19; Z79.4 Long term (current) use of insulin; Z79.82 Long term (current) use of aspirin; Z79.02 Long term (current) use of antithrombotics/antiplatelets; Z79.899 Other long term (current) drug therapy; Z86.16 Personal history of COVID-19; Z95.5 Presence of coronary angioplasty implant and graft; Z90.49 Acquired absence of other specified parts of digestive tract; Z86.69 Personal history of other diseases of the nervous system and sense organs; Z85.51 Personal history of malignant neoplasm of bladder; Z85.820 Personal history of malignant melanoma of skin; Z87.440 Personal history of urinary (tract) infections; Z87.19 Personal history of other diseases of the digestive system; Z98.890 Other specified postprocedural states; Z82.3 Family history of stroke; Z80.0 Family history of malignant neoplasm of digestive organs; Z80.3 Family history of malignant neoplasm of breast
CPT/HCPCS: 96361; 96360; 99285; 36415; 93005; 97162; 80053; 80048; 83735; 84484 ×2; 85025; 85610; 85730; 81001; 87502; 87635; 71046; G0378 ×2; J1644

== ENCOUNTER 2022-05-19 11:16 | Inpatient (IN) | payer MEDICARE, OTHER ==
[2022-05-19] MEDS ORDERED: ACETAMINOPHEN TAB 500 MG TAB PO STA (11:41)
[2022-05-19] MEDS ORDERED: PIPERACILLIN-TAZOBACTAM 3.375 GM in SODIUM CHLORIDE 0.9% 100 ML IVPB STA (11:41)
[2022-05-19] MEDS ORDERED: IBUPROFEN 600 MG TAB PO STA (11:41)
[2022-05-19] MEDS ORDERED: VANCOMYCIN IV PER PHARMACY 1 EACH MISC MISCELLANE PRN (11:41)
[2022-05-19] MEDS ORDERED: VANCOMYCIN 1,500 MG in SODIUM CHLORIDE 0.9% 500 ML 500 ML IVPB ONE (12:00)
[2022-05-19] MEDS: SODIUM CHLORIDE 0.9% 500 ML 500 ML IV SCH (12:32)
[2022-05-19 12:35] LABS: Basophils % (A) 0 %; Eosinophils # (A) 0.1 k/uL (0-0.7); Eosinophils % (A) 1 %; HCT 36.9 % (39.0-53.0); HGB 12.6 gm/dL (13.0-17.5); Lymphocytes # (A) 1.3 k/uL (1.0-4.8); Lymphocytes % (A) 13 %; MCH 28.7 pg (25.0-35.0); MCHC 34.1 g/dL (31.0-37.0); MCV 84.4 fL (80.0-100.0); Mean Platelet Volume 8.5; Monocytes # (A) 0.7 k/uL (0-1.0); Monocytes % (A) 7 %; Neutrophils # (A) 7.5 k/uL (1.3-7.7); Neutrophils % (A) 77 %; Platelet Count 167 k/uL (150-450); RBC 4.38 m/uL (4.30-5.90); RDW 12.8 % (11.5-15.5); WBC 9.7 k/uL (3.8-10.6)
[2022-05-19 12:40] LABS: Partial Thromboplastin Time 24.7 sec (22.0-30.0)
[2022-05-19 12:45] LABS: Potassium 4.3 mmol/L (3.5-5.1)
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
[2022-05-19 13:36] LABS: Albumin 2.8 g/dL (3.5-5.0); Calcium 7.8 mg/dL (8.4-10.2); Total Bilirubin 0.7 mg/dL (0.2-1.3); Total Protein 6.5 g/dL (6.3-8.2)
[2022-05-19] MEDS ORDERED: SODIUM CHLORIDE 0.9% 1,000 ML IV ONE (14:24)
[2022-05-19] MEDS ORDERED: NITROGLYCERIN SL TABS 0.4 MG TAB SUBLINGUAL PRN (14:51)
[2022-05-19] MEDS ORDERED: DEXTROSE 50% SYRINGE 50 ML IVP PRN ×2 (14:51)
--- NOTE | 2022-05-19 15:52 | US ---
EXAMINATION TYPE: US venous doppler duplex LE RT DATE OF EXAM: 05/19/2022 3:33 PM COMPARISON: NONE CLINICAL HISTORY: redness. leg discoloration and pain. SIDE PERFORMED: Right TECHNIQUE: The lower extremity deep venous system is examined utilizing real time linear array sonog dann with graded compression, doppler sonography and color-flow sonography. VESSELS IMAGED: Common Femoral Vein Deep Femoral Vein Greater Saphenous Vein * Femoral Vein Popliteal Vein Small Saphenous Vein * Proximal Calf Veins (* superficial vessels) Right Leg: There is normal flow, compressibility and vascular waveforms. IMPRESSION: No evidence of deep venous thrombosis.
[2022-05-19] MEDS ORDERED: PIPERACILLIN-TAZOBACTAM 3.375 GM in SODIUM CHLORIDE 0.9% 100 ML IVPB SCH (16:00)
[2022-05-19] MEDS ORDERED: SODIUM CHLORIDE 0.9% 500 ML 250 ML IV ONE (17:10)
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
[2022-05-19 17:17] LABS: Glucose,Whole Blood 270 mg/dL (70-110)
[2022-05-19] MEDS: INSULIN ASPART (NovoLOG) 100 UNIT/ML VIAL SQ SCH ×2 (17:44→21:14)
[2022-05-19 20:17] LABS: Glucose,Whole Blood 270 mg/dL (70-110)
[2022-05-19] MEDS ORDERED: hydrALAZINE HCL 25 MG TAB PO PRN (20:51)
[2022-05-19] MEDS: FAMOTIDINE 20 MG/2 ML VIAL IV SCH (21:13)
[2022-05-19] MEDS: TICAGRELOR 90 MG TAB PO SCH (21:14)
[2022-05-19] MEDS: PIPERACILLIN-TAZOBACTAM 3.375 GM in SODIUM CHLORIDE 0.9% 100 ML IVPB SCH (21:14)
[2022-05-19] MEDS: HEPARIN SODIUM,PORCINE/PF 5,000 UNIT/0.5 ML SYRINGE SQ SCH (21:14)
[2022-05-19] MEDS: ACETAMINOPHEN TAB 325 MG TAB PO PRN (21:24)
[2022-05-19] MEDS ORDERED: HYDROcodone/APAP 5-325MG 1 EACH TAB PO PRN (23:17)
[2022-05-19] MEDS: MELATONIN 3 MG TABLET PO SCH (23:23)
[2022-05-20] MEDS: PIPERACILLIN-TAZOBACTAM 3.375 GM in SODIUM CHLORIDE 0.9% 100 ML IVPB SCH ×2 (04:06→12:26)
[2022-05-20 07:10] LABS: Glucose,Whole Blood 198 mg/dL (70-110)
[2022-05-20] MEDS: HEPARIN SODIUM,PORCINE/PF 5,000 UNIT/0.5 ML SYRINGE SQ SCH ×2 (08:13→19:55)
[2022-05-20] MEDS: INSULIN ASPART (NovoLOG) 100 UNIT/ML VIAL SQ SCH ×4 (08:14→21:11)
[2022-05-20] MEDS: ASPIRIN 81 MG PO SCH (08:14)
[2022-05-20] MEDS: FAMOTIDINE 20 MG/2 ML VIAL IV SCH ×2 (08:14→19:55)
[2022-05-20] MEDS: FENOFIBRATE 160 MG TAB PO SCH (08:14)
[2022-05-20] MEDS: TICAGRELOR 90 MG TAB PO SCH ×2 (08:14→19:55)
[2022-05-20] MEDS: amLODIPine 10 MG TAB PO SCH (08:14)
[2022-05-20] MEDS: ATORVASTATIN 80 MG TAB PO SCH (08:14)
[2022-05-20 08:33] LABS: African American GFR (CKD) 36 (>60 ml/min/1.73 sqM); Anion Gap 4 mmol/L; Blood Urea Nitrogen 31 mg/dL (9-20); Calcium 7.3 mg/dL (8.4-10.2); Carbon Dioxide 21 mmol/L (22-30); Chloride 105 mmol/L (98-107); Glucose 184 mg/dL (74-99); Non-African American GFR(CKD) 31 (>60 ml/min/1.73 sqM); Potassium 3.8 mmol/L (3.5-5.1); Sodium 130 mmol/L (137-145)
[2022-05-20 11:01] LABS: Basophils # (A) 0.02 X 10*3/uL (0.00-0.10); Basophils % (A) 0.2 %; Eosinophils % (A) 2.4 %; HCT 33.5 % (39.6-50.0); HGB 10.8 g/dL (13.0-17.0); Immature Grans, Automated 0.5 %; Lymphocytes # (A) 1.31 X 10*3/uL (0.90-5.00); Lymphocytes % (A) 15.7 %; MCH 27.1 pg (27.0-32.0); MCHC 32.2 g/dL (32.0-37.0); MCV 84.2 fL (80.0-97.0); Mean Platelet Volume 11.6 fL (9.5-12.2); Monocytes # (A) 0.89 X 10*3/uL (0.20-1.00); Monocytes % (A) 10.7 %; NRBC Per 100 WBC 0 /100 WBCS (0.0-0.0); Neutrophils # (A) 5.88 X 10*3/uL (1.80-7.70); Neutrophils % (A) 70.5 %; Platelet Count 178 X 10*3/uL (140-440); RBC 3.98 X 10*6/uL (4.40-5.60); RDW 12.5 % (11.5-14.5); WBC 8.34 X 10*3/uL (4.50-10.00)
[2022-05-20 11:33] LABS: Glucose,Whole Blood 240 mg/dL (70-110)
[2022-05-20 12:24] VITALS: BMI 29.1
[2022-05-20] MEDS ORDERED: VANCOMYCIN 1,500 MG in SODIUM CHLORIDE 0.9% 500 ML 500 ML IVPB SCH (13:00)
[2022-05-20 14:09] LABS: Appearance,Urine Clear (Clear); Bilirubin,Urine Negative (Negative); Blood,Urine Small (Negative); Color,Urine Yellow; Glucose,Urine (UA) 4+ (Negative); Ketones,Urine Negative (Negative); Leukocyte Esterase,Urine Negative (Negative); Mucus,Urine Rare /hpf; Nitrite,Urine Negative (Negative); Protein,Urine 3+ (Negative); RBC,Urine 2 /hpf (0-5); Specific Gravity,Urine 1.017 (1.001-1.035); Urobilinogen,Urine <2.0 mg/dL (<2.0); WBC,Urine 2 /hpf (0-5)
[2022-05-20 17:14] LABS: Glucose,Whole Blood 292 mg/dL (70-110)
[2022-05-20] MEDS: ACETAMINOPHEN TAB 325 MG TAB PO PRN (17:38)
[2022-05-20] MEDS ORDERED: ONDANSETRON 4 MG/2 ML VIAL IVP PRN (17:53)
[2022-05-20] MEDS: MELATONIN 3 MG TABLET PO SCH (19:55)
[2022-05-20 20:58] LABS: Glucose,Whole Blood 247 mg/dL (70-110)
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
--- NOTE | 2022-05-20 22:01 | P.PN ---
Subjective This is a pleasant 67 years old male with past medical history of Diabetes Mellitus, Hyperlipidemia, Hypertension diabetic neuropathy bilateral feet, past L foot ulcer now healed, Patient presents because of right lower extremity redness and edema of one-day duration patient states that his pain and swelling started yesterday. Currently he has tenderness erythema and swelling of his right foot extending up to the proximal leg. This also warm to touch compared to the left side. Patient has fissure and cracks which looks chronic and the right heel. Patient however denies any chest pain or dyspnea. No coughing. No urinary or GI complaints. No dizziness weakness or numbness. However is complaining of from mild headache. He denies a smoking, drinks alcohol about 2-3 times a week and no illicit drugs. He has little fever on admission 100.7, slightly tachycardic rate No leukocytosis. Risks of CBC, BMP and liver enzymes are unremarkable. Sodium low 127, creatinine elevated at 2.1, last year over the last few months his creatinine was ranging 1.7-1.9 EKG showed normal sinus rhythm at [address]-T changes An ER patient was started on Zosyn and IV vancomycin 05/20/2022 Patient is still complaining of from right leg cellulitis with no significant improvement His antibiotic was adjusted to cefazolin today Creatinine remains the same with no worsening of 2.1. admission compared to baseline of 1.7-1.9 Glucose is still elevated and hemoglobin A1c is 11.4 patient was on exetinide at home as per home medication, I think he needs to be restarted on insulin especially old hemoglobin A1c is 13% as well, patient has poorly controlled diabetes therefore we'll start Levemir 5 units and add clinically 13 in the m orning for better control of blood sugar Sodium improved up to 130, we'll check bladder scan Objective - Vital Signs Vital signs: Vital Signs Temp 98.7 F 05/20/22 12:33 Pulse 91 05/20/22 12:33 Resp 20 05/20/22 12:33 BP 128/71 05/20/22 12:33 Pulse Ox 97 05/20/22 12:33 FiO2 Intake & Output 05/19/22 05/20/22 05/20/22 18:59 06:59 18:59 Intake Total 868 Balance 868 Weight 97.522 kg 97.522 kg Intake: Intake, IV Titration 750 Amount Sodium Chloride 0.9% 500 250 ml 250 ml @ 999 mls/hr IV .Q16M [facility] Rx#:[id number] Vancomycin 1,500 mg In 500 Sodium Chloride 0.9% 500 ml 500 ml @ 167 mls/hr IVPB Q24H [facility] Rx#: [id number] Oral 118 Other: Voiding Method Toilet Toilet # Voids 2 - Exam GENERAL: The patient is alert and oriented x3, not in any acute distress. Well developed, well nourished. HEENT: Pupils are round and equally reacting to light. EOMI. No scleral icterus. No conjunctival pallor. Normocephalic, atraumatic. No pharyngeal erythema. No thyromegaly. CARDIOVASCULAR: S1 and S2 present. No murmurs, rubs, or gallops. PULMONARY: Chest is clear to auscultation, no wheezing or crackles. ABDOMEN: Soft, nontender, nondistended, normoactive bowel sounds. No palpable organomegaly. MUSCULOSKELETAL: No joint swelling or deformity. -EXTREMITIES: No cyanosis, clubbing, or pedal edema. Right leg cellulitis up to the knee including the right foot NEUROLOGICAL: Gross neurological examination did not reveal any focal deficits. SKIN: No rashes. no petechiae. - Labs CBC & Chem 7: 05/20/22 07:23 05/20/22 07:23 Labs: Abnormal Lab Results - Last 24 Hours (Table) 05/19/22 05/20/22 05/20/22 Range/Units 20:15 07:08 07:23 RBC (4.40-5.60) X 10*6/uL Hgb (13.0-17.0) g/dL Hct (39.6-50.0) % Sodium (137-145) mmol/L Carbon Dioxide (22-30) mmol/L BUN (9-20) mg/dL Creatinine (0.66-1.25) mg/dL Glucose (74-99) mg/dL POC Glucose (mg/dL) 270 H 198 H (70-110) mg/dL Hemoglobin A1c 11.4 H (0.0-6.0) % Calcium (8.4-10.2) mg/dL Urine Protein (Negative) Urine Glucose (UA) (Negative) Urine Blood (Negative) Urine Mucus (None) /hpf 05/20/22 05/20/22 05/20/22 Range/Units 07:23 07:23 07:23 RBC 3.98 L (4.40-5.60) X 10*6/uL Hgb 10.8 L (13.0-17.0) g/dL Hct 33.5 L (39.6-50.0) % Sodium 130 L (137-145) mmol/L Carbon Dioxide 21 L (22-30) mmol/L BUN 31 H (9-20) mg/dL Creatinine 2.15 H 2.15 H (0.66-1.25) mg/dL Glucose 184 H (74-99) mg/dL POC Glucose (mg/dL) (70-110) mg/dL Hemoglobin A1c (0.0-6.0) % Calcium 7.3 L (8.4-10.2) mg/dL Urine Protein (Negative) Urine Glucose (UA) (Negative) Urine Blood (Negative) Urine Mucus (None) /hpf 05/20/22 05/20/22 05/20/22 Range/Units 11:32 13:50 17:13 RBC (4.40-5.60) X 10*6/uL Hgb (13.0-17.0) g/dL Hct (39.6-50.0) % Sodium (137-145) mmol/L Carbon Dioxide (22-30) mmol/L BUN (9-20) mg/dL Creatinine (0.66-1.25) mg/dL Glucose (74-99) mg/dL POC Glucose (mg/dL) 240 H 292 H (70-110) mg/dL Hemoglobin A1c (0.0-6.0) % Calcium (8.4-10.2) mg/dL Urine Protein 3+ H (Negative) Urine Glucose (UA) 4+ H (Negative) Urine Blood Small H (Negative) Urine Mucus Rare H (None) /hpf Microbiology - Last 24 Hours (Table) 05/19/22 12:02 Blood Culture - Preliminary Blood No Growth after 24 hours 05/19/22 12:02 Blood Culture - Preliminary Blood No Growth after 24 hours Assessment and Plan Assessment: Right foot cellulitis Hypovolemic hyponatremia Acute kidney injury on chronic kidney disease Chronic kidney disease stage III most likely diabetic nephropathy Diabetes mellitus with hyperglycemia Hyperlipidemia Hypertension Plan: Continue with IV antibiotic, currently on cefazolin Monitor kidney function and glucose Follow-up culture results Labs and medication were reviewed.. Continue same treatment. Continue with symptomatic treatment. Resume home medication. Monitor labs and vitals. DVT and GI prophylaxis. Further recommendations as per clinical course of the p atient DVT prophylaxis: Subcutaneous heparin GI Prophylaxis: Pepcid PT/OT: Pending Prognosis is guarded
[2022-05-20] MEDS: INSULIN DETEMIR (LEVEMIR) 100 UNIT/ML SYR SQ SCH (23:13)
[2022-05-20] MEDS ORDERED: TAMSULOSIN 0.4 MG CAP.ER.24H PO STA (23:41)
[2022-05-21 07:20] LABS: Glucose,Whole Blood 157 mg/dL (70-110)
[2022-05-21] MEDS ORDERED: TAMSULOSIN 0.4 MG CAP.ER.24H PO SCH (08:30)
[2022-05-21] MEDS: HEPARIN SODIUM,PORCINE/PF 5,000 UNIT/0.5 ML SYRINGE SQ SCH ×2 (08:41→20:11)
[2022-05-21] MEDS: INSULIN ASPART (NovoLOG) 100 UNIT/ML VIAL SQ SCH ×4 (08:42→20:57)
[2022-05-21] MEDS: ATORVASTATIN 80 MG TAB PO SCH (08:42)
[2022-05-21] MEDS: amLODIPine 10 MG TAB PO SCH (08:42)
[2022-05-21] MEDS: FAMOTIDINE 20 MG TAB PO SCH (08:42)
[2022-05-21] MEDS: FENOFIBRATE 160 MG TAB PO SCH (08:42)
[2022-05-21] MEDS: TICAGRELOR 90 MG TAB PO SCH ×2 (08:43→20:11)
[2022-05-21] MEDS: LINAGLIPTIN 5 MG TABLET PO SCH (08:43)
[2022-05-21] MEDS: ASPIRIN 81 MG PO SCH (08:43)
[2022-05-21 08:53] LABS: Basophils # (A) 0.03 X 10*3/uL (0.00-0.10); Basophils % (A) 0.4 %; Eosinophils # (A) 0.18 X 10*3/uL (0.04-0.35); Eosinophils % (A) 2.5 %; HCT 29.9 % (39.6-50.0); HGB 9.9 g/dL (13.0-17.0); Immature Grans, Automated 0.6 %; Lymphocytes # (A) 1.26 X 10*3/uL (0.90-5.00); Lymphocytes % (A) 17.8 %; MCHC 33.1 g/dL (32.0-37.0); MCV 84.5 fL (80.0-97.0); Mean Platelet Volume 11.4 fL (9.5-12.2); Monocytes % (A) 9.9 %; NRBC Per 100 WBC 0 /100 WBCS (0.0-0.0); Neutrophils # (A) 4.88 X 10*3/uL (1.80-7.70); Neutrophils % (A) 68.8 %; Platelet Count 179 X 10*3/uL (140-440); RBC 3.54 X 10*6/uL (4.40-5.60); RDW 12.4 % (11.5-14.5); WBC 7.09 X 10*3/uL (4.50-10.00)
[2022-05-21 09:25] LABS: African American GFR (CKD) 34.6 (60.0-200.0); Anion Gap 10.1 mmol/L (10.00-18.00); BUN/Creat Ratio 12.09 Ratio (12.00-20.00); Blood Urea Nitrogen 26.6 mg/dL (9.0-27.0); Calcium 7.7 mg/dL (8.7-10.3); Carbon Dioxide 18.9 mmol/L (20.0-27.5); Non-African American GFR(CKD) 29.9 (60.0-200.0); Potassium 3.9 mmol/L (3.5-5.5)
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
--- NOTE | 2022-05-21 11:08 | P.PN ---
Subjective Progress Note Date: 05/21/22 Principal diagnosis: Right leg cellulitis Patient is a 67-year-old male with a past medical history significant for diabetes mellitus hypertension hyperlipidemia diabetic neuropathy presenting to the ER for evaluation of increasing swelling and redness of the right lower extremity, patient has a history of any trauma or wound or any drainage has been diagnosed with right leg cellulitis. On today's evaluation that is 05/21/2022, the patient denies having any fever or any chills, right lower extremity swelling redness and pain has slightly decreased patient denies having any open wound or any drainage no chest pain shortness of breath or cough no abdominal pain no diarrhea Objective - Vital Signs Vital signs: Vital Signs Temp 98.2 F 05/21/22 07:15 Pulse 82 05/21/22 07:15 Resp 16 05/21/22 07:15 BP 144/77 05/21/22 07:15 Pulse Ox 96 05/21/22 07:54 FiO2 Intake & Output 05/20/22 05/21/22 05/21/22 18:59 06:59 18:59 Weight 97.522 kg Other: Voiding Method Toilet Toilet # Voids 2 1 - Exam GENERAL DESCRIPTION: An elderly male lying in bed in no distress RESPIRATORY SYSTEM: Unlabored breathing , decreased breath sounds at bases HEART: S1 S2 regular rate and rhythm , ABDOMEN: Soft , no tenderness EXTREMITIES: Right leg swelling redness slightly decreased - Labs CBC & Chem 7: 05/21/22 05:34 05/21/22 05:34 Labs: Abnormal Lab Results - Last 24 Hours (Table) 05/20/22 05/20/22 05/20/22 Range/Units 07: 07:23 07:23 RBC 3.98 L (4.40-5.60) X 10*6/uL Hgb 10.8 L (13.0-17.0) g/dL Hct 33.5 L (39.6-50.0) % Creatinine 2.15 H (0.66-1.25) mg/dL POC Glucose (mg/dL) (70-110) mg/dL Hemoglobin A1c 11.4 H (0.0-6.0) % Urine Protein (Negative) Urine Glucose (UA) (Negative) Urine Blood (Negative) Urine Mucus (None) /hpf 05/20/22 05/20/22 05/20/22 Range/Units 11:32 13:50 17:13 RBC (4.40-5.60) X 10*6/uL Hgb (13.0-17.0) g/dL Hct (39.6-50.0) % Creatinine (0.66-1.25) mg/dL POC Glucose (mg/dL) 240 H 292 H (70-110) mg/dL Hemoglobin A1c (0.0-6.0) % Urine Protein 3+ H (Negative) Urine Glucose (UA) 4+ H (Negative) Urine Blood Small H (Negative) Urine Mucus Rare H (None) /hpf 05/20/22 05/21/22 05/21/22 Range/Units 20:56 05:34 07:18 RBC 3.54 L (4.40-5.60) X 10*6/uL Hgb 9.9 L (13.0-17.0) g/dL Hct 29.9 L (39.6-50.0) % Creatinine (0.66-1.25) mg/dL POC Glucose (mg/dL) 247 H 157 H (70-110) mg/dL Hemoglobin A1c (0.0-6.0) % Urine Protein (Negative) Urine Glucose (UA) (Negative) Urine Blood (Negative) Urine Mucus (None) /hpf Microbiology - Last 24 Hours (Table) 05/19/22 12:02 Blood Culture - Preliminary Blood No Growth after 24 hours 05/19/22 12:02 Blood Culture - Preliminary Blood No Growth after 24 hours Assessment and Plan (1) Cellulitis of right leg Current Visit: Yes Status: Acute Code(s): L03.115 - CELLULITIS OF RIGHT LOWER LIMB SNOMED Code(s): 795760996 Plan: 1patient presented to hospital with right lower extremity cellulitis in this patient who did have diffuse swelling redness no evidence of any pustules or abscess likely from gram-positive skin claudia clinically doubt MRSA infection. 2patient who do have renal insufficiency and high risk of nephrotoxicity from a combination of vancomycin and Zosyn. 3patient to continue with cefazolin 2 g every 8 hours for another 24-40 to as the patient still have extensive cellulitis and monitor clinical course closely Time with Patient: Less than 30
[2022-05-21 11:15] LABS: Glucose,Whole Blood 183 mg/dL (70-110)
[2022-05-21 16:52] LABS: Glucose,Whole Blood 160 mg/dL (70-110)
--- NOTE | 2022-05-21 17:18 | P.PN ---
Subjective This is a pleasant 67 years old male with past medical history of Diabetes Mellitus, Hyperlipidemia, Hypertension diabetic neuropathy bilateral feet, past L foot ulcer now healed, Patient presents because of right lower extremity redness and edema of one-day duration patient states that his pain and swelling started yesterday. Currently he has tenderness erythema and swelling of his right foot extending up to the proximal leg. This also warm to touch compared to the left side. Patient has fissure and cracks which looks chronic and the right heel. Patient however denies any chest pain or dyspnea. No coughing. No urinary or GI complaints. No dizziness weakness or numbness. However is complaining of from mild headache. He denies a smoking, drinks alcohol about 2-3 times a week and no illicit drugs. He has little fever on admission 100.7, slightly tachycardic rate No leukocytosis. Risks of CBC, BMP and liver enzymes are unremarkable. Sodium low 127, creatinine elevated at 2.1, last year over the last few months his creatinine was ranging 1.7-1.9 EKG showed normal sinus rhythm at [address]-T changes An ER patient was started on Zosyn and IV vancomycin 05/20/2022 Patient is still complaining of from right leg cellulitis with no significant improvement His antibiotic was adjusted to cefazolin today Creatinine remains the same with no worsening of 2.1. admission compared to baseline of 1.7-1.9 Glucose is still elevated and hemoglobin A1c is 11.4 patient was on exetinide at home as per home medication, I think he needs to be restarted on insulin especially old hemoglobin A1c is 13% as well, patient has poorly controlled diabetes therefore we'll start Levemir 5 units and add clinically 13 in the m orning for better control of blood sugar Sodium improved up to 130, we'll check bladder scan 05/21/2022 Patient right leg cellulitis on the showing mild improvement Patient also with evidence of obstructive uropathy with urinary retention more than 900 mL. Risks and benefits are explained for him in details by me this morning including but not limited to the risk of further kidney damage, renal failure and ended up with hemodialysis he verbalized understanding and he still refusing straight Argueta Catheter. Also Patient Was Advised about the Same by Staff from Last Night and Urologist However He Is Adamant Not to Place Any Catheter to Relieve His Urinary Obstruction. Aorta Started on Flomax Once Daily, Are Going to Increase It to Twice Daily. Patient Says That He Was Taking tresiba Insulin 60 units at bedtime with 20 units with meals but was not adherent to this therapy. On admission he was started Levemir 5 units and inability not currently sugar better controlled Active Medications Generic Name Dose Route Start Last Admin Trade Name Freq PRN Reason Stop Dose Admin Acetaminophen 325 mg 05/19/22 17:16 05/20/22 17:38 Acetaminophen Tab 325 Mg Tab PO 325 mg Q6HR PRN Administration Fever and/ or Pain Hydrocodone Bitart/Acetaminophen 1 each 05/19/22 23:17 05/19/22 23:23 Hydrocodone/Apap 5-325mg 1 Each Tab PO 1 each Q8HR PRN Administration Pain Amlodipine Besylate 10 mg 05/20/22 09:00 05/21/22 08:42 Amlodipine 10 Mg Tab PO 10 mg DAILY LINETTE Administration Aspirin 81 mg 05/20/22 09:00 05/21/22 08:43 Aspirin 81 Mg PO 81 mg DAILY LINETTE Administration Atorvastatin Calcium 80 mg 05/20/22 09:00 05/21/22 08:42 Atorvastatin 80 Mg Tab PO 80 mg DAILY LINETTE Administration Dextrose/Water 25 ml 05/19/22 14:51 Dextrose 50% Syringe 50 Ml IVP PER PROTOCOL PRN Hypoglycemia Protocol Dextrose/Water 50 ml 05/19/22 14:51 Dextrose 50% Syringe 50 Ml IVP PER PROTOCOL PRN Hypoglycemia Protocol Famotidine 20 mg 05/21/22 09:00 05/21/22 08:42 Famotidine 20 Mg Tab PO 20 mg DAILY LINETTE Administration Fenofibrate 160 mg 05/20/22 09:00 05/21/22 08:42 Fenofibrate 160 Mg Tab PO 160 mg DAILY LINETTE Administration Heparin Sodium (Porcine) 5,000 unit 05/19/22 21:00 05/21/22 08:41 Heparin Sodium,Porcine/Pf 5,000 Unit/0.5 Ml Syringe SQ 5,000 unit Q12HR LINETTE Administration Hydralazine HCl 25 mg 05/19/22 20:51 Hydralazine Hcl 25 Mg Tab PO QID PRN Blood Pressure - High Cefazolin Sodium 2 gm/ Sodium 50 mls @ 100 mls/hr 05/20/22 16:00 05/21/22 15:58 Chloride IVPB 100 mls/hr Q8HR LINETTE Administration Protocol Insulin Aspart 0 unit 05/19/22 17:30 05/21/22 12:04 Insulin Aspart (Novolog) 100 Unit/Ml Vial SQ 1 unit ACHS LINETTE Administration Protocol Insulin Detemir 5 unit 05/20/22 22:00 05/20/22 23:13 Insulin Detemir (Levemir) 100 Unit/Ml Syr SQ 5 unit HS LINETTE Administration Linagliptin 5 mg 05/21/22 09:00 05/21/22 08:43 Linagliptin 5 Mg Tablet PO 5 mg DAILY LINETTE Administration Melatonin 3 mg 05/19/22 23:30 05/20/22 19:55 Melatonin 3 Mg Tablet PO 3 mg HS LINETTE Administration Nitroglycerin 0.4 mg 05/19/22 14:51 Nitroglycerin Sl Tabs 0.4 Mg Tab SUBLINGUAL Q5M PRN Chest Pain Ondansetron HCl 4 mg 05/20/22 17:53 05/20/22 18:03 Ondansetron 4 Mg/2 Ml Vial IVP 4 mg Q6HR PRN Administration Nausea And Vomiting Tamsulosin HCl 0.4 mg 05/21/22 21:00 Tamsulosin 0.4 Mg Cap.Er.24h PO BID LINETTE Ticagrelor 90 mg 05/19/22 21:00 05/21/22 08:43 Ticagrelor 90 Mg Tab PO 90 mg BID LINETTE Administration Objective - Vital Signs Vital signs: Vital Signs Temp 98.1 F 05/21/22 12:10 Pulse 81 05/21/22 12:10 Resp 16 05/21/22 12:10 BP 137/81 05/21/22 12:10 Pulse Ox 97 05/21/22 12:10 FiO2 Intake & Output 05/20/22 05/21/22 05/21/22 18:59 06:59 18:59 Weight 97.522 kg Other: Voiding Method Toilet Toilet # Voids 2 1 - Exam GENERAL: The patient is alert and oriented x3, not in any acute distress. Well developed, well nourished. HEENT: Pupils are round and equally reacting to light. EOMI. No scleral icterus. No conjunctival pallor. Normocephalic, atraumatic. No pharyngeal erythema. No thyromegaly. CARDIOVASCULAR: S1 and S2 present. No murmurs, rubs, or gallops. PULMONARY: Chest is clear to auscultation, no wheezing or crackles. ABDOMEN: Soft, nontender, nondistended, normoactive bowel sounds. No palpable organomegaly. MUSCULOSKELETAL: No joint swelling or deformity. -EXTREMITIES: No cyanosis, clubbing, or pedal edema. Right leg cellulitis up to the knee including the right foot NEUROLOGICAL: Gross neurological examination did not reveal any focal deficits. SKIN: No rashes. no petechiae. - Labs CBC & Chem 7: 05/21/22 05:34 05/21/22 05:34 Labs: Abnormal Lab Results - Last 24 Hours (Table) 05/20/22 05/20/22 05/21/22 Range/Units 17:13 20:56 05:34 RBC (4.40-5.60) X 10*6/uL Hgb (13.0-17.0) g/dL Hct (39.6-50.0) % Sodium 131 L (135-145) mmol/L Carbon Dioxide 18.9 L (20.0-27.5) mmol/L Creatinine 2.2 H (0.6-1.5) mg/dL Est GFR (CKD-EPI)AfAm 34.6 L (60.0-200.0) Est GFR (CKD-EPI)NonAf 29.9 L (60.0-200.0) Glucose 163 H (70-110) mg/dL POC Glucose (mg/dL) 292 H 247 H (70-110) mg/dL Calcium 7.7 L (8.7-10.3) mg/dL 05/21/22 05/21/22 05/21/22 Range/Units 05:34 07:18 11:10 RBC 3.54 L (4.40-5.60) X 10*6/uL Hgb 9.9 L (13.0-17.0) g/dL Hct 29.9 L (39.6-50.0) % Sodium (135-145) mmol/L Carbon Dioxide (20.0-27.5) mmol/L Creatinine (0.6-1.5) mg/dL Est GFR (CKD-EPI)AfAm (60.0-200.0) Est GFR (CKD-EPI)NonAf (60.0-200.0) Glucose (70-110) mg/dL POC Glucose (mg/dL) 157 H 183 H (70-110) mg/dL Calcium (8.7-10.3) mg/dL Microbiology - Last 24 Hours (Table) 05/19/22 12:02 Blood Culture - Preliminary Blood No Growth after 48 hours 05/19/22 12:02 Blood Culture - Preliminary Blood No Growth after 48 hours Assessment and Plan Assessment: Right foot cellulitis acute kidney injury and injury on chronic kidney disease secondary to obstructive uropathy Acute urinary retention, patient was counseled extensively about placing a catheter with straight her Argueta catheter however he declines. 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 Continue same treatment. Continue with symptomatic treatment. Resume home medication. Monitor labs and vitals. DVT and GI prophylaxis. Further recommendations as per clinical course of the patient DVT prophylaxis: Subcutaneous heparin GI Prophylaxis: Pepcid PT/OT: Pending Prognosis is guarded
[2022-05-21] MEDS: TAMSULOSIN 0.4 MG CAP.ER.24H PO SCH (20:12)
[2022-05-21] MEDS: MELATONIN 3 MG TABLET PO SCH (20:12)
[2022-05-21 20:33] LABS: Glucose,Whole Blood 240 mg/dL (70-110)
[2022-05-21] MEDS: INSULIN DETEMIR (LEVEMIR) 100 UNIT/ML SYR SQ SCH (20:57)
[2022-05-22 07:19] LABS: Glucose,Whole Blood 154 mg/dL (70-110)
[2022-05-22] MEDS: ATORVASTATIN 80 MG TAB PO SCH (07:31)
[2022-05-22] MEDS: FAMOTIDINE 20 MG TAB PO SCH (07:31)
[2022-05-22] MEDS: amLODIPine 10 MG TAB PO SCH (07:32)
[2022-05-22] MEDS: FENOFIBRATE 160 MG TAB PO SCH (07:32)
[2022-05-22] MEDS: TAMSULOSIN 0.4 MG CAP.ER.24H PO SCH ×2 (07:32→20:53)
[2022-05-22] MEDS: HEPARIN SODIUM,PORCINE/PF 5,000 UNIT/0.5 ML SYRINGE SQ SCH ×2 (07:32→20:53)
[2022-05-22] MEDS: ASPIRIN 81 MG PO SCH (07:32)
[2022-05-22] MEDS: LINAGLIPTIN 5 MG TABLET PO SCH (07:33)
[2022-05-22] MEDS: TICAGRELOR 90 MG TAB PO SCH ×2 (07:33→20:52)
[2022-05-22] MEDS: INSULIN ASPART (NovoLOG) 100 UNIT/ML VIAL SQ SCH ×4 (07:33→20:53)
[2022-05-22 08:53] LABS: Basophils # (A) 0.03 X 10*3/uL (0.00-0.10); Basophils % (A) 0.5 %; Eosinophils # (A) 0.18 X 10*3/uL (0.04-0.35); Eosinophils % (A) 2.9 %; HCT 31.1 % (39.6-50.0); HGB 10.1 g/dL (13.0-17.0); Immature Grans, Automated 0.8 %; MCH 27.2 pg (27.0-32.0); MCHC 32.5 g/dL (32.0-37.0); MCV 83.6 fL (80.0-97.0); Mean Platelet Volume 11.2 fL (9.5-12.2); Monocytes # (A) 0.65 X 10*3/uL (0.20-1.00); Monocytes % (A) 10.5 %; NRBC Per 100 WBC 0 /100 WBCS (0.0-0.0); Neutrophils # (A) 3.99 X 10*3/uL (1.80-7.70); Neutrophils % (A) 64.3 %; Platelet Count 186 X 10*3/uL (140-440); RBC 3.72 X 10*6/uL (4.40-5.60); RDW 12.2 % (11.5-14.5)
[2022-05-22 09:08] LABS: African American GFR (CKD) 32.8 (60.0-200.0); Anion Gap 7.4 mmol/L (10.00-18.00); BUN/Creat Ratio 10.7 Ratio (12.00-20.00); Blood Urea Nitrogen 24.6 mg/dL (9.0-27.0); Calcium 7.9 mg/dL (8.7-10.3); Carbon Dioxide 22.6 mmol/L (20.0-27.5); Non-African American GFR(CKD) 28.3 (60.0-200.0)
[2022-05-22 11:12] LABS: Glucose,Whole Blood 178 mg/dL (70-110)
--- NOTE | 2022-05-22 12:42 | P.PN ---
Subjective This is a pleasant 67 years old male with past medical history of Diabetes Mellitus, Hyperlipidemia, Hypertension diabetic neuropathy bilateral feet, past L foot ulcer now healed, Patient presents because of right lower extremity redness and edema of one-day duration patient states that his pain and swelling started yesterday. Currently he has tenderness erythema and swelling of his right foot extending up to the proximal leg. This also warm to touch compared to the left side. Patient has fissure and cracks which looks chronic and the right heel. Patient however denies any chest pain or dyspnea. No coughing. No urinary or GI complaints. No dizziness weakness or numbness. However is complaining of from mild headache. He denies a smoking, drinks alcohol about 2-3 times a week and no illicit drugs. He has little fever on admission 100.7, slightly tachycardic rate No leukocytosis. Risks of CBC, BMP and liver enzymes are unremarkable. Sodium low 127, creatinine elevated at 2.1, last year over the last few months his creatinine was ranging 1.7-1.9 EKG showed normal sinus rhythm at [address]-T changes An ER patient was started on Zosyn and IV vancomycin 05/20/2022 Patient is still complaining of from right leg cellulitis with no significant improvement His antibiotic was adjusted to cefazolin today Creatinine remains the same with no worsening of 2.1. admission compared to baseline of 1.7-1.9 Glucose is still elevated and hemoglobin A1c is 11.4 patient was on exetinide at home as per home medication, I think he needs to be restarted on insulin especially old hemoglobin A1c is 13% as well, patient has poorly controlled diabetes therefore we'll start Levemir 5 units and add clinically 13 in the m orning for better control of blood sugar Sodium improved up to 130, we'll check bladder scan 05/21/2022 Patient right leg cellulitis on the showing mild improvement Patient also with evidence of obstructive uropathy with urinary retention more than 900 mL. Risks and benefits are explained for him in details by me this morning including but not limited to the risk of further kidney damage, renal failure and ended up with hemodialysis he verbalized understanding and he still refusing straight Goodwin Catheter. Also Patient Was Advised about the Same by Staff from Last [facility] and Urologist However He Is Adamant Not to Place Any Catheter to Relieve His Urinary Obstruction. Aorta Started on Flomax Once Daily, Are Going to Increase It to Twice Daily. Patient Says That He Was Taking tresiba Insulin 60 units at bedtime with 20 units with meals but was not adherent to this therapy. On admission he was started Levemir 5 units and inability not currently sugar better controlled 05/22/2022 Patient right leg cellulitis significantly improved today more than 50%. Given pain tenderness is less. He remains on cefazolin Sodium is stable at 1:30. Glucose is better controlled Patient still refusing straight cath or Goodwin catheter placement for his urinary retention. He was placed on Flomax twice daily area his bladder scan was checked this morning showing 200 ml however patient still instructed about the need of straight cath/Goodwin catheter, patient is aware with risk of kidney damage including but not hemodialysis. He wants to follow up with his urologist .. Distal tendon up slowly today 2.3 compared to 2.1 since admission Objective - Vital Signs Vital signs: Vital Signs Temp 97.6 F 05/22/22 12:08 Pulse 82 05/22/22 12:08 Resp 16 05/22/22 12:08 BP 134/78 05/22/22 12:08 Pulse Ox 95 05/22/22 12:08 FiO2 Intake & Output 05/21/22 05/22/22 05/22/22 17:59 06:59 18:59 Intake Total Balance Intake: Intake, IV Titration Amount ceFAZolin 2 gm In Sodium Chloride 0.9% 50 ml @ 100 mls/hr IVPB Q8HR [facility] Rx# :[id number] Other: Voiding Method Toilet # Voids - Exam GENERAL: The patient is alert and oriented x3, not in any acute distress. Well developed, well nourished. HEENT: Pupils are round and equally reacting to light. EOMI. No scleral icterus. No conjunctival pallor. Normocephalic, atraumatic. No pharyngeal erythema. No thyromegaly. CARDIOVASCULAR: S1 and S2 present. No murmurs, rubs, or gallops. PULMONARY: Chest is clear to auscultation, no wheezing or crackles. ABDOMEN: Soft, nontender, nondistended, normoactive bowel sounds. No palpable organomegaly. MUSCULOSKELETAL: No joint swelling or deformity. -EXTREMITIES: No cyanosis, clubbing, or pedal edema. Right leg cellulitis up to the knee including the right foot. Significantly improved NEUROLOGICAL: Gross neurological examination did not reveal any focal deficits. SKIN: No rashes. no petechiae. - Labs CBC & Chem 7: 05/22/22 06:05 05/22/22 06:05 Labs: Abnormal Lab Results - Last 24 Hours (Table) 05/21/22 05/21/22 05/22/22 Range/Units 16:50 20:13 06:05 RBC (4.40-5.60) X 10*6/uL Hgb (13.0-17.0) g/dL Hct (39.6-50.0) % Immature Gran # (0.00-0.04) X 10*3/uL Sodium 131 L (135-145) mmol/L Anion Gap 7.40 L (10.00-18.00) mmol/L Creatinine 2.3 H (0.6-1.5) mg/dL Est GFR (CKD-EPI)AfAm 32.8 L (60.0-200.0) Est GFR (CKD-EPI)NonAf 28.3 L (60.0-200.0) BUN/Creatinine Ratio 10.70 L (12.00-20.00) Ratio Glucose 153 H (70-110) mg/dL POC Glucose (mg/dL) 160 H 240 H (70-110) mg/dL Calcium 7.9 L (8.7-10.3) mg/dL 05/22/22 05/22/22 05/22/22 Range/Units 06:05 07:17 11:10 RBC 3.72 L (4.40-5.60) X 10*6/uL Hgb 10.1 L (13.0-17.0) g/dL Hct 31.1 L (39.6-50.0) % Immature Gran # 0.05 H (0.00-0.04) X 10*3/uL Sodium (135-145) mmol/L Anion Gap (10.00-18.00) mmol/L Creatinine (0.6-1.5) mg/dL Est GFR (CKD-EPI)AfAm (60.0-200.0) Est GFR (CKD-EPI)NonAf (60.0-200.0) BUN/Creatinine Ratio (12.00-20.00) Ratio Glucose (70-110) mg/dL POC Glucose (mg/dL) 154 H 178 H (70-110) mg/dL Calcium (8.7-10.3) mg/dL Microbiology - Last 24 Hours (Table) 05/19/22 12:02 Blood Culture - Preliminary Blood No Growth after 48 hours 05/19/22 12:02 Blood Culture - Preliminary Blood No Growth after 48 hours Assessment and Plan Assessment: Right foot cellulitis acute kidney injury and injury on chronic kidney disease secondary to obstructive uropathy Acute urinary retention, patient was counseled extensively about placing a catheter with straight her Goodwin catheter however he declines. 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 obstructive uropathy Diabetes mellitus with hyperglycemia Hyperlipidemia Hypertension Plan: Risk of renal failure explained for him patient adamant and still refusing Goodwin catheter (risk and benefits are explained to him over several occasions and by several staff members) he is adamant not to cisneros the straight cath or goodwin cath, he says he doese not like it and wants to talk to his urologist first , pt is been evaluated by urologist baton twirler and input is appreciated Continue with Levemir 5 units and linagliptin Continue with IV antibiotic, currently on cefazolin Monitor kidney function and glucose Urologist team and infectious disease team are consulted on the case Follow-up culture results Labs and medication were reviewed.. Continue same treatment. Continue with symptomatic treatment. Resume home medication. Monitor labs and vitals. DVT and GI prophylaxis. Further recommendations as per clinical course of the patient DVT prophylaxis: Subcutaneous heparin GI Prophylaxis: Pepcid PT/OT: Pending Prognosis is guarded
--- NOTE | 2022-05-22 15:50 | P.PN ---
Subjective Progress Note Date: 05/22/22 Principal diagnosis: Right leg cellulitis Patient is a 67-year-old male with a past medical history significant for diabetes mellitus hypertension hyperlipidemia diabetic neuropathy presenting to the ER for evaluation of increasing swelling and redness of the right lower extremity, patient has a history of any trauma or wound or any drainage has been diagnosed with right leg cellulitis. On today's evaluation that is 05/22/2022, the patient remains to be stable, the patient right lower extremity swelling redness and pain has decreased in intensity, patient mentioned that has slight drainage,no chest pain shortness of breath or cough no abdominal pain no diarrhea Objective - Vital Signs Vital signs: Vital Signs Temp 97.6 F 05/22/22 12:08 Pulse 82 05/22/22 12:08 Resp 16 05/22/22 12:08 BP 134/78 05/22/22 12:08 Pulse Ox 95 05/22/22 12:08 FiO2 Intake & Output 05/21/22 05/22/22 05/22/22 17:59 06:59 18:59 Intake Total Balance Intake: Intake, IV Titration Amount ceFAZolin 2 gm In Sodium Chloride 0.9% 50 ml @ 100 mls/hr IVPB Q8HR [facility] Rx# :[id number] Other: Voiding Method Toilet # Voids - Exam GENERAL DESCRIPTION: An elderly male lying in bed in no distress RESPIRATORY SYSTEM: Unlabored breathing , decreased breath sounds at bases HEART: S1 S2 regular rate and rhythm , ABDOMEN: Soft , no tenderness EXTREMITIES: Right leg swelling redness slightly decreased - Labs CBC & Chem 7: 05/22/22 06:05 05/22/22 06:05 Labs: Abnormal Lab Results - Last 24 Hours (Table) 05/21/22 05/21/22 05/22/22 Range/Units 16:50 20:13 06:05 RBC (4.40-5.60) X 10*6/uL Hgb (13.0-17.0) g/dL Hct (39.6-50.0) % Immature Gran # (0.00-0.04) X 10*3/uL Sodium 131 L (135-145) mmol/L Anion Gap 7.40 L (10.00-18.00) mmol/L Creatinine 2.3 H (0.6-1.5) mg/dL Est GFR (CKD-EPI)AfAm 32.8 L (60.0-200.0) Est GFR (CKD-EPI)NonAf 28.3 L (60.0-200.0) BUN/Creatinine Ratio 10.70 L (12.00-20.00) Ratio Glucose 153 H (70-110) mg/dL POC Glucose (mg/dL) 160 H 240 H (70-110) mg/dL Calcium 7.9 L (8.7-10.3) mg/dL 05/22/22 05/22/22 05/22/22 Range/Units 06:05 07:17 11:10 RBC 3.72 L (4.40-5.60) X 10*6/uL Hgb 10.1 L (13.0-17.0) g/dL Hct 31.1 L (39.6-50.0) % Immature Gran # 0.05 H (0.00-0.04) X 10*3/uL Sodium (135-145) mmol/L Anion Gap (10.00-18.00) mmol/L Creatinine (0.6-1.5) mg/dL Est GFR (CKD-EPI)AfAm (60.0-200.0) Est GFR (CKD-EPI)NonAf (60.0-200.0) BUN/Creatinine Ratio (12.00-20.00) Ratio Glucose (70-110) mg/dL POC Glucose (mg/dL) 154 H 178 H (70-110) mg/dL Calcium (8.7-10.3) mg/dL Microbiology - Last 24 Hours (Table) 05/19/22 12:02 Blood Culture - Preliminary Blood No Growth after 72 hours 05/19/22 12:02 Blood Culture - Preliminary Blood No Growth after 48 hours Assessment and Plan (1) Cellulitis of right leg Current Visit: Yes Status: Acute Code(s): L03.115 - CELLULITIS OF RIGHT LOWER LIMB SNOMED Code(s): 651573608 Plan: 1patient presented to hospital with right lower extremity cellulitis in this patient who did have diffuse swelling redness no evidence of any pustules or abscess likely from gram-positive skin claudia clinically doubt MRSA infection. 2patient seemed to have shortness clinical improvement with the cefazolin which will be continued for another 24 hour and if any further drainage the area should be cultured Time with Patient: Less than 30
[2022-05-22 17:07] LABS: Glucose,Whole Blood 201 mg/dL (70-110)
[2022-05-22 20:18] LABS: Glucose,Whole Blood 214 mg/dL (70-110)
[2022-05-22] MEDS: INSULIN DETEMIR (LEVEMIR) 100 UNIT/ML SYR SQ SCH (20:53)
[2022-05-22] MEDS: MELATONIN 3 MG TABLET PO SCH (20:53)
[2022-05-23 07:34] LABS: Glucose,Whole Blood 196 mg/dL (70-110)
[2022-05-23] MEDS: amLODIPine 10 MG TAB PO SCH (08:50)
[2022-05-23] MEDS: ATORVASTATIN 80 MG TAB PO SCH (08:50)
[2022-05-23] MEDS: INSULIN ASPART (NovoLOG) 100 UNIT/ML VIAL SQ SCH ×4 (08:50→20:59)
[2022-05-23] MEDS: FAMOTIDINE 20 MG TAB PO SCH (08:50)
[2022-05-23] MEDS: TAMSULOSIN 0.4 MG CAP.ER.24H PO SCH ×2 (08:50→20:59)
[2022-05-23] MEDS: HEPARIN SODIUM,PORCINE/PF 5,000 UNIT/0.5 ML SYRINGE SQ SCH ×2 (08:50→20:59)
[2022-05-23] MEDS: FENOFIBRATE 160 MG TAB PO SCH (08:50)
[2022-05-23] MEDS: ASPIRIN 81 MG PO SCH (08:50)
[2022-05-23] MEDS: TICAGRELOR 90 MG TAB PO SCH ×2 (08:51→20:59)
[2022-05-23] MEDS: LINAGLIPTIN 5 MG TABLET PO SCH (08:51)
[2022-05-23] MEDS: DAPTOmycin 500 MG in SODIUM CHLORIDE 0.9% 50 ML IVPB SCH (11:23)
[2022-05-23 11:31] LABS: Glucose,Whole Blood 178 mg/dL (70-110)
--- NOTE | 2022-05-23 12:29 | P.PN ---
Subjective Progress Note Date: 05/23/22 Principal diagnosis: Right leg cellulitis Patient is a 67-year-old male with a past medical history significant for diabetes mellitus hypertension hyperlipidemia diabetic neuropathy presenting to the ER for evaluation of increasing swelling and redness of the right lower extremity, patient has a history of any trauma or wound or any drainage has been diagnosed with right leg cellulitis. On today's evaluation that is 05/23/2022, the patient continues to be afebrile, the patient apparently did have slightly more pain to the right lower extremity swelling redness and there was some drainage has been cultured, patient denies having any chest pain shortness of breath or cough no abdominal pain or diarrhea Objective - Vital Signs Vital signs: Vital Signs Temp 98.4 F 05/23/22 07:49 Pulse 87 05/23/22 07:49 Resp 18 05/23/22 07:49 BP 132/76 05/23/22 07:49 Pulse Ox 95 05/23/22 07:49 FiO2 Intake & Output 05/22/22 05/23/22 05/23/22 18:59 06:59 18:59 Intake Total 50 450 240 Balance 50 450 240 Intake: Intake, IV Titration 50 Amount ceFAZolin 2 gm In Sodium 50 Chloride 0.9% 50 ml @ 100 mls/hr IVPB Q8HR [facility] Rx# :[id number] Oral 450 240 Other: Voiding Method Toilet Toilet # Voids 2 - Exam GENERAL DESCRIPTION: An elderly male lying in bed in no distress RESPIRATORY SYSTEM: Unlabored breathing , decreased breath sounds at bases HEART: S1 S2 regular rate and rhythm , ABDOMEN: Soft , no tenderness EXTREMITIES: Right leg is currently wrapped, there is no drainage on the dressing - Labs CBC & Chem 7: 05/22/22 06:05 05/23/22 04:57 Labs: Abnormal Lab Results - Last 24 Hours (Table) 05/22/22 05/22/22 05/22/22 Range/Units 11:10 17:05 20:13 Creatinine (0.66-1.25) mg/dL POC Glucose (mg/dL) 178 H 201 H 214 H (70-110) mg/dL 05/23/22 05/23/22 Range/Units 04:57 07:31 Creatinine 2.11 H (0.66-1.25) mg/dL POC Glucose (mg/dL) 196 H (70-110) mg/dL Microbiology - Last 24 Hours (Table) 05/19/22 12:02 Blood Culture - Preliminary Blood No Growth after 72 hours 05/19/22 12:02 Blood Culture - Preliminary Blood No Growth after 72 hours Assessment and Plan (1) Cellulitis of right leg Current Visit: Yes Status: Acute Code(s): L03.115 - CELLULITIS OF RIGHT LOWER LIMB SNOMED Code(s): 325662745 Plan: 1patient presented to hospital with right lower extremity cellulitis in this patient who did have diffuse swelling redness no evidence of any pustules or abscess likely from gram-positive skin claudia 2patient apparently did have slight worsening and there was some drainage which has been cultured which is currently pending patient did have elevated creatinine high risk of nephrotoxicity from vancomycin we will discontinue cefazolin start the patient on daptomycin while waiting for the cultures to finalize determine his discharge antibiotics Time with Patient: Less than 30
--- NOTE | 2022-05-23 15:49 | P.PN ---
Subjective Progress Note Date: 05/23/22 This is a pleasant 67 years old male with past medical history of Diabetes Mellitus, Hyperlipidemia, Hypertension diabetic neuropathy bilateral feet, past L foot ulcer now healed, Patient presents because of right lower extremity redness and edema of one-day duration patient states that his pain and swelling started yesterday. Currently he has tenderness erythema and swelling of his right foot extending up to the proximal leg. This also warm to touch compared to the left side. Patient has fissure and cracks which looks chronic and the right heel. Patient however denies any chest pain or dyspnea. No coughing. No urinary or GI complaints. No dizziness weakness or numbness. However is complaining of from mild headache. He denies a smoking, drinks alcohol about 2-3 times a week and no illicit drugs. He has little fever on admission 100.7, slightly tachycardic rate No leukocytosis. Risks of CBC, BMP and liver enzymes are unremarkable. Sodium low 127, creatinine elevated at 2.1, last year over the last few months his creatinine was ranging 1.7-1.9 EKG showed normal sinus rhythm at [address]-T changes An ER patient was started on Zosyn and IV vancomycin 05/20/2022 Patient is still complaining of from right leg cellulitis with no significant improvement His antibiotic was adjusted to cefazolin today Creatinine remains the same with no worsening of 2.1. admission compared to baseline of 1.7-1.9 Glucose is still elevated and hemoglobin A1c is 11.4 patient was on exetinide at home as per home medication, I think he needs to be restarted on insulin especially old hemoglobin A1c is 13% as well, patient has poorly controlled diabetes therefore we'll start Levemir 5 units and add clinically 13 in the morning for better control of blood sugar Sodium improved up to 130, we'll check bladder scan 05/21/2022 Patient right leg cellulitis on the showing mild improvement Patient also with evidence of obstructive uropathy with urinary retention more than 900 mL. Risks and benefits are explained for him in details by me this morning including but not limited to the risk of further kidney damage, renal failure and ended up with hemodialysis he verbalized understanding and he still refusing straight Goodwin Catheter. Also Patient Was Advised about the Same by Staff from Last Night and Urologist However He Is Adamant Not to Place Any Catheter to Relieve His Urinary Obstruction. Aorta Started on Flomax Once Daily, Are Going to Increase It to Twice Daily. Patient Says That He Was Taking tresiba Insulin 60 units at bedtime with 20 units with meals but was not adherent to this therapy. On admission he was started Levemir 5 units and inability not currently sugar better controlled 05/22/2022 Patient right leg cellulitis significantly improved today more than 50%. Given pain tenderness is less. He remains on cefazolin Sodium is stable at 1:30. Glucose is better controlled Patient still refusing straight cath or Goodwin catheter placement for his urinary retention. He was placed on Flomax twice daily area his bladder scan was checked this morning showing 200 ml however patient still instructed about the need of straight cath/Goodwin catheter, patient is aware with risk of kidney damage including but not hemodialysis. He wants to follow up with his urologist .. Distal tendon up slowly today 2.3 compared to 2.1 since admission 05/23/2022 Patient is seen and evaluated in follow-up currently has his right lower extremity dressed with a Kerlix and elevated up on the chair. Patient does have some swelling to the top of the right foot and also reports the cellulitic area became ulcerated and is having some drainage and per nursing staff was cultured and sent for specimen. Patient is being followed by infectious disease and transitioning to IV daptomycin while waiting for cultures to finalize. Would r ecommend continuing with local wound care and elevating lower extremity while at rest. Patient is afebrile denies chest pain or shortness of breath. No reports of nausea or vomiting and patient is tolerating diet. Kidney functions elevated although stable at 2.11. Patient is voiding and had some retention over the weekend and Flomax has been resumed. Patient is refusing any Goodwin catheter or straight catheterization. Patient will follow with his urologist in the outpatient setting he reports. Will monitor closely for any further retention or worsening kidney functions. Review of systems: Constitutional: No reports of fatigue, fever, or chills Cardiovascular: No reports of chest pain or palpitations Respiratory: No reports of shortness of breath or cough GI: No reports of nausea, vomiting, or diarrhea : No reports of dysuria or retention Neurovascular: No reports of weakness or numbness, reports some right lower extremity pain with swelling and no drainage All medications have been reviewed Active Medications Acetaminophen (Acetaminophen Tab 325 Mg Tab) 325 mg PO Q6HR PRN PRN Reason: Fever and/ or Pain Last Admin: 05/20/22 17:38 Dose: 325 mg Hydrocodone Bitart/Acetaminophen (Hydrocodone/Apap 5-325mg 1 Each Tab) 1 each PO Q8HR PRN PRN Reason: Pain Last Admin: 05/19/22 23:23 Dose: 1 each Amlodipine Besylate (Amlodipine 10 Mg Tab) 10 mg PO DAILY [facility] [place] Last Admin: 05/23/22 08:50 Dose: 10 mg Aspirin (Aspirin 81 Mg) 81 mg PO DAILY [facility] [place] Last Admin: 05/23/22 08:50 Dose: 81 mg Atorvastatin Calcium (Atorvastatin 80 Mg Tab) 80 mg PO DAILY [facility] [place] Last Admin: 05/23/22 08:50 Dose: 80 mg Dextrose/Water (Dextrose 50% Syringe 50 Ml) 25 ml IVP PER PROTOCOL PRN; Protocol PRN Reason: Hypoglycemia Dextrose/Water (Dextrose 50% Syringe 50 Ml) 50 ml IVP PER PROTOCOL PRN; Protocol PRN Reason: Hypoglycemia Famotidine (Famotidine 20 Mg Tab) 20 mg PO DAILY [facility] [place] Last Admin: 05/23/22 08:50 Dose: 20 mg Fenofibrate (Fenofibrate 160 Mg Tab) 160 mg PO DAILY [facility] [place] Last Admin: 05/23/22 08:50 Dose: 160 mg Heparin Sodium (Porcine) (Heparin Sodium,Porcine/Pf 5,000 Unit/0.5 Ml Syringe) 5,000 unit SQ Q12HR [facility] [place] Last Admin: 05/23/22 08:50 Dose: 5,000 unit Hydralazine HCl (Hydralazine Hcl 25 Mg Tab) 25 mg PO QID PRN PRN Reason: Blood Pressure - High Daptomycin 500 mg/ Sodium (Chloride) 50 mls @ 100 mls/hr IVPB Q24H [facility] [place] Last Admin: 05/23/22 11:23 Dose: 100 mls/hr Insulin Aspart (Insulin Aspart (Novolog) 100 Unit/Ml Vial) 0 unit SQ ACHS [facility] [place]; Protocol Last Admin: 05/23/22 12:55 Dose: 1 unit Insulin Detemir (Insulin Detemir (Levemir) 100 Unit/Ml Syr) 5 unit SQ HS [facility] [place] Last Admin: 05/22/22 20:53 Dose: 5 unit Linagliptin (Linagliptin 5 Mg Tablet) 5 mg PO DAILY [facility] [place] Last Admin: 05/23/22 08:51 Dose: 5 mg Melatonin (Melatonin 3 Mg Tablet) 3 mg PO HS [facility] [place] Last Admin: 05/22/22 20:53 Dose: 3 mg Nitroglycerin (Nitroglycerin Sl Tabs 0.4 Mg Tab) 0.4 mg SUBLINGUAL Q5M PRN PRN Reason: Chest Pain Ondansetron HCl (Ondansetron 4 Mg/2 Ml Vial) 4 mg IVP Q6HR PRN PRN Reason: Nausea And Vomiting Last Admin: 05/20/22 18:03 Dose: 4 mg Tamsulosin HCl (Tamsulosin 0.4 Mg Cap.Er.24h) 0.4 mg PO BID [facility] [place] Last Admin: 05/23/22 08:50 Dose: 0.4 mg Ticagrelor (Ticagrelor 90 Mg Tab) 90 mg PO BID [facility] [place] Last Admin: 05/23/22 08:51 Dose: 90 mg Physical exam: GENERAL: The patient is alert and oriented x3, not in any acute distress. Well developed, well nourished. HEENT: Pupils are round and equally reacting to light. EOMI. No scleral icterus. No conjunctival pallor. Normocephalic, atraumatic. No pharyngeal erythema. No thyromegaly. CARDIOVASCULAR: S1 and S2 present. No murmurs, rubs, or gallops. PULMONARY: Chest is clear to auscultation, no wheezing or crackles. ABDOMEN: Soft, nontender, nondistended, normoactive bowel sounds. No palpable organomegaly. MUSCULOSKELETAL: No joint swelling or deformity. EXTREMITIES: No cyanosis, clubbing, some mild right foot pedal edema. Right leg cellulitis up to the knee including the right foot. Drainage and oozing noted from the ulceration NEUROLOGICAL: Gross neurological examination did not reveal any focal deficits. SKIN: No rashes. no petechiae. Assessment: Right foot cellulitis acute kidney injury and injury on chronic kidney disease secondary to obstructive uropathy Acute urinary retention, patient was counseled extensively about placing a catheter with straight cath or Goodwin catheter however he declines. 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 And obstructive uropathy Diabetes mellitus with hyperglycemia Hyperlipidemia Hypertension Plan: Risk of renal failure explained for him patient adamant and still refusing Goodwin catheter (risk and benefits are explained to him over several occasions and by several staff members) he is adamant not to do the straight cath or goodwin cath, was evaluated by urology here recommending to continue with Flomax and will monitor for any further retention or complications Right lower extremity cellulitis with some ulceration that has opened and draining and a specimen was obtained and cultures are pending. Patient being followed by infectious disease and has transitioned to daptomycin given patient's elevated kidney functions with concerns for toxicity and will be monitored closely and will follow-up with repeat labs Recommend continue with local wound care and elevating lower extremity while at rest Recommend monitoring blood sugars closely and will continue with sliding scale along with Accu-Cheks and current regimen. Patient encouraged to increase activity as tolerated Will await culture report to determine discharge antibiotics Due to multiple complex medical issues, prognosis is guarded The impression and plan of care has been dictated by Fior Voss, Nurse Practitioner as directed. Dr. Keila MD I have performed a history and examination and MDM of this patient, discussed the same with the dictator, and agree with the dictator's assessment and plan as written ,documented as a scribe. Based on total visit time, I have performed more than 50% of the visit. Objective - Vital Signs Vital signs: Vital Signs Temp 98.4 F 05/23/22 07:49 Pulse 87 05/23/22 07:49 Resp 18 05/23/22 07:49 BP 132/76 05/23/22 07:49 Pulse Ox 95 05/23/22 07:49 FiO2 Intake & Output 05/22/22 05/23/22 05/23/22 18:59 06:59 18:59 Intake Total 50 450 240 Balance 50 450 240 Intake: Intake, IV Titration 50 Amount ceFAZolin 2 gm In Sodium 50 Chloride 0.9% 50 ml @ 100 mls/hr IVPB Q8HR [facility] [place] Rx# :[id number] Oral 450 240 Other: Voiding Method Toilet Toilet # Voids 2 - Labs CBC & Chem 7: 05/22/22 06:05 05/23/22 04:57 Labs: Abnormal Lab Results - Last 24 Hours (Table) 05/22/22 05/22/22 05/22/22 Range/Units 11:10 17:05 20:13 Creatinine (0.66-1.25) mg/dL POC Glucose (mg/dL) 178 H 201 H 214 H (70-110) mg/dL 05/23/22 05/23/22 Range/Units 04:57 07:31 Creatinine 2.11 H (0.66-1.25) mg/dL POC Glucose (mg/dL) 196 H (70-110) mg/dL Microbiology - Last 24 Hours (Table) 05/19/22 12:02 Blood Culture - Preliminary Blood No Growth after 72 hours 05/19/22 12:02 Blood Culture - Preliminary Blood No Growth after 72 hours
[2022-05-23 17:08] LABS: Glucose,Whole Blood 229 mg/dL (70-110)
[2022-05-23 20:04] LABS: Glucose,Whole Blood 207 mg/dL (70-110)
[2022-05-23] MEDS: INSULIN DETEMIR (LEVEMIR) 100 UNIT/ML SYR SQ SCH (20:59)
[2022-05-23] MEDS: MELATONIN 3 MG TABLET PO SCH (20:59)
[2022-05-24 07:31] LABS: Glucose,Whole Blood 185 mg/dL (70-110)
[2022-05-24 07:44] VITALS: BP 125/75; PULSE 82; RESP 16; TEMP 97.8
[2022-05-24] MEDS: FAMOTIDINE 20 MG TAB PO SCH (08:53)
[2022-05-24] MEDS: ATORVASTATIN 80 MG TAB PO SCH (08:53)
[2022-05-24] MEDS: amLODIPine 10 MG TAB PO SCH (08:53)
[2022-05-24] MEDS: ASPIRIN 81 MG PO SCH (08:53)
[2022-05-24] MEDS: INSULIN ASPART (NovoLOG) 100 UNIT/ML VIAL SQ SCH ×2 (08:53→13:06)
[2022-05-24] MEDS: TAMSULOSIN 0.4 MG CAP.ER.24H PO SCH (08:53)
[2022-05-24] MEDS: FENOFIBRATE 160 MG TAB PO SCH (08:53)
[2022-05-24] MEDS: HEPARIN SODIUM,PORCINE/PF 5,000 UNIT/0.5 ML SYRINGE SQ SCH (08:53)
[2022-05-24 09:15] LABS: Basophils # (A) 0.04 X 10*3/uL (0.00-0.10); Basophils % (A) 0.7 %; Eosinophils # (A) 0.17 X 10*3/uL (0.04-0.35); Eosinophils % (A) 2.8 %; HCT 31.3 % (39.6-50.0); HGB 10.1 g/dL (13.0-17.0); Immature Grans, Automated 1.8 %; Lymphocytes # (A) 1.39 X 10*3/uL (0.90-5.00); Lymphocytes % (A) 23.3 %; MCH 27.3 pg (27.0-32.0); MCHC 32.3 g/dL (32.0-37.0); MCV 84.6 fL (80.0-97.0); Mean Platelet Volume 10.9 fL (9.5-12.2); Monocytes # (A) 0.65 X 10*3/uL (0.20-1.00); Monocytes % (A) 10.9 %; NRBC Per 100 WBC 0 /100 WBCS (0.0-0.0); Neutrophils # (A) 3.61 X 10*3/uL (1.80-7.70); Neutrophils % (A) 60.5 %; Platelet Count 226 X 10*3/uL (140-440); RDW 12.4 % (11.5-14.5); WBC 5.97 X 10*3/uL (4.50-10.00)
[2022-05-24 09:31] LABS: African American GFR (CKD) 38.9 (60.0-200.0); Anion Gap 9.4 mmol/L (10.00-18.00); BUN/Creat Ratio 12.35 Ratio (12.00-20.00); Blood Urea Nitrogen 24.7 mg/dL (9.0-27.0); Calcium 7.7 mg/dL (8.7-10.3); Carbon Dioxide 20.6 mmol/L (20.0-27.5); Non-African American GFR(CKD) 33.5 (60.0-200.0); Potassium 3.8 mmol/L (3.5-5.5)
[2022-05-24] MEDS: TICAGRELOR 90 MG TAB PO SCH (10:26)
[2022-05-24] MEDS: LINAGLIPTIN 5 MG TABLET PO SCH (10:26)
[2022-05-24] MEDS: DAPTOmycin 500 MG in SODIUM CHLORIDE 0.9% 50 ML IVPB SCH (11:42)
[2022-05-24 12:07] LABS: Glucose,Whole Blood 191 mg/dL (70-110)
--- NOTE | 2022-05-24 12:26 | P.PN ---
Subjective Progress Note Date: 05/24/22 Principal diagnosis: Right leg cellulitis Patient is a 67-year-old male with a past medical history significant for diabetes mellitus hypertension hyperlipidemia diabetic neuropathy presenting to the ER for evaluation of increasing swelling and redness of the right lower extremity, patient has a history of any trauma or wound or any drainage has been diagnosed with right leg cellulitis. On today's evaluation that is 05/24/2022, the patient denies any fever or any ch ills, the patient pain to the right lower extremity has been about 2 out of 10,, right leg swelling redness has been about the same and no further drainage patient denies having any chest pain shortness of breath or cough no abdominal pain or diarrhea, patient has been insisting on going home Objective - Vital Signs Vital signs: Vital Signs Temp 97.8 F 05/24/22 07:43 Pulse 82 05/24/22 07:43 Resp 16 05/24/22 08:53 BP 125/75 05/24/22 07:43 Pulse Ox 98 05/24/22 07:43 FiO2 Intake & Output 05/23/22 05/24/22 05/24/22 18:59 06:59 18:59 Intake Total 358 500 Balance 358 500 Intake: Oral 358 500 Other: Voiding Method Toilet Toilet Toilet # Voids 3 2 - Exam GENERAL DESCRIPTION: An elderly male lying in bed in no distress RESPIRATORY SYSTEM: Unlabored breathing , decreased breath sounds at bases HEART: S1 S2 regular rate and rhythm , ABDOMEN: Soft , no tenderness EXTREMITIES: Right leg swelling and redness about the same and no drainage was noticed - Labs CBC & Chem 7: 05/24/22 04:25 05/24/22 04:25 Labs: Abnormal Lab Results - Last 24 Hours (Table) 05/23/22 05/23/22 05/23/22 Range/Units 11:29 17:06 20:02 RBC (4.40-5.60) X 10*6/uL Hgb (13.0-17.0) g/dL Hct (39.6-50.0) % Immature Gran # (0.00-0.04) X 10*3/uL Sodium (135-145) mmol/L Anion Gap (10.00-18.00) mmol/L Creatinine (0.6-1.5) mg/dL Est GFR (CKD-EPI)AfAm (60.0-200.0) Est GFR (CKD-EPI)NonAf (60.0-200.0) Glucose (70-110) mg/dL POC Glucose (mg/dL) 178 H 229 H 207 H (70-110) mg/dL Calcium (8.7-10.3) mg/dL 05/24/22 05/24/22 05/24/22 Range/Units 04:25 04:25 07:30 RBC 3.70 L (4.40-5.60) X 10*6/uL Hgb 10.1 L (13.0-17.0) g/dL Hct 31.3 L (39.6-50.0) % Immature Gran # 0.11 H (0.00-0.04) X 10*3/uL Sodium 133 L (135-145) mmol/L Anion Gap 9.40 L (10.00-18.00) mmol/L Creatinine 2.0 H (0.6-1.5) mg/dL Est GFR (CKD-EPI)AfAm 38.9 L (60.0-200.0) Est GFR (CKD-EPI)NonAf 33.5 L (60.0-200.0) Glucose 178 H (70-110) mg/dL POC Glucose (mg/dL) 185 H (70-110) mg/dL Calcium 7.7 L (8.7-10.3) mg/dL Microbiology - Last 24 Hours (Table) 05/23/22 09:05 Gram Stain - Preliminary Leg - Right Wound Culture - Preliminary 05/19/22 12:02 Blood Culture - Preliminary Blood No Growth after 96 hours 05/19/22 12:02 Blood Culture - Preliminary Blood No Growth after 96 hours Assessment and Plan (1) Cellulitis of right leg Current Visit: Yes Status: Acute Code(s): L03.115 - CELLULITIS OF RIGHT LOWER LIMB SNOMED Code(s): 355436105 Plan: 1patient with right lower extremity cellulitis and a possible small abscess did not respond well to cefazolin and did have some drainage has been culture and the cultures are currently pending however the patient has been insisting on going home patient antibiotics was switched to daptomycin yesterday he should receive a dose today before discharge and afterwards would recommend doxycycline 100 mg twice a day for 10 days with and TRADE FACILITATOR FOR admitting team to follow-up on the cultures and will adjust antibiotic if needed and close outpatient follow-up Time with Patient: Less than 30
== END 2022-05-24 13:09 | disposition home or self-care (01) | DRG 603 ==
LOC: EC 11:16 → 5NMEDONC 14:26 → OBSVTOIN 05-23 10:01
PROVIDERS: ADMIT Hospitalist; ATTEND Hospitalist
DX: L03.115 Cellulitis of right lower limb (principal); E87.1 Hypo-osmolality and hyponatremia; E11.22 Type 2 diabetes mellitus with diabetic chronic kidney disease; E11.42 Type 2 diabetes mellitus with diabetic polyneuropathy; E11.21 Type 2 diabetes mellitus with diabetic nephropathy; E78.5 Hyperlipidemia, unspecified; G51.0 Bell's palsy; E86.1 Hypovolemia; N18.30 Chronic kidney disease, stage 3 unspecified; R00.0 Tachycardia, unspecified; R33.8 Other retention of urine; Z79.02 Long term (current) use of antithrombotics/antiplatelets; Z79.82 Long term (current) use of aspirin; Z79.899 Other long term (current) drug therapy; Z79.4 Long term (current) use of insulin; Z79.84 Long term (current) use of oral hypoglycemic drugs; Z85.51 Personal history of malignant neoplasm of bladder; Z85.820 Personal history of malignant melanoma of skin; Z82.3 Family history of stroke; Z86.16 Personal history of COVID-19; Z87.19 Personal history of other diseases of the digestive system
CPT/HCPCS: 36415; 80048; 80053; 81001; 82565; 83036; 83605; 85025; 85610; 85730; 87040; 87070; 87205; 93005; 94760; 96365; 96366; 96367; 99285

== ENCOUNTER → 2022-09-19 | Outpatient (CLI) | payer MEDICARE, OTHER ==
[2022-09-19 16:05] LABS: BUN/Creat Ratio 9.44 Ratio (12.00-20.00); Blood Urea Nitrogen 23.6 mg/dL (9.0-27.0); Calcium 8.3 mg/dL (8.7-10.3); Carbon Dioxide 22.5 mmol/L (21.6-31.8); Chloride 105 mmol/L (96-109); Glucose 104 mg/dL (70-110); Magnesium 1.8 mg/dL (1.5-2.4); Potassium 3.3 mmol/L (3.5-5.5); Sodium 137 mmol/L (135-145)
[2022-09-19 21:01] LABS: Appearance,Urine Clear (Clear); Bilirubin,Urine Negative (Negative); Blood,Urine Moderate (Negative); Color,Urine Yellow (Yellow); Ketones,Urine Negative (Negative); Nitrite,Urine Negative (Negative); PH, Urine 6.5; Urobilinogen,Urine 0.2 E.U./DL
[2022-09-19 21:15] LABS: Bacteria,Urine None Seen (None Seen)
== END | disposition home or self-care (01) ==
LOC: LABWHC1 10:43
PROVIDERS: ATTEND Internal Medicine
DX: N39.0 Urinary tract infection, site not specified (principal); N18.32 Chronic kidney disease, stage 3b
CPT/HCPCS: 36415; 80048; 81001; 83735; 84133

== ENCOUNTER → 2022-09-21 | Outpatient (CLI) | payer MEDICARE, OTHER ==
--- NOTE | 2022-09-21 14:21 | US ---
EXAMINATION TYPE: US arterial LE multi level DATE OF EXAM: 09/21/2022 2:01 PM CLINICAL INDICATION: Male, 67 years old with history of I87.2 mike insufficiency; Non-healing wound right medial ankle x 1 month History of: Smoker: No Hypertension: Yes Diabetic: Yes Hyperlipidemia: Yes TIA/CVA: Yes Previous Vascular Surgery: Yes CAD: Yes MN: Yes Vascular Ulcers: Yes Claudication: No Gangrene: No Doppler Waveforms: Right: Multiphasic Left: Multiphasic Right Brachial Pressure: 162 Left Brachial Pressure: 171 Ankle-Brachial Indices: Right: 1.1 Left: 1.1 (Vessel hardening > 1.4; Normal 0.9 - 1.4, Moderate 0.7 - 0.9, Severe 0.5-0.7) Toe Brachial Indices: Right: 0.74 Left: 0.98 IMPRESSION: 1. Ankle brachial indices within normal limits bilaterally. 2. There is evidence for moderate peripheral vascular disease with the right toe brachial indices
--- NOTE | 2022-09-21 14:22 | US ---
EXAMINATION TYPE: US venous doppler duplex LE RT DATE OF EXAM: 09/21/2022 1:48 PM COMPARISON: 05/19/2022 CLINICAL INDICATION: Male, 67 years old with history of I87.2 mike insufficiency; Insufficiency, non -healing wound right lower leg x 1 month SIDE PERFORMED: Right TECHNIQUE: The lower extremity deep venous system is examined utilizing real time linear array sonog dann with graded compression, doppler sonography and color-flow sonography. VESSELS IMAGED: Common Femoral Vein Deep Femoral Vein Greater Saphenous Vein * Femoral Vein Popliteal Vein Small Saphenous Vein * Proximal Calf Veins (* superficial vessels) Right Leg: Negative for DVT, reflux noted within right GSV Grayscale, color doppler, spectral doppler imaging performed of the deep veins of the lower extremiti es. There is normal flow, compressibility, vascular waveforms. IMPRESSION: 1. No evidence for deep vein thrombosis of the right lower extremity. 2. Greater saphenous vein venous reflux present.
== END | disposition home or self-care (01) ==
LOC: RADUSWWP 12:47
PROVIDERS: ATTEND Family Medicine
DX: I87.2 Venous insufficiency (chronic) (peripheral) (principal); I73.9 Peripheral vascular disease, unspecified
CPT/HCPCS: 93922

== ENCOUNTER 2022-10-21 20:25 | Observation (INO) | payer MEDICARE, OTHER ==
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
[2022-10-21 21:00] LABS: Basophils % (A) 0 %; Eosinophils % (A) 0 %; HCT 37.9 % (39.0-53.0); HGB 12.9 gm/dL (13.0-17.5); Lymphocytes # (A) 0.7 k/uL (1.0-4.8); Lymphocytes % (A) 9 %; MCV 79.2 fL (80.0-100.0); Mean Platelet Volume 7.8; Monocytes # (A) 0.5 k/uL (0-1.0); Monocytes % (A) 7 %; Neutrophils # (A) 6.6 k/uL (1.3-7.7); Neutrophils % (A) 83 %; Platelet Count 170 k/uL (150-450); RBC 4.78 m/uL (4.30-5.90); RDW 14.7 % (11.5-15.5)
[2022-10-21 21:15] LABS: INR 1.1 (<1.2); Prothrombin Time 11.6 sec (9.0-12.0)
[2022-10-21 21:18] LABS: Partial Thromboplastin Time 21.8 sec (22.0-30.0)
[2022-10-21 21:19] LABS: ALT 21 U/L (4-49); AST 26 U/L (17-59); African American GFR (CKD) 22 (>60 ml/min/1.73 sqM); Albumin 2.5 g/dL (3.5-5.0); Alkaline Phosphatase 82 U/L (38-126); Anion Gap 10 mmol/L; Blood Urea Nitrogen 38 mg/dL (9-20); Calcium 7.8 mg/dL (8.4-10.2); Carbon Dioxide 16 mmol/L (22-30); Chloride 108 mmol/L (98-107); Glucose 172 mg/dL (74-99); Magnesium 1.7 mg/dL (1.6-2.3); Non-African American GFR(CKD) 19 (>60 ml/min/1.73 sqM); Phosphorus 3.4 mg/dL (2.5-4.5); Potassium 2.9 mmol/L (3.5-5.1); Sodium 134 mmol/L (137-145); Total Bilirubin 0.6 mg/dL (0.2-1.3); Total Protein 6.2 g/dL (6.3-8.2)
[2022-10-21 21:27] LABS: NT-Pro-B-Type Natriuretic Pept 10800 pg/mL
--- NOTE | 2022-10-21 21:46 | XR ---
EXAMINATION TYPE: XR chest 1V portable DATE OF EXAM: 10/21/2022 Comparison: 09/30/2022 Clinical History: 67 year-old male chest pain Findings: Patient is obliqued towards the left. Asymmetric elevation left hemidiaphragm is similar. Patchy medi al left basilar retrocardiac opacity persists. Heart order line in size. No pleural effusion. Impression: 1. Limited by oblique positioning. There seems to be ongoing asymmetric elevation left hemidiaphragm. If concern for hemidiaphragmatic paralysis, a fluoroscopic sniff test could be considered. 2. Patchy retrocardiac/left basilar atelectasis versus infiltrate.
[2022-10-21] MEDS ORDERED: MORPHINE SULFATE 4 MG/ML SYRINGE IV PRN (22:59)
[2022-10-21] MEDS ORDERED: NALOXONE 0.4 MG/ML 1 ML VIAL IV PRN (22:59)
[2022-10-21] MEDS ORDERED: AZITHROMYCIN 500 MG in SODIUM CHLORIDE 0.9% 250 ML IVPB STA (23:09)
[2022-10-21] MEDS: SODIUM CHLORIDE 0.9% 1,000 ML IV SCH (23:33)
[2022-10-22] MEDS: ONDANSETRON 4 MG/2 ML VIAL IVP PRN ×2 (00:32→14:51)
[2022-10-22] MEDS ORDERED: ACETAMINOPHEN TAB 325 MG TAB PO PRN (05:45)
[2022-10-22 05:50] LABS: Glucose,Whole Blood 165 mg/dL (70-110)
[2022-10-22 06:59] LABS: Basophils % (A) 0 %; Eosinophils % (A) 0 %; HCT 35.9 % (39.0-53.0); HGB 12.3 gm/dL (13.0-17.5); Lymphocytes % (A) 12 %; MCH 27.5 pg (25.0-35.0); MCHC 34.3 g/dL (31.0-37.0); MCV 80.1 fL (80.0-100.0); Mean Platelet Volume 8.2; Monocytes # (A) 0.5 k/uL (0-1.0); Monocytes % (A) 7 %; Neutrophils # (A) 6.4 k/uL (1.3-7.7); Neutrophils % (A) 80 %; Platelet Count 138 k/uL (150-450); RBC 4.48 m/uL (4.30-5.90); RDW 14.5 % (11.5-15.5)
[2022-10-22 07:12] LABS: ALT 19 U/L (4-49); AST 23 U/L (17-59); African American GFR (CKD) 22 (>60 ml/min/1.73 sqM); Albumin 2.4 g/dL (3.5-5.0); Alkaline Phosphatase 73 U/L (38-126); Anion Gap 8 mmol/L; Blood Urea Nitrogen 36 mg/dL (9-20); Calcium 7.6 mg/dL (8.4-10.2); Carbon Dioxide 19 mmol/L (22-30); Chloride 105 mmol/L (98-107); Glucose 157 mg/dL (74-99); Magnesium 1.7 mg/dL (1.6-2.3); Non-African American GFR(CKD) 19 (>60 ml/min/1.73 sqM); Potassium 2.8 mmol/L (3.5-5.1); Sodium 132 mmol/L (137-145); Total Bilirubin 0.5 mg/dL (0.2-1.3); Total Protein 5.9 g/dL (6.3-8.2)
[2022-10-22 11:20] LABS: Glucose,Whole Blood 184 mg/dL (70-110)
[2022-10-22] MEDS: ATORVASTATIN 80 MG TAB PO SCH (11:53)
[2022-10-22] MEDS: POTASSIUM CHLORIDE ER 20 MEQ TAB.ER PO SCH ×2 (12:16→13:05)
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
[2022-10-22 16:44] LABS: Glucose,Whole Blood 176 mg/dL (70-110)
[2022-10-22 21:15] LABS: Glucose,Whole Blood 152 mg/dL (70-110)
[2022-10-22] MEDS: TAMSULOSIN 0.4 MG CAP.ER.24H PO SCH (21:44)
[2022-10-22] MEDS: TICAGRELOR 90 MG TAB PO SCH (21:44)
[2022-10-22] MEDS: METOPROLOL SUCCINATE (ER) 50 MG TAB.ER.24H PO SCH (21:44)
[2022-10-22] MEDS: SODIUM CHLORIDE 0.9% 1,000 ML IV SCH (23:51)
[2022-10-23] MEDS: AZITHROMYCIN 500 MG in SODIUM CHLORIDE 0.9% 250 ML IVPB SCH ×2 (00:24→23:42)
[2022-10-23] MEDS: ONDANSETRON 4 MG/2 ML VIAL IVP PRN ×2 (00:49→16:20)
[2022-10-23] MEDS: MELATONIN 3 MG TABLET PO SCH ×2 (02:13→21:18)
[2022-10-23 05:52] LABS: Glucose,Whole Blood 148 mg/dL (70-110)
[2022-10-23 08:38] LABS: HCT 37.7 % (39.0-53.0); HGB 12.4 gm/dL (13.0-17.5); MCH 26.9 pg (25.0-35.0); MCHC 32.8 g/dL (31.0-37.0); Mean Platelet Volume 8.6; Platelet Count 145 k/uL (150-450); RDW 14.6 % (11.5-15.5); WBC 9.1 k/uL (3.8-10.6)
[2022-10-23 08:52] LABS: African American GFR (CKD) 19 (>60 ml/min/1.73 sqM); Anion Gap 7 mmol/L; Blood Urea Nitrogen 40 mg/dL (9-20); Calcium 7.4 mg/dL (8.4-10.2); Carbon Dioxide 19 mmol/L (22-30); Chloride 105 mmol/L (98-107); Glucose 132 mg/dL (74-99); Non-African American GFR(CKD) 17 (>60 ml/min/1.73 sqM); Potassium 3.4 mmol/L (3.5-5.1); Sodium 131 mmol/L (137-145)
[2022-10-23] MEDS: ATORVASTATIN 80 MG TAB PO SCH (09:13)
[2022-10-23] MEDS: TAMSULOSIN 0.4 MG CAP.ER.24H PO SCH ×2 (09:13→21:18)
[2022-10-23] MEDS: METOPROLOL SUCCINATE (ER) 50 MG TAB.ER.24H PO SCH (09:13)
[2022-10-23] MEDS: TICAGRELOR 90 MG TAB PO SCH ×2 (09:13→21:18)
[2022-10-23] MEDS: FENOFIBRATE 160 MG TAB PO SCH (09:13)
[2022-10-23] MEDS: ASPIRIN 81 MG PO SCH (09:13)
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
[2022-10-23 11:55] LABS: Glucose,Whole Blood 148 mg/dL (70-110)
[2022-10-23] MEDS ORDERED: POTASSIUM CHLORIDE ER 20 MEQ TAB.ER PO STA (12:53)
--- NOTE | 2022-10-23 12:53 | P.PN ---
Subjective Patient is seen for follow-up for chronic kidney disease and acute kidney injury. This morning patient states he is feeling much better. Maintained on antibiotics for pneumonia Serum creatinine slightly increased at 3.5 today. [place] patient continues to have good urine output in his Argueta bag. Objective - Vital Signs Vital signs: Vital Signs Temp 98.0 F 10/23/22 07:31 Pulse 68 10/23/22 09:16 Resp 18 10/23/22 07:31 BP 130/76 10/23/22 09:16 Pulse Ox 98 10/23/22 07:31 FiO2 Intake & Output 10/22/22 10/23/22 10/23/22 18:59 06:59 18:59 Output Total 400 400 Balance -400 -400 Output: Urine 400 400 Other: Voiding Method Indwelling Catheter Indwelling Catheter # Voids 2 # Bowel Movements 1 - Exam Patient is awake, comfortable Alert oriented 3 Examination of the heart S1 and S2 Examination of the lungs bilateral breath sounds are heard Abdomen is soft nontender Examination of lower extremities shows no significant edema [employer] exam grossly intact Argueta catheter in place. - Labs CBC & Chem 7: 10/23/22 07:49 10/23/22 07:49 Labs: Abnormal Lab Results - Last 24 Hours (Table) 10/22/22 10/22/22 10/23/22 Range/Units 16:43 21:12 05:50 Hgb (13.0-17.5) gm/dL Hct (39.0-53.0) % Plt Count (150-450) k/uL Sodium (137-145) mmol/L Potassium (3.5-5.1) mmol/L Carbon Dioxide (22-30) mmol/L BUN (9-20) mg/dL Creatinine (0.66-1.25) mg/dL Glucose (74-99) mg/dL POC Glucose (mg/dL) 176 H 152 H 148 H (70-110) mg/dL Calcium (8.4-10.2) mg/dL 10/23/22 10/23/22 10/23/22 Range/Units 07:49 07:49 11:54 Hgb 12.4 L (13.0-17.5) gm/dL Hct 37.7 L (39.0-53.0) % Plt Count 145 L (150-450) k/uL Sodium 131 L (137-145) mmol/L Potassium 3.4 L (3.5-5.1) mmol/L Carbon Dioxide 19 L (22-30) mmol/L BUN 40 H (9-20) mg/dL Creatinine 3.54 H (0.66-1.25) mg/dL Glucose 132 H (74-99) mg/dL POC Glucose (mg/dL) 148 H (70-110) mg/dL Calcium 7.4 L (8.4-10.2) mg/dL Assessment and Plan Assessment: 1. 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 Currently with indwelling Argueta catheter which was placed on 10/03/2022. Serum creatinine staying at about 3-3.1 mg/dL which is slightly higher than his previous baseline of about 2-2.5 mg/dL. 2. Hypokalemia secondary to decreased intake as well as nausea and vomiting. Diuretics were held on discharge from last admission. 3. Obstructive uropathy with urine retention currently with indwelling Argueta catheter placed on 10/03/2022 4. History of bladder cancer being followed by urology 5. Chronic systolic CHF with ejection fraction 35-40% with moderate mitral regurgitation 6. Recent right lower extremity cellulitis status post antibiotics. 7. Fever most likely's secondary to pneumonia. Rule out UTI Plan: Continue empiric antibiotics Add gentle IV hydration Repeat labs in a.m. Continue with Argueta catheter.
--- NOTE | 2022-10-23 12:57 | P.PN ---
Subjective Progress Note Date: 10/23/22 patient is a 67-year-old gentleman with past medical history significant for hypertension, hyperlipidemia who presented to the ER because of complaint of not feeling well for the last few days. Patient stated 3 days back he started having nausea and vomiting, patient was unable to keep any food down. Patient started complaining of generalized weakness, unable to get himself out of the bed. Denies any fever or chills. Denies any shortness of breath. Denies any chest pain. Denies any lightheadedness or dizziness. Because of the symptoms, patient came to the ER Initial lab work done in the ER showed WBC 8, hemoglobin 12.9, platelet count 170, sodium 134, potassium 2.9, BUN 38, creatinine 3.19, troponin 0.040, proBNP [id number] Chest x-ray done in the ER showed patchy retrocardiac/left basilar atelectasis versus infiltrate Patient admitted to medicine service 10/23. Patient seen and examined. States nausea and vomiting has improved. No further episodes of diarrhea. PotassiumThis morning is 3.4 REVIEW OF SYSTEMS: CONSTITUTIONAL: No fever, no malaise,. CARDIOVASCULAR: No chest pain, no palpitations, no syncope. PULMONARY: No shortness of breath, no cough, GASTROINTESTINAL: No diarrhea, no nausea, no vomiting, no abdominal pain. NEUROLOGICAL: No headaches, no weakness, PHYSICAL EXAMINATION: GENERAL: The patient is alert and oriented x3, not in any acute distress. Well developed, well nourished. HEENT: Pupils are round and equally reacting to light. EOMI. No scleral icterus. No conjunctival pallor. Normocephalic, atraumatic. No pharyngeal erythema. No thyromegaly. CARDIOVASCULAR: S1 and S2 present. No murmurs, rubs, or gallops. PULMONARY: Chest is clear to auscultation, no wheezing or crackles. ABDOMEN: Soft, nontender, nondistended, normoactive bowel sounds. No palpable organomegaly. MUSCULOSKELETAL: No joint swelling or deformity. EXTREMITIES: No cyanosis, clubbing, or pedal edema. NEUROLOGICAL: Gross neurological examination did not reveal any focal deficits. SKIN: No rashes. Assessment and plan Acute on chronic kidney disease Bacterial pneumonia Hypokalemia Elevated troponin Hypertension Hyperlipidemia History of bladder cancer Non-anion gap metabolic acidosis Monitor vital signs Monitor CBC Monitor CMP Continue telemetry monitoring Continue IV Rocephin and azithromycin continue IV fluids Follow-up in nephrology recommendations Continue home meds Labs and medication were reviewed.. Continue same treatment. Continue with symptomatic treatment. Resume home medication. Monitor labs and vitals. DVT and GI prophylaxis. Further recommendations as per clinical course of the patient Dictation was produced using [employer] dictation software. please excuse any grammatical, word or spelling errors. Objective - Vital Signs Vital signs: Vital Signs Temp 98.0 F 10/23/22 07:31 Pulse 68 10/23/22 09:16 Resp 18 10/23/22 07:31 BP 130/76 10/23/22 09:16 Pulse Ox 98 10/23/22 07:31 FiO2 Intake & Output 10/22/22 10/23/22 10/23/22 18:59 06:59 18:59 Output Total 400 400 Balance -400 -400 Output: Urine 400 400 Other: Voiding Method Indwelling Catheter Indwelling Catheter # Voids 2 # Bowel Movements 1 - Labs CBC & Chem 7: 10/23/22 07:49 10/23/22 07:49 Labs: Abnormal Lab Results - Last 24 Hours (Table) 10/22/22 10/22/22 10/23/22 Range/Units 16:43 21:12 05:50 Hgb (13.0-17.5) gm/dL Hct (39.0-53.0) % Plt Count (150-450) k/uL Sodium (137-145) mmol/L Potassium (3.5-5.1) mmol/L Carbon Dioxide (22-30) mmol/L BUN (9-20) mg/dL Creatinine (0.66-1.25) mg/dL Glucose (74-99) mg/dL POC Glucose (mg/dL) 176 H 152 H 148 H (70-110) mg/dL Calcium (8.4-10.2) mg/dL 10/23/22 10/23/22 10/23/22 Range/Units 07:49 07:49 11:54 Hgb 12.4 L (13.0-17.5) gm/dL Hct 37.7 L (39.0-53.0) % Plt Count 145 L (150-450) k/uL Sodium 131 L (137-145) mmol/L Potassium 3.4 L (3.5-5.1) mmol/L Carbon Dioxide 19 L (22-30) mmol/L BUN 40 H (9-20) mg/dL Creatinine 3.54 H (0.66-1.25) mg/dL Glucose 132 H (74-99) mg/dL POC Glucose (mg/dL) 148 H (70-110) mg/dL Calcium 7.4 L (8.4-10.2) mg/dL
[2022-10-23 16:57] LABS: Glucose,Whole Blood 133 mg/dL (70-110)
[2022-10-23] MEDS: carvediloL 6.25 MG TAB PO SCH (17:25)
[2022-10-23 20:10] LABS: Glucose,Whole Blood 136 mg/dL (70-110)
[2022-10-23] MEDS ORDERED: MELATONIN 3 MG TABLET PO SCH (21:00)
[2022-10-24] MEDS: ONDANSETRON 4 MG/2 ML VIAL IVP PRN (00:39)
[2022-10-24] MEDS: SODIUM CHLORIDE 0.9% 1,000 ML IV SCH ×3 (01:43→23:01)
[2022-10-24 05:30] LABS: Glucose,Whole Blood 110 mg/dL (70-110)
[2022-10-24] MEDS: carvediloL 6.25 MG TAB PO SCH ×2 (06:49→16:45)
[2022-10-24] MEDS: TAMSULOSIN 0.4 MG CAP.ER.24H PO SCH ×2 (08:05→20:16)
[2022-10-24] MEDS: ATORVASTATIN 80 MG TAB PO SCH (08:05)
[2022-10-24] MEDS: FENOFIBRATE 160 MG TAB PO SCH (08:05)
[2022-10-24] MEDS: TICAGRELOR 90 MG TAB PO SCH ×2 (08:05→20:16)
[2022-10-24] MEDS: ASPIRIN 81 MG PO SCH (08:05)
[2022-10-24 08:20] LABS: HCT 33.9 % (39.6-50.0); HGB 10.8 d/dL (13.0-17.0); MCHC 31.9 d/dL (32.0-37.0); MCV 81.7 FL (80.0-97.0); Mean Platelet Volume 11.5 FL (9.5-12.2); NRBC Per 100 WBC 0 X 10*3/uL (0.00-0.01); Platelet Count 157 X 10*3/uL (140-440); RBC 4.15 X 10*6/uL (4.40-5.60); RDW 14.3 % (11.5-14.5); WBC 7.34 X 10*3/uL (4.50-10.00)
[2022-10-24 08:37] LABS: ALT 16 U/L (10-49); AST 18 U/L (14-35); Albumin 2.3 d/dL (3.8-4.9); Albumin/Globulin Ratio 0.72 Ratio (1.60-3.17); Alkaline Phosphatase 75 U/L (41-126); BUN/Creat Ratio 12.51 Ratio (12.00-20.00); Blood Urea Nitrogen 46.3 mg/dL (9.0-27.0); Calcium 7.6 mg/dL (8.7-10.3); Carbon Dioxide 17.5 mmol/L (21.6-31.8); Chloride 105 mmol/L (96-109); Globulin 3.2 d/dL (1.6-3.3); Glucose 107 mg/dL (70-110); Potassium 3.2 mmol/L (3.5-5.5); Sodium 132 mmol/L (135-145); Total Bilirubin 0.2 mg/dL (0.3-1.2); Total Protein 5.5 d/dL (6.2-8.2)
--- NOTE | 2022-10-24 10:45 | P.PN ---
Subjective HISTORY OF PRESENT ILLNESS: This is a 67-year-old male who follows in the office with Dr. Stovall. Patient states he presented to the hospital for chief complaint of generalized weakness and feeling very tired. Patient was found to have acute kidney injury on top of his chronic kidney disease. He is being followed by nephrology and receiving gentle IV fluid hydration. The patient denies any chest pain or pressure this m orning. He denies shortness of breath. Vital signs are stable. Creatinine this morning 3.7, up from 3.54 yesterday. Echocardiogram completed last month revealed ejection fraction 35-40% with moderate mitral regurgitation PHYSICAL EXAM: VITAL SIGNS: Reviewed. GENERAL: Well-developed in no acute distress. NECK: Supple. No JVD or thyromegaly LUNGS: Respirations even and unlabored. Lungs essentially clear to auscultation bilaterally. HEART: Regular rate and rhythm. S1 and S2 heard. Systolic murmur noted. EXTREMITIES: Normal range of motion. No clubbing or cyanosis. Peripheral pulses intact. No lower extremity edema noted.. ASSESSMENT: Generalized weakness and feeling tired Acute kidney injury Chronic kidney disease Hypertension Hyperlipidemia Coronary artery disease with stenting to the LAD, December 2021 Moderate mitral regurgitation PLAN: Continue current cardiac medications Lisinopril and Aldactone remain on hold secondary to acute kidney injury Nephrology following. Continue IV fluids per nephrology. Monitor kidney function. Continue dual antiplatelet therapy with Aspirin and Brilinta Patient is currently stable from a cardiac perspective Nurse practitioner note has been reviewed by physician. Signing provider agrees with the documented findings, assessment, and plan of care. Objective - Vital Signs Vital signs: Vital Signs Temp 97.8 F 10/24/22 08:32 Pulse 83 10/24/22 08:32 Resp 18 10/24/22 08:32 BP 124/77 10/24/22 08:32 Pulse Ox 97 10/24/22 09:28 FiO2 Intake & Output 10/23/22 10/24/22 10/24/22 18:59 06:59 18:59 Output Total 850 800 Balance -850 -800 Output: Urine 850 800 Other: Voiding Method Indwelling Catheter Indwelling Catheter # Voids 3 # Bowel Movements 3 - Labs CBC & Chem 7: 10/24/22 05:59 10/24/22 05:59 Labs: Abnormal Lab Results - Last 24 Hours (Table) 10/23/22 10/23/2223 Range/Units 11:54 16:55 20:09 RBC (4.40-5.60) X 10*6/uL Hgb (13.0-17.0) d/dL Hct (39.6-50.0) % MCH (27.0-32.0) pg MCHC (32.0-37.0) d/dL Sodium (135-145) mmol/L Potassium (3.5-5.5) mmol/L Carbon Dioxide (21.6-31.8) mmol/L BUN (9.0-27.0) mg/dL Creatinine (0.6-1.5) mg/dL Est GFR (CKD-EPI) (>=60) POC Glucose (mg/dL) 148 H 133 H 136 H (70-110) mg/dL Calcium (8.7-10.3) mg/dL Total Bilirubin (0.3-1.2) mg/dL Total Protein (6.2-8.2) d/dL Albumin (3.8-4.9) d/dL Albumin/Globulin Ratio (1.60-3.17) Ratio 10/24/22 10/24/22 Range/Units 05:59 05:59 RBC 4.15 L (4.40-5.60) X 10*6/uL Hgb 10.8 L (13.0-17.0) d/dL Hct 33.9 L (39.6-50.0) % MCH 26.0 L (27.0-32.0) pg MCHC 31.9 L (32.0-37.0) d/dL Sodium 132 L (135-145) mmol/L Potassium 3.2 L (3.5-5.5) mmol/L Carbon Dioxide 17.5 L (21.6-31.8) mmol/L BUN 46.3 H (9.0-27.0) mg/dL Creatinine 3.7 H (0.6-1.5) mg/dL Est GFR (CKD-EPI) 17 L (>=60) POC Glucose (mg/dL) (70-110) mg/dL Calcium 7.6 L (8.7-10.3) mg/dL Total Bilirubin 0.2 L (0.3-1.2) mg/dL Total Protein 5.5 L (6.2-8.2) d/dL Albumin 2.3 L (3.8-4.9) d/dL Albumin/Globulin Ratio 0.72 L (1.60-3.17) Ratio Microbiology - Last 24 Hours (Table) 10/21/22 23:30 Blood Culture - Preliminary Blood 10/21/22 23:15 Blood Culture - Preliminary Blood
--- NOTE | 2022-10-24 13:08 | P.PN ---
Subjective Patient is seen for follow-up for chronic kidney disease and acute kidney injury. This morning patient states he is feeling much better. Maintained on antibiotics for pneumonia Serum creatinine slightly increased at 3.7 today. Good urine output and Argueta catheter Objective - Vital Signs Vital signs: Vital Signs Temp 97.8 F 10/24/22 08:32 Pulse 83 10/24/22 08:32 Resp 18 10/24/22 08:32 BP 124/77 10/24/22 08:32 Pulse Ox 97 10/24/22 09:28 FiO2 Intake & Output 10/23/22 10/24/22 10/24/22 18:59 06:59 18:59 Output Total 850 800 Balance -850 -800 Output: Urine 850 800 Other: Voiding Method Indwelling Catheter Indwelling Catheter # Voids 3 # Bowel Movements 3 - Exam Patient is awake, comfortable Alert oriented 3 Examination of the heart S1 and S2 Examination of the lungs bilateral breath sounds are heard Abdomen is soft nontender Examination of lower extremities shows no significant edema [employer] exam grossly intact Argueta catheter in place. - Labs CBC & Chem 7: 10/24/22 05:59 10/24/22 05:59 Labs: Abnormal Lab Results - Last 24 Hours (Table) 10/23/22 10/23/22 10/24/22 Range/Units 16:55 20:09 05:59 RBC 4.15 L (4.40-5.60) X 10*6/uL Hgb 10.8 L (13.0-17.0) d/dL Hct 33.9 L (39.6-50.0) % MCH 26.0 L (27.0-32.0) pg MCHC 31.9 L (32.0-37.0) d/dL Sodium (135-145) mmol/L Potassium (3.5-5.5) mmol/L Carbon Dioxide (21.6-31.8) mmol/L BUN (9.0-27.0) mg/dL Creatinine (0.6-1.5) mg/dL Est GFR (CKD-EPI) (>=60) POC Glucose (mg/dL) 133 H 136 H (70-110) mg/dL Calcium (8.7-10.3) mg/dL Total Bilirubin (0.3-1.2) mg/dL Total Protein (6.2-8.2) d/dL Albumin (3.8-4.9) d/dL Albumin/Globulin Ratio (1.60-3.17) Ratio 10/24/22 Range/Units 05:59 RBC (4.40-5.60) X 10*6/uL Hgb (13.0-17.0) d/dL Hct (39.6-50.0) % MCH (27.0-32.0) pg MCHC (32.0-37.0) d/dL Sodium 132 L (135-145) mmol/L Potassium 3.2 L (3.5-5.5) mmol/L Carbon Dioxide 17.5 L (21.6-31.8) mmol/L BUN 46.3 H (9.0-27.0) mg/dL Creatinine 3.7 H (0.6-1.5) mg/dL Est GFR (CKD-EPI) 17 L (>=60) POC Glucose (mg/dL) (70-110) mg/dL Calcium 7.6 L (8.7-10.3) mg/dL Total Bilirubin 0.2 L (0.3-1.2) mg/dL Total Protein 5.5 L (6.2-8.2) d/dL Albumin 2.3 L (3.8-4.9) d/dL Albumin/Globulin Ratio 0.72 L (1.60-3.17) Ratio Microbiology - Last 24 Hours (Table) 10/21/22 23:30 Blood Culture - Preliminary Blood 10/21/22 23:15 Blood Culture - Preliminary Blood Assessment and Plan Assessment: 1. 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 Currently with indwelling Argueta catheter which was placed on 10/03/2022. Serum creatinine staying at about 3-3.1 mg/dL which is slightly higher than his previous baseline of about 2-2.5 mg/dL. 2. Hypokalemia secondary to decreased intake as well as nausea and vomiting. Diuretics were held on discharge from last admission. 3. Obstructive uropathy with urine retention currently with indwelling Argueta catheter placed on 10/03/2022 4. History of bladder cancer being followed by urology 5. Chronic systolic CHF with ejection fraction 35-40% with moderate mitral regu rgitation 6. Recent right lower extremity cellulitis status post antibiotics. 7. Fever most likely's secondary to pneumonia. Rule out UTI Plan: Continue empiric antibiotics Add gentle IV hydration Repeat labs in a.m. Continue with Argueta catheter.
--- NOTE | 2022-10-24 14:06 | P.PN ---
Subjective Progress Note Date: 10/24/22 patient is a 67-year-old gentleman with past medical history significant for hypertension, hyperlipidemia who presented to the ER because of complaint of not feeling well for the last few days. Patient stated 3 days back he started having nausea and vomiting, patient was unable to keep any food down. Patient started complaining of generalized weakness, unable to get himself out of the bed. Denies any fever or chills. Denies any shortness of breath. Denies any chest pain. Denies any lightheadedness or dizziness. Because of the symptoms, patient came to the ER Initial lab work done in the ER showed WBC 8, hemoglobin 12.9, platelet count 170, sodium 134, potassium 2.9, BUN 38, creatinine 3.19, troponin 0.040, proBNP 25504 Chest x-ray done in the ER showed patchy retrocardiac/left basilar atelectasis versus infiltrate Patient admitted to medicine service 10/23. Patient seen and examined. States nausea and vomiting has improved. No further episodes of diarrhea. PotassiumThis morning is 3.4 10/24. Patient seen and examined. States diarrhea has improved, states weakness is also improving REVIEW OF SYSTEMS: CONSTITUTIONAL: No fever, no malaise,. CARDIOVASCULAR: No chest pain, no palpitations, no syncope. PULMONARY: No shortness of breath, no cough, GASTROINTESTINAL: no vomiting, no abdominal pain. NEUROLOGICAL: No headaches, no weakness, PHYSICAL EXAMINATION: GENERAL: The patient is alert and oriented x3, not in any acute distress. Well developed, well nourished. HEENT: Pupils are round and equally reacting to light. EOMI. No scleral icterus. No conjunctival pallor. Normocephalic, atraumatic. No pharyngeal erythema. No thyromegaly. CARDIOVASCULAR: S1 and S2 present. No murmurs, rubs, or gallops. PULMONARY: Chest is clear to auscultation, no wheezing or crackles. ABDOMEN: Soft, nontender, nondistended, normoactive bowel sounds. No palpable organomegaly. MUSCULOSKELETAL: No joint swelling or deformity. EXTREMITIES: No cyanosis, clubbing, or pedal edema. NEUROLOGICAL: Gross neurological examination did not reveal any focal deficits. SKIN: No rashes. Assessment and plan Acute on chronic kidney disease Bacterial pneumonia Hypokalemia Elevated troponin Hypertension Hyperlipidemia History of bladder cancer Non-anion gap metabolic acidosis Monitor vital signs Monitor CBC Monitor CMP Continue telemetry monitoring Continue IV Rocephin and azithromycin continue IV fluids Lisinopril and Aldactone remain on hold secondary to acute kidney injury Follow-up in nephrology recommendations Cardiology following Labs and medication were reviewed.. Continue same treatment. Continue with symptomatic treatment. Resume home medication. Monitor labs and vitals. DVT and GI prophylaxis. Further recommendations as per clinical course of the patient Dictation was produced using [employer] dictation software. please excuse any grammatical, word or spelling errors. Objective - Vital Signs Vital signs: Vital Signs Temp 97.8 F 10/24/22 08:32 Pulse 83 10/24/22 08:32 Resp 18 10/24/22 08:32 BP 124/77 10/24/22 08:32 Pulse Ox 97 10/24/22 09:28 FiO2 Intake & Output 10/23/22 10/24/22 10/24/22 18:59 06:59 18:59 Output Total 850 800 Balance -850 -800 Output: Urine 850 800 Other: Voiding Method Indwelling Catheter Indwelling Catheter # Voids 3 # Bowel Movements 3 - Labs CBC & Chem 7: 10/24/22 05:59 10/24/22 05:59 Labs: Abnormal Lab Results - Last 24 Hours (Table) 10/23/22 10/23/22 10/24/22 Range/Units 16:55 20:09 05:59 RBC 4.15 L (4.40-5.60) X 10*6/uL Hgb 10.8 L (13.0-17.0) d/dL Hct 33.9 L (39.6-50.0) % MCH 26.0 L (27.0-32.0) pg MCHC 31.9 L (32.0-37.0) d/dL Sodium (135-145) mmol/L Potassium (3.5-5.5) mmol/L Carbon Dioxide (21.6-31.8) mmol/L BUN (9.0-27.0) mg/dL Creatinine (0.6-1.5) mg/dL Est GFR (CKD-EPI) (>=60) POC Glucose (mg/dL) 133 H 136 H (70-110) mg/dL Calcium (8.7-10.3) mg/dL Total Bilirubin (0.3-1.2) mg/dL Total Protein (6.2-8.2) d/dL Albumin (3.8-4.9) d/dL Albumin/Globulin Ratio (1.60-3.17) Ratio 10/24/22 Range/Units 05:59 RBC (4.40-5.60) X 10*6/uL Hgb (13.0-17.0) d/dL Hct (39.6-50.0) % MCH (27.0-32.0) pg MCHC (32.0-37.0) d/dL Sodium 132 L (135-145) mmol/L Potassium 3.2 L (3.5-5.5) mmol/L Carbon Dioxide 17.5 L (21.6-31.8) mmol/L BUN 46.3 H (9.0-27.0) mg/dL Creatinine 3.7 H (0.6-1.5) mg/dL Est GFR (CKD-EPI) 17 L (>=60) POC Glucose (mg/dL) (70-110) mg/dL Calcium 7.6 L (8.7-10.3) mg/dL Total Bilirubin 0.2 L (0.3-1.2) mg/dL Total Protein 5.5 L (6.2-8.2) d/dL Albumin 2.3 L (3.8-4.9) d/dL Albumin/Globulin Ratio 0.72 L (1.60-3.17) Ratio Microbiology - Last 24 Hours (Table) 10/21/22 23:30 Blood Culture - Preliminary Blood 10/21/22 23:15 Blood Culture - Preliminary Blood
[2022-10-24 17:04] LABS: Glucose,Whole Blood 125 mg/dL (70-110)
[2022-10-24] MEDS: MELATONIN 3 MG TABLET PO SCH (20:16)
[2022-10-24 20:23] LABS: Glucose,Whole Blood 168 mg/dL (70-110)
[2022-10-24] MEDS: AZITHROMYCIN 500 MG in SODIUM CHLORIDE 0.9% 250 ML IVPB SCH (23:44)
[2022-10-25] MEDS: ALPRAZolam 0.5 MG TAB PO PRN ×2 (01:27→20:57)
[2022-10-25] MEDS: SODIUM CHLORIDE 0.9% 1,000 ML IV SCH ×2 (06:20→13:16)
[2022-10-25 06:33] LABS: Glucose,Whole Blood 114 mg/dL (70-110)
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
[2022-10-25] MEDS: TICAGRELOR 90 MG TAB PO SCH ×2 (08:56→20:57)
[2022-10-25] MEDS: TAMSULOSIN 0.4 MG CAP.ER.24H PO SCH ×2 (08:56→20:57)
[2022-10-25] MEDS: ASPIRIN 81 MG PO SCH (08:56)
[2022-10-25] MEDS: carvediloL 6.25 MG TAB PO SCH ×2 (08:56→17:29)
[2022-10-25] MEDS: FENOFIBRATE 160 MG TAB PO SCH (08:56)
[2022-10-25] MEDS: ATORVASTATIN 80 MG TAB PO SCH (08:56)
[2022-10-25 09:23] LABS: Basophils # (A) 0.02 X 10*3/uL (0.00-0.10); Basophils % (A) 0.4 %; Eosinophils # (A) 0.11 X 10*3/uL (0.04-0.35); HCT 31.6 % (39.6-50.0); Lymphocytes # (A) 1.05 X 10*3/uL (0.90-5.00); Lymphocytes % (A) 19.5 %; MCH 25.9 pg (27.0-32.0); MCHC 31.6 d/dL (32.0-37.0); MCV 81.9 FL (80.0-97.0); Mean Platelet Volume 12.2 FL (9.5-12.2); Monocytes # (A) 0.64 X 10*3/uL (0.20-1.00); Monocytes % (A) 11.9 %; NRBC Per 100 WBC 0 X 10*3/uL (0.00-0.01); Neutrophils # (A) 3.54 X 10*3/uL (1.80-7.70); Neutrophils % (A) 65.8 %; Platelet Count 181 X 10*3/uL (140-440); RBC 3.86 X 10*6/uL (4.40-5.60); RDW 14.6 % (11.5-14.5); WBC 5.38 X 10*3/uL (4.50-10.00)
[2022-10-25 09:33] LABS: ALT 26 U/L (10-49); AST 26 U/L (14-35); Albumin 2.3 d/dL (3.8-4.9); Albumin/Globulin Ratio 0.74 Ratio (1.60-3.17); Alkaline Phosphatase 86 U/L (41-126); BUN/Creat Ratio 12.53 Ratio (12.00-20.00); Blood Urea Nitrogen 45.1 mg/dL (9.0-27.0); Calcium 7.5 mg/dL (8.7-10.3); Carbon Dioxide 18.2 mmol/L (21.6-31.8); Chloride 106 mmol/L (96-109); Globulin 3.1 d/dL (1.6-3.3); Glucose 122 mg/dL (70-110); Potassium 3.1 mmol/L (3.5-5.5); Sodium 133 mmol/L (135-145); Total Bilirubin <0.2 mg/dL (0.3-1.2); Total Protein 5.4 d/dL (6.2-8.2)
[2022-10-25] MEDS ORDERED: POTASSIUM CHLORIDE ER 20 MEQ TAB.ER PO STA (10:12)
--- NOTE | 2022-10-25 10:59 | P.PN ---
Subjective HISTORY OF PRESENT ILLNESS: This is a 67-year-old male who follows in the office with Dr. Stovall. Patient states he presented to the hospital for chief complaint of generalized weakness and feeling very tired. Patient was found to have acute kidney injury on top of his chronic kidney disease. He is being followed by nephrology and receiving gentle IV fluid hydration. The patient denies any chest pain or pressure this m orning. He denies shortness of breath. Vital signs are stable. Creatinine this morning 3.7, up from 3.54 yesterday. Echocardiogram completed last month revealed ejection fraction 35-40% with moderate mitral regurgitation 10/25/2022 Patient examined this morning. Patient is sitting up in the chair. Patient denies chest pain or pressure. He denies shortness of breath. Patient has been receiving IV fluid hydration. Creatinine today is 3.6. Vital signs are stable. PHYSICAL EXAM: VITAL SIGNS: Reviewed. GENERAL: Well-developed in no acute distress. NECK: Supple. No JVD or thyromegaly LUNGS: Respirations even and unlabored. Lungs essentially clear to auscultation bilaterally. HEART: Regular rate and rhythm. S1 and S2 heard. Systolic murmur noted. EXTREMITIES: Normal range of motion. No clubbing or cyanosis. Peripheral pulses intact. No lower extremity edema noted.. ASSESSMENT: Generalized weakness and feeling tired Acute kidney injury Chronic kidney disease Hypertension Hyperlipidemia Coronary artery disease with stenting to the LAD, December 2021 Moderate mitral regurgitation PLAN: Continue current cardiac medications Lisinopril and Aldactone remain on hold secondary to acute kidney injury Nephrology following. Continue IV fluids per nephrology. Monitor kidney function. Continue dual antiplatelet therapy with Aspirin and Brilinta Patient is currently stable from a cardiac perspective Nurse practitioner note has been reviewed by physician. Signing provider agrees with the documented findings, assessment, and plan of care. Objective - Vital Signs Vital signs: Vital Signs Temp 97.7 F 10/25/22 07:45 Pulse 83 10/25/22 07:45 Resp 16 10/25/22 07:45 BP 118/68 10/25/22 07:45 Pulse Ox 96 10/25/22 07:45 FiO2 Intake & Output 10/24/22 10/25/22 10/25/22 18:59 06:59 18:59 Output Total 950 800 Balance -950 -800 Output: Urine 950 800 Other: Voiding Method Indwelling Catheter - Labs CBC & Chem 7: 10/25/22 05:14 10/25/22 05:14 Labs: Abnormal Lab Results - Last 24 Hours (Table) 10/24/22 10/24/22 10/25/22 Range/Units 17:02 20:21 05:14 RBC 3.86 L (4.40-5.60) X 10*6/uL Hgb 10.0 L (13.0-17.0) d/dL Hct 31.6 L (39.6-50.0) % MCH 25.9 L (27.0-32.0) pg MCHC 31.6 L (32.0-37.0) d/dL RDW 14.6 H (11.5-14.5) % Sodium (135-145) mmol/L Potassium (3.5-5.5) mmol/L Carbon Dioxide (21.6-31.8) mmol/L BUN (9.0-27.0) mg/dL Creatinine (0.6-1.5) mg/dL Est GFR (CKD-EPI) (>=60) Glucose (70-110) mg/dL POC Glucose (mg/dL) 125 H 168 H (70-110) mg/dL Calcium (8.7-10.3) mg/dL Total Bilirubin (0.3-1.2) mg/dL Total Protein (6.2-8.2) d/dL Albumin (3.8-4.9) d/dL Albumin/Globulin Ratio (1.60-3.17) Ratio 10/25/22 10/25/22 Range/Units 05:14 06:32 RBC (4.40-5.60) X 10*6/uL Hgb (13.0-17.0) d/dL Hct (39.6-50.0) % MCH (27.0-32.0) pg MCHC (32.0-37.0) d/dL RDW (11.5-14.5) % Sodium 133 L (135-145) mmol/L Potassium 3.1 L (3.5-5.5) mmol/L Carbon Dioxide 18.2 L (21.6-31.8) mmol/L BUN 45.1 H (9.0-27.0) mg/dL Creatinine 3.6 H (0.6-1.5) mg/dL Est GFR (CKD-EPI) 18 L (>=60) Glucose 122 H (70-110) mg/dL POC Glucose (mg/dL) 114 H (70-110) mg/dL Calcium 7.5 L (8.7-10.3) mg/dL Total Bilirubin <0.2 L (0.3-1.2) mg/dL Total Protein 5.4 L (6.2-8.2) d/dL Albumin 2.3 L (3.8-4.9) d/dL Albumin/Globulin Ratio 0.74 L (1.60-3.17) Ratio Microbiology - Last 24 Hours (Table) 10/21/22 23:30 Blood Culture - Preliminary Blood 10/21/22 23:15 Blood Culture - Preliminary Blood
[2022-10-25 12:03] LABS: Glucose,Whole Blood 124 mg/dL (70-110)
--- NOTE | 2022-10-25 13:23 | P.PN ---
Subjective Patient is seen for follow-up for chronic kidney disease and acute kidney injury. Maintained on antibiotics for pneumonia Started on IV fluids due to worsening renal function. Good urine output and Argueta catheter Objective - Vital Signs Vital signs: Vital Signs Temp 97.7 F 10/25/22 07:45 Pulse 83 10/25/22 07:45 Resp 16 10/25/22 07:45 BP 118/68 10/25/22 07:45 Pulse Ox 98 10/25/22 12:44 FiO2 Intake & Output 10/24/22 10/25/22 10/25/22 18:59 06:59 18:59 Output Total 950 800 Balance -950 -800 Output: Urine 950 800 Other: Voiding Method Indwelling Catheter - Exam Patient is awake, comfortable Alert oriented 3 Patient is currently in the toilet Examination of lower extremities shows no significant edema SUPERVISOR OPERATIONS exam grossly intact Argueta catheter in place. - Labs CBC & Chem 7: 10/25/22 05:14 10/25/22 05:14 Labs: Abnormal Lab Results - Last 24 Hours (Table) 10/24/22 10/24/22 10/25/22 Range/Units 17:02 20:21 05:14 RBC 3.86 L (4.40-5.60) X 10*6/uL Hgb 10.0 L (13.0-17.0) d/dL Hct 31.6 L (39.6-50.0) % MCH 25.9 L (27.0-32.0) pg MCHC 31.6 L (32.0-37.0) d/dL RDW 14.6 H (11.5-14.5) % Sodium (135-145) mmol/L Potassium (3.5-5.5) mmol/L Carbon Dioxide (21.6-31.8) mmol/L BUN (9.0-27.0) mg/dL Creatinine (0.6-1.5) mg/dL Est GFR (CKD-EPI) (>=60) Glucose (70-110) mg/dL POC Glucose (mg/dL) 125 H 168 H (70-110) mg/dL Calcium (8.7-10.3) mg/dL Total Bilirubin (0.3-1.2) mg/dL Total Protein (6.2-8.2) d/dL Albumin (3.8-4.9) d/dL Albumin/Globulin Ratio (1.60-3.17) Ratio 10/25/22 10/25/22 10/25/22 Range/Units 05:14 06:32 12:02 RBC (4.40-5.60) X 10*6/uL Hgb (13.0-17.0) d/dL Hct (39.6-50.0) % MCH (27.0-32.0) pg MCHC (32.0-37.0) d/dL RDW (11.5-14.5) % Sodium 133 L (135-145) mmol/L Potassium 3.1 L (3.5-5.5) mmol/L Carbon Dioxide 18.2 L (21.6-31.8) mmol/L BUN 45.1 H (9.0-27.0) mg/dL Creatinine 3.6 H (0.6-1.5) mg/dL Est GFR (CKD-EPI) 18 L (>=60) Glucose 122 H (70-110) mg/dL POC Glucose (mg/dL) 114 H 124 H (70-110) mg/dL Calcium 7.5 L (8.7-10.3) mg/dL Total Bilirubin <0.2 L (0.3-1.2) mg/dL Total Protein 5.4 L (6.2-8.2) d/dL Albumin 2.3 L (3.8-4.9) d/dL Albumin/Globulin Ratio 0.74 L (1.60-3.17) Ratio Microbiology - Last 24 Hours (Table) 10/21/22 23:30 Blood Culture - Preliminary Blood 10/21/22 23:15 Blood Culture - Preliminary Blood Assessment and Plan Assessment: 1. 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 Currently with indwelling Argueta catheter which was placed on 10/03/2022. Serum creatinine staying at about 3-3.1 mg/dL which is slightly higher than his previous baseline of about 2-2.5 mg/dL. 2. Hypokalemia secondary to decreased intake as well as nausea and vomiting. Diuretics were held on discharge from last admission. 3. Obstructive uropathy with urine retention currently with indwelling Argueta catheter placed on 10/03/2022 4. History of bladder cancer being followed by urology 5. Chronic systolic CHF with ejection fraction 35-40% with moderate mitral regurgitation 6. Recent right lower extremity cellulitis status post antibiotics. 7. Fever most likely's secondary to pneumonia. Rule out UTI Plan: Continue empiric antibiotics Continue with IV hydration Repeat labs in a.m. Continue with Argueta catheter. Possible discharge tomorrow
--- NOTE | 2022-10-25 15:12 | P.PN ---
Subjective Progress Note Date: 10/25/22 patient is a 67-year-old gentleman with past medical history significant for hypertension, hyperlipidemia who presented to the ER because of complaint of not feeling well for the last few days. Patient stated 3 days back he started having nausea and vomiting, patient was unable to keep any food down. Patient started complaining of generalized weakness, unable to get himself out of the bed. Denies any fever or chills. Denies any shortness of breath. Denies any chest pain. Denies any lightheadedness or dizziness. Because of the symptoms, patient came to the ER Initial lab work done in the ER showed WBC 8, hemoglobin 12.9, platelet count 170, sodium 134, potassium 2.9, BUN 38, creatinine 3.19, troponin 0.040, proBNP [id number] Chest x-ray done in the ER showed patchy retrocardiac/left basilar atelectasis versus infiltrate Patient admitted to medicine service 10/23. Patient seen and examined. States nausea and vomiting has improved. No further episodes of diarrhea. PotassiumThis morning is 3.4 10/24. Patient seen and examined. States diarrhea has improved, states weakness is also improving 10/25. Patient seen and examined. Potassium this morning 3.1, placement or dered. No acute issues overnight REVIEW OF SYSTEMS: CONSTITUTIONAL: No fever, no malaise,. CARDIOVASCULAR: No chest pain, no palpitations, no syncope. PULMONARY: No shortness of breath, no cough, GASTROINTESTINAL: no vomiting, no abdominal pain. NEUROLOGICAL: No headaches, no weakness, PHYSICAL EXAMINATION: GENERAL: The patient is alert and oriented x3, not in any acute distress. Well developed, well nourished. HEENT: Pupils are round and equally reacting to light. EOMI. No scleral icterus. No conjunctival pallor. Normocephalic, atraumatic. No pharyngeal erythema. No thyromegaly. CARDIOVASCULAR: S1 and S2 present. No murmurs, rubs, or gallops. PULMONARY: Chest is clear to auscultation, no wheezing or crackles. ABDOMEN: Soft, nontender, nondistended, normoactive bowel sounds. No palpable organomegaly. MUSCULOSKELETAL: No joint swelling or deformity. EXTREMITIES: No cyanosis, clubbing, or pedal edema. NEUROLOGICAL: Gross neurological examination did not reveal any focal deficits. SKIN: No rashes. Assessment and plan Acute on chronic kidney disease Bacterial pneumonia Hypokalemia Elevated troponin Hypertension Hyperlipidemia History of bladder cancer Non-anion gap metabolic acidosis Monitor vital signs Monitor CBC Monitor CMP Continue telemetry monitoring Continue IV Rocephin and azithromycin continue IV fluids Potassium replacement ordered Lisinopril and Aldactone remain on hold secondary to acute kidney injury Follow-up in nephrology recommendations Cardiology following Follow-up on urology recommendations Labs and medication were reviewed.. Continue same treatment. Continue with symptomatic treatment. Resume home medication. Monitor labs and vitals. DVT and GI prophylaxis. Further recommendations as per clinical course of the patient Dictation was produced using [employer] dictation software. please excuse any grammatical, word or spelling errors. Objective - Vital Signs Vital signs: Vital Signs Temp 97.7 F 10/25/22 07:45 Pulse 83 10/25/22 07:45 Resp 16 10/25/22 07:45 BP 118/68 10/25/22 07:45 Pulse Ox 96 10/25/22 07:45 FiO2 Intake & Output 10/24/22 10/25/22 10/25/22 18:59 06:59 18:59 Output Total 950 800 Balance -950 -800 Output: Urine 950 800 Other: Voiding Method Indwelling Catheter - Labs CBC & Chem 7: 10/25/22 05:14 10/25/22 05:14 Labs: Abnormal Lab Results - Last 24 Hours (Table) 10/24/22 10/24/22 10/25/22 Range/Units 17:02 20:21 05:14 RBC 3.86 L (4.40-5.60) X 10*6/uL Hgb 10.0 L (13.0-17.0) d/dL Hct 31.6 L (39.6-50.0) % MCH 25.9 L (27.0-32.0) pg MCHC 31.6 L (32.0-37.0) d/dL RDW 14.6 H (11.5-14.5) % Sodium (135-145) mmol/L Potassium (3.5-5.5) mmol/L Carbon Dioxide (21.6-31.8) mmol/L BUN (9.0-27.0) mg/dL Creatinine (0.6-1.5) mg/dL Est GFR (CKD-EPI) (>=60) Glucose (70-110) mg/dL POC Glucose (mg/dL) 125 H 168 H (70-110) mg/dL Calcium (8.7-10.3) mg/dL Total Bilirubin (0.3-1.2) mg/dL Total Protein (6.2-8.2) d/dL Albumin (3.8-4.9) d/dL Albumin/Globulin Ratio (1.60-3.17) Ratio 10/25/22 10/25/22 Range/Units 05:14 06:32 RBC (4.40-5.60) X 10*6/uL Hgb (13.0-17.0) d/dL Hct (39.6-50.0) % MCH (27.0-32.0) pg MCHC (32.0-37.0) d/dL RDW (11.5-14.5) % Sodium 133 L (135-145) mmol/L Potassium 3.1 L (3.5-5.5) mmol/L Carbon Dioxide 18.2 L (21.6-31.8) mmol/L BUN 45.1 H (9.0-27.0) mg/dL Creatinine 3.6 H (0.6-1.5) mg/dL Est GFR (CKD-EPI) 18 L (>=60) Glucose 122 H (70-110) mg/dL POC Glucose (mg/dL) 114 H (70-110) mg/dL Calcium 7.5 L (8.7-10.3) mg/dL Total Bilirubin <0.2 L (0.3-1.2) mg/dL Total Protein 5.4 L (6.2-8.2) d/dL Albumin 2.3 L (3.8-4.9) d/dL Albumin/Globulin Ratio 0.74 L (1.60-3.17) Ratio Microbiology - Last 24 Hours (Table) 10/21/22 23:30 Blood Culture - Preliminary Blood 10/21/22 23:15 Blood Culture - Preliminary Blood
[2022-10-25 17:07] LABS: Glucose,Whole Blood 111 mg/dL (70-110)
[2022-10-25 20:37] LABS: Glucose,Whole Blood 125 mg/dL (70-110)
[2022-10-25] MEDS: MELATONIN 3 MG TABLET PO SCH (20:57)
[2022-10-26] MEDS: ONDANSETRON 4 MG/2 ML VIAL IVP PRN (01:11)
[2022-10-26] MEDS: ALPRAZolam 0.5 MG TAB PO PRN (02:12)
[2022-10-26] MEDS: SODIUM CHLORIDE 0.9% 1,000 ML IV SCH ×2 (03:43→06:08)
[2022-10-26 06:02] LABS: Glucose,Whole Blood 110 mg/dL (70-110)
[2022-10-26 07:51] VITALS: BP 135/80; PULSE 85; RESP 18; TEMP 97.8
[2022-10-26] MEDS: ATORVASTATIN 80 MG TAB PO SCH (08:51)
[2022-10-26] MEDS: TAMSULOSIN 0.4 MG CAP.ER.24H PO SCH (08:51)
[2022-10-26] MEDS: carvediloL 6.25 MG TAB PO SCH (08:51)
[2022-10-26] MEDS: ASPIRIN 81 MG PO SCH (08:51)
[2022-10-26] MEDS: TICAGRELOR 90 MG TAB PO SCH (08:51)
[2022-10-26] MEDS: FENOFIBRATE 160 MG TAB PO SCH (08:51)
[2022-10-26 11:07] LABS: Glucose,Whole Blood 124 mg/dL (70-110)
[2022-10-26 11:24] LABS: ALT 25 U/L (10-49); AST 26 U/L (14-35); Albumin 2.3 d/dL (3.8-4.9); Albumin/Globulin Ratio 0.72 Ratio (1.60-3.17); Alkaline Phosphatase 86 U/L (41-126); BUN/Creat Ratio 12.74 Ratio (12.00-20.00); Blood Urea Nitrogen 44.6 mg/dL (9.0-27.0); Calcium 7.7 mg/dL (8.7-10.3); Carbon Dioxide 18.2 mmol/L (21.6-31.8); Chloride 107 mmol/L (96-109); Globulin 3.2 d/dL (1.6-3.3); Glucose 112 mg/dL (70-110); Potassium 3.6 mmol/L (3.5-5.5); Sodium 135 mmol/L (135-145); Total Bilirubin <0.2 mg/dL (0.3-1.2); Total Protein 5.5 d/dL (6.2-8.2)
[2022-10-26 12:16] LABS: Basophils # (A) 0.01 X 10*3/uL (0.00-0.10); Basophils % (A) 0.2 %; Eosinophils # (A) 0.07 X 10*3/uL (0.04-0.35); Eosinophils % (A) 1.2 %; HCT 32.5 % (39.6-50.0); HGB 10.4 d/dL (13.0-17.0); Lymphocytes # (A) 0.93 X 10*3/uL (0.90-5.00); Lymphocytes % (A) 16.2 %; MCH 25.9 pg (27.0-32.0); Mean Platelet Volume 11.8 FL (9.5-12.2); Monocytes # (A) 0.59 X 10*3/uL (0.20-1.00); Monocytes % (A) 10.3 %; NRBC Per 100 WBC 0 X 10*3/uL (0.00-0.01); Neutrophils % (A) 71.6 %; Platelet Count 197 X 10*3/uL (140-440); RBC 4.01 X 10*6/uL (4.40-5.60); RDW 14.5 % (11.5-14.5); WBC 5.73 X 10*3/uL (4.50-10.00)
--- NOTE | 2022-10-26 12:54 | P.DS ---
Providers Date of admission: 10/21/22 23:05 Expected date of discharge: 10/26/22 Attending physician: Rhianna Parnell Consults: 10/21/22 22:59 Consult Physician Routine Consulting Provider: Jody Ruth Consult Reason/Comments: alexandra Do you want consulting provider notified?: Yes 10/24/22 13:42 Consult Physician Routine Consulting Provider: Leonardo Johnson Consult Reason/Comments: retention came in with goodwin Do you want consulting provider notified?: Yes Primary care physician: Brett Choe [facility] Course: Discharge diagnoses; Acute on chronic kidney disease Bacterial pneumonia Hypokalemia Elevated troponin Hypertension Hyperlipidemia History of bladder cancer Non-anion gap metabolic acidosis Hospital course; patient is a 67-year-old gentleman with past medical history significant for hypertension, hyperlipidemia who presented to the ER because of complaint of not feeling well for the last few days. Patient stated 3 days back he started having nausea and vomiting, patient was unable to keep any food down. Patient started complaining of generalized weakness, unable to get himself out of the bed. Denies any fever or chills. Denies any shortness of breath. Denies any chest pain. Denies any lightheadedness or dizziness. Because of the symptoms, patient came to the ER Initial lab work done in the ER showed WBC 8, hemoglobin 12.9, platelet count 170, sodium 134, potassium 2.9, BUN 38, creatinine 3.19, troponin 0.040, proBNP [id number] Chest x-ray done in the ER showed patchy retrocardiac/left basilar atelectasis versus infiltrate Patient admitted to medicine service 10/23. Patient seen and examined. States nausea and vomiting has improved. No further episodes of diarrhea. PotassiumThis morning is 3.4 10/24. Patient seen and examined. States diarrhea has improved, states weakness is also improving 10/25. Patient seen and examined. Potassium this morning 3.1, placement ordered. No acute issues overnight 10/26. Patient seen and examined. Hypokalemia is resolved. Nephrology recommended holding off on lisinopril and Aldactone at discharge. Being dis charged on Ceftin for 3 more days for pneumonia. PHYSICAL EXAMINATION: GENERAL: The patient is alert and oriented x3, not in any acute distress. Well developed, well nourished. HEENT: Pupils are round and equally reacting to light. EOMI. No scleral icterus. No conjunctival pallor. Normocephalic, atraumatic. No pharyngeal erythema. No thyromegaly. CARDIOVASCULAR: S1 and S2 present. No murmurs, rubs, or gallops. PULMONARY: Chest is clear to auscultation, no wheezing or crackles. ABDOMEN: Soft, nontender, nondistended, normoactive bowel sounds. No palpable organomegaly. MUSCULOSKELETAL: No joint swelling or deformity. EXTREMITIES: No cyanosis, clubbing, or pedal edema. NEUROLOGICAL: Gross neurological examination did not reveal any focal deficits. SKIN: No rashes. Dictation was produced using [employer] dictation software. please excuse any grammatical, word or spelling errors. Patient Condition at Discharge: Good Plan - Discharge Summary New Discharge Prescriptions: New cefUROXime axetiL [Cefuroxime] 500 mg PO BID 3 Days #6 tab carvediloL [Coreg] 6.25 mg PO BID-W/MEALS #30 tab Continue Atorvastatin Calcium [Lipitor] 80 mg PO DAILY Fenofibrate [Lofibra] 160 mg PO DAILY Exenatide Microspheres [Bydureon Bcise Auto-Injector] 2 mg SQ MO Glucagon [Gvoke Pfs 1-Pack Syringe] 1 mg SQ DIRECTED PRN PRN Reason: Blood Sugar - Low Loperamide HCl [Imodium A-D] 2 - 4 mg PO DIRECTED PRN MDD 4 TABLETS PRN Reason: Diarrhea Nitroglycerin Sl Tabs [Nitrostat] 0.4 mg SL Q5M PRN PRN Reason: Chest Pain Tamsulosin [Flomax] 0.4 mg PO BID #60 cap Aspirin EC [Ecotrin Low Dose] 81 mg PO DAILY Ticagrelor [Brilinta] 90 mg PO BID #60 tab Isosorbide Mononitrate ER [Imdur] 30 mg PO DAILY #30 tab Discontinued Potassium Chloride [Klor-Con M20] 20 meq PO BID lisinopriL 40 mg PO DAILY Spironolactone [Aldactone] 50 mg PO DAILY #30 tab Metoprolol Succinate (ER) [Toprol XL] 50 mg PO BID #60 tab Discharge Medication List Atorvastatin Calcium [Lipitor] 80 mg PO DAILY 08/23/21 [History] Aspirin EC [Ecotrin Low Dose] 81 mg PO DAILY 12/17/21 [History] Ticagrelor [Brilinta] 90 mg PO BID #60 tab 12/19/21 [Rx] Exenatide Microspheres [Bydureon Bcise Auto-Injector] 2 mg SQ MO 01/09/22 [History] Fenofibrate [Lofibra] 160 mg PO DAILY 01/09/22 [History] Glucagon [Gvoke Pfs 1-Pack Syringe] 1 mg SQ DIRECTED PRN 09/27/22 [History] Loperamide HCl [Imodium A-D] 2 - 4 mg PO DIRECTED PRN MDD 4 TABLETS 09/27/22 [History] Isosorbide Mononitrate ER [Imdur] 30 mg PO DAILY #30 tab 10/04/22 [Rx] Nitroglycerin Sl Tabs [Nitrostat] 0.4 mg SL Q5M PRN 10/21/22 [History] Tamsulosin [Flomax] 0.4 mg PO BID #60 cap 10/26/22 [Rx] carvediloL [Coreg] 6.25 mg PO BID-W/MEALS #30 tab 10/26/22 [Rx] cefUROXime axetiL [Cefuroxime] 500 mg PO BID 3 Days #6 tab 10/26/22 [Rx] Follow up Appointment(s)/Referral(s): Jody Ruth MD [STAFF PHYSICIAN] - 1 Week Brett Choe DO [Primary Care Provider] - 1-2 days Neo Mejia MD [STAFF PHYSICIAN] - 1 Week (voiding trial) Emiliano Johansen MD [STAFF PHYSICIAN] - 1 Week Patient Instructions/Handouts: Goodwin Catheter Placement and Care (DC), Community Acquired Pneumonia (DC), Goodwin Catheter Removal (DC) Discharge Disposition: HOME SELF-CARE
--- NOTE | 2022-10-26 14:16 | P.PN ---
Subjective Patient is seen for follow-up for chronic kidney disease and acute kidney injury. Patient has an indwelling Argueta catheter for urine retention. Maintained on antibiotics for pneumonia Started on IV fluids due to worsening renal function. Good urine output Objective - Vital Signs Vital signs: Vital Signs Temp 97.8 F 10/26/22 07:10 Pulse 85 10/26/22 07:10 Resp 18 10/26/22 07:10 BP 135/80 10/26/22 07:10 Pulse Ox 94 L 10/26/22 07:10 FiO2 Intake & Output 10/25/22 10/26/22 10/26/22 18:59 06:59 18:59 Intake Total 600 Output Total 1950 1200 Balance -1950 -1200 600 Intake: Intake, IV Titration 600 Amount Sodium Chloride 0.9% 1, 600 000 ml @ 75 mls/hr IV . [id number] [facility] Rx#:[id number] Output: Urine 1950 1200 Other: Voiding Method Indwelling Catheter Indwelling Catheter Indwelling Catheter - Exam Patient is awake, comfortable Alert oriented 3 Patient is currently in the toilet Examination of lower extremities shows no significant edema SUPERVISORY INVESTIGATIVE SPECIALIST exam grossly intact Argueta catheter in place. - Labs CBC & Chem 7: 10/26/22 06:02 10/26/22 06:02 Labs: Abnormal Lab Results - Last 24 Hours (Table) 10/25/22 10/25/22 10/26/22 Range/Units 17:05 20:36 06:02 RBC 4.01 L (4.40-5.60) X 10*6/uL Hgb 10.4 L (13.0-17.0) d/dL Hct 32.5 L (39.6-50.0) % MCH 25.9 L (27.0-32.0) pg Carbon Dioxide (21.6-31.8) mmol/L BUN (9.0-27.0) mg/dL Creatinine (0.6-1.5) mg/dL Est GFR (CKD-EPI) (>=60) Glucose (70-110) mg/dL POC Glucose (mg/dL) 111 H 125 H (70-110) mg/dL Calcium (8.7-10.3) mg/dL Total Bilirubin (0.3-1.2) mg/dL Total Protein (6.2-8.2) d/dL Albumin (3.8-4.9) d/dL Albumin/Globulin Ratio (1.60-3.17) Ratio 10/26/22 10/26/22 Range/Units 06:02 11:06 RBC (4.40-5.60) X 10*6/uL Hgb (13.0-17.0) d/dL Hct (39.6-50.0) % MCH (27.0-32.0) pg Carbon Dioxide 18.2 L (21.6-31.8) mmol/L BUN 44.6 H (9.0-27.0) mg/dL Creatinine 3.5 H (0.6-1.5) mg/dL Est GFR (CKD-EPI) 18 L (>=60) Glucose 112 H (70-110) mg/dL POC Glucose (mg/dL) 124 H (70-110) mg/dL Calcium 7.7 L (8.7-10.3) mg/dL Total Bilirubin <0.2 L (0.3-1.2) mg/dL Total Protein 5.5 L (6.2-8.2) d/dL Albumin 2.3 L (3.8-4.9) d/dL Albumin/Globulin Ratio 0.72 L (1.60-3.17) Ratio Microbiology - Last 24 Hours (Table) 10/21/22 23:30 Blood Culture - Preliminary Blood 10/21/22 23:15 Blood Culture - Preliminary Blood Assessment and Plan Assessment: 1. 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 Currently with indwelling Argueta catheter which was placed on 10/03/2022. Serum creatinine staying at about 3-3.5 mg/dL which is slightly higher than his previous baseline of about 2-2.5 mg/dL. 2. Hypokalemia secondary to decreased intake as well as nausea and vomiting. Diuretics were held on discharge from last admission. 3. Obstructive uropathy with urine retention currently with indwelling Argueta catheter placed on 10/03/2022 4. History of bladder cancer being followed by urology 5. Chronic systolic CHF with ejection fraction 35-40% with moderate mitral regurgitation 6. Recent right lower extremity cellulitis status post antibiotics. 7. Fever most likely's secondary to pneumonia. Rule out UTI Plan: Continue empiric antibiotics Okay to discharge from nephrology standpoint Continue to hold off on diuretics for now Continue with Argueta catheter Follow-up as outpatient in 1 week.
== END 2022-10-26 15:16 | disposition home or self-care (01) ==
LOC: EC 20:25 → 4SSUR 23:05
PROVIDERS: ADMIT Hospitalist; ATTEND Hospitalist
DX: N17.9 Acute kidney failure, unspecified (principal); I13.0 Hypertensive heart and chronic kidney disease with heart failure and stage 1 through stage 4 chronic kidney disease, or unspecified chronic kidney disease; I50.23 Acute on chronic systolic (congestive) heart failure; N18.4 Chronic kidney disease, stage 4 (severe); J15.9 Unspecified bacterial pneumonia; R53.1 Weakness; E86.0 Dehydration; E87.6 Hypokalemia; E43 Unspecified severe protein-calorie malnutrition; N13.9 Obstructive and reflux uropathy, unspecified; L03.115 Cellulitis of right lower limb; R50.9 Fever, unspecified; R77.8 Other specified abnormalities of plasma proteins; E87.20 Acidosis, unspecified; E78.5 Hyperlipidemia, unspecified; E11.40 Type 2 diabetes mellitus with diabetic neuropathy, unspecified; F41.9 Anxiety disorder, unspecified; F32.A Depression, unspecified; E11.22 Type 2 diabetes mellitus with diabetic chronic kidney disease; I34.0 Nonrheumatic mitral (valve) insufficiency; I25.10 Atherosclerotic heart disease of native coronary artery without angina pectoris; Z85.51 Personal history of malignant neoplasm of bladder; Z85.820 Personal history of malignant melanoma of skin; Z95.5 Presence of coronary angioplasty implant and graft; Z79.82 Long term (current) use of aspirin; Z79.02 Long term (current) use of antithrombotics/antiplatelets; Z79.899 Other long term (current) drug therapy
CPT/HCPCS: 96376 ×4; 96361 ×2; 96366 ×5; 96367; 96375 ×2; 96365; 99285; 36415; 94760 ×3; 93005; 83880; 80053 ×5; 80048; 83735 ×2; 84100 ×2; 84484; 85025 ×4; 85027 ×2; 85610; 85730; 87040; 71045; G0378 ×6; J2270; J2405 ×4; J0456 ×3; J0696 ×5

== ENCOUNTER 2022-10-26 18:28 | Inpatient (IN) | payer MEDICARE, OTHER ==
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
--- NOTE | 2022-10-26 19:29 | XR ---
EXAMINATION TYPE: XR chest 2V DATE OF EXAM: 10/26/2022 COMPARISON: 10/21/2022 INDICATION: Weakness TECHNIQUE: Frontal and lateral views of the chest are obtained. FINDINGS: The heart size is normal. The pulmonary vasculature is prominent. Mild increased central lung markings are present. Correlate for volume overload.. There is chronic e levation of the left diaphragm. Prominent air-filled stomach and loops of bowel are in the left abdom en. IMPRESSION: 1. Prominent pulmonary vascular markings. Correlate for volume overload. Findings are worsening from comparison.
[2022-10-26 20:18] LABS: Basophils % (A) 1 %; Eosinophils # (A) 0.2 k/uL (0-0.7); Eosinophils % (A) 3 %; HCT 33.5 % (39.0-53.0); HGB 11.2 gm/dL (13.0-17.5); Lymphocytes # (A) 0.9 k/uL (1.0-4.8); Lymphocytes % (A) 15 %; MCH 27.3 pg (25.0-35.0); MCHC 33.5 g/dL (31.0-37.0); MCV 81.4 fL (80.0-100.0); Mean Platelet Volume 8.8; Monocytes # (A) 0.4 k/uL (0-1.0); Monocytes % (A) 7 %; Neutrophils # (A) 4.1 k/uL (1.3-7.7); Neutrophils % (A) 71 %; Platelet Count 161 k/uL (150-450); RBC 4.12 m/uL (4.30-5.90); RDW 14.5 % (11.5-15.5); WBC 5.8 k/uL (3.8-10.6)
[2022-10-26] MEDS ORDERED: ONDANSETRON 4 MG/2 ML VIAL IVP PRN (20:25)
[2022-10-26] MEDS ORDERED: NALOXONE 0.4 MG/ML 1 ML VIAL IV PRN (20:25)
[2022-10-26] MEDS ORDERED: MORPHINE SULFATE 4 MG/ML SYRINGE IV PRN (20:25)
[2022-10-26 20:33] LABS: ALT 26 U/L (4-49); AST 27 U/L (17-59); African American GFR (CKD) 23 (>60 ml/min/1.73 sqM); Albumin 2.3 g/dL (3.5-5.0); Alkaline Phosphatase 86 U/L (38-126); Anion Gap 10 mmol/L; Blood Urea Nitrogen 48 mg/dL (9-20); Calcium 7.3 mg/dL (8.4-10.2); Carbon Dioxide 15 mmol/L (22-30); Chloride 109 mmol/L (98-107); Glucose 108 mg/dL (74-99); Magnesium 1.9 mg/dL (1.6-2.3); Non-African American GFR(CKD) 20 (>60 ml/min/1.73 sqM); Phosphorus 3.5 mg/dL (2.5-4.5); Potassium 3.6 mmol/L (3.5-5.1); Sodium 134 mmol/L (137-145); Total Bilirubin 0.3 mg/dL (0.2-1.3); Total Protein 5.9 g/dL (6.3-8.2)
[2022-10-26 20:41] LABS: NT-Pro-B-Type Natriuretic Pept 13200 pg/mL
[2022-10-26 20:43] LABS: INR 1.1 (<1.2); Partial Thromboplastin Time 22.3 sec (22.0-30.0); Prothrombin Time 11.9 sec (9.0-12.0)
[2022-10-26] MEDS: SODIUM CHLORIDE 0.9% 1,000 ML IV SCH (21:23)
[2022-10-27] MEDS ORDERED: CEFDINIR 300 MG CAP PO SCH (11:00)
[2022-10-27] MEDS: ATORVASTATIN 80 MG TAB PO SCH (11:32)
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
[2022-10-27] MEDS ORDERED: FUROSEMIDE 10 MG/ML 4 ML VIAL IV STA (13:12)
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
[2022-10-27] MEDS: SODIUM CHLORIDE 0.9% 1,000 ML IV SCH (17:49)
[2022-10-27] MEDS: carvediloL 6.25 MG TAB PO SCH (17:52)
[2022-10-27 19:59] LABS: Glucose,Whole Blood 165 mg/dL (70-110)
[2022-10-27] MEDS ORDERED: hydrALAZINE HCL 20 MG/ML 1 ML VIAL IVP PRN (20:16)
[2022-10-27] MEDS: TAMSULOSIN 0.4 MG CAP.ER.24H PO SCH (20:31)
[2022-10-27] MEDS: TICAGRELOR 90 MG TAB PO SCH (20:31)
[2022-10-27] MEDS ORDERED: ALPRAZolam 0.5 MG TAB PO SCH (21:00)
[2022-10-28 02:01] VITALS: TEMP 98
[2022-10-28] MEDS: TICAGRELOR 90 MG TAB PO SCH (07:52)
[2022-10-28] MEDS: carvediloL 6.25 MG TAB PO SCH (07:53)
[2022-10-28] MEDS: ATORVASTATIN 80 MG TAB PO SCH (07:53)
[2022-10-28] MEDS: TAMSULOSIN 0.4 MG CAP.ER.24H PO SCH (07:53)
[2022-10-28 08:10] VITALS: PULSE 85; RESP 18
[2022-10-28 08:52] LABS: HCT 35.2 % (39.6-50.0); HGB 11.2 d/dL (13.0-17.0); MCH 25.7 pg (27.0-32.0); MCHC 31.8 d/dL (32.0-37.0); MCV 80.9 FL (80.0-97.0); NRBC Per 100 WBC 0 X 10*3/uL (0.00-0.01); Platelet Count 222 X 10*3/uL (140-440); RBC 4.35 X 10*6/uL (4.40-5.60); RDW 14.3 % (11.5-14.5); WBC 6.77 X 10*3/uL (4.50-10.00)
[2022-10-28 08:57] VITALS: BP 154/81
[2022-10-28] MEDS ORDERED: ASPIRIN 81 MG PO SCH (09:00)
[2022-10-28] MEDS ORDERED: FENOFIBRATE 160 MG TAB PO SCH (09:00)
[2022-10-28] MEDS ORDERED: CEFDINIR 300 MG CAP PO SCH (09:00)
[2022-10-28] MEDS ORDERED: ISOSORBIDE MONONITRATE ER 30 MG TAB.ER.24H PO SCH (09:00)
[2022-10-28 09:02] LABS: ALT 22 U/L (10-49); AST 19 U/L (14-35); Albumin 2.2 d/dL (3.8-4.9); Albumin/Globulin Ratio 0.65 Ratio (1.60-3.17); Alkaline Phosphatase 81 U/L (41-126); BUN/Creat Ratio 11.33 Ratio (12.00-20.00); Blood Urea Nitrogen 37.4 mg/dL (9.0-27.0); Calcium 7.8 mg/dL (8.7-10.3); Carbon Dioxide 20.3 mmol/L (21.6-31.8); Chloride 108 mmol/L (96-109); Globulin 3.4 d/dL (1.6-3.3); Glucose 121 mg/dL (70-110); Potassium 3.1 mmol/L (3.5-5.5); Sodium 138 mmol/L (135-145); Total Bilirubin 0.2 mg/dL (0.3-1.2); Total Protein 5.6 d/dL (6.2-8.2)
[2022-10-28 09:26] LABS: Basophils # (A) 0.05 X 10*3/uL (0.00-0.10); Basophils % (A) 0.7 %; Eosinophils # (A) 0.16 X 10*3/uL (0.04-0.35); Eosinophils % (A) 2.4 %; Lymphocytes # (A) 1.28 X 10*3/uL (0.90-5.00); Lymphocytes % (A) 18.9 %; Monocytes % (A) 8.9 %; Neutrophils # (A) 4.65 X 10*3/uL (1.80-7.70); Neutrophils % (A) 68.7 %
[2022-10-28] MEDS ORDERED: Potassium Replacement Protocol 1 EACH MISC MISCELLANE PRN (10:05)
[2022-10-28] MEDS: POTASSIUM CHLORIDE ER 20 MEQ TAB.ER PO SCH ×2 (11:22→12:37)
[2022-10-28 11:59] LABS: Glucose,Whole Blood 186 mg/dL (70-110)
[2022-10-28 12:17] VITALS: BMI 25.0
--- NOTE | 2022-10-28 13:14 | P.DS ---
Providers Date of admission: 10/26/22 20:25 Expected date of discharge: 10/28/22 Attending physician: Rhianna Parnell Consults: 10/27/22 09:11 Consult Physician Urgent Consulting Provider: Jody Ruth Consult Reason/Comments: alexandra Do you want consulting provider notified?: Yes Primary care physician: Brett Choe [facility] Course: Discharge diagnoses; Debility Weakness Acute on chronic kidney disease Bacterial pneumonia Hypokalemia Elevated troponin Hypertension Hyperlipidemia History of bladder cancer Non-anion gap metabolic acidosis Hospital course; patient is a 67-year-old gentleman with past medical history significant for hypertension, hyperlipidemia who presented to the ER because of increasing weakness. Patient was only discharged yesterday after being treated for acute on chronic kidney disease and bacterial pneumonia. after going home realized that he was not able to take care of himself. Denies any chest pain. Denies any lightheadedness or dizziness. Because of the symptoms, patient came to the ER Initial lab work done in the ER showed 5.8, hemoglobin 11.2, platelet count 161, sodium 134, potassium 3.6, BUN 48, creatinine 3.10, calcium 7.3 Patient was admitted to medicine service 10/28. Patient seen and examined. Potassium level was low, replacement ordered. PT and OT recommended rehab, patient at this time is refusing rehab. Discussed in detail with him regarding the need for him to go to rehab but patient this time is refusing, wants to be discharged home with homecare. PHYSICAL EXAMINATION: GENERAL: The patient is alert and oriented x3, not in any acute distress. Well developed, well nourished. HEENT: Pupils are round and equally reacting to light. EOMI. No scleral icterus. No conjunctival pallor. Normocephalic, atraumatic. No pharyngeal erythema. No thyromegaly. CARDIOVASCULAR: S1 and S2 present. No murmurs, rubs, or gallops. PULMONARY: Chest is clear to auscultation, no wheezing or crackles. ABDOMEN: Soft, nontender, nondistended, normoactive bowel sounds. No palpable organomegaly. MUSCULOSKELETAL: No joint swelling or deformity. EXTREMITIES: No cyanosis, clubbing, or pedal edema. NEUROLOGICAL: Gross neurological examination did not reveal any focal deficits. SKIN: No rashes. Dictation was produced using [employer] software. please excuse any grammatical, word or spelling errors. Patient Condition at Discharge: Fair Plan - Discharge Summary Discharge Rx Participant: Yes New Discharge Prescriptions: Continue Atorvastatin Calcium [Lipitor] 80 mg PO DAILY Fenofibrate [Lofibra] 160 mg PO DAILY Exenatide Microspheres [Bydureon Bcise Auto-Injector] 2 mg SQ MO Glucagon [Gvoke Pfs 1-Pack Syringe] 1 mg SQ DIRECTED PRN PRN Reason: Blood Sugar - Low Loperamide HCl [Imodium A-D] 2 - 4 mg PO DIRECTED PRN MDD 4 TABLETS PRN Reason: Diarrhea Nitroglycerin Sl Tabs [Nitrostat] 0.4 mg SL Q5M PRN PRN Reason: Chest Pain cefUROXime axetiL [Ceftin] 500 mg PO BID 3 Days #6 tab Tamsulosin [Flomax] 0.4 mg PO BID #60 cap Aspirin EC [Ecotrin Low Dose] 81 mg PO DAILY Ticagrelor [Brilinta] 90 mg PO BID #60 tab Isosorbide Mononitrate ER [Imdur] 30 mg PO DAILY #30 tab carvediloL [Coreg] 6.25 mg PO BID-W/MEALS #30 tab Discharge Medication List Atorvastatin Calcium [Lipitor] 80 mg PO DAILY 08/23/21 [History] Aspirin EC [Ecotrin Low Dose] 81 mg PO DAILY 12/17/21 [History] Ticagrelor [Brilinta] 90 mg PO BID #60 tab 12/19/21 [Rx] Exenatide Microspheres [Bydureon Bcise Auto-Injector] 2 mg SQ MO 01/09/22 [History] Fenofibrate [Lofibra] 160 mg PO DAILY 01/09/22 [History] Glucagon [Gvoke Pfs 1-Pack Syringe] 1 mg SQ DIRECTED PRN 09/27/22 [History] Loperamide HCl [Imodium A-D] 2 - 4 mg PO DIRECTED PRN MDD 4 TABLETS 09/27/22 [History] Isosorbide Mononitrate ER [Imdur] 30 mg PO DAILY #30 tab 10/04/22 [Rx] Nitroglycerin Sl Tabs [Nitrostat] 0.4 mg SL Q5M PRN 10/21/22 [History] Tamsulosin [Flomax] 0.4 mg PO BID #60 cap 10/26/22 [Rx] carvediloL [Coreg] 6.25 mg PO BID-W/MEALS #30 tab 10/26/22 [Rx] cefUROXime axetiL [Ceftin] 500 mg PO BID 3 Days #6 tab 10/26/22 [Rx] Follow up Appointment(s)/Referral(s): Jody Ruth MD [STAFF PHYSICIAN] - 1 Week Brett Choe DO [Primary Care Provider] - 11/11/22 11:15 am [facility] [NON-STAFF] - 1-2 Days Discharge Disposition: HOME WITH HOME HEALTH SERVICES
--- NOTE | 2022-10-29 11:38 | P.PN ---
Subjective Patient is seen for f/u for KEAGAN on top of CKD. Doing well. No complaints. Wants to go home. Creatinine at 3.3 mg/dL Objective - Vital Signs Vital signs: Vital Signs Temp 98 F 10/28/22 07:26 Pulse 85 10/28/22 07:26 Resp 18 10/28/22 11:56 BP 154/81 10/28/22 08:56 Pulse Ox 94 L 10/28/22 08:16 FiO2 21 10/28/22 08:16 Intake & Output 10/28/22 10/29/22 10/29/22 18:59 06:59 18:59 Output Total 1450 Balance -1450 Weight 83.915 kg Output: Urine 1450 Other: Voiding Method Indwelling Catheter - Exam Patient is awake. Comfortable A and O x3 Lungs are clear CVS S1 and S2 Abdomen is soft, nontender No edema [employer] exam is intact. - Labs CBC & Chem 7: 10/28/22 05:14 10/28/22 05:14 Labs: Abnormal Lab Results - Last 24 Hours (Table) 10/28/22 Range/Units 11:58 POC Glucose (mg/dL) 186 H (70-110) mg/dL Assessment and Plan Assessment: 1. 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 Currently with indwelling Argueta catheter which was placed on 10/03/2022. Serum creatinine staying at about 3-3.5 mg/dL which is slightly higher than his previous baseline of about 2-2.5 mg/dL. status post IV fluids during last hospitalization and creatinine staying around 3.3 mg/dL. 2. Weakness possibly related to deconditioning with recent hospitalization. No significant anemia or hypotension or fever noted. 3. Obstructive uropathy with urine retention currently with indwelling Argueta catheter placed on 10/03/2022 4. History of bladder cancer being followed by urology 5. Chronic systolic CHF with ejection fraction 35-40% with moderate mitral regurgitation 6. Recent right lower extremity cellulitis status post antibiotics. 7. Pneumonia status post antibiotics Plan: Continue with Argueta catheter Repeat labs in a.m. Increase Coreg if blood pressure remains elevated
--- NOTE | 2022-10-31 23:52 | CDI ---
Documentation Clarification Form Date: 10/31/2022 11:25:51 PM From: Lali Duggan RN, CCDS Email: [email or web address] Admit Date: 10/28/2022 09:09:00 AM Patient Name: Neo Downs Visit Number: [id number] Discharge Date: 10/28/2022 03:13:00 PM ATTENTION: The Clinical Documentation Specialists (CDI) and [facility] Coding Staff appreciate your assistance in clarifying documentation. Please respond to the clarification below the line at the bottom and electronically sign. The CDI & [facility] Coding staff will review the response and follow-up if needed. Please note: Queries are made part of the Legal Health Record. If you have any questions, please contact the author of this message via ITS. Dr. Joel Pino Your patient has the documented symptom of weakness. Additional clarification regarding the etiology/cause of this symptom is requested. History/Risk Factors: Cancer, Diabetes Mellitus, Hyperlipidemia, Hypertension, recent admission and discharge from hospital. Clinical Indicators: ED: "Patient states is currently and persistently very weak, unable to stand. Generalized weakness, lack of energy, difficulty walking. Impression and plan: Debility, Weakness, KEAGAN. H&P: "Patient was only discharged yesterday after being treated for acute on chronic kidney disease and bacterial pneumonia. After going home realized that he was not able to take care of himself. Assessment and plan Debility. Weakness." Discharge summary: "Discharge diagnoses: Debility. Weakness. PT and OT recommended rehab. Patient at this time is refusing rehab." 10/28 OT evaluation "weaker and unable to stand prior to admission. anticipate return home with family and home care." 10/28 PT evaluation: "Recommend supervision with standing activities to maintain safety." Treatment: PT/OT evaluation and treatment with recommendation for rehab but patient refused and discharged with home care. Is there a corresponding diagnosis/etiology for this symptom of weakness? [ x ] Age related physical debility [ ] Unable to determine [ ] Other, please specify MTDD
== END 2022-10-28 15:13 | disposition home health service (06) | DRG 884 ==
LOC: EC 18:28 → 5NMEDONC 20:25 → OBSVTOIN 10-28 09:09
PROVIDERS: ADMIT Hospitalist; ATTEND Hospitalist
DX: R54 Age-related physical debility (principal); J15.9 Unspecified bacterial pneumonia; N17.9 Acute kidney failure, unspecified; E87.20 Acidosis, unspecified; I13.0 Hypertensive heart and chronic kidney disease with heart failure and stage 1 through stage 4 chronic kidney disease, or unspecified chronic kidney disease; I50.22 Chronic systolic (congestive) heart failure; R53.1 Weakness; E11.22 Type 2 diabetes mellitus with diabetic chronic kidney disease; E87.6 Hypokalemia; R79.89 Other specified abnormal findings of blood chemistry; I10 Essential (primary) hypertension; E78.5 Hyperlipidemia, unspecified; R33.8 Other retention of urine; N13.9 Obstructive and reflux uropathy, unspecified; N18.9 Chronic kidney disease, unspecified; G51.0 Bell's palsy; Z79.02 Long term (current) use of antithrombotics/antiplatelets; Z79.4 Long term (current) use of insulin; Z79.82 Long term (current) use of aspirin; Z79.899 Other long term (current) drug therapy; Z85.51 Personal history of malignant neoplasm of bladder; Z85.820 Personal history of malignant melanoma of skin; Z86.16 Personal history of COVID-19; Z87.440 Personal history of urinary (tract) infections; E11.42 Type 2 diabetes mellitus with diabetic polyneuropathy; Z87.81 Personal history of (healed) traumatic fracture; Z79.84 Long term (current) use of oral hypoglycemic drugs
CPT/HCPCS: 36415; 71046; 80053; 83605; 83735; 83880; 84100; 84484; 85025; 85610; 85730; 93005; 94760; 96361; 96374; 99285

== ENCOUNTER → 2022-11-23 | Outpatient (CLI) | payer MEDICARE, OTHER ==
[2022-11-23 20:22] LABS: BUN/Creat Ratio 14.39 Ratio (12.00-20.00); Blood Urea Nitrogen 47.5 mg/dL (9.0-27.0); Calcium 8.5 mg/dL (8.7-10.3); Carbon Dioxide 19.7 mmol/L (21.6-31.8); Chloride 106 mmol/L (96-109); Glucose 121 mg/dL (70-110); Magnesium 1.8 mg/dL (1.5-2.4); Sodium 135 mmol/L (135-145)
== END | disposition home or self-care (01) ==
LOC: LABWHC1 14:29
PROVIDERS: ATTEND Internal Medicine
DX: N18.4 Chronic kidney disease, stage 4 (severe) (principal)
CPT/HCPCS: 36415; 80048; 83735

== ENCOUNTER 2023-01-18 04:14 | Inpatient (IN) | payer MEDICARE, OTHER ==
[2023-01-18] MEDS ORDERED: SODIUM CHLORIDE 0.9% 1,000 ML IV STA (04:21)
[2023-01-18] MEDS ORDERED: ONDANSETRON 4 MG/2 ML VIAL IVP STA (04:22)
[2023-01-18 04:43] LABS: Anisocytosis Slight; Basophils % (A) 0 %; Eosinophils # (A) 0.1 k/uL (0-0.7); Eosinophils % (A) 3 %; HGB 11.6 gm/dL (13.0-17.5); Lymphocytes # (A) 1.1 k/uL (1.0-4.8); Lymphocytes % (A) 22 %; MCH 27.8 pg (25.0-35.0); MCHC 33.3 g/dL (31.0-37.0); MCV 83.7 fL (80.0-100.0); Mean Platelet Volume 7.6; Monocytes # (A) 0.3 k/uL (0-1.0); Monocytes % (A) 7 %; Neutrophils # (A) 3.3 k/uL (1.3-7.7); Neutrophils % (A) 65 %; Platelet Count 182 k/uL (150-450); RBC 4.18 m/uL (4.30-5.90)
[2023-01-18 04:53] LABS: ALT 33 U/L (4-49); AST 38 U/L (17-59); African American GFR (CKD) 16 (>60 ml/min/1.73 sqM); Albumin 2.8 g/dL (3.5-5.0); Alkaline Phosphatase 39 U/L (38-126); Anion Gap 10 mmol/L; Blood Urea Nitrogen 65 mg/dL (9-20); Calcium 8.6 mg/dL (8.4-10.2); Carbon Dioxide 13 mmol/L (22-30); Chloride 112 mmol/L (98-107); Glucose 139 mg/dL (74-99); Magnesium 1.9 mg/dL (1.6-2.3); Non-African American GFR(CKD) 13 (>60 ml/min/1.73 sqM); Potassium 4.3 mmol/L (3.5-5.1); Sodium 135 mmol/L (137-145); Total Bilirubin 0.4 mg/dL (0.2-1.3); Total Protein 6.5 g/dL (6.3-8.2)
[2023-01-18 05:00] LABS: INR 1.1 (<1.2); Partial Thromboplastin Time 22.1 sec (22.0-30.0); Prothrombin Time 11.8 sec (10.0-12.5)
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
--- NOTE | 2023-01-18 06:43 | CT ---
EXAMINATION TYPE: CT brain cspine wo con DATE OF EXAM: 01/18/2023 COMPARISON: Brain 12/17/2021 HISTORY: 67-year-old male fall, altered mental status, confusion, syncope CT DLP: 1530.4 mGycm Automated exposure control for dose reduction was used. Technique: Examination of the head was done in axial plane without intravenous contrast. Coronal and sagittal reconstructions performed. CT of the cervical spine was obtained in axial plane without intravenous injection of contrast mater ial. Coronal and sagittal reformatted images were obtained from the axial views for evaluation of f ractures, spinal alignment and canal. FINDINGS: Head: There is no evidence of acute intracranial hemorrhage, acute ischemic changes, mass, mass-effect, or extra-axial fluid collection. There is no effacement of cerebral sulci or basal subarachnoid cister ns. There is no hydrocephalus. There is no midline shift. Sheth-white matter distinction is preserv ed. Mild generalized supratentorial volume loss. Scattered calcifications in the carotid siphons. Area of encephalomalacia redemonstrated along the posterior right frontal lobe and right frontoparietal junc tion. Trace mucosal thickening ethmoid air cells. Mastoid air cells well pneumatized. Orbits and globes are intact. Cervical spine: No craniocervical junction anomaly, predental space widening, or prevertebral soft tissue swelling. D egenerative change of the C1 dens articulation. Moderate multilevel spondylotic changes especially C5-C6 and C6-C7 with disc osteophyte complexes con tributing to at least mild spinal canal stenosis. Preserved alignment of the cervical spine. No acute fracture is seen. Variable mild and moderate neuroforaminal narrowing throughout. Sagittal and coronal reformatted images confirm above findings. COMBINED IMPRESSION: 1. No acute intracranial abnormality seen. Mild generalized cerebral atrophy and redemonstrated old i nfarct involving the posterior aspect of the right frontal lobe. 2. No acute fracture or malalignment of the cervical spine. Moderate spondylotic change, especially C 5-C7 levels.
[2023-01-18] MEDS ORDERED: HEPARIN SODIUM 1,000 UN/ML (10ML VL) IV ONE (06:57)
[2023-01-18] MEDS ORDERED: HEPARIN SODIUM 1,000 UN/ML (10ML VL) IV PRN (06:57)
[2023-01-18] MEDS ORDERED: NALOXONE 0.4 MG/ML 1 ML VIAL IV PRN (06:58)
--- NOTE | 2023-01-18 06:59 | CT ---
EXAMINATION TYPE: CT ChestAbdPelvis wo con DATE OF EXAM: 01/18/2023 COMPARISON: Chest 12/17/2021 HISTORY: 67-year-old male fall, confusion, altered mental status, syncope TECHNIQUE: Contiguous axial scanning of the chest, abdomen, and pelvis without IV contrast. Coronal a nd sagittal reconstructions performed. CT DLP: 680.7 mGycm Automated exposure control for dose reduction was used. FINDINGS: Chest: Heart borderline in size without pericardial effusion. LAD coronary artery calcifications are present . Mild aortic valvular calcifications. Aorta normal caliber. Conventional arch vessel branching anatomy. Small clustered prevascular space lymph nodes. Also, clustered AP window lymph nodes. These show interval increase in size currently measuring up to 1.1 cm in the AP window versus 7 mm, p reviously. Right paratracheal nodes have enlarged well currently measuring up to 1.8 cm versus 1.1 cm, previousl y. Subcarinal node 2.2 cm versus 1.7 cm, previously. Borderline to mildly enlarged caliber to the main right and left pulmonary arteries at 2.5 cm each. T his may reflect underlying pulmonary hypertension. Mild bilateral gynecomastia. There is some patchy groundglass change at the left lower lobe. Additional mild dependent atelectasis bilaterally. Possible obscured 2.9 cm mass or bronchial lymph node right infrahilar region, axial im age 30. No pleural effusion. Underlying asymmetric elevation left hemidiaphragm which could reflect eventrati on or diaphragmatic paralysis. ABDOMEN: Noncontrast appearance of the liver, gallbladder, adrenal glands, right kidney, spleen, pancreas show no gross abnormality. Mild fullness of the left renal collecting system may be transient. No obstructing stone is seen. No dilated small bowel, free fluid, or free air. No mesenteric or retroperitoneal adenopathy seen. Scattered mild to moderate stool. Segmental circumferential wall thickening throughout portions of th e colon suggesting that the splenic flecture, mid to lower descending colon, and distal sigmoid colon and rectum. No surrounding inflammation seen. Pelvis: Markedly distention of the urinary bladder up to 14.0 cm. Prostatomegaly identified 5.6 cm wide. Some soft tissue impressing into the base of the bladder. Pelvic fluid was. No abnormal fluid collection pelvis or pelvic lymphadenopathy. BONES: Moderate degenerative change right hip and mild of the left hip. Degenerative bony ankylosis right SI joint. Bilateral L5 pars defects. Old vertebral compression collapse of T12 vertebral body, present on the patient's 05/01/2020 CT. Brid ging anterior plate spondylosis thoracolumbar junction. No evident fracture seen. IMPRESSION: 1. MEDIASTINAL ADENOPATHY HAS INCREASED IN SIZE COMPARED TO 12/17/2021, CURRENTLY MEASURING UP TO 2.2 CM. IN ADDITION, THERE IS A POSSIBLE OBSCURED RIGHT INFRAHILAR MASS OR BRONCHIAL LYMPH NODE MEASURING 2.9 CM NOT PRESENT IN 2021. RECOMMEND PULMONARY MEDICINE REFERRAL FOR FURTHER EVALUATION. SOME DIFFE RENTIAL CONSIDERATIONS INCLUDE GRANULOMATOUS DISEASE/SARCOIDOSIS, SYSTEMIC MYCOBACTERIAL/FUNGAL INFEC TION, LYMPHOMA, METASTATIC DISEASE, AND LUNG CANCER. 2. SOME PATCHY GROUNDGLASS CHANGE IN THE LEFT LOWER LOBE. THIS COULD REPRESENT MILD PULMONARY CONTUSI ON VERSUS EARLY INFILTRATE. 3. SUGGESTION OF SEGMENTAL CIRCUMFERENTIAL THICKENING ALONG PORTIONS OF THE COLON PARTICULARLY THE SP LENIC FLEXURE, MID DESCENDING COLON, AND DISTAL SIGMOID AND RECTUM. CORRELATE FOR A NONSPECIFIC MILD COLITIS.
[2023-01-18] MEDS ORDERED: SODIUM CHLORIDE 0.9% 1,000 ML IV SCH (07:00)
[2023-01-18] MEDS: ONDANSETRON 4 MG/2 ML VIAL IVP PRN ×2 (07:36→15:55)
[2023-01-18] MEDS: MORPHINE SULFATE 4 MG/ML SYRINGE IV PRN ×3 (07:36→20:30)
[2023-01-18] MEDS: PANTOPRAZOLE 40 MG/10 ML VIAL IV SCH (08:21)
[2023-01-18] MEDS: METOPROLOL SUCCINATE (ER) 50 MG TAB.ER.24H PO SCH ×2 (08:21→20:28)
[2023-01-18] MEDS: HEPARIN SOD,PORK IN 0.45% NACL 25,000 UNIT in 0.45% NACL 1 250ML.BAG IV SCH (08:27)
[2023-01-18] MEDS ORDERED: LACTATED RINGERS 1,000 ML IV SCH (10:15)
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
[2023-01-18] MEDS: HYDROcodone/APAP 7.5-325MG 1 EACH TAB PO PRN (10:31)
[2023-01-18] MEDS: DEXTROSE 5% IN WATER 1,000 ML with SODIUM BICARB (1 MEQ/ML) 150 ML IV SCH ×2 (10:58→21:52)
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
--- NOTE | 2023-01-18 12:38 | NM ---
EXAMINATION TYPE: NM pul vent and perfuse DATE OF EXAM: 01/18/2023 CLINICAL INDICATION: Male, 67 years old with history of PE; HISTORY: 01/18/2023 TECHNIQUE: Utilizing inhalation of 70 mCi Tc 99m DTPA aerosol and intravenous injection of 5.2 mCi o f Tc 99m MAA, ventilation and perfusion images are acquired post injection in multiple projections. FINDINGS: There is an elevated left hemidiaphragm corresponding to the asymmetric uptake of the lungs confirmed by chest. There are no mismatch perfusion ventilation defect. There is a moderate matched defect inv olving the left lower lobe anteriorly. IMPRESSION: 1. No mismatch defects. There is a moderate-sized matched defect involving the left lower lobe which appears to correspond to area of consolidation on x-ray compatible with triple match and, therefore, intermediate probability for pulmonary embolism.
[2023-01-18] MEDS: INSULIN ASPART (NovoLOG) 100 UNIT/ML VIAL SQ SCH ×3 (12:44→20:17)
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
--- NOTE | 2023-01-18 14:46 | CONS ---
CONSULTATION CHIEF COMPLAINT: Syncope. HISTORY OF PRESENT ILLNESS: Neo is a 67-year-old gentleman who is admitted to hospital having had a syncopal event at home. The patient has diarrhea, nausea, vomiting, following that had a syncope. The patient could have had a vasovagal syncope. His D-dimer was significantly elevated. A V/Q scan had been added and the patient is currently on IV heparin. He does not have any shortness of breath and does not have any chest pain. EKG showed sinus rhythm with nonspecific ST-T wave changes. He denies prior history of coronary artery disease or congestive heart failure. At the time of my evaluation, he appears comfortable at rest. He is being hydrated and is about to start heparin. The patient has known CAD and had prior angioplasty with stent placement. The CT scan of the chest, abdomen and pelvis showed mediastinal adenopathy that has worsened compared to the prior testing. There is also ground-glass appearance within the left lower lobe. EKG shows sinus rhythm with first-degree AV block, PVCs and nonspecific ST-T wave changes. Troponins are negative. BUN and creatinine are 65 and 4.2. PAST MEDICAL HISTORY: Significant for coronary artery disease status post angioplasty, hypertension, dyslipidemia. MEDICATIONS: The patient is currently on Brilinta, Lofibra, Imdur, Toprol, spironolactone, Flomax, Zestril, Glucagon, Zofran. ALLERGIES: No known drug allergies. FAMILY HISTORY: Negative for premature coronary artery disease. SOCIAL HISTORY: Negative for current smoking, EtOH abuse or drug abuse. REVIEW OF SYSTEMS: 14 out of 14 review of systems has been performed. Pertinents are as documented. PHYSICAL EXAMINATION: GENERAL: He is comfortable at rest. VITAL SIGNS: Afebrile. Heart rate is 89 beats per minute. Blood pressure is 139/84, respiratory rate is 18, O2 saturation is 98% on room air. NECK: There is no jugular venous distention. Carotid upstroke is normal. There is no bruit. CHEST: Reveals diminished air entry at the bases. HEART: Reveals first and second heart sounds. No gallop. No murmur. ABDOMEN: Soft. EXTREMITIES: Exam of extremities did not reveal any edema. Peripheral pulses are palpable. V/Q scan is intermediate probability. D-dimer is elevated. ASSESSMENT AND PLAN: 1. Syncope, rule out cardiac causes. 2. Elevated D-dimer with intermediate probability of pulmonary embolism. Consult Pulmonary and continue IV heparin at this time. 3. Coronary artery disease, status post angioplasty. PLAN: I will obtain a 2D echo. Watch him on telemetry for tachy or bradyarrhythmias. Syncope, most probably vasovagal in origin. MMODL / IJN: [id number] /
[2023-01-18 16:46] LABS: Glucose,Whole Blood 124 mg/dL (70-110)
[2023-01-18 18:05] LABS: Amorphous Sediment,Urine Rare /hpf; Appearance,Urine Clear (Clear); Bacteria,Urine Rare /hpf; Bilirubin,Urine Negative (Negative); Blood,Urine Small (Negative); Color,Urine Colorless; Glucose,Urine (UA) 2+ (Negative); Ketones,Urine Negative (Negative); Leukocyte Esterase,Urine Trace (Negative); Nitrite,Urine Negative (Negative); Protein,Urine 3+ (Negative); RBC,Urine 6 /hpf (0-5); Specific Gravity,Urine 1.018 (1.001-1.035); Urobilinogen,Urine <2.0 mg/dL (<2.0); WBC,Urine 11 /hpf (0-5)
--- NOTE | 2023-01-18 18:34 | CA ---
Transthoracic Echo Report Name: Neo Downs Age: 67 Gender: M : 1955 Exam Date: 01/18/2023 15:17 Exam Location: [facility] Ht (in): 72 Wt (lb): 185 Ordering Physician: Emiliano Johansen MD ([id number]) Attending/Referring Phys: Eleno VIDES Truck Manager Patito Grewal RDCS Procedure CPT: Indications: Syncope Cardiac Hx: Technical Quality: Technically difficult study Contrast 1: Definity Total Dose (mL): 2 Contrast 2: Total Dose (mL): MEASUREMENTS (Male / Female) Normal Values 2D ECHO LV Diastolic Diameter PLAX 3.3 cm 4.2 - 5.9 / 3.9 - 5.3 cm LV Systolic Diameter PLAX 2.7 cm IVS Diastolic Thickness 1.9 cm 0.6 - 1.0 / 0.6 - 0.9 cm LVPW Diastolic Thickness 1.4 cm 0.6 - 1.0 / 0.6 - 0.9 cm LV Relative Wall Thickness 1.0 LA Volume 61.9 cm??? 18 - 58 / 22 - 52 cm??? LA Volume Index 29.9 cm???/m??? 16 - 28 cm???/m??? M-MODE Aortic Root Diameter MM 3.8 cm LA Systolic Diameter MM 4.1 cm LA Ao Ratio MM 1.1 AV Cusp Separation MM 1.0 cm DOPPLER AV Peak Velocity 121.1 cm/s AV Peak Gradient 5.9 mmHg AV Mean Velocity 85.7 cm/s AV Mean Gradient 3.3 mmHg AV Velocity Time Integral 19.6 cm LVOT Peak Velocity 77.7 cm/s LVOT Peak Gradient 2.4 mmHg LVOT Velocity Time Integral 13.0 cm MV Area PHT 6.4 cm??? Mitral E Point Velocity 104.8 cm/s Mitral A Point Velocity 0.0 cm/s Mitral E to A Ratio 74361.5 MV Deceleration Time 118.0 ms MV E' Velocity 18.0 cm/s Mitral E to MV E' Ratio 5.8 FINDINGS Left Ventricle Severely increased septal wall thickness. Moderately reduced global left ventricular systolic function. Left ventricular ejection fraction is estimated at 35-40 %. Anteroapical and anteroseptal hypokinesis Right Ventricle Right ventricle not well visualized. Right Atrium Right atrium not well visualized. Left Atrium Mildly increased left atrial volume. Mildly increased left atrial area. Mitral Valve Structurally normal mitral valve. No mitral stenosis. Moderate mitral annular calcification. Aortic Valve No aortic valve stenosis or regurgitation. Tricuspid Valve Structurally normal tricuspid valve. Pulmonic Valve Pulmonic valve not well visualized. Pericardium No pericardial effusion. Aorta Normal size aortic root and proximal ascending aorta. CONCLUSIONS Technically difficult study. Definity ECHO contrast used for improved visualization of the endocardial borders (inadequate visualization of two or more contiguous segments). Moderately impaired left ventricular systolic function with segmental wall motion abnormality Very limited Doppler study Previewed by: Dr. Wesley Scott MD (Electronically Signed) Final Date: 18 January 2023 18:33
[2023-01-18] MEDS: traMADol 50 MG TAB PO PRN (18:42)
[2023-01-18 20:03] LABS: Glucose,Whole Blood 138 mg/dL (70-110)
[2023-01-18] MEDS: ONDANSETRON ODT 4 MG TAB PO PRN (20:28)
[2023-01-18] MEDS: TAMSULOSIN 0.4 MG CAP.ER.24H PO SCH (20:28)
[2023-01-18] MEDS ORDERED: TICAGRELOR 90 MG TAB PO SCH (21:00)
[2023-01-18] MEDS ORDERED: METOPROLOL SUCCINATE (ER) 50 MG TAB.ER.24H PO SCH (21:00)
[2023-01-19] MEDS: HEPARIN SOD,PORK IN 0.45% NACL 25,000 UNIT in 0.45% NACL 1 250ML.BAG IV SCH (01:03)
[2023-01-19] MEDS: MORPHINE SULFATE 4 MG/ML SYRINGE IV PRN (04:51)
[2023-01-19 05:59] LABS: Glucose,Whole Blood 114 mg/dL (70-110)
[2023-01-19] MEDS: INSULIN ASPART (NovoLOG) 100 UNIT/ML VIAL SQ SCH ×4 (05:59→19:49)
[2023-01-19 08:08] LABS: Anisocytosis Slight; Basophils % (A) 0 %; Eosinophils # (A) 0.2 k/uL (0-0.7); Eosinophils % (A) 3 %; HGB 10.5 gm/dL (13.0-17.5); Lymphocytes # (A) 1.2 k/uL (1.0-4.8); Lymphocytes % (A) 19 %; MCH 26.6 pg (25.0-35.0); MCHC 31.8 g/dL (31.0-37.0); MCV 83.6 fL (80.0-100.0); Mean Platelet Volume 8.3; Monocytes # (A) 0.4 k/uL (0-1.0); Monocytes % (A) 7 %; Neutrophils # (A) 4.3 k/uL (1.3-7.7); Neutrophils % (A) 69 %; Platelet Count 161 k/uL (150-450); RBC 3.95 m/uL (4.30-5.90); RDW 17.2 % (11.5-15.5); WBC 6.2 k/uL (3.8-10.6)
[2023-01-19 09:17] LABS: ALT 30 U/L (4-49); AST 30 U/L (17-59); African American GFR (CKD) 16 (>60 ml/min/1.73 sqM); Albumin 2.6 g/dL (3.5-5.0); Alkaline Phosphatase 46 U/L (38-126); Anion Gap 9 mmol/L; Blood Urea Nitrogen 62 mg/dL (9-20); Calcium 8.3 mg/dL (8.4-10.2); Carbon Dioxide 21 mmol/L (22-30); Chloride 107 mmol/L (98-107); Glucose 111 mg/dL (74-99); Non-African American GFR(CKD) 14 (>60 ml/min/1.73 sqM); Phosphorus 6.2 mg/dL (2.5-4.5); Potassium 3.9 mmol/L (3.5-5.1); Sodium 137 mmol/L (137-145); Total Bilirubin 0.4 mg/dL (0.2-1.3); Total Protein 5.9 g/dL (6.3-8.2)
[2023-01-19] MEDS: ISOSORBIDE MONONITRATE ER 30 MG TAB.ER.24H PO SCH (09:27)
[2023-01-19] MEDS: PANTOPRAZOLE 40 MG/10 ML VIAL IV SCH (09:27)
[2023-01-19] MEDS: ONDANSETRON ODT 4 MG TAB PO PRN (09:27)
[2023-01-19] MEDS: HYDROcodone/APAP 7.5-325MG 1 EACH TAB PO PRN (09:27)
[2023-01-19] MEDS: FENOFIBRATE 160 MG TAB PO SCH (09:27)
[2023-01-19] MEDS: METOPROLOL SUCCINATE (ER) 50 MG TAB.ER.24H PO SCH ×2 (09:27→19:56)
[2023-01-19] MEDS: TAMSULOSIN 0.4 MG CAP.ER.24H PO SCH ×2 (09:27→19:56)
--- NOTE | 2023-01-19 10:37 | P.PN ---
Subjective Progress Note Date: 01/19/23 History of present illness: This is a 67-year-old male with past medical history of coronary artery disease status post angioplasty, hypertension, dyslipidemia, history of melanoma. Patient presented to the hospital due to syncopal event at home following diarrhea, nausea and vomiting. His d-dimer was elevated and he went for a VQ scan which revealed intermediate risk for pulmonary embolism. Echocardiogram reveals EF of 35-40% limited study. Patient has been continued on heparin drip and pulmonary medicine is following. Pulmonary has recommended outpatient PET scan for mediastinal adenopathy and pulmonary embolism has been ruled out. Patient is complaining of significant back pain and unable to move in bed since the fall. Repeat blood work reveals hemoglobin 10.5, BUN 62 creatinine 4.21, potassium 3.9. Magnesium 2.0. Physical examination: Gen: This is a 67-year-old male. He is resting and appears to be comfortable and in no acute distress. VS: reviewed HEENT: Head is atraumatic, normocephalic. Pupils equal, round. Sclerae is anicteric. NECK: Supple. No JVD. . LUNGS: Clear to auscultation. No wheezes or rhonchi. No intercostal retractions. HEART: Regular rate and rhythm. No murmur. ABDOMEN: Soft No tenderness. EXTREMITIES: No pedal edema. No calf tenderness. NEUROLOGICAL: Patient is awake, alert and oriented x3. Assessment: Syncope most likely vasovagal Pulmonary embolism ruled out by pulmonary medicine Mediastinal adenopathy Coronary artery disease status post angioplasty Acute kidney injury, nephrology following Plan: Monitor on telemetry for today. Bradycardia arrhythmias Further recommendations to follow based upon clinical course Nurse practitioner note has been reviewed, I agree with documented findings and plan of care. Patient was seen and examined. Objective - Vital Signs Vital signs: Vital Signs Temp 97.9 F 01/18/23 20:00 Pulse 84 01/19/23 04:00 Resp 18 01/19/23 04:00 BP 143/85 01/19/23 04:00 Pulse Ox 95 01/19/23 04:00 FiO2 Intake & Output 01/18/23 01/19/23 01/19/23 18:59 06:59 18:59 Intake Total 113.791 99.437 Output Total 1450 1600 Balance -1336.209 -1500.563 Weight 83.915 kg Intake: Intake, IV Titration 113.791 99.437 Amount Heparin Sod,Pork in 0.45% 113.791 99.437 NaCl 25,000 unit In 0.45 % NaCl 1 250ml.bag @ 18 UNITS/KG/HR 15.105 mls/hr IV .[id number] [facility] Rx#: [id number] Output: Urine 1450 1600 Straight 1450 1100 Other: Voiding Method Self-Catheterization - Labs CBC & Chem 7: 01/19/23 07:28 01/19/23 07:28 Labs: Abnormal Lab Results - Last 24 Hours (Table) 01/18/23 01/18/23 01/18/23 Range/Units 14:56 16:45 17:08 APTT 120.4 H* (22.0-30.0) sec POC Glucose (mg/dL) 124 H (70-110) mg/dL Urine Protein 3+ H (Negative) Urine Glucose (UA) 2+ H (Negative) Urine Blood Small H (Negative) Ur Leukocyte Esterase Trace H (Negative) Urine RBC 6 H (0-5) /hpf Urine WBC 11 H (0-5) /hpf Urine WBC Clumps Rare H (None) /hpf Amorphous Sediment Rare H (None) /hpf Urine Bacteria Rare H (None) /hpf 01/18/23 01/18/23 01/19/23 Range/Units 20:02 23:44 05:58 APTT 54.5 H (22.0-30.0) sec POC Glucose (mg/dL) 138 H 114 H (70-110) mg/dL Urine Protein (Negative) Urine Glucose (UA) (Negative) Urine Blood (Negative) Ur Leukocyte Esterase (Negative) Urine RBC (0-5) /hpf Urine WBC (0-5) /hpf Urine WBC Clumps (None) /hpf Amorphous Sediment (None) /hpf Urine Bacteria (None) /hpf
[2023-01-19 11:28] LABS: Glucose,Whole Blood 105 mg/dL (70-110)
--- NOTE | 2023-01-19 11:41 | P.PN ---
Subjective Progress Note Date: 01/19/23 Principal diagnosis: Weakness, nausea, diarrhea. Pulmonary consult dated 01/18/2023. 67-year-old male with a history of diabetes, hyperlipidemia, hypertension, diabetic neuropathy, melanoma, bladder cancer, among other things, presents to the emergency department, with weakness, and syncope. The patient states that he initially developed diarrhea, and nausea, and on the way to the bathroom, fell, because of severe back pain he could not get up. The patient does have a history of previous T12 compression fracture. The patient sees Dr. Jocelyne Choe as a primary. The patient is seen in the emergency department, room #1. He's currently on room air and getting saline at 75 mL an hour. We were asked to see the patient, because a computed tomography scan of the chest revealed evidence of significant thoracic and mediastinal adenopathy. The patient had a previous computed tomography scan done about a year prior, and the adenopathy appears larger. He will need an outpatient workup including a PET scan, and possibly a biopsy. I explained all this to the patient. White count is 5, hemoglobin 11.6, hematocrit 35, and platelet count 182,000. D-dimer was greater than 34. Sodium 135, potassium 4.3, chlorides 112, CO2 13, anion gap 10, BUN 65, and creatinine 4.26. Glucose 139. Troponins were 0.026 and 0.026 respectively. A ventilation perfusion lung scan was indeterminate. This computed tomography scan showed mediastinal adenopathy which is increased in size compared to a scan done 12/17/2021. Progress note dated 01/19/2023. 67-year-old male seen yesterday in the emergency department. Currently, the patient's on room air. He is getting dextrose at 100 mL an hour, and IV heparin. He had an indeterminate/intermediate, ventilation perfusion lung scan. He had a matched defect in the left lower lobe, which is where there is an infiltrate. The patient does not have a pulmonary embolism in my opinion, and IV heparin can be discontinued. White count 6.2, hemoglobin 10.5, hematocrit 33, and platelet count 161,000. Sodium 137, potassium 3.9, chlorides 107, CO2 21, BUN 62, and creatinine 4.21. Albumin is 2.6. Objective - Vital Signs Vital signs: Vital Signs Temp 98.1 F 01/19/23 08:00 Pulse 86 01/19/23 08:05 Resp 18 01/19/23 08:05 BP 149/87 01/19/23 08:00 Pulse Ox 97 01/19/23 08:00 FiO2 Intake & Output 01/18/23 01/19/23 01/19/23 18:59 06:59 18:59 Intake Total 113.791 99.437 120 Output Total 1450 1600 0 Balance -1336.209 -1500.563 120 Weight 83.915 kg Intake: Intake, IV Titration 113.791 99.437 Amount Heparin Sod,Pork in 0.45% 113.791 99.437 NaCl 25,000 unit In 0.45 % NaCl 1 250ml.bag @ 18 UNITS/KG/HR 15.105 mls/hr IV .[id number] [facility] Rx#: [id number] Oral 120 Output: Gastric Drainage 0 Urine 1450 1600 0 Straight 1450 1100 Stool 0 Urine/Stool Mix 0 Emesis 0 Oral Regurgitation 0 Other 0 Other: Voiding Method Self-Catheterization Self-Catheterization # Voids 0 # Bowel Movements 0 - Exam No acute distress, oriented 3. Currently on room air. No respiratory distress. HEENT examination is grossly unremarkable. Neck supple. Full range of motion. No adenopathy thyromegaly or neck vein distention. Cardiovascular examination reveals regular rhythm rate. S1-S2 normal. No S3 or S4. No discernible murmur noted. Heart rate 86 bpm. Lungs reveal clear breath sounds. Breath sounds are equal bilaterally. No ad ventitious lung sounds including wheezes rhonchi or crackles. Room air saturations are 97 %. Abdomen soft bowel sounds are heard. No masses or tenderness. Extremities are intact. No cyanosis clubbing or edema. Skin is without rash or lesion. Neurologic examination is brief but nonfocal. - Labs CBC & Chem 7: 01/19/23 07:28 01/19/23 07:28 Labs: Abnormal Lab Results - Last 24 Hours (Table) 01/18/23 01/18/23 01/18/23 Range/Units 14:56 16:45 17:08 RBC (4.30-5.90) m/uL Hgb (13.0-17.5) gm/dL Hct (39.0-53.0) % RDW (11.5-15.5) % APTT 120.4 H* (22.0-30.0) sec Carbon Dioxide (22-30) mmol/L BUN (9-20) mg/dL Creatinine (0.66-1.25) mg/dL Glucose (74-99) mg/dL POC Glucose (mg/dL) 124 H (70-110) mg/dL Calcium (8.4-10.2) mg/dL Phosphorus (2.5-4.5) mg/dL Total Protein (6.3-8.2) g/dL Albumin (3.5-5.0) g/dL Urine Protein 3+ H (Negative) Urine Glucose (UA) 2+ H (Negative) Urine Blood Small H (Negative) Ur Leukocyte Esterase Trace H (Negative) Urine RBC 6 H (0-5) /hpf Urine WBC 11 H (0-5) /hpf Urine WBC Clumps Rare H (None) /hpf Amorphous Sediment Rare H (None) /hpf Urine Bacteria Rare H (None) /hpf 01/18/23 01/18/23 01/19/23 Range/Units 20:02 23:44 05:58 RBC (4.30-5.90) m/uL Hgb (13.0-17.5) gm/dL Hct (39.0-53.0) % RDW (11.5-15.5) % APTT 54.5 H (22.0-30.0) sec Carbon Dioxide (22-30) mmol/L BUN (9-20) mg/dL Creatinine (0.66-1.25) mg/dL Glucose (74-99) mg/dL POC Glucose (mg/dL) 138 H 114 H (70-110) mg/dL Calcium (8.4-10.2) mg/dL Phosphorus (2.5-4.5) mg/dL Total Protein (6.3-8.2) g/dL Albumin (3.5-5.0) g/dL Urine Protein (Negative) Urine Glucose (UA) (Negative) Urine Blood (Negative) Ur Leukocyte Esterase (Negative) Urine RBC (0-5) /hpf Urine WBC (0-5) /hpf Urine WBC Clumps (None) /hpf Amorphous Sediment (None) /hpf Urine Bacteria (None) /hpf 01/19/23 01/19/23 01/19/23 Range/Units 07:28 07:28 07:28 RBC 3.95 L (4.30-5.90) m/uL Hgb 10.5 L (13.0-17.5) gm/dL Hct 33.0 L (39.0-53.0) % RDW 17.2 H (11.5-15.5) % APTT 55.8 H (22.0-30.0) sec Carbon Dioxide 21 L (22-30) mmol/L BUN 62 H (9-20) mg/dL Creatinine 4.21 H (0.66-1.25) mg/dL Glucose 111 H (74-99) mg/dL POC Glucose (mg/dL) (70-110) mg/dL Calcium 8.3 L (8.4-10.2) mg/dL Phosphorus 6.2 H (2.5-4.5) mg/dL Total Protein 5.9 L (6.3-8.2) g/dL Albumin 2.6 L (3.5-5.0) g/dL Urine Protein (Negative) Urine Glucose (UA) (Negative) Urine Blood (Negative) Ur Leukocyte Esterase (Negative) Urine RBC (0-5) /hpf Urine WBC (0-5) /hpf Urine WBC Clumps (None) /hpf Amorphous Sediment (None) /hpf Urine Bacteria (None) /hpf Assessment and Plan Assessment: Syncopal episode, secondary to weakness, caused by nausea and diarrhea. Mediastinal/thoracic adenopathy, which will need to be evaluated as an outpatient, initially with a PET scan. Chronic kidney disease. Diabetes with diabetic neuropathy. History of hypertension. History of hyperlipidemia. History of melanoma. History of bladder cancer. History of urinary tract infection. History of T12 compression fracture. Plan: Plan dated 01/18/2023. The patient was seen in the emergency department. The patient is not having any respiratory issues. Computed tomography scan showed some enlarging thoracic/mediastinal adenopathy, worked up as an outpatient. The patient will need a PET scan initially, and then possibly a biopsy. We will continue to follow the patient, and make recommendations along the way. He does have a history of melanoma. Certainly that is a concern. Prognosis is guarded. Plan dated 01/19/2023. The patient's heparin can be discontinued. The patient's on room air. The patient never had any respiratory issues. The patient is receiving D5W at 100 mL an hour. Labs, x-rays, medications are reviewed. The patient's thoracic/mediastinal adenopathy, just enlarged, compared to a prior computed tomography scan, will be evaluated as an outpatient, with a PET scan. Additional recommendations and suggestions to follow. We will continue to follow along in the care of this patient. Time with Patient: Less than 30
--- NOTE | 2023-01-19 13:03 | P.PN ---
Subjective Patient is seen for follow-up for acute kidney injury mostly ATN associated with severe volume depletion. Maintained on IV fluids. Renal function has not improved much yet. Serum creatinine remains elevated at 4.2. Patient has had good urine output with straight catheterizations. No diarrhea nausea or vomiting currently. Complaining of back pain. Objective - Vital Signs Vital signs: Vital Signs Temp 98.1 F 01/19/23 08:00 Pulse 86 01/19/23 08:05 Resp 18 01/19/23 08:05 BP 149/87 01/19/23 08:00 Pulse Ox 97 01/19/23 08:00 FiO2 Intake & Output 01/18/23 01/19/23 01/19/23 18:59 06:59 18:59 Intake Total 113.791 99.437 120 Output Total 1450 1600 0 Balance -1336.209 -1500.563 120 Weight 83.915 kg Intake: Intake, IV Titration 113.791 99.437 Amount Heparin Sod,Pork in 0.45% 113.791 99.437 NaCl 25,000 unit In 0.45 % NaCl 1 250ml.bag @ 18 UNITS/KG/HR 15.105 mls/hr IV .[id number] [facility] Rx#: [id number] Oral 120 Output: Gastric Drainage 0 Urine 1450 1600 0 Straight 1450 1100 Stool 0 Urine/Stool Mix 0 Emesis 0 Oral Regurgitation 0 Other 0 Other: Voiding Method Self-Catheterization Self-Catheterization # Voids 0 # Bowel Movements 0 - Exam Patient is awake, alert oriented 3 No acute distress Examination of the heart S1 and S2 Examination of the lungs bilateral breath sounds are heard Abdomen is soft nontender Examination lower extremity shows no evidence of edema X [employer] exam grossly intact - Labs CBC & Chem 7: 01/19/23 07:28 01/19/23 07:28 Labs: Abnormal Lab Results - Last 24 Hours (Table) 01/18/23 01/18/23 01/18/23 Range/Units 14:56 16:45 17:08 RBC (4.30-5.90) m/uL Hgb (13.0-17.5) gm/dL Hct (39.0-53.0) % RDW (11.5-15.5) % APTT 120.4 H* (22.0-30.0) sec Carbon Dioxide (22-30) mmol/L BUN (9-20) mg/dL Creatinine (0.66-1.25) mg/dL Glucose (74-99) mg/dL POC Glucose (mg/dL) 124 H (70-110) mg/dL Calcium (8.4-10.2) mg/dL Phosphorus (2.5-4.5) mg/dL Total Protein (6.3-8.2) g/dL Albumin (3.5-5.0) g/dL Urine Protein 3+ H (Negative) Urine Glucose (UA) 2+ H (Negative) Urine Blood Small H (Negative) Ur Leukocyte Esterase Trace H (Negative) Urine RBC 6 H (0-5) /hpf Urine WBC 11 H (0-5) /hpf Urine WBC Clumps Rare H (None) /hpf Amorphous Sediment Rare H (None) /hpf Urine Bacteria Rare H (None) /hpf 01/18/23 01/18/23 01/19/23 Range/Units 20:02 23:44 05:58 RBC (4.30-5.90) m/uL Hgb (13.0-17.5) gm/dL Hct (39.0-53.0) % RDW (11.5-15.5) % APTT 54.5 H (22.0-30.0) sec Carbon Dioxide (22-30) mmol/L BUN (9-20) mg/dL Creatinine (0.66-1.25) mg/dL Glucose (74-99) mg/dL POC Glucose (mg/dL) 138 H 114 H (70-110) mg/dL Calcium (8.4-10.2) mg/dL Phosphorus (2.5-4.5) mg/dL Total Protein (6.3-8.2) g/dL Albumin (3.5-5.0) g/dL Urine Protein (Negative) Urine Glucose (UA) (Negative) Urine Blood (Negative) Ur Leukocyte Esterase (Negative) Urine RBC (0-5) /hpf Urine WBC (0-5) /hpf Urine WBC Clumps (None) /hpf Amorphous Sediment (None) /hpf Urine Bacteria (None) /hpf 01/19/23 01/19/23 01/19/23 Range/Units 07:28 07:28 07:28 RBC 3.95 L (4.30-5.90) m/uL Hgb 10.5 L (13.0-17.5) gm/dL Hct 33.0 L (39.0-53.0) % RDW 17.2 H (11.5-15.5) % APTT 55.8 H (22.0-30.0) sec Carbon Dioxide 21 L (22-30) mmol/L BUN 62 H (9-20) mg/dL Creatinine 4.21 H (0.66-1.25) mg/dL Glucose 111 H (74-99) mg/dL POC Glucose (mg/dL) (70-110) mg/dL Calcium 8.3 L (8.4-10.2) mg/dL Phosphorus 6.2 H (2.5-4.5) mg/dL Total Protein 5.9 L (6.3-8.2) g/dL Albumin 2.6 L (3.5-5.0) g/dL Urine Protein (Negative) Urine Glucose (UA) (Negative) Urine Blood (Negative) Ur Leukocyte Esterase (Negative) Urine RBC (0-5) /hpf Urine WBC (0-5) /hpf Urine WBC Clumps (None) /hpf Amorphous Sediment (None) /hpf Urine Bacteria (None) /hpf Assessment and Plan Assessment: 1. Acute kidney injury ATN currently nonoliguric. No documentation of hypotension. Patient was severely dehydrated. Currently maintained on IV fluids. No obstruction noted on CT scanning. 2. Chronic kidney disease NKF stage IV with baseline creatinine around 3. Etiology is obstructive uropathy and nephrosclerosis. Currently self catheterizing 3-4 times a day. Significant proteinuria noted with all serolog ical workup in September being negative. 3. Severe non-gap metabolic acidosis secondary to diarrhea and renal failure. 4. Mediastinal adenopathy and possible right lung mass being followed by pulmonary with plans for further workup as outpatient 5. History of urine retention currently self catheterizing about 4 times a day 6. History of bladder cancer being followed by urology 7. History of CHF with EF of 40% in 2021 8. CK D mineral bone disorder with serum phosphorus at 6.2 Plan: Continue with bicarb drip Repeat labs in a.m. Continue with straight catheterization 4 times a day Avoid nephrotoxic agents Add PhosLo 1 tablet 3 times a day with meals
[2023-01-19] MEDS: DEXTROSE 5% IN WATER 1,000 ML with SODIUM BICARB (1 MEQ/ML) 150 ML IV SCH ×2 (13:10→23:23)
[2023-01-19] MEDS: traMADol 50 MG TAB PO PRN (13:12)
[2023-01-19] MEDS ORDERED: LACTULOSE 20 GM/30 ML CUP PO ONE (13:17)
--- NOTE | 2023-01-19 13:33 | P.PN ---
Subjective Progress Note Date: 01/19/23 Patient was 69-year-old male presented to the hospital after syncopal episode was having diarrhea for last few days. Patient syncope didn't appear to be vasovagal. Patient baseline creatinine is around 2.5 slightly worse to around 4.2. Patient was also complaining of back pain. CT of the abdomen and pelvis and lung is significant for osteoarthritis and SI joint degenerative disc disease and ankylosing spondylitis which is probably intermittent is faint apart from soft tissue injury from the fall. CT of the lung did show lipid of the which is increased compared to the previous imaging studies. Pulmonology evaluated for that reason recommending outpatient PET scan the differentials include granulomatous disease like sarcoidosis, malignancy. Patient doesn't smoke. Echocardiogram is being obtained as a part of for syncope workup EKG showed some nonspecific ST-T wave changes in the inferior leads. Cardiology evaluated the patient. No significant troponin elevation at this time. Patient also found to have highly elevated d-dimer above 34. Patient will undergo VQ scan today troponin is negative. 01/19/2023 Patient is evaluated today resting in bed. Pulmonary felt VQ did not reflect pulmonary embolism and IV heparin has been discontinued. Lasix remains on hold, patient is being hydrated on bicarb gtt at 100 mls/hr. Continues with significant back pain due to the fall, cannot have IV morphine due to the renal function medications will be adjusted. PT/OT following. Patient denies any further episodes of diarrhea however he has been reporting vomiting and unable to keep much food down. He reports as bile like not black or bloody emesis. He is being straight cathed as needed. Echocardiogram showing EF 35-40% slightly decreased from prior EF of 40%. Review of Systems Constitutional: Denied any fatigue denied any fever. Cardio vascular: denied any chest pain, palpitations Gastrointestinal: denied any nausea, vomiting, diarrhea Pulmonary: Denied any shortness of breath cough Neurologic denied any new focal deficits Reports weakness and back pain. All inpatient medications were reviewed and appropriate changes in these medications as dictated in the interval history and assessment and plan. PHYSICAL EXAMINATION: GENERAL: The patient is alert and oriented x3, not in any acute distress. Well developed, well nourished. HEENT: Pupils are round and equally reacting to light. EOMI. No scleral icterus. No conjunctival pallor. Normocephalic, atraumatic. No pharyngeal erythema. No thyromegaly. CARDIOVASCULAR: S1 and S2 present. No murmurs, rubs, or gallops. PULMONARY: Chest is clear to auscultation, no wheezing or crackles. ABDOMEN: Soft, nontender, nondistended, normoactive bowel sounds. No palpable organomegaly. MUSCULOSKELETAL: No joint swelling or deformity. EXTREMITIES: No cyanosis, clubbing, or pedal edema. NEUROLOGICAL: Gross neurological examination did not reveal any focal deficits. Weakness. SKIN: No rashes. Assessment -Syncope probably secondary to intravascular depletion from nausea vomiting diarrhea Nausea, vomiting and diarrhea possibly from a viral gastroenteritis CT chest abdomen pelvis showing colitis. Acute kidney injury due to ATN from dehydration Chronic kidney disease stage IV baseline creatinine around 3. History of urinary retention and obstructive uropathy with hx of bladder cancer maintained on urinary straight catheterizations Mediastinal adenopathy lymphadenopathy and possible right lung mass History of heart failure Hypertension Type 2 Diabetes Mellitus and diabetic neuropathy Back pain secondary to fall Known T12 compression fracture Hyperlipidemia GI prophylaxis DVT prophylaxis Plan Continue with straight catheterization QID Continue with bicarb gtt, lasix remains on hold Back Xray patient does have known compression fx at T12 from 2019 imaging Pulmonary following recommending PET/CT scan outpatient Pain management and PT/OT evaluation for DC planning pt did refuse to work with PT today due to worsening back pain AM labs. The impression and plan of care has been dictated by Meryl Mason, Nurse Practitioner as directed. Dr. Margie MD I have performed a history and physical examination and medical decision making of this patient, discussed the same with the dictator, and agree with the dictators assessment and plan as written, documented as a scribe. Based on total visit time, I have performed more than 50% of this visit. Objective - Vital Signs Vital signs: Vital Signs Temp 98.2 F 01/19/23 12:00 Pulse 85 01/19/23 12:00 Resp 18 01/19/23 12:00 BP 154/91 01/19/23 12:00 Pulse Ox 95 01/19/23 12:00 FiO2 Intake & Output 01/18/23 01/19/23 01/19/23 18:59 06:59 18:59 Intake Total 113.791 99.437 120 Output Total 1450 1600 0 Balance -1336.209 -1500.563 120 Weight 83.915 kg Intake: Intake, IV Titration 113.791 99.437 Amount Heparin Sod,Pork in 0.45% 113.791 99.437 NaCl 25,000 unit In 0.45 % NaCl 1 250ml.bag @ 18 UNITS/KG/HR 15.105 mls/hr IV .[id number] [facility] Rx#: [id number] Oral 120 Output: Gastric Drainage 0 Urine 1450 1600 0 Straight 1450 1100 Stool 0 Urine/Stool Mix 0 Emesis 0 Oral Regurgitation 0 Other 0 Other: Voiding Method Self-Catheterization Self-Catheterization # Voids 0 # Bowel Movements 0 - Labs CBC & Chem 7: 01/19/23 07:28 01/19/23 07:28 Labs: Abnormal Lab Results - Last 24 Hours (Table) 01/18/23 01/18/23 01/18/23 Range/Units 14:56 16:45 17:08 RBC (4.30-5.90) m/uL Hgb (13.0-17.5) gm/dL Hct (39.0-53.0) % RDW (11.5-15.5) % APTT 120.4 H* (22.0-30.0) sec Carbon Dioxide (22-30) mmol/L BUN (9-20) mg/dL Creatinine (0.66-1.25) mg/dL Glucose (74-99) mg/dL POC Glucose (mg/dL) 124 H (70-110) mg/dL Calcium (8.4-10.2) mg/dL Phosphorus (2.5-4.5) mg/dL Total Protein (6.3-8.2) g/dL Albumin (3.5-5.0) g/dL Urine Protein 3+ H (Negative) Urine Glucose (UA) 2+ H (Negative) Urine Blood Small H (Negative) Ur Leukocyte Esterase Trace H (Negative) Urine RBC 6 H (0-5) /hpf Urine WBC 11 H (0-5) /hpf Urine WBC Clumps Rare H (None) /hpf Amorphous Sediment Rare H (None) /hpf Urine Bacteria Rare H (None) /hpf 01/18/23 01/18/23 01/19/23 Range/Units 20:02 23:44 05:58 RBC (4.30-5.90) m/uL Hgb (13.0-17.5) gm/dL Hct (39.0-53.0) % RDW (11.5-15.5) % APTT 54.5 H (22.0-30.0) sec Carbon Dioxide (22-30) mmol/L BUN (9-20) mg/dL Creatinine (0.66-1.25) mg/dL Glucose (74-99) mg/dL POC Glucose (mg/dL) 138 H 114 H (70-110) mg/dL Calcium (8.4-10.2) mg/dL Phosphorus (2.5-4.5) mg/dL Total Protein (6.3-8.2) g/dL Albumin (3.5-5.0) g/dL Urine Protein (Negative) Urine Glucose (UA) (Negative) Urine Blood (Negative) Ur Leukocyte Esterase (Negative) Urine RBC (0-5) /hpf Urine WBC (0-5) /hpf Urine WBC Clumps (None) /hpf Amorphous Sediment (None) /hpf Urine Bacteria (None) /hpf 01/19/23 01/19/23 01/19/23 Range/Units 07:28 07:28 07:28 RBC 3.95 L (4.30-5.90) m/uL Hgb 10.5 L (13.0-17.5) gm/dL Hct 33.0 L (39.0-53.0) % RDW 17.2 H (11.5-15.5) % APTT 55.8 H (22.0-30.0) sec Carbon Dioxide 21 L (22-30) mmol/L BUN 62 H (9-20) mg/dL Creatinine 4.21 H (0.66-1.25) mg/dL Glucose 111 H (74-99) mg/dL POC Glucose (mg/dL) (70-110) mg/dL Calcium 8.3 L (8.4-10.2) mg/dL Phosphorus 6.2 H (2.5-4.5) mg/dL Total Protein 5.9 L (6.3-8.2) g/dL Albumin 2.6 L (3.5-5.0) g/dL Urine Protein (Negative) Urine Glucose (UA) (Negative) Urine Blood (Negative) Ur Leukocyte Esterase (Negative) Urine RBC (0-5) /hpf Urine WBC (0-5) /hpf Urine WBC Clumps (None) /hpf Amorphous Sediment (None) /hpf Urine Bacteria (None) /hpf Assessment and Plan Time with Patient: Less than 30
[2023-01-19] MEDS: FLUTICASONE 50MCG/SPRAY NASAL 16GM EA NOSTRIL SCH (13:55)
[2023-01-19] MEDS: HYDROmorphone 1 MG/ML 1 ML SYRINGE IVP PRN ×3 (13:56→23:42)
[2023-01-19 14:02] VITALS: BMI 25.0
[2023-01-19 16:40] LABS: Glucose,Whole Blood 96 mg/dL (70-110)
[2023-01-19] MEDS: ONDANSETRON 4 MG/2 ML VIAL IVP PRN ×2 (17:00→23:41)
--- NOTE | 2023-01-19 17:04 | XR ---
EXAMINATION TYPE: XR thoracic spine 1V DATE OF EXAM: 01/19/2023 COMPARISON: None HISTORY: Back pain TECHNIQUE: Single AP view thoracic spine FINDINGS: Scoliosis is present. There are 12 thoracic type vertebral bodies. Pedicles are intact. Rita tebral body heights appear preserved. Disc heights as visualized appear preserved. IMPRESSION: 1. Mild scoliosis thoracic spine. 2. No acute osseous abnormality AP thoracic spine
--- NOTE | 2023-01-19 17:08 | XR ---
PROCEDURE: XR lumbar spine 1V DATE AND TIME: 01/19/2023 4:38 PM CLINICAL INDICATION: PHH; back pain post fall TECHNIQUE: Supine AP view of the L spine COMPARISON: None FINDINGS: Single AP view was obtained. No evidence of fracture or malalignment on this AP view. IMPRESSION: Negative examination.
[2023-01-19 19:40] LABS: Glucose,Whole Blood 107 mg/dL (70-110)
[2023-01-19] MEDS: HEPARIN SODIUM,PORCINE 5,000 UNIT/ML 1 ML VIAL SQ SCH (19:55)
[2023-01-19] MEDS: LORATADINE 10 MG TAB PO SCH (19:56)
[2023-01-20 03:55] LABS: Glucose,Whole Blood 134 mg/dL (70-110)
[2023-01-20] MEDS: DOPamine DRIP 800 MG in DEXTROSE/WATER 1 250ML.BAG IV SCH (04:55)
[2023-01-20 06:20] LABS: Glucose,Whole Blood 149 mg/dL (70-110)
[2023-01-20] MEDS: INSULIN ASPART (NovoLOG) 100 UNIT/ML VIAL SQ SCH ×4 (06:29→20:01)
[2023-01-20 07:46] LABS: Anisocytosis Slight; Basophils % (A) 0 %; Eosinophils # (A) 0.1 k/uL (0-0.7); Eosinophils % (A) 2 %; HCT 30.7 % (39.0-53.0); HGB 9.8 gm/dL (13.0-17.5); Lymphocytes # (A) 0.7 k/uL (1.0-4.8); Lymphocytes % (A) 15 %; MCH 27.7 pg (25.0-35.0); MCV 86.4 fL (80.0-100.0); Mean Platelet Volume 8.2; Monocytes # (A) 0.3 k/uL (0-1.0); Monocytes % (A) 6 %; Neutrophils # (A) 3.4 k/uL (1.3-7.7); Neutrophils % (A) 75 %; Platelet Count 140 k/uL (150-450); RBC 3.55 m/uL (4.30-5.90); WBC 4.6 k/uL (3.8-10.6)
[2023-01-20 07:56] LABS: African American GFR (CKD) 22 (>60 ml/min/1.73 sqM); Blood Urea Nitrogen 52 mg/dL (9-20); Chloride 81 mmol/L (98-107); Non-African American GFR(CKD) 19 (>60 ml/min/1.73 sqM); Potassium 2.8 mmol/L (3.5-5.1); Sodium 130 mmol/L (137-145)
[2023-01-20 08:23] LABS: Anion Gap 10 mmol/L; Carbon Dioxide 39 mmol/L (22-30)
[2023-01-20] MEDS: PANTOPRAZOLE 40 MG/10 ML VIAL IV SCH (08:37)
[2023-01-20] MEDS: HEPARIN SODIUM,PORCINE 5,000 UNIT/ML 1 ML VIAL SQ SCH ×2 (08:37→20:03)
[2023-01-20] MEDS: FENOFIBRATE 160 MG TAB PO SCH (08:38)
[2023-01-20] MEDS: TAMSULOSIN 0.4 MG CAP.ER.24H PO SCH ×2 (08:38→20:03)
[2023-01-20] MEDS: LORATADINE 10 MG TAB PO SCH (08:38)
[2023-01-20] MEDS: ISOSORBIDE MONONITRATE ER 30 MG TAB.ER.24H PO SCH (08:39)
[2023-01-20] MEDS: polyethylene glycoL 3350 17 GM POWD.PACK PO SCH (08:42)
[2023-01-20] MEDS: FLUTICASONE 50MCG/SPRAY NASAL 16GM EA NOSTRIL SCH (08:42)
[2023-01-20 08:48] LABS: Calcium 5.9 mg/dL (8.4-10.2); Glucose 723 mg/dL (74-99)
[2023-01-20] MEDS: ONDANSETRON 4 MG/2 ML VIAL IVP PRN ×2 (08:52→15:39)
--- NOTE | 2023-01-20 08:54 | P.PN ---
Subjective Patient was 69-year-old male presented to the hospital after syncopal episode was having diarrhea for last few days. Patient syncope didn't appear to be vasovagal. Patient baseline creatinine is around 2.5 slightly worse to around 4.2. Patient was also complaining of back pain. CT of the abdomen and pelvis and lung is significant for osteoarthritis and SI joint degenerative disc disease and ankylosing spondylitis which is probably intermittent is faint apart from soft tissue injury from the fall. CT of the lung did show lipid of the which is increased compared to the previous imaging studies. Pulmonology evaluated for that reason recommending outpatient PET scan the differentials include granulomatous disease like sarcoidosis, malignancy. Patient doesn't smoke. Echocardiogram is being obtained as a part of for syncope workup EKG showed some nonspecific ST-T wave changes in the inferior leads. Cardiology evaluated the patient. No significant troponin elevation at this time. Patient also found to have highly elevated d-dimer above 34. Patient will undergo VQ scan today troponin is negative. 01/19/2023 Patient is evaluated today resting in bed. Pulmonary felt VQ did not reflect pulmonary embolism and IV heparin has been discontinued. Lasix remains on hold, patient is being hydrated on bicarb gtt at 100 mls/hr. Continues with significant back pain due to the fall, cannot have IV morphine due to the renal function medications will be adjusted. PT/OT following. Patient denies any further episodes of diarrhea however he has been reporting vomiting and unable to keep much food down. He reports as bile like not black or bloody emesis. He is being straight cathed as needed. Echocardiogram showing EF 35-40% slightly decreased from prior EF of 40%. 01/20/2023 Patient still in bed, feeling generally weak and complaining of from severe back pain related to some nausea and low appetite, has been constipated. Denies abdominal pain, no chest pain or dyspnea. He was bradycardic area more than has lost 20s as per staff, patient currently on dopamine drip and his heart rate is 85. Vital signs stable. Creatinine as of yesterday 4.2, today he is on sodium bicarb 100 mL per day and dopamine drip. Nephrology is following closely and repeat creatinine is pending. Hemoglobin 9.8. Computed tomography scan shows circumferential wall thickening of the descending and sigmoid colon and rectum but patient says had a bowel movement for about 4 days ago, patient says it was loose which at his usual for him. Patient feels generally weak cardiology is also following closely we will do kub bmp shows cr 3.2, glu more 700 and ca 5.9, we will repeat bmp Review of systems CONSTITUTIONAL: No fever, no malaise, no fatigue. HEENT: No recent visual problems or hearing problems. Denied any sore throat. CARDIOVASCULAR: No orthopnea, PND, no palpitations, no syncope. PULMONARY: No shortness of breath, no cough, no hemoptysis. GASTROINTESTINAL: No diarrhea, no nausea, no vomiting, no abdominal pain. Normoactive bowel sounds. NEUROLOGICAL: No headaches, no weakness, no numbness. Active Medications Generic Name Dose Route Start Last Admin Trade Name Freq PRN Reason Stop Dose Admin Hydrocodone Bitart/Acetaminophen 1 each 01/18/23 10:04 01/19/23 09:27 Hydrocodone/Apap 7.5-325mg 1 Each Tab PO 1 each Q6HR PRN Administration Pain Amlodipine Besylate 5 mg 01/20/23 09:00 01/20/23 08:39 Amlodipine 5 Mg Tab PO 5 mg DAILY [facility] Administration Fenofibrate 160 mg 01/19/23 09:00 01/20/23 08:38 Fenofibrate 160 Mg Tab PO 160 mg DAILY [facility] Administration Fluticasone Propionate 2 spray 01/19/23 13:30 01/20/23 08:42 Fluticasone 50mcg/[place] Nasal 16gm EA NOSTRIL 2 spray DAILY [facility] Administration Heparin Sodium (Porcine) 5,000 unit 01/19/23 21:00 01/20/23 08:37 Heparin Sodium,Porcine 5,000 Unit/Ml 1 Ml Vial SQ 5,000 unit Q12HR [facility] Administration Hydromorphone HCl 1 mg 01/19/23 13:29 01/19/23 23:42 Hydromorphone 1 Mg/Ml 1 Ml Syringe IVP 1 mg Q4HR PRN Administration Pain Sodium Bicarbonate 150 ml/ 1,150 mls @ 100 mls/hr 01/18/23 10:00 01/19/23 23:23 Dextrose/Water IV 100 mls/hr .[id number] [facility] Administration Dopamine HCl/Dextrose 800 mg/ 250 mls @ 3.147 mls/hr 01/20/23 04:45 01/20/23 04:55 IV Solution IV 2 mcg/kg/min .Q24H [facility] 3.147 mls/hr Administration Protocol 2 MCG/KG/MIN Insulin Aspart 0 unit 01/18/23 12:30 01/20/23 06:29 Insulin Aspart (Novolog) 100 Unit/Ml Vial SQ Not Given ACHS [facility] Protocol Isosorbide Mononitrate 30 mg 01/19/23 09:00 01/20/23 08:39 Isosorbide Mononitrate Er 30 Mg Tab.Er.24h PO 30 mg DAILY [facility] Administration Loratadine 5 mg 01/19/23 13:30 01/20/23 08:38 Loratadine 10 Mg Tab PO 5 mg DAILY [facility] Administration Naloxone HCl 0.2 mg 01/18/23 06:58 Naloxone 0.4 Mg/Ml 1 Ml Vial IV Q2M PRN Opioid Reversal Ondansetron HCl 4 mg 01/18/23 06:58 01/19/23 23:41 Ondansetron 4 Mg/2 Ml Vial IVP 4 mg Q8HR PRN Administration Nausea And Vomiting Ondansetron HCl 4 mg 01/18/23 10:03 01/19/23 09:27 Ondansetron Odt 4 Mg Tab PO 4 mg Q8HR PRN Administration Nausea And Vomiting Pantoprazole Sodium 40 mg 01/18/23 09:00 01/20/23 08:37 Pantoprazole 40 Mg/10 Ml Vial IV 40 mg DAILY [facility] Administration Polyethylene Glycol 17 gm 01/20/23 09:00 01/20/23 08:42 Polyethylene Glycol 3350 17 Gm Powd.Pack PO Not Given DAILY [facility] Tamsulosin HCl 0.4 mg 01/18/23 21:00 01/20/23 08:38 Tamsulosin 0.4 Mg Cap.Er.24h PO 0.4 mg BID [facility] Administration Tramadol HCl 50 mg 01/18/23 10:07 01/19/23 13:12 Tramadol 50 Mg Tab PO 50 mg QID PRN Administration Pain/Discomfort Objective - Vital Signs Vital signs: Vital Signs Temp 98.2 F 01/20/23 08:12 Pulse 86 01/20/23 08:12 Resp 18 01/20/23 08:12 BP 150/83 01/20/23 08:12 Pulse Ox 90 L 01/20/23 08:12 FiO2 Intake & Output 01/19/23 01/20/23 01/20/23 18:59 06:59 18:59 Intake Total 920 540 0 Output Total 250 1650 Balance 670 -1110 0 Weight 83.915 kg Intake: Intake, IV Titration 800 Amount Dextrose 5% in Water 1, 800 000 ml @ 100 mls/hr IV . [id number] [facility] with Sodium Bicarb (1 Meq/ml) 150 ml Rx#:[id number] Oral 120 540 0 Output: Gastric Drainage 0 Urine 250 1650 Straight 250 950 Stool 0 Urine/Stool Mix 0 Emesis 0 Oral Regurgitation 0 Other 0 Other: Voiding Method Self-Catheterization Self-Catheterization # Voids 0 # Bowel Movements 0 - Exam -GENERAL: The patient is alert and oriented x3, not in any acute distress. Well developed, well nourished. Generally weak HEENT: Pupils are round and equally reacting to light. EOMI. No scleral icterus. No conjunctival pallor. Normocephalic, atraumatic. No pharyngeal erythema. No thyromegaly. CARDIOVASCULAR: S1 and S2 present. No murmurs, rubs, or gallops. PULMONARY: Chest is clear to auscultation, no wheezing , no crackles. ABDOMEN: Soft, nontender, nondistended, normoactive bowel sounds. No palpable organomegaly. -MUSCULOSKELETAL: No joint swelling or deformity. Lower back tenderness around the area of T12 EXTREMITIES: No cyanosis, clubbing, or pedal edema. NEUROLOGICAL: Gross neurological examination did not reveal any focal deficits. SKIN: No rashes. no petechiae. - Labs CBC & Chem 7: 01/20/23 07:22 01/19/23 07:28 Labs: Abnormal Lab Results - Last 24 Hours (Table) 01/19/23 01/19/23 01/20/23 Range/Units 07:28 07:28 03:53 RBC (4.30-5.90) m/uL Hgb (13.0-17.5) gm/dL Hct (39.0-53.0) % RDW (11.5-15.5) % Plt Count (150-450) k/uL Lymphocytes # (1.0-4.8) k/uL Carbon Dioxide 21 L (22-30) mmol/L BUN 62 H (9-20) mg/dL Creatinine 4.21 H (0.66-1.25) mg/dL Glucose 111 H (74-99) mg/dL POC Glucose (mg/dL) 134 H (70-110) mg/dL Calcium 8.3 L (8.4-10.2) mg/dL Phosphorus 6.2 H (2.5-4.5) mg/dL Total Protein 5.9 L (6.3-8.2) g/dL Albumin 2.6 L (3.5-5.0) g/dL Procalcitonin 0.19 H (0.02-0.09) ng/mL 01/20/23 01/20/23 Range/Units 06:18 07:22 RBC 3.55 L (4.30-5.90) m/uL Hgb 9.8 L (13.0-17.5) gm/dL Hct 30.7 L (39.0-53.0) % RDW 17.0 H (11.5-15.5) % Plt Count 140 L (150-450) k/uL Lymphocytes # 0.7 L (1.0-4.8) k/uL Carbon Dioxide (22-30) mmol/L BUN (9-20) mg/dL Creatinine (0.66-1.25) mg/dL Glucose (74-99) mg/dL POC Glucose (mg/dL) 149 H (70-110) mg/dL Calcium (8.4-10.2) mg/dL Phosphorus (2.5-4.5) mg/dL Total Protein (6.3-8.2) g/dL Albumin (3.5-5.0) g/dL Procalcitonin (0.02-0.09) ng/mL Assessment and Plan Assessment: Syncope probably secondary to intravascular depletion from nausea vomiting diarrhea sever back pain with history of sever T12 compression fracture Severe bradycardia (transient ) requiring dopamine drip Nausea, vomiting and diarrhea possibly from a viral gastroenteritis CT chest abdomen pelvis showing colitis. Acute kidney injury due to ATN from dehydration Chronic kidney disease stage IV baseline creatinine around 3. History of urinary retention and obstructive uropathy with hx of bladder cancer maintained on urinary straight catheterizations Mediastinal lymphadenopathy and possible right lung mass , patient and at bedside are aware also about follow-up outpatient PET scan/biopsy History of heart failure Hypertension Type 2 Diabetes Mellitus and diabetic neuropathy Back pain secondary to fall Known T12 compression fracture Hyperlipidemia Plan: Continue with dopamine drip Continue with sodium bicarb per nephrology team recommendation Patient will require outpatient PET scan and biopsy for his possible lung mass, risk of cancer explained, patient and at 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 Continue same treatment. Continue with symptomatic treatment. Resume home medication. Monitor labs and vitals. DVT and GI prophylaxis. Further recommendations as per clinical course of the patient DVT prophylaxis: Subcutaneous heparin GI Prophylaxis: Pepcid PT/OT: Pending from healthcare versus subacute rehab, patient prefers [facility] Prognosis is guarded
[2023-01-20] MEDS ORDERED: LOSARTAN 25 MG TAB PO SCH (09:00)
[2023-01-20] MEDS ORDERED: amLODIPine 5 MG TAB PO SCH (09:00)
--- NOTE | 2023-01-20 11:00 | P.PN ---
Subjective Patient is seen for follow-up for acute kidney injury mostly ATN associated with severe volume depletion. Maintained on IV fluids. Patient has had good urine output with straight catheterizations. No diarrhea nausea or vomiting currently. Complaining of back pain. Serum creatinine improved to 3.2 mg/dL today. Blood sugar was elevated at 723. Objective - Vital Signs Vital signs: Vital Signs Temp 98.2 F 01/20/23 08:12 Pulse 8 L 01/20/23 09:07 Resp 18 01/20/23 08:12 BP 150/83 01/20/23 08:12 Pulse Ox 90 L 01/20/23 08:12 FiO2 Intake & Output 01/19/23 01/20/23 01/20/23 18:59 06:59 18:59 Intake Total 920 540 0 Output Total 250 1650 Balance 670 -1110 0 Weight 83.915 kg Intake: Intake, IV Titration 800 Amount Dextrose 5% in Water 1, 800 000 ml @ 100 mls/hr IV . [id number] [facility] with Sodium Bicarb (1 Meq/ml) 150 ml Rx#:[id number] Oral 120 540 0 Output: Gastric Drainage 0 Urine 250 1650 Straight 250 950 Stool 0 Urine/Stool Mix 0 Emesis 0 Oral Regurgitation 0 Other 0 Other: Voiding Method Self-Catheterization Self-Catheterization Self-Catheterization # Voids 0 # Bowel Movements 0 - Exam Patient is awake, alert oriented 3 No acute distress Examination of the heart S1 and S2 Examination of the lungs bilateral breath sounds are heard Abdomen is soft nontender Examination lower extremity shows no evidence of edema [employer]ED[employer]LE [employer]ING [employer]GER exam grossly intact - Labs CBC & Chem 7: 01/20/23 07:22 01/20/23 07:22 Labs: Abnormal Lab Results - Last 24 Hours (Table) 01/19/23 01/20/23 01/20/23 Range/Units 07:28 03:53 06:18 RBC (4.30-5.90) m/uL Hgb (13.0-17.5) gm/dL Hct (39.0-53.0) % RDW (11.5-15.5) % Plt Count (150-450) k/uL Lymphocytes # (1.0-4.8) k/uL Sodium (137-145) mmol/L Potassium (3.5-5.1) mmol/L Chloride (98-107) mmol/L Carbon Dioxide (22-30) mmol/L BUN (9-20) mg/dL Creatinine (0.66-1.25) mg/dL Glucose (74-99) mg/dL POC Glucose (mg/dL) 134 H 149 H (70-110) mg/dL Calcium (8.4-10.2) mg/dL Procalcitonin 0.19 H (0.02-0.09) ng/mL 01/20/23 01/20/23 Range/Units 07:22 07:22 RBC 3.55 L (4.30-5.90) m/uL Hgb 9.8 L (13.0-17.5) gm/dL Hct 30.7 L (39.0-53.0) % RDW 17.0 H (11.5-15.5) % Plt Count 140 L (150-450) k/uL Lymphocytes # 0.7 L (1.0-4.8) k/uL Sodium 130 L (137-145) mmol/L Potassium 2.8 L (3.5-5.1) mmol/L Chloride 81 L (98-107) mmol/L Carbon Dioxide 39 H (22-30) mmol/L BUN 52 H (9-20) mg/dL Creatinine 3.20 H (0.66-1.25) mg/dL Glucose 723 H* (74-99) mg/dL POC Glucose (mg/dL) (70-110) mg/dL Calcium 5.9 L* (8.4-10.2) mg/dL Procalcitonin (0.02-0.09) ng/mL Assessment and Plan Assessment: 1. Acute kidney injury ATN currently nonoliguric. No documentation of hypotension. Patient was severely dehydrated. Currently maintained on IV fluids. No obstruction noted on CT scanning. Renal function improved. 2. Chronic kidney disease NKF stage IV with baseline creatinine around 3. Etiology is obstructive uropathy and nephrosclerosis. Currently self catheterizing 3-4 times a day. Significant proteinuria noted with all se rological workup in September being negative. 3. Severe non-gap metabolic acidosis secondary to diarrhea and renal failure. 4. Mediastinal adenopathy and possible right lung mass being followed by pulmon deneen with plans for further workup as outpatient 5. History of urine retention currently self catheterizing about 4 times a day 6. History of bladder cancer being followed by urology 7. History of CHF with EF of 40% in 2021 8. CK D mineral bone disorder with serum phosphorus at 6.2 Plan: DC bicarb drip Repeat labs in a.m. Continue with straight catheterization 4 times a day Avoid nephrotoxic agents Add PhosLo 1 tablet 3 times a day with meals
--- NOTE | 2023-01-20 11:06 | P.PN ---
Subjective Progress Note Date: 01/20/23 Principal diagnosis: Weakness, nausea, diarrhea. Pulmonary consult dated 01/18/2023. 67-year-old male with a history of diabetes, hyperlipidemia, hypertension, diabetic neuropathy, melanoma, bladder cancer, among other things, presents to the emergency department, with weakness, and syncope. The patient states that he initially developed diarrhea, and nausea, and on the way to the bathroom, fell, because of severe back pain he could not get up. The patient does have a history of previous T12 compression fracture. The patient sees Dr. Jocelyne Choe as a primary. The patient is seen in the emergency department, room #1. He's currently on room air and getting saline at 75 mL an hour. We were asked to see the patient, because a computed tomography scan of the chest revealed evidence of significant thoracic and mediastinal adenopathy. The patient had a previous computed tomography scan done about a year prior, and the adenopathy appears larger. He will need an outpatient workup including a PET scan, and possibly a biopsy. I explained all this to the patient. White count is 5, hemoglobin 11.6, hematocrit 35, and platelet count 182,000. D-dimer was greater than 34. Sodium 135, potassium 4.3, chlorides 112, CO2 13, anion gap 10, BUN 65, and creatinine 4.26. Glucose 139. Troponins were 0.026 and 0.026 respectively. A ventilation perfusion lung scan was indeterminate. This computed tomography scan showed mediastinal adenopathy which is increased in size compared to a scan done 12/17/2021. Progress note dated 01/19/2023. 67-year-old male seen yesterday in the emergency department. Currently, the patient's on room air. He is getting dextrose at 100 mL an hour, and IV heparin. He had an indeterminate/intermediate, ventilation perfusion lung scan. He had a matched defect in the left lower lobe, which is where there is an infiltrate. The patient does not have a pulmonary embolism in my opinion, and IV heparin can be discontinued. White count 6.2, hemoglobin 10.5, hematocrit 33, and platelet count 161,000. Sodium 137, potassium 3.9, chlorides 107, CO2 21, BUN 62, and creatinine 4.21. Albumin is 2.6. Progress note dated 01/20/2023. 67-year-old male, seen in the emergency department, 2 days ago. The patient apparently was found at home, very weak, and on the floor. The patient was dehydrated, and was having severe diarrhea, and was noted to have worsening renal function. Currently, the patient's resting comfortably in room 354. He is on room air. The patient's receiving dopamine at 2 mcg/kg/m, and a sodium bicarbonate drip. He has been seen by nephrology. White count is 4.6, hemoglobin 9.8, hematocrit 30.7, and platelet count is 140,000. Sodium 1:30, potassium 2.8, chlorides 81, CO2 39, BUN 52, and creatinine 3.20. Glucose 723. TSH is normal. Calcium is 5.9. Objective - Vital Signs Vital signs: Vital Signs Temp 98.2 F 01/20/23 08:12 Pulse 8 L 01/20/23 09:07 Resp 18 01/20/23 08:12 BP 150/83 01/20/23 08:12 Pulse Ox 90 L 01/20/23 08:12 FiO2 Intake & Output 01/19/23 01/20/23 01/20/23 18:59 06:59 18:59 Intake Total 920 540 0 Output Total 250 1650 Balance 670 -1110 0 Weight 83.915 kg Intake: Intake, IV Titration 800 Amount Dextrose 5% in Water 1, 800 000 ml @ 100 mls/hr IV . [id number] LINETTE with Sodium Bicarb (1 Meq/ml) 150 ml Rx#:[id number] Oral 120 540 0 Output: Gastric Drainage 0 Urine 250 1650 Straight 250 950 Stool 0 Urine/Stool Mix 0 Emesis 0 Oral Regurgitation 0 Other 0 Other: Voiding Method Self-Catheterization Self-Catheterization Self-Catheterization # Voids 0 # Bowel Movements 0 - Exam No acute distress, oriented 3. Currently on room air. No respiratory distress. HEENT examination is grossly unremarkable. Neck supple. Full range of motion. No adenopathy thyromegaly or neck vein distention. Cardiovascular examination reveals regular rhythm rate. S1-S2 normal. No S3 or S4. No discernible murmur noted. Heart rate 80 bpm. Lungs reveal clear breath sounds. Breath sounds are equal bilaterally. No adventitious lung sounds including wheezes rhonchi or crackles. Room air saturations are 93 %. Abdomen soft bowel sounds are heard. No masses or tenderness. Extremities are intact. No cyanosis clubbing or edema. Skin is without rash or lesion. Neurologic examination is brief but nonfocal. - Labs CBC & Chem 7: 01/20/23 07:22 01/20/23 07:22 Labs: Abnormal Lab Results - Last 24 Hours (Table) 01/19/23 01/20/23 01/20/23 Range/Units 07:28 03:53 06:18 RBC (4.30-5.90) m/uL Hgb (13.0-17.5) gm/dL Hct (39.0-53.0) % RDW (11.5-15.5) % Plt Count (150-450) k/uL Lymphocytes # (1.0-4.8) k/uL Sodium (137-145) mmol/L Potassium (3.5-5.1) mmol/L Chloride (98-107) mmol/L Carbon Dioxide (22-30) mmol/L BUN (9-20) mg/dL Creatinine (0.66-1.25) mg/dL Glucose (74-99) mg/dL POC Glucose (mg/dL) 134 H 149 H (70-110) mg/dL Calcium (8.4-10.2) mg/dL Procalcitonin 0.19 H (0.02-0.09) ng/mL 01/20/23 01/20/23 Range/Units 07:22 07:22 RBC 3.55 L (4.30-5.90) m/uL Hgb 9.8 L (13.0-17.5) gm/dL Hct 30.7 L (39.0-53.0) % RDW 17.0 H (11.5-15.5) % Plt Count 140 L (150-450) k/uL Lymphocytes # 0.7 L (1.0-4.8) k/uL Sodium 130 L (137-145) mmol/L Potassium 2.8 L (3.5-5.1) mmol/L Chloride 81 L (98-107) mmol/L Carbon Dioxide 39 H (22-30) mmol/L BUN 52 H (9-20) mg/dL Creatinine 3.20 H (0.66-1.25) mg/dL Glucose 723 H* (74-99) mg/dL POC Glucose (mg/dL) (70-110) mg/dL Calcium 5.9 L* (8.4-10.2) mg/dL Procalcitonin (0.02-0.09) ng/mL Assessment and Plan Assessment: Syncopal episode, secondary to weakness, caused by nausea and diarrhea. Mediastinal/thoracic adenopathy, which will need to be evaluated as an outpatient, initially with a PET scan. Acute on chronic kidney disease. Diabetes with diabetic neuropathy. History of hypertension. History of hyperlipidemia. History of melanoma. History of bladder cancer. History of urinary tract infection. History of T12 compression fracture. Plan: Plan dated 01/18/2023. The patient was seen in the emergency department. The patient is not having any respiratory issues. Computed tomography scan showed some enlarging thoracic/mediastinal adenopathy, worked up as an outpatient. The patient will need a PET scan initially, and then possibly a biopsy. We will continue to follow the patient, and make recommendations along the way. He does have a history of melanoma. Certainly that is a concern. Prognosis is guarded. Plan dated 01/19/2023. The patient's heparin can be discontinued. The patient's on room air. The patient never had any respiratory issues. The patient is receiving D5W at 100 mL an hour. Labs, x-rays, medications are reviewed. The patient's thoracic/mediastinal adenopathy, just enlarged, compared to a prior computed tomography scan, will be evaluated as an outpatient, with a PET scan. Additional recommendations and suggestions to follow. We will continue to follow along in the care of this patient. Plan dated 01/20/2023. The patient's respiratory status and hemodynamic status is very stable. His most recent blood pressure is 150/83 with a mean of 105. His saturations are between 90 and 96% on room air. The patient is currently on a sodium bicarbonate drip, and also receiving dopamine, to improve renal function. His kidney function has improved since his day of admission. We will continue to follow make recommendations along the way. We will consulted for now normal computed tomography scan revealing evidence of thoracic and mediastinal adenopathy, which is larger compared to prior CAT scan. The patient will have an outpatient PET scan. Time with Patient: Less than 30
[2023-01-20] MEDS: DEXTROSE 5% IN WATER 1,000 ML with SODIUM BICARB (1 MEQ/ML) 150 ML IV SCH (11:07)
--- NOTE | 2023-01-20 11:18 | XR ---
EXAMINATION TYPE: XR KUB portable DATE OF EXAM: 01/20/2023 CLINICAL DATA: 67-year-old male constipation and nausea, [facility] COMPARISON: CT 01/18/2023 FINDINGS: Possible patchy retrocardiac density. Supine imaging limited for assessment of free air. Diffuse gaseous distention of bowel loops throughout. Most of this appears to be colonic air. There s eems to be small to moderate stool within the rectum. Some of the colon may be dilated up to 8.3 cm. IMPRESSION: Diffuse gaseous distention of bowel loops throughout the abdomen. Some of the colon may b e dilated up to 8.3 cm. Consider a severe generalized ileus. Correlate with lactic acid levels to exc lude any suspicious ischemic changes.
--- NOTE | 2023-01-20 11:25 | P.PN ---
Subjective Progress Note Date: 01/20/23 History of present illness: This is a 67-year-old male with past medical history of coronary artery disease status post angioplasty, hypertension, dyslipidemia, history of melanoma. Patient presented to the hospital due to syncopal event at home following diarrhea, nausea and vomiting. His d-dimer was elevated and he went for a VQ scan which revealed intermediate risk for pulmonary embolism. Echocardiogram reveals EF of 35-40% limited study. Patient has been continued on heparin drip and pulmonary medicine is following. Pulmonary has recommended outpatient PET scan for mediastinal adenopathy and pulmonary embolism has been ruled out. Patient is complaining of significant back pain and unable to move in bed since the fall. Repeat blood work reveals hemoglobin 10.5, BUN 62 creatinine 4.21, potassium 3.9. Magnesium 2.0. 01/20 This morning, patient is complaining of nausea and just not feeling well in general. An EKG was done during the night that revealed a sinus rhythm with a first-degree block. Patient had episode of bradycardia with third-degree block was not captured on the EKG. Toprol-XL was discontinued. Patient was started on dopamine drip. Renal function is improving with BUN 52 and creatinine 3.2, potassium 2.8, hemoglobin 9.8. Sodium was 130. Potassium has been replaced. Physical examination: Gen: This is a 67-year-old male. He is resting and appears to be comfortable and in no acute distress. VS: reviewed blood pressure 150/83, heart rate 86, pulse ox 90% on room air, afebrile. HEENT: Head is atraumatic, normocephalic. Pupils equal, round. Sclerae is anicteric. LUNGS: Clear to auscultation. No wheezes or rhonchi. No intercostal retractions. HEART: Regular rate and rhythm. No murmur. ABDOMEN: Soft No tenderness. EXTREMITIES: No pedal edema. No calf tenderness. NEUROLOGICAL: Patient is awake, alert and oriented x3. Assessment: Syncope most likely due to intermittent third-degree block, vasovagal episode Third-degree heart block Pulmonary embolism ruled out by pulmonary medicine Mediastinal adenopathy Coronary artery disease status post angioplasty Acute kidney injury, nephrology following Nausea vomiting and diarrhea Plan: Continue dopamine drip Hold AV nesha blocking agents Start patient on amlodipine 5 mg daily Continue other cardiac medications Recommend workup for nausea vomiting diarrhea Further recommendations to follow based upon clinical course Nurse practitioner note has been reviewed, I agree with documented findings and plan of care. Patient was seen and examined. Objective - Vital Signs Vital signs: Vital Signs Temp 97.9 F 01/19/23 20:00 Pulse 88 01/20/23 04:00 Resp 16 01/20/23 04:00 BP 161/84 01/20/23 04:00 Pulse Ox 96 01/20/23 04:00 FiO2 Intake & Output 01/19/23 01/20/23 01/20/23 18:59 06:59 18:59 Intake Total 920 540 Output Total 250 1650 Balance 670 -1110 Weight 83.915 kg Intake: Intake, IV Titration 800 Amount Dextrose 5% in Water 1, 800 000 ml @ 100 mls/hr IV . [id number] LINETTE with Sodium Bicarb (1 Meq/ml) 150 ml Rx#:[id number] Oral 120 540 Output: Gastric Drainage 0 Urine 250 1650 Straight 250 950 Stool 0 Urine/Stool Mix 0 Emesis 0 Oral Regurgitation 0 Other 0 Other: Voiding Method Self-Catheterization Self-Catheterization # Voids 0 # Bowel Movements 0 - Labs CBC & Chem 7: 01/20/23 07:22 01/20/23 07:22 Labs: Abnormal Lab Results - Last 24 Hours (Table) 01/19/23 01/19/23 01/19/23 Range/Units 07:28 07:28 07:28 RBC 3.95 L (4.30-5.90) m/uL Hgb 10.5 L (13.0-17.5) gm/dL Hct 33.0 L (39.0-53.0) % RDW 17.2 H (11.5-15.5) % APTT 55.8 H (22.0-30.0) sec Carbon Dioxide 21 L (22-30) mmol/L BUN 62 H (9-20) mg/dL Creatinine 4.21 H (0.66-1.25) mg/dL Glucose 111 H (74-99) mg/dL POC Glucose (mg/dL) (70-110) mg/dL Calcium 8.3 L (8.4-10.2) mg/dL Phosphorus 6.2 H (2.5-4.5) mg/dL Total Protein 5.9 L (6.3-8.2) g/dL Albumin 2.6 L (3.5-5.0) g/dL Procalcitonin (0.02-0.09) ng/mL 01/19/23 01/20/23 01/20/23 Range/Units 07:28 03:53 06:18 RBC (4.30-5.90) m/uL Hgb (13.0-17.5) gm/dL Hct (39.0-53.0) % RDW (11.5-15.5) % APTT (22.0-30.0) sec Carbon Dioxide (22-30) mmol/L BUN (9-20) mg/dL Creatinine (0.66-1.25) mg/dL Glucose (74-99) mg/dL POC Glucose (mg/dL) 134 H 149 H (70-110) mg/dL Calcium (8.4-10.2) mg/dL Phosphorus (2.5-4.5) mg/dL Total Protein (6.3-8.2) g/dL Albumin (3.5-5.0) g/dL Procalcitonin 0.19 H (0.02-0.09) ng/mL
[2023-01-20 11:29] LABS: Glucose,Whole Blood 122 mg/dL (70-110)
[2023-01-20] MEDS: CALCIUM ACETATE 667 MG TAB PO SCH ×2 (12:01→14:48)
[2023-01-20] MEDS: SODIUM CHLORIDE 0.9% 1,000 ML IV SCH (12:03)
[2023-01-20 13:17] LABS: African American GFR (CKD) 17 (>60 ml/min/1.73 sqM); Anion Gap 10 mmol/L; Blood Urea Nitrogen 58 mg/dL (9-20); Calcium 7.9 mg/dL (8.4-10.2); Carbon Dioxide 26 mmol/L (22-30); Chloride 98 mmol/L (98-107); Glucose 110 mg/dL (74-99); Non-African American GFR(CKD) 15 (>60 ml/min/1.73 sqM); Potassium 3.4 mmol/L (3.5-5.1); Sodium 134 mmol/L (137-145)
[2023-01-20] MEDS ORDERED: Potassium Replacement Protocol 1 EACH MISC MISCELLANE PRN (13:42)
[2023-01-20] MEDS: POTASSIUM CHLORIDE ER 20 MEQ TAB.ER PO SCH ×2 (13:51→14:27)
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
[2023-01-20] MEDS: HYDROmorphone 1 MG/ML 1 ML SYRINGE IVP PRN (15:39)
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
[2023-01-20] MEDS: IOPAMIDOL CONTRAST (ORAL USE) VIAL PO PRN ×2 (16:23→17:13)
[2023-01-20 16:33] LABS: Glucose,Whole Blood 121 mg/dL (70-110)
--- NOTE | 2023-01-20 16:35 | XR ---
EXAMINATION TYPE: XR lumbar spine 2 or 3V DATE OF EXAM: 01/20/2023 4:02 PM CLINICAL INDICATION:Male, 67 years old with history of complete lumbar spine xrays, eval T12 comp fx; [facility] COMPARISON: None TECHNIQUE: XR lumbar spine 2 or 3V - FINDINGS: There is compression deformity of the T12 vertebrae and to lesser extent the L2 vertebra braswell perior endplate. Mesentery 5% height loss of the L2 vertebral body and greater than 70% height loss o f T12. No evidence additional of loss of vertebral body height is seen. There is normal alignment of the lumbar vertebral bodies. Mild scattered disc space narrowing. Multilevel marginal osteophyte form ation throughout the visualized spine. There is facet joint arthropathy throughout the spine. Scatter ed at least mild neural foraminal stenosis. Gaseous distention of multiple loops of bowel. IMPRESSION: 1. Compression deformity of the T12 vertebrae. Correlate with MRI for acute bony edema. L2 vertebral body superior endplate deformity is also present and less than 25% height loss. 2. Mild multilevel disc degeneration. 3. Gaseous distention of multiple loops of bowel. Correlate with GI symptoms.
--- NOTE | 2023-01-20 18:37 | CT ---
EXAMINATION TYPE: CT abdomen pelvis wo con CT DLP: 680.4 mGycm, Automated exposure control for dose reduction was used. DATE OF EXAM: 01/20/2023 6:05 PM COMPARISON: KUB earlier today CLINICAL INDICATION:Male, 67 years old with history of abdominal distention, vomiting; Abdominal dist ention, vomiting. TECHNIQUE: Axial CT of the abdomen and pelvis. Sagittal and coronal reformats were created on a [employer] workstation. Contrast used: mL of , (none if empty) Oral contrast used: with Oral Contrast (none if empty) FINDINGS: Exam is limited without IV contrast. LOWER CHEST: Asymmetric elevation of the left hemidiaphragm with atelectasis or infiltrate in the lef t lung base. Mild pleural thickening and possible trace pleural effusions posteriorly. A 5 mm nodular density in the right middle lobe image 10, series 204; follow-up CT chest in 3-6 months may be obtai yonathan. Heart size upper normal. Aortic valve calcifications. ABDOMEN LIVER: Unremarkable GALLBLADDER AND BILE DUCTS: Unremarkable. PANCREAS: Unremarkable. SPLEEN: Unremarkable. ADRENAL GLANDS: Unremarkable. KIDNEYS AND URETERS: Mild bilateral perinephric stranding. No evidence of renal/ureteral calculi or h ydronephrosis. PELVIS BLADDER: Incompletely distended but grossly unremarkable. REPRODUCTIVE: Prostate appears moderately enlarged measuring 5.8 cm transverse. A few coarse central calcifications. ABDOMEN & PELVIS STOMACH AND BOWEL: There is contrast seen in the lumen of the stomach. Multiple bubbles of gas are se en, some may be intraluminal but the pattern is suspicious for pneumatosis within the gastric wall. T here may also be a tiny amount of gas within venous structures just inferior to the stomach. There is intraluminal gas throughout multiple mildly prominent small bowel loops without clear eviden ce of pneumatosis or obstruction. Moderate gaseous distention throughout the colon, up to 7.3 cm in t he proximal transverse region, without clear evidence of an obstructive etiology. Moderate stool in t he distal colon/rectum, up to 6.2 cm diameter. No definite colonic pneumatosis is seen. PERITONEUM/RETROPERITONEUM: No large amount of pneumoperitoneum is identified. There is a small focus of gas seen in the upper left pelvis, which may be contained within a bowel loop, with a tiny amount of pneumoperitoneum not fully excluded. VASCULATURE: Mild/moderate calcification of the aorta and major branches. No evidence of AAA. MUSCULOSKELETAL: Generalized osteopenia. Moderate to severe compression deformity of T12 with mild re tropulsion, appearance favors chronic. Mild compression deformity L2 with slightly heterogeneous appe arance, could be acute/subacute. There is minimal retropulsion. Mild/moderate diffuse degenerative ch anges. LYMPH NODES: No gross evidence for lymphadenopathy. SOFT TISSUE/ABDOMINAL WALL: Patient appears slightly cachectic. Possible mild body wall edema. Suspec t mild gynecomastia partially seen on the right. IMPRESSION: 1. Gaseous distention throughout several loops of colon and to a lesser degree small bowel, without gross evidence of an obstructive etiology. 2. Findings highly concerning for pneumatosis within the wall of the stomach, correlate for ischemic etiology. 3. Moderate to severe compression deformity of T12, appearance favors chronic. Mild compression defo rmity L2 with slightly heterogeneous appearance, could be acute/subacute. 4. Mild bilateral perinephric stranding, could be chronic but its superimposed infection cannot be e xcluded. 5. Other chronic and likely incidental findings, as described above.
[2023-01-20 19:59] LABS: Glucose,Whole Blood 111 mg/dL (70-110)
[2023-01-21] MEDS: ONDANSETRON 4 MG/2 ML VIAL IVP PRN ×2 (00:56→08:42)
[2023-01-21] MEDS: SODIUM CHLORIDE 0.9% 1,000 ML IV SCH ×2 (01:23→14:46)
[2023-01-21] MEDS: CALCIUM ACETATE 667 MG TAB PO SCH ×3 (05:32→14:14)
[2023-01-21] MEDS: INSULIN ASPART (NovoLOG) 100 UNIT/ML VIAL SQ SCH ×4 (06:17→19:51)
[2023-01-21 06:18] LABS: Glucose,Whole Blood 84 mg/dL (70-110)
[2023-01-21] MEDS: polyethylene glycoL 3350 17 GM POWD.PACK PO SCH (08:24)
[2023-01-21] MEDS: PANTOPRAZOLE 40 MG/10 ML VIAL IV SCH (08:34)
[2023-01-21] MEDS: ISOSORBIDE MONONITRATE ER 30 MG TAB.ER.24H PO SCH (08:34)
[2023-01-21] MEDS: FENOFIBRATE 160 MG TAB PO SCH (08:34)
[2023-01-21] MEDS: LORATADINE 10 MG TAB PO SCH (08:35)
[2023-01-21] MEDS: HEPARIN SODIUM,PORCINE 5,000 UNIT/ML 1 ML VIAL SQ SCH ×2 (08:35→19:43)
[2023-01-21] MEDS: TAMSULOSIN 0.4 MG CAP.ER.24H PO SCH ×2 (08:35→19:43)
[2023-01-21] MEDS: amLODIPine 10 MG TAB PO SCH (08:35)
[2023-01-21] MEDS ORDERED: bisacodyL 10 MG SUPP RECTAL PRN (09:23)
[2023-01-21] MEDS: FLUTICASONE 50MCG/SPRAY NASAL 16GM EA NOSTRIL SCH (09:25)
--- NOTE | 2023-01-21 09:47 | P.PN ---
Subjective Patient was 69-year-old male presented to the hospital after syncopal episode was having diarrhea for last few days. Patient syncope didn't appear to be vasovagal. Patient baseline creatinine is around 2.5 slightly worse to around 4.2. Patient was also complaining of back pain. CT of the abdomen and pelvis and lung is significant for osteoarthritis and SI joint degenerative disc disease and ankylosing spondylitis which is probably intermittent is faint apart from soft tissue injury from the fall. CT of the lung did show lipid of the which is increased compared to the previous imaging studies. Pulmonology evaluated for that reason recommending outpatient PET scan the differentials include granulomatous disease like sarcoidosis, malignancy. Patient doesn't smoke. Echocardiogram is being obtained as a part of for syncope workup EKG showed some nonspecific ST-T wave changes in the inferior leads. Cardiology evaluated the patient. No significant troponin elevation at this time. Patient also found to have highly elevated d-dimer above 34. Patient will undergo VQ scan today troponin is negative. 01/19/2023 Patient is evaluated today resting in bed. Pulmonary felt VQ did not reflect pulmonary embolism and IV heparin has been discontinued. Lasix remains on hold, patient is being hydrated on bicarb gtt at 100 mls/hr. Continues with significant back pain due to the fall, cannot have IV morphine due to the renal function medications will be adjusted. PT/OT following. Patient denies any further episodes of diarrhea however he has been reporting vomiting and unable to keep much food down. He reports as bile like not black or bloody emesis. He is being straight cathed as needed. Echocardiogram showing EF 35-40% slightly decreased from prior EF of 40%. 01/20/2023 Patient still in bed, feeling generally weak and complaining of from severe back pain related to some nausea and low appetite, has been constipated. Denies abdominal pain, no chest pain or dyspnea. He was bradycardic area more than has lost 20s as per staff, patient currently on dopamine drip and his heart rate is 85. Vital signs stable. Creatinine as of yesterday 4.2, today he is on sodium bicarb 100 mL per day and dopamine drip. Nephrology is following closely and repeat creatinine is pending. Hemoglobin 9.8. Computed tomography scan shows circumferential wall thickening of the descending and sigmoid colon and rectum but patient says had a bowel movement for about 4 days ago, patient says it was loose which at his usual for him. Patient feels generally weak cardiology is also following closely we will do kub bmp shows cr 3.2, glu more 700 and ca 5.9, we will repeat bmp 01/21/2023 Patient feels better today, he feels more relaxed. His abdomen looks soft with little or no tenderness, less nausea vomiting. He had CT of the abdomen and pelvis today and showing dilated small bowel and possible air in the stomach wall suspicious for ischemic etiology and compression fracture of T12 and to lesser degree L2, patient developed by surger y team and discussed the case with surgeon, patient abdomen soft and recommended to advance diet and Dulcolax suppository. Breathing his stable. No other new complaints or symptoms. Creatinine slightly better today at 3.9 and patient currently kept on dopamine drip and sodium bicarb at 75 mL/h. Review of systems CONSTITUTIONAL: No fever, no malaise, no fatigue. HEENT: No recent visual problems or hearing problems. Denied any sore throat. CARDIOVASCULAR: No orthopnea, PND, no palpitations, no syncope. PULMONARY: No shortness of breath, no cough, no hemoptysis. GASTROINTESTINAL: No diarrhea, no nausea, no vomiting, no abdominal pain. Normoactive bowel sounds. NEUROLOGICAL: No headaches, no weakness, no numbness. Objective - Vital Signs Vital signs: Vital Signs Temp 98.1 F 01/20/23 20:00 Pulse 87 01/21/23 04:00 Resp 18 01/21/23 04:00 BP 172/86 01/21/23 04:00 Pulse Ox 95 01/21/23 04:00 FiO2 Intake & Output 01/20/23 01/21/23 01/21/23 18:59 06:59 18:59 Intake Total 1265 540 Output Total 900 1300 Balance 365 -760 Weight 83.915 kg Intake: IV 20 Invasive Line 3 20 Intake, IV Titration 1025 Amount Dextrose 5% in Water 1, 500 000 ml @ 100 mls/hr IV . [id number] LINETTE with Sodium Bicarb (1 Meq/ml) 150 ml Rx#:[id number] Sodium Chloride 0.9% 1, 525 000 ml @ 75 mls/hr IV . [id number] LINETTE Rx#:[id number] Oral 220 540 Output: Urine 900 1300 Straight 900 1000 Other: Voiding Method Self-Catheterization Self-Catheterization - Exam -GENERAL: The patient is alert and oriented x3, not in any acute distress. Well developed, well nourished. Generally weak HEENT: Pupils are round and equally reacting to light. EOMI. No scleral icterus. No conjunctival pallor. Normocephalic, atraumatic. No pharyngeal erythema. No thyromegaly. CARDIOVASCULAR: S1 and S2 present. No murmurs, rubs, or gallops. PULMONARY: Chest is clear to auscultation, no wheezing , no crackles. ABDOMEN: Soft, nontender, nondistended, normoactive bowel sounds. No palpable organomegaly. -MUSCULOSKELETAL: No joint swelling or deformity. Lower back tenderness around the area of T12 EXTREMITIES: No cyanosis, clubbing, or pedal edema. NEUROLOGICAL: Gross neurological examination did not reveal any focal deficits. SKIN: No rashes. no petechiae. - Labs CBC & Chem 7: 01/20/23 07:22 01/20/23 12:19 Labs: Abnormal Lab Results - Last 24 Hours (Table) 01/20/23 01/20/23 01/20/23 Range/Units 07:22 11:25 12:19 Sodium 134 L (137-145) mmol/L Potassium 3.4 L (3.5-5.1) mmol/L BUN 58 H (9-20) mg/dL Creatinine 3.94 H (0.66-1.25) mg/dL Glucose 110 H (74-99) mg/dL POC Glucose (mg/dL) 122 H (70-110) mg/dL Calcium 7.9 L (8.4-10.2) mg/dL Procalcitonin 0.19 H (0.02-0.09) ng/mL 01/20/23 01/20/23 Range/Units 16:22 19:58 Sodium (137-145) mmol/L Potassium (3.5-5.1) mmol/L BUN (9-20) mg/dL Creatinine (0.66-1.25) mg/dL Glucose (74-99) mg/dL POC Glucose (mg/dL) 121 H 111 H (70-110) mg/dL Calcium (8.4-10.2) mg/dL Procalcitonin (0.02-0.09) ng/mL Assessment and Plan Assessment: Syncope probably secondary to intravascular depletion from nausea vomiting diarrhea sever back pain with history of sever T12 compression fracture Severe bradycardia (transient ) requiring dopamine drip Nausea, vomiting and diarrhea possibly from a viral gastroenteritis CT chest abdomen pelvis showing colitis. Acute kidney injury due to ATN from dehydration Chronic kidney disease stage IV baseline creatinine around 3. History of urinary retention and obstructive uropathy with hx of bladder cancer maintained on urinary straight catheterizations Mediastinal lymphadenopathy and possible right lung mass , patient and at bedside are aware also about follow-up outpatient PET scan/biopsy History of heart failure Hypertension Type 2 Diabetes Mellitus and diabetic neuropathy Back pain secondary to fall Known T12 compression fracture Hyperlipidemia Plan: Continue with dopamine drip Continue with sodium bicarb per nephrology team recommendation Patient will require outpatient PET scan and biopsy for his possible lung mass, risk of cancer explained, patient and at bedside, are aware and 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 Continue same treatment. Continue with symptomatic treatment. Resume home medication. Monitor labs and vitals. DVT and GI prophylaxis. Further recommendations as per clinical course of the patient DVT prophylaxis: Subcutaneous heparin GI Prophylaxis: Pepcid PT/OT: Pending from healthcare versus subacute rehab, patient prefers [facility] Prognosis is guarded
--- NOTE | 2023-01-21 09:50 | P.PN ---
Subjective Progress Note Date: 01/21/23 Principal diagnosis: Weakness, nausea, diarrhea. Pulmonary consult dated 01/18/2023. 67-year-old male with a history of diabetes, hyperlipidemia, hypertension, diabetic neuropathy, melanoma, bladder cancer, among other things, presents to the emergency department, with weakness, and syncope. The patient states that he initially developed diarrhea, and nausea, and on the way to the bathroom, fell, because of severe back pain he could not get up. The patient does have a history of previous T12 compression fracture. The patient sees Dr. Jocelyne Choe as a primary. The patient is seen in the emergency department, room #1. He's currently on room air and getting saline at 75 mL an hour. We were asked to see the patient, because a computed tomography scan of the chest revealed evidence of significant thoracic and mediastinal adenopathy. The patient had a previous computed tomography scan done about a year prior, and the adenopathy appears larger. He will need an outpatient workup including a PET scan, and possibly a biopsy. I explained all this to the patient. White count is 5, hemoglobin 11.6, hematocrit 35, and platelet count 182,000. D-dimer was greater than 34. Sodium 135, potassium 4.3, chlorides 112, CO2 13, anion gap 10, BUN 65, and creatinine 4.26. Glucose 139. Troponins were 0.026 and 0.026 respectively. A ventilation perfusion lung scan was indeterminate. This computed tomography scan showed mediastinal adenopathy which is increased in size compared to a scan done 12/17/2021. Progress note dated 01/19/2023. 67-year-old male seen yesterday in the emergency department. Currently, the patient's on room air. He is getting dextrose at 100 mL an hour, and IV heparin. He had an indeterminate/intermediate, ventilation perfusion lung scan. He had a matched defect in the left lower lobe, which is where there is an infiltrate. The patient does not have a pulmonary embolism in my opinion, and IV heparin can be discontinued. White count 6.2, hemoglobin 10.5, hematocrit 33, and platelet count 161,000. Sodium 137, potassium 3.9, chlorides 107, CO2 21, BUN 62, and creatinine 4.21. Albumin is 2.6. Progress note dated 01/20/2023. 67-year-old male, seen in the emergency department, 2 days ago. The patient apparently was found at home, very weak, and on the floor. The patient was dehydrated, and was having severe diarrhea, and was noted to have worsening renal function. Currently, the patient's resting comfortably in room 354. He is on room air. The patient's receiving dopamine at 2 mcg/kg/m, and a sodium bicarbonate drip. He has been seen by nephrology. White count is 4.6, hemoglobin 9.8, hematocrit 30.7, and platelet count is 140,000. Sodium 1:30, potassium 2.8, chlorides 81, CO2 39, BUN 52, and creatinine 3.20. Glucose 723. TSH is normal. Calcium is 5.9. Progress note dated 01/21/2023. 67-year-old male seen a couple days ago consultation. The patient's doing a bit better. He is currently seen in room 354. He is on room air. He is getting dopamine at 2.0 mcg/kg/m, and also saline at 75 mL an hour. He's being seen by orthopedics, because of an old T12 fracture, and a new L2 fracture. The patient was found to have thoracic and mediastinal adenopathy, which will be worked up as an outpatient, and initially, the patient will need a PET scan. No new labs today other than a glucose of 84. His last BUN and creatinine were 58 and 3.94. Objective - Vital Signs Vital signs: Vital Signs Temp 97.8 F 01/21/23 08:35 Pulse 87 01/21/23 04:00 Resp 18 01/21/23 08:35 BP 166/87 01/21/23 08:35 Pulse Ox 95 01/21/23 08:35 FiO2 Intake & Output 01/20/23 01/21/23 01/21/23 18:59 06:59 18:59 Intake Total 1265 540 Output Total 900 1300 Balance 365 -760 Weight 83.915 kg Intake: IV 20 Invasive Line 3 20 Intake, IV Titration 1025 Amount Dextrose 5% in Water 1, 500 000 ml @ 100 mls/hr IV . [id number] [facility] with Sodium Bicarb (1 Meq/ml) 150 ml Rx#:[id number] Sodium Chloride 0.9% 1, 525 000 ml @ 75 mls/hr IV . [id number] [facility] Rx#:[id number] Oral 220 540 Output: Urine 900 1300 Straight 900 1000 Other: Voiding Method Self-Catheterization Self-Catheterization Self-Catheterization - Exam No acute distress, oriented 3. Currently on room air. No respiratory distress. HEENT examination is grossly unremarkable. Neck supple. Full range of motion. No adenopathy thyromegaly or neck vein distention. Cardiovascular examination reveals regular rhythm rate. S1-S2 normal. No S3 or S4. No discernible murmur noted. Heart rate 87 bpm. Lungs reveal clear breath sounds. Breath sounds are equal bilaterally. No adventitious lung sounds including wheezes rhonchi or crackles. Room air saturations are 95 %. Abdomen soft bowel sounds are heard. No masses or tenderness. Extremities are intact. No cyanosis clubbing or edema. Skin is without rash or lesion. Neurologic examination is brief but nonfocal. - Labs CBC & Chem 7: 01/20/23 07:22 01/20/23 12:19 Labs: Abnormal Lab Results - Last 24 Hours (Table) 01/20/23 01/20/23 01/20/23 Range/Units 07:22 11:25 12:19 Sodium 134 L (137-145) mmol/L Potassium 3.4 L (3.5-5.1) mmol/L BUN 58 H (9-20) mg/dL Creatinine 3.94 H (0.66-1.25) mg/dL Glucose 110 H (74-99) mg/dL POC Glucose (mg/dL) 122 H (70-110) mg/dL Calcium 7.9 L (8.4-10.2) mg/dL Procalcitonin 0.19 H (0.02-0.09) ng/mL 01/20/23 01/20/23 Range/Units 16:22 19:58 Sodium (137-145) mmol/L Potassium (3.5-5.1) mmol/L BUN (9-20) mg/dL Creatinine (0.66-1.25) mg/dL Glucose (74-99) mg/dL POC Glucose (mg/dL) 121 H 111 H (70-110) mg/dL Calcium (8.4-10.2) mg/dL Procalcitonin (0.02-0.09) ng/mL Assessment and Plan Assessment: Syncopal episode, secondary to weakness, caused by nausea and diarrhea. Mediastinal/thoracic adenopathy, which will need to be evaluated as an outpatient, initially with a PET scan. Acute on chronic kidney disease. Diabetes with diabetic neuropathy. History of hypertension. History of hyperlipidemia. History of melanoma. History of bladder cancer. History of urinary tract infection. Acute L2 compression fracture. History of T12 compression fracture. Plan: Plan dated 01/18/2023. The patient was seen in the emergency department. The patient is not having any respiratory issues. Computed tomography scan showed some enlarging thoracic/mediastinal adenopathy, worked up as an outpatient. The patient will need a PET scan initially, and then possibly a biopsy. We will continue to follow the patient, and make recommendations along the way. He does have a history of melanoma. Certainly that is a concern. Prognosis is guarded. Plan dated 01/19/2023. The patient's heparin can be discontinued. The patient's on room air. The patient never had any respiratory issues. The patient is receiving D5W at 100 mL an hour. Labs, x-rays, medications are reviewed. The patient's thoracic/mediastinal adenopathy, just enlarged, compared to a prior computed tomography scan, will be evaluated as an outpatient, with a PET scan. Additional recommendations and suggestions to follow. We will continue to follow along in the care of this patient. Plan dated 01/20/2023. The patient's respiratory status and hemodynamic status is very stable. His most recent blood pressure is 150/83 with a mean of 105. His saturations are between 90 and 96% on room air. The patient is currently on a sodium bicarbonate drip, and also receiving dopamine, to improve renal function. His kidney function has improved since his day of admission. We will continue to follow make recommendations along the way. We will consulted for now normal computed tomography scan revealing evidence of thoracic and mediastinal adenopathy, which is larger compared to prior CAT scan. The patient will have an outpatient PET scan. Plan dated 01/21/2023. The patient is seen today in room 354. Clinically, he is feeling better. He continues on a dopamine drip. He is on room air. Labs, x-rays, and medications are reviewed. The patient is being seen by orthopedics for her new L2 compr ession fracture. The patient does have an old T12 compression fracture as well. In addition, computed tomography scan of the abdomen reveals changes which could be consistent with pneumatosis. The patient has been seen will be seen by surgery. His overall prognosis remains guarded. Time with Patient: Less than 30
[2023-01-21 10:01] LABS: Anisocytosis Slight; Basophils % (A) 0 %; Eosinophils # (A) 0.1 k/uL (0-0.7); Eosinophils % (A) 2 %; HCT 33.4 % (39.0-53.0); HGB 11.2 gm/dL (13.0-17.5); Lymphocytes # (A) 0.9 k/uL (1.0-4.8); Lymphocytes % (A) 19 %; MCHC 33.5 g/dL (31.0-37.0); MCV 83.7 fL (80.0-100.0); Mean Platelet Volume 8.3; Monocytes # (A) 0.3 k/uL (0-1.0); Monocytes % (A) 7 %; Neutrophils # (A) 3.2 k/uL (1.3-7.7); Neutrophils % (A) 68 %; Platelet Count 152 k/uL (150-450); RBC 3.99 m/uL (4.30-5.90); RDW 16.5 % (11.5-15.5); WBC 4.6 k/uL (3.8-10.6)
--- NOTE | 2023-01-21 10:14 | P.PN ---
Subjective Progress Note Date: 01/21/23 History of present illness: This is a 67-year-old male with past medical history of coronary artery disease status post angioplasty, hypertension, dyslipidemia, history of melanoma. Patient presented to the hospital due to syncopal event at home following diarrhea, nausea and vomiting. His d-dimer was elevated and he went for a VQ scan which revealed intermediate risk for pulmonary embolism. Echocardiogram reveals EF of 35-40% limited study. Patient has been continued on heparin drip and pulmonary medicine is following. Pulmonary has recommended outpatient PET scan for mediastinal adenopathy and pulmonary embolism has been ruled out. Patient is complaining of significant back pain and unable to move in bed since the fall. Repeat blood work reveals hemoglobin 10.5, BUN 62 creatinine 4.21, potassium 3.9. Magnesium 2.0. 01/20 This morning, patient is complaining of nausea and just not feeling well in general. An EKG was done during the night that revealed a sinus rhythm with a first-degree block. Patient had episode of bradycardia with third-degree block was not captured on the EKG. Toprol-XL was discontinued. Patient was started on dopamine drip. Renal function is improving with BUN 52 and creatinine 3.2, potassium 2.8, hemoglobin 9.8. Sodium was 130. Potassium has been replaced. 01/21 Patient states he has a little nausea and a little abdominal discomfort today. This seems to be improved from yesterday. He is currently nothing by mouth and has been seen by general surgery. He underwent a CAT scan of the abdomen and pelvis which revealed gaseous distention throughout the several loops of the colon and to a lesser degree small bowel without gross evidence of obstructive etiology. Findings highly concerning for pneumatosis within the wall of the stomach correlate for ischemic etiology. Moderate to severe compression deformity T12, mild compression deformity L2. Mild bilateral perinephric stranding. Blood pressure 172/86 this morning heart rate is in the 80s sinus rhythm. Repeat blood work is not available at the time of this dictation. He did have repeat lab work yesterday afternoon which revealed BUN 58 creatinine 3.94 and potassium 3.4. Patient is on dopamine drip 2 micrograms per kilo per minute. Physical examination: Gen: This is a 67-year-old male. He is resting and appears to be comfortable and in no acute distress. VS: reviewed HEENT: Head is atraumatic, normocephalic. Pupils equal, round. Sclerae is anicteric. LUNGS: Clear to auscultation. No wheezes or rhonchi. No intercostal retractions. HEART: Regular rate and rhythm. No murmur. ABDOMEN: Soft No tenderness. EXTREMITIES: No pedal edema. No calf tenderness. NEUROLOGICAL: Patient is awake, alert and oriented x3. Assessment: Syncope most likely due to intermittent third-degree block or vasovagal episode Third-degree heart block Pulmonary embolism ruled out by pulmonary medicine Mediastinal adenopathy Coronary artery disease status post angioplasty Acute kidney injury, nephrology following Nausea vomiting and diarrhea, abdominal pain Plan: Discontinue dopamine drip Hold AV nesha blocking agents Increase amlodipine to 10 mg daily Continue other cardiac medications Recommend workup for nausea vomiting diarrhea Further recommendations to follow based upon clinical course Nurse practitioner note has been reviewed, I agree with documented findings and plan of care. Patient was seen and examined. Objective - Vital Signs Vital signs: Vital Signs Temp 98.1 F 01/20/23 20:00 Pulse 87 01/21/23 04:00 Resp 18 01/21/23 04:00 BP 172/86 01/21/23 04:00 Pulse Ox 95 01/21/23 04:00 FiO2 Intake & Output 01/20/23 01/21/23 01/21/23 18:59 06:59 18:59 Intake Total 1265 540 Output Total 900 1300 Balance 365 -760 Weight 83.915 kg Intake: IV 20 Invasive Line 3 20 Intake, IV Titration 1025 Amount Dextrose 5% in Water 1, 500 000 ml @ 100 mls/hr IV . [id number] [facility] with Sodium Bicarb (1 Meq/ml) 150 ml Rx#:[id number] Sodium Chloride 0.9% 1, 525 000 ml @ 75 mls/hr IV . [id number] [facility] Rx#:[id number] Oral 220 540 Output: Urine 900 1300 Straight 900 1000 Other: Voiding Method Self-Catheterization Self-Catheterization - Labs CBC & Chem 7: 01/21/23 08:47 01/20/23 12:19 Labs: Abnormal Lab Results - Last 24 Hours (Table) 01/20/23 01/20/23 01/20/23 Range/Units 07:22 07:22 11:25 Sodium 130 L (137-145) mmol/L Potassium 2.8 L (3.5-5.1) mmol/L Chloride 81 L (98-107) mmol/L Carbon Dioxide 39 H (22-30) mmol/L BUN 52 H (9-20) mg/dL Creatinine 3.20 H (0.66-1.25) mg/dL Glucose 723 H* (74-99) mg/dL POC Glucose (mg/dL) 122 H (70-110) mg/dL Calcium 5.9 L* (8.4-10.2) mg/dL Procalcitonin 0.19 H (0.02-0.09) ng/mL 01/20/23 01/20/23 01/20/23 Range/Units 12:19 16:22 19:58 Sodium 134 L (137-145) mmol/L Potassium 3.4 L (3.5-5.1) mmol/L Chloride (98-107) mmol/L Carbon Dioxide (22-30) mmol/L BUN 58 H (9-20) mg/dL Creatinine 3.94 H (0.66-1.25) mg/dL Glucose 110 H (74-99) mg/dL POC Glucose (mg/dL) 121 H 111 H (70-110) mg/dL Calcium 7.9 L (8.4-10.2) mg/dL Procalcitonin (0.02-0.09) ng/mL
[2023-01-21 10:17] LABS: African American GFR (CKD) 17 (>60 ml/min/1.73 sqM); Anion Gap 11 mmol/L; Blood Urea Nitrogen 54 mg/dL (9-20); Calcium 7.8 mg/dL (8.4-10.2); Carbon Dioxide 23 mmol/L (22-30); Chloride 102 mmol/L (98-107); Glucose 85 mg/dL (74-99); Non-African American GFR(CKD) 15 (>60 ml/min/1.73 sqM); Potassium 3.6 mmol/L (3.5-5.1); Sodium 136 mmol/L (137-145)
[2023-01-21] MEDS: DOPamine DRIP 800 MG in DEXTROSE/WATER 1 250ML.BAG IV SCH (10:18)
--- NOTE | 2023-01-21 10:26 | P.PN ---
Subjective Progress Note Date: 01/14/23 Principal diagnosis: Low back pain. Acute ileus. Chronic T12 compression fracture. Acute L2 compression fracture. This is a 67-year-old male admitted to the hospital after a syncopal episode 2 days ago. He has been having low back pain since the episode. He states that he does have history of a compression fracture in the past. He states that he is having pain from his mid to low back directly in the midline about his spine. He denies pain radiating into his legs. He denies any numbness or tingling. The patient has a history of urinary retention and does have to self catheterize. He is also having severe constipation at this time. He reports no urinary or bowel incontinence. We are consulted for orthopedic evaluation of his low back pain. 01/21/2023: The patient is stable from an orthopedic standpoint. He has no new complaints or concerns. He admits to mid to low back pain with movement. He denies any nausea or vomiting. He continues to have abdominal pain. Vital signs are stable. Objective - Vital Signs Vital signs: Vital Signs Temp 97.8 F 01/21/23 08:35 Pulse 87 01/21/23 04:00 Resp 18 01/21/23 08:35 BP 166/87 01/21/23 08:35 Pulse Ox 95 01/21/23 08:35 FiO2 Intake & Output 01/20/23 01/21/23 01/21/23 18:59 06:59 18:59 Intake Total 1265 540 92.574 Output Total 900 1300 Balance 365 -760 92.574 Weight 83.915 kg Intake: IV 20 Invasive Line 3 20 Intake, IV Titration 1025 92.574 Amount DOPamine DRIP 800 mg In 92.574 Dextrose/Water 1 250ml. bag @ 2 MCG/KG/MIN 3.147 mls/hr IV .Q24H [facility] Rx#: [id number] Dextrose 5% in Water 1, 500 000 ml @ 100 mls/hr IV . [id number] [facility] with Sodium Bicarb (1 Meq/ml) 150 ml Rx#:[id number] Sodium Chloride 0.9% 1, 525 000 ml @ 75 mls/hr IV . [id number] [facility] Rx#:[id number] Oral 220 540 Output: Urine 900 1300 Straight 900 1000 Other: Voiding Method Self-Catheterization Self-Catheterization Self-Catheterization - Exam This is a pleasant 67-year-old male in no acute distress. His exam is essentially unchanged from yesterday's evaluation. He continues to have pain about the lower thoracic and upper lumbar spine. Minimal paraspinal musculature tenderness. He continues to have a distended abdomen. Full motion to the lower extremities with no neuro deficits noted. - Labs CBC & Chem 7: 01/21/23 08:47 01/21/23 08:47 Labs: Abnormal Lab Results - Last 24 Hours (Table) 01/20/23 01/20/23 01/20/23 Range/Units 07:22 11:25 12:19 RBC (4.30-5.90) m/uL Hgb (13.0-17.5) gm/dL Hct (39.0-53.0) % RDW (11.5-15.5) % Lymphocytes # (1.0-4.8) k/uL Sodium 134 L (137-145) mmol/L Potassium 3.4 L (3.5-5.1) mmol/L BUN 58 H (9-20) mg/dL Creatinine 3.94 H (0.66-1.25) mg/dL Glucose 110 H (74-99) mg/dL POC Glucose (mg/dL) 122 H (70-110) mg/dL Calcium 7.9 L (8.4-10.2) mg/dL Procalcitonin 0.19 H (0.02-0.09) ng/mL 01/20/23 01/20/23 01/21/23 Range/Units 16:22 19:58 08:47 RBC 3.99 L (4.30-5.90) m/uL Hgb 11.2 L (13.0-17.5) gm/dL Hct 33.4 L (39.0-53.0) % RDW 16.5 H (11.5-15.5) % Lymphocytes # 0.9 L (1.0-4.8) k/uL Sodium (137-145) mmol/L Potassium (3.5-5.1) mmol/L BUN (9-20) mg/dL Creatinine (0.66-1.25) mg/dL Glucose (74-99) mg/dL POC Glucose (mg/dL) 121 H 111 H (70-110) mg/dL Calcium (8.4-10.2) mg/dL Procalcitonin (0.02-0.09) ng/mL 01/21/23 Range/Units 08:47 RBC (4.30-5.90) m/uL Hgb (13.0-17.5) gm/dL Hct (39.0-53.0) % RDW (11.5-15.5) % Lymphocytes # (1.0-4.8) k/uL Sodium 136 L (137-145) mmol/L Potassium (3.5-5.1) mmol/L BUN 54 H (9-20) mg/dL Creatinine 3.97 H (0.66-1.25) mg/dL Glucose (74-99) mg/dL POC Glucose (mg/dL) (70-110) mg/dL Calcium 7.8 L (8.4-10.2) mg/dL Procalcitonin (0.02-0.09) ng/mL Assessment and Plan (1) Low back pain Current Visit: Yes Status: Acute Code(s): M54.50 - LOW BACK PAIN, UNSPECIFIED SNOMED Code(s): 708575916 (2) Syncope due to orthostatic hypotension Current Visit: Yes Status: Acute Code(s): I95.1 - ORTHOSTATIC HYPOTENSION SNOMED Code(s): 212065211 (3) Ileus Current Visit: No Status: Acute Code(s): K56.7 - ILEUS, UNSPECIFIED SNOMED Code(s): 704971043 Plan: The clinical and x-ray findings are discussed with the patient. X-rays of the lumbar spine reveal an acute L2 compression fracture compared to previous images with approximately 25% loss of height. Continued chronic T12 compression fracture. It is recommended that he be immobilized in a lumbar corset. However, with his abdominal distention and be difficult for him to wear the corset. We will order the brace on Monday and we'll have him wearing the brace as soon as it is possible to do so. Continue current care.
[2023-01-21] MEDS: HYDROmorphone 1 MG/ML 1 ML SYRINGE IVP PRN ×2 (10:36→15:32)
--- NOTE | 2023-01-21 11:10 | P.PN ---
Subjective Patient is seen for follow-up for acute kidney injury mostly ATN associated with severe volume depletion. Maintained on IV fluids. Maintained on dopamine for bradycardia. Patient has had good urine output with straight catheterizations. No diarrhea nausea or vomiting currently. Complaining of back pain. Serum creatinine improved to 3.2 mg/dL and is back to 3.9 mg/dL. Baseline creatinine is around 3.5-3.3 mg/dL. Objective - Vital Signs Vital signs: Vital Signs Temp 97.8 F 01/21/23 08:35 Pulse 87 01/21/23 04:00 Resp 18 01/21/23 08:35 BP 166/87 01/21/23 08:35 Pulse Ox 95 01/21/23 08:35 FiO2 Intake & Output 01/20/23 01/21/23 01/21/23 18:59 06:59 18:59 Intake Total 1265 540 92.574 Output Total 900 1300 Balance 365 -760 92.574 Weight 83.915 kg Intake: IV 20 Invasive Line 3 20 Intake, IV Titration 1025 92.574 Amount DOPamine DRIP 800 mg In 92.574 Dextrose/Water 1 250ml. bag @ 2 MCG/KG/MIN 3.147 mls/hr IV .Q24H [facility] Rx#: [id number] Dextrose 5% in Water 1, 500 000 ml @ 100 mls/hr IV . [id number] [facility] with Sodium Bicarb (1 Meq/ml) 150 ml Rx#:[id number] Sodium Chloride 0.9% 1, 525 000 ml @ 75 mls/hr IV . [id number] [facility] Rx#:[id number] Oral 220 540 Output: Urine 900 1300 Straight 900 1000 Other: Voiding Method Self-Catheterization Self-Catheterization Self-Catheterization - Exam Patient is awake, alert oriented 3 No acute distress Examination of the heart S1 and S2 Examination of the lungs bilateral breath sounds are heard Abdomen is soft nontender Examination lower extremity shows no evidence of edema [employer] exam grossly intact - Labs CBC & Chem 7: 01/21/23 08:47 01/21/23 08:47 Labs: Abnormal Lab Results - Last 24 Hours (Table) 01/20/23 01/20/23 01/20/23 Range/Units 07:22 11:25 12:19 RBC (4.30-5.90) m/uL Hgb (13.0-17.5) gm/dL Hct (39.0-53.0) % RDW (11.5-15.5) % Lymphocytes # (1.0-4.8) k/uL Sodium 134 L (137-145) mmol/L Potassium 3.4 L (3.5-5.1) mmol/L BUN 58 H (9-20) mg/dL Creatinine 3.94 H (0.66-1.25) mg/dL Glucose 110 H (74-99) mg/dL POC Glucose (mg/dL) 122 H (70-110) mg/dL Calcium 7.9 L (8.4-10.2) mg/dL Procalcitonin 0.19 H (0.02-0.09) ng/mL 01/20/23 01/20/23 01/21/23 Range/Units 16:22 19:58 08:47 RBC 3.99 L (4.30-5.90) m/uL Hgb 11.2 L (13.0-17.5) gm/dL Hct 33.4 L (39.0-53.0) % RDW 16.5 H (11.5-15.5) % Lymphocytes # 0.9 L (1.0-4.8) k/uL Sodium (137-145) mmol/L Potassium (3.5-5.1) mmol/L BUN (9-20) mg/dL Creatinine (0.66-1.25) mg/dL Glucose (74-99) mg/dL POC Glucose (mg/dL) 121 H 111 H (70-110) mg/dL Calcium (8.4-10.2) mg/dL Procalcitonin (0.02-0.09) ng/mL 01/21/23 Range/Units 08:47 RBC (4.30-5.90) m/uL Hgb (13.0-17.5) gm/dL Hct (39.0-53.0) % RDW (11.5-15.5) % Lymphocytes # (1.0-4.8) k/uL Sodium 136 L (137-145) mmol/L Potassium (3.5-5.1) mmol/L BUN 54 H (9-20) mg/dL Creatinine 3.97 H (0.66-1.25) mg/dL Glucose (74-99) mg/dL POC Glucose (mg/dL) (70-110) mg/dL Calcium 7.8 L (8.4-10.2) mg/dL Procalcitonin (0.02-0.09) ng/mL Assessment and Plan Assessment: 1. Acute kidney injury ATN currently nonoliguric. No documentation of hypotension. Patient was severely dehydrated. Currently maintained on IV fluids. No obstruction noted on CT scanning. Renal function slightly improved. Baseline creatinine has been around 3.3-2.5 mg/dL. 2. Chronic kidney disease NKF stage IV with baseline creatinine around 3. Etiology is obstructive uropathy and nephrosclerosis. Currently self catheterizing 3-4 times a day. Significant proteinuria noted with all serological workup in September being negative. 3. Severe non-gap metabolic acidosis secondary to diarrhea and renal failure. 4. Mediastinal adenopathy and possible right lung mass being followed by pulmonary with plans for further workup as outpatient 5. History of urine retention currently self catheterizing about 4 times a day 6. History of bladder cancer being followed by urology 7. History of CHF with EF of 40% in 2021 8. CK D mineral bone disorder with serum phosphorus at 6.2 Plan: Continue with saline Can DC dopamine Repeat labs in a.m. Continue with straight catheterization 4 times a day Avoid nephrotoxic agents Add PhosLo 1 tablet 3 times a day with meals
--- NOTE | 2023-01-21 11:18 | P.PN ---
Subjective Progress Note Date: 01/21/23 The patient is tolerating clears he is not hungry currently. Computed tomography scan was reviewed showing colonic ileus with stool in rectal vault. Abdomen is softer and less distended Objective - Vital Signs Vital signs: Vital Signs Temp 97.8 F 01/21/23 08:35 Pulse 87 01/21/23 04:00 Resp 18 01/21/23 08:35 BP 166/87 01/21/23 08:35 Pulse Ox 95 01/21/23 08:35 FiO2 Intake & Output 01/20/23 01/21/23 01/21/23 18:59 06:59 18:59 Intake Total 1265 540 92.574 Output Total 900 1300 Balance 365 -760 92.574 Weight 83.915 kg Intake: IV 20 Invasive Line 3 20 Intake, IV Titration 1025 92.574 Amount DOPamine DRIP 800 mg In 92.574 Dextrose/Water 1 250ml. bag @ 2 MCG/KG/MIN 3.147 mls/hr IV .Q24H [facility] Rx#: [id number] Dextrose 5% in Water 1, 500 000 ml @ 100 mls/hr IV . [id number] [facility] with Sodium Bicarb (1 Meq/ml) 150 ml Rx#:[id number] Sodium Chloride 0.9% 1, 525 000 ml @ 75 mls/hr IV . [id number] [facility] Rx#:[id number] Oral 220 540 Output: Urine 900 1300 Straight 900 1000 Other: Voiding Method Self-Catheterization Self-Catheterization Self-Catheterization - Constitutional General appearance: Present: no acute distress - EENT Eyes: Present: PERRLA Ears: bilateral: normal - Neck Neck: Present: normal ROM - Respiratory Respiratory: bilateral: CTA - Cardiovascular Rhythm: regular - Gastrointestinal General gastrointestinal: Present: normal bowel sounds, soft - Integumentary Integumentary: Present: normal, normal turgor - Neurologic Neurologic: Present: CNII-XII intact - Psychiatric Psychiatric: Present: appropriate affect - Labs CBC & Chem 7: 01/21/23 08:47 01/21/23 08:47 Labs: Abnormal Lab Results - Last 24 Hours (Table) 01/20/23 01/20/23 01/20/23 Range/Units 07:22 11:25 12:19 RBC (4.30-5.90) m/uL Hgb (13.0-17.5) gm/dL Hct (39.0-53.0) % RDW (11.5-15.5) % Lymphocytes # (1.0-4.8) k/uL Sodium 134 L (137-145) mmol/L Potassium 3.4 L (3.5-5.1) mmol/L BUN 58 H (9-20) mg/dL Creatinine 3.94 H (0.66-1.25) mg/dL Glucose 110 H (74-99) mg/dL POC Glucose (mg/dL) 122 H (70-110) mg/dL Calcium 7.9 L (8.4-10.2) mg/dL Procalcitonin 0.19 H (0.02-0.09) ng/mL 01/20/23 01/20/23 01/21/23 Range/Units 16:22 19:58 08:47 RBC 3.99 L (4.30-5.90) m/uL Hgb 11.2 L (13.0-17.5) gm/dL Hct 33.4 L (39.0-53.0) % RDW 16.5 H (11.5-15.5) % Lymphocytes # 0.9 L (1.0-4.8) k/uL Sodium (137-145) mmol/L Potassium (3.5-5.1) mmol/L BUN (9-20) mg/dL Creatinine (0.66-1.25) mg/dL Glucose (74-99) mg/dL POC Glucose (mg/dL) 121 H 111 H (70-110) mg/dL Calcium (8.4-10.2) mg/dL Procalcitonin (0.02-0.09) ng/mL 01/21/23 Range/Units 08:47 RBC (4.30-5.90) m/uL Hgb (13.0-17.5) gm/dL Hct (39.0-53.0) % RDW (11.5-15.5) % Lymphocytes # (1.0-4.8) k/uL Sodium 136 L (137-145) mmol/L Potassium (3.5-5.1) mmol/L BUN 54 H (9-20) mg/dL Creatinine 3.97 H (0.66-1.25) mg/dL Glucose (74-99) mg/dL POC Glucose (mg/dL) (70-110) mg/dL Calcium 7.8 L (8.4-10.2) mg/dL Procalcitonin (0.02-0.09) ng/mL - Imaging and Cardiology CT scan - abdomen: image reviewed Assessment and Plan Assessment: Resolving abdominal ileus Plan: Dulcolax suppository ordered increase activity. Advance diet as tolerated.
[2023-01-21 11:27] LABS: Glucose,Whole Blood 78 mg/dL (70-110)
[2023-01-21 16:19] LABS: Glucose,Whole Blood 99 mg/dL (70-110)
[2023-01-21] MEDS: diphenhydrAMINE 50 MG/ML 1 ML VIAL IVP PRN (19:44)
[2023-01-21 19:52] LABS: Glucose,Whole Blood 144 mg/dL (70-110)
[2023-01-22 06:02] LABS: Glucose,Whole Blood 120 mg/dL (70-110)
[2023-01-22] MEDS: INSULIN ASPART (NovoLOG) 100 UNIT/ML VIAL SQ SCH ×4 (06:07→21:13)
[2023-01-22] MEDS: SODIUM CHLORIDE 0.9% 1,000 ML IV SCH ×2 (06:33→15:28)
[2023-01-22 08:51] LABS: Potassium 3.9 mmol/L (3.5-5.1)
[2023-01-22 08:52] LABS: African American GFR (CKD) 18 (>60 ml/min/1.73 sqM); Anion Gap 9 mmol/L; Blood Urea Nitrogen 57 mg/dL (9-20); Calcium 7.8 mg/dL (8.4-10.2); Carbon Dioxide 23 mmol/L (22-30); Chloride 101 mmol/L (98-107); Glucose 132 mg/dL (74-99); Non-African American GFR(CKD) 16 (>60 ml/min/1.73 sqM); Sodium 133 mmol/L (137-145)
[2023-01-22] MEDS ORDERED: hydrALAZINE HCL 25 MG TAB PO SCH (09:00)
--- NOTE | 2023-01-22 09:27 | P.PN ---
Subjective Patient was 69-year-old male presented to the hospital after syncopal episode was having diarrhea for last few days. Patient syncope didn't appear to be vasovagal. Patient baseline creatinine is around 2.5 slightly worse to around 4.2. Patient was also complaining of back pain. CT of the abdomen and pelvis and lung is significant for osteoarthritis and SI joint degenerative disc disease and ankylosing spondylitis which is probably intermittent is faint apart from soft tissue injury from the fall. CT of the lung did show lipid of the which is increased compared to the previous imaging studies. Pulmonology evaluated for that reason recommending outpatient PET scan the differentials include granulomatous disease like sarcoidosis, malignancy. Patient doesn't smoke. Echocardiogram is being obtained as a part of for syncope workup EKG showed some nonspecific ST-T wave changes in the inferior leads. Cardiology evaluated the patient. No significant troponin elevation at this time. Patient also found to have highly elevated d-dimer above 34. Patient will undergo VQ scan today troponin is negative. 01/19/2023 Patient is evaluated today resting in bed. Pulmonary felt VQ did not reflect pulmonary embolism and IV heparin has been discontinued. Lasix remains on hold, patient is being hydrated on bicarb gtt at 100 mls/hr. Continues with significant back pain due to the fall, cannot have IV morphine due to the renal function medications will be adjusted. PT/OT following. Patient denies any further episodes of diarrhea however he has been reporting vomiting and unable to keep much food down. He reports as bile like not black or bloody emesis. He is being straight cathed as needed. Echocardiogram showing EF 35-40% slightly decreased from prior EF of 40%. 01/20/2023 Patient still in bed, feeling generally weak and complaining of from severe back pain related to some nausea and low appetite, has been constipated. Denies abdominal pain, no chest pain or dyspnea. He was bradycardic area more than has lost 20s as per staff, patient currently on dopamine drip and his heart rate is 85. Vital signs stable. Creatinine as of yesterday 4.2, today he is on sodium bicarb 100 mL per day and dopamine drip. Nephrology is following closely and repeat creatinine is pending. Hemoglobin 9.8. Computed tomography scan shows circumferential wall thickening of the descending and sigmoid colon and rectum but patient says had a bowel movement for about 4 days ago, patient says it was loose which at his usual for him. Patient feels generally weak cardiology is also following closely we will do kub bmp shows cr 3.2, glu more 700 and ca 5.9, we will repeat bmp 01/21/2023 Patient feels better today, he feels more relaxed. His abdomen looks soft with little or no tenderness, less nausea vomiting. He had CT of the abdomen and pelvis today and showing dilated small bowel and possible air in the stomach wall suspicious for ischemic etiology and compression fracture of T12 and to lesser degree L2, patient developed by surger y team and discussed the case with surgeon, patient abdomen soft and recommended to advance diet and Dulcolax suppository. Breathing his stable. No other new complaints or symptoms. Creatinine slightly better today at 3.9 and patient currently kept on dopamine drip and sodium bicarb at 75 mL/h. 01/22/2023 Patient feels improved today, no abdominal pain and he tolerates liquid diet has been advanced out He had a bowel movement last night Back pain only with movement and orthopedic team recommended to place which can be done tomorrow No respiratory issues. Continue to straight cath Dopamine drip and normal saline then stop. Patient is aware of the plan for outpatient PET scan and possible biopsy of his lung mass Objective - Vital Signs Vital signs: Vital Signs Temp 97.4 F L 01/21/23 20:00 Pulse 81 01/22/23 04:00 Resp 16 01/22/23 04:00 BP 176/95 01/22/23 04:00 Pulse Ox 96 01/22/23 04:00 FiO2 Intake & Output 01/21/23 01/22/23 01/22/23 18:59 06:59 18:59 Intake Total 540.574 560 10 Output Total 825 300 650 Balance -284.426 260 -640 Intake: IV 10 20 10 Invasive Line 3 10 20 10 Intake, IV Titration 92.574 Amount DOPamine DRIP 800 mg In 92.574 Dextrose/Water 1 250ml. bag @ 2 MCG/KG/MIN 3.147 mls/hr IV .Q24H [facility] Rx#: [id number] Oral 438 540 Output: Urine 825 300 650 Straight 825 300 650 Other: Voiding Method Self-Catheterization Self-Catheterization # Bowel Movements 3 1 - Exam -GENERAL: The patient is alert and oriented x3, not in any acute distress. Well developed, well nourished. Generally weak HEENT: Pupils are round and equally reacting to light. EOMI. No scleral icterus. No conjunctival pallor. Normocephalic, atraumatic. No pharyngeal erythema. No thyromegaly. CARDIOVASCULAR: S1 and S2 present. No murmurs, rubs, or gallops. PULMONARY: Chest is clear to auscultation, no wheezing , no crackles. ABDOMEN: Soft, nontender, nondistended, normoactive bowel sounds. No palpable organomegaly. -MUSCULOSKELETAL: No joint swelling or deformity. Lower back tenderness around the area of T12 EXTREMITIES: No cyanosis, clubbing, or pedal edema. NEUROLOGICAL: Gross neurological examination did not reveal any focal deficits. SKIN: No rashes. no petechiae. - Labs CBC & Chem 7: 01/21/23 08:47 01/22/23 08:11 Labs: Abnormal Lab Results - Last 24 Hours (Table) 01/21/23 01/21/23 01/21/23 Range/Units 08:47 08:47 19:51 RBC 3.99 L (4.30-5.90) m/uL Hgb 11.2 L (13.0-17.5) gm/dL Hct 33.4 L (39.0-53.0) % RDW 16.5 H (11.5-15.5) % Lymphocytes # 0.9 L (1.0-4.8) k/uL Sodium 136 L (137-145) mmol/L BUN 54 H (9-20) mg/dL Creatinine 3.97 H (0.66-1.25) mg/dL POC Glucose (mg/dL) 144 H (70-110) mg/dL Calcium 7.8 L (8.4-10.2) mg/dL 01/22/23 Range/Units 06:00 RBC (4.30-5.90) m/uL Hgb (13.0-17.5) gm/dL Hct (39.0-53.0) % RDW (11.5-15.5) % Lymphocytes # (1.0-4.8) k/uL Sodium (137-145) mmol/L BUN (9-20) mg/dL Creatinine (0.66-1.25) mg/dL POC Glucose (mg/dL) 120 H (70-110) mg/dL Calcium (8.4-10.2) mg/dL Assessment and Plan Assessment: Syncope probably secondary to intravascular depletion from nausea vomiting diarrhea sever back pain with history of sever T12 compression fracture Severe bradycardia (transient ) requiring dopamine drip Nausea, vomiting and diarrhea possibly from a viral gastroenteritis CT chest abdomen pelvis showing colitis. Acute kidney injury due to ATN from dehydration Chronic kidney disease stage IV baseline creatinine around 3. History of urinary retention and obstructive uropathy with hx of bladder cancer maintained on urinary straight catheterizations Mediastinal lymphadenopathy and possible right lung mass , patient and at bedside are aware also about follow-up outpatient PET scan/biopsy History of heart failure Hypertension Type 2 Diabetes Mellitus and diabetic neuropathy Back pain secondary to fall Known T12 compression fracture Hyperlipidemia Plan: Continue with dopamine drip Continue with sodium bicarb per nephrology team recommendation Patient will require outpatient PET scan and biopsy for his possible lung mass, risk of cancer explained, patient and at bedside, are aware and agreeable community service worker consulted for subacute rehab Nephrology encourage consult Consult orthopedic team surgery team on the case and advanced diet to liquid consistency Labs and medication were reviewed.. Continue same treatment. Continue with symptomatic treatment. Resume home medication. Monitor labs and vitals. DVT and GI prophylaxis. Further recommendations as per clinical course of the patient DVT prophylaxis: Subcutaneous heparin GI Prophylaxis: Pepcid PT/OT: Pending from healthcare versus subacute rehab, patient prefers [facility] Prognosis is guarded
--- NOTE | 2023-01-22 09:46 | P.PN ---
Subjective Progress Note Date: 01/22/23 Principal diagnosis: Weakness, nausea, diarrhea. Pulmonary consult dated 01/18/2023. 67-year-old male with a history of diabetes, hyperlipidemia, hypertension, diabetic neuropathy, melanoma, bladder cancer, among other things, presents to the emergency department, with weakness, and syncope. The patient states that he initially developed diarrhea, and nausea, and on the way to the bathroom, fell, because of severe back pain he could not get up. The patient does have a history of previous T12 compression fracture. The patient sees Dr. Jocelyne Choe as a primary. The patient is seen in the emergency department, room #1. He's currently on room air and getting saline at 75 mL an hour. We were asked to see the patient, because a computed tomography scan of the chest revealed evidence of significant thoracic and mediastinal adenopathy. The patient had a previous computed tomography scan done about a year prior, and the adenopathy appears larger. He will need an outpatient workup including a PET scan, and possibly a biopsy. I explained all this to the patient. White count is 5, hemoglobin 11.6, hematocrit 35, and platelet count 182,000. D-dimer was greater than 34. Sodium 135, potassium 4.3, chlorides 112, CO2 13, anion gap 10, BUN 65, and creatinine 4.26. Glucose 139. Troponins were 0.026 and 0.026 respectively. A ventilation perfusion lung scan was indeterminate. This computed tomography scan showed mediastinal adenopathy which is increased in size compared to a scan done 12/17/2021. Progress note dated 01/19/2023. 67-year-old male seen yesterday in the emergency department. Currently, the patient's on room air. He is getting dextrose at 100 mL an hour, and IV heparin. He had an indeterminate/intermediate, ventilation perfusion lung scan. He had a matched defect in the left lower lobe, which is where there is an infiltrate. The patient does not have a pulmonary embolism in my opinion, and IV heparin can be discontinued. White count 6.2, hemoglobin 10.5, hematocrit 33, and platelet count 161,000. Sodium 137, potassium 3.9, chlorides 107, CO2 21, BUN 62, and creatinine 4.21. Albumin is 2.6. Progress note dated 01/20/2023. 67-year-old male, seen in the emergency department, 2 days ago. The patient apparently was found at home, very weak, and on the floor. The patient was dehydrated, and was having severe diarrhea, and was noted to have worsening renal function. Currently, the patient's resting comfortably in room 354. He is on room air. The patient's receiving dopamine at 2 mcg/kg/m, and a sodium bicarbonate drip. He has been seen by nephrology. White count is 4.6, hemoglobin 9.8, hematocrit 30.7, and platelet count is 140,000. Sodium 1:30, potassium 2.8, chlorides 81, CO2 39, BUN 52, and creatinine 3.20. Glucose 723. TSH is normal. Calcium is 5.9. Progress note dated 01/21/2023. 67-year-old male seen a couple days ago consultation. The patient's doing a bit better. He is currently seen in room 354. He is on room air. He is getting dopamine at 2.0 mcg/kg/m, and also saline at 75 mL an hour. He's being seen by orthopedics, because of an old T12 fracture, and a new L2 fracture. The patient was found to have thoracic and mediastinal adenopathy, which will be worked up as an outpatient, and initially, the patient will need a PET scan. No new labs today other than a glucose of 84. His last BUN and creatinine were 58 and 3.94. Progress note dated 01/22/2023. 67-year-old male seen today in room 354. The patient's currently on room air. He's not receiving any IV fluids. Clinically, the patient feels like he is improved. Yesterday, he was on a dopamine drip. That has since been discontinued. Current laboratory data includes a sodium 133, potassium 3.9, chlorides 101, CO2 23, BUN 57, and creatinine 3.72. Calcium is 7.8. Glucose 132. Objective - Vital Signs Vital signs: Vital Signs Temp 97.4 F L 01/21/23 20:00 Pulse 81 01/22/23 04:00 Resp 16 01/22/23 04:00 BP 176/95 01/22/23 04:00 Pulse Ox 96 01/22/23 04:00 FiO2 Intake & Output 01/21/23 01/22/23 01/22/23 18:59 06:59 18:59 Intake Total 540.574 560 10 Output Total 825 300 650 Balance -284.426 260 -640 Intake: IV 10 20 10 Invasive Line 3 10 20 10 Intake, IV Titration 92.574 Amount DOPamine DRIP 800 mg In 92.574 Dextrose/Water 1 250ml. bag @ 2 MCG/KG/MIN 3.147 mls/hr IV .Q24H [facility] Rx#: [id number] Oral 438 540 Output: Urine 825 300 650 Straight 825 300 650 Other: Voiding Method Self-Catheterization Self-Catheterization # Bowel Movements 3 1 - Exam No acute distress, oriented 3. Currently on room air. No respiratory distress. HEENT examination is grossly unremarkable. Neck supple. Full range of motion. No adenopathy thyromegaly or neck vein distention. Cardiovascular examination reveals regular rhythm rate. S1-S2 normal. No S3 or S4. No discernible murmur noted. Heart rate 81 bpm. Lungs reveal clear breath sounds. Breath sounds are equal bilaterally. No adventitious lung sounds including wheezes rhonchi or crackles. Room air saturations are 96 %. Abdomen soft bowel sounds are heard. No masses or tenderness. Extremities are intact. No cyanosis clubbing or edema. Skin is without rash or lesion. Neurologic examination is brief but nonfocal. - Labs CBC & Chem 7: 01/21/23 08:47 01/22/23 08:11 Labs: Abnormal Lab Results - Last 24 Hours (Table) 01/21/23 01/21/23 01/21/23 Range/Units 08:47 08:47 19:51 RBC 3.99 L (4.30-5.90) m/uL Hgb 11.2 L (13.0-17.5) gm/dL Hct 33.4 L (39.0-53.0) % RDW 16.5 H (11.5-15.5) % Lymphocytes # 0.9 L (1.0-4.8) k/uL Sodium 136 L (137-145) mmol/L BUN 54 H (9-20) mg/dL Creatinine 3.97 H (0.66-1.25) mg/dL Glucose (74-99) mg/dL POC Glucose (mg/dL) 144 H (70-110) mg/dL Calcium 7.8 L (8.4-10.2) mg/dL 01/22/23 01/22/23 Range/Units 06:00 08:11 RBC (4.30-5.90) m/uL Hgb (13.0-17.5) gm/dL Hct (39.0-53.0) % RDW (11.5-15.5) % Lymphocytes # (1.0-4.8) k/uL Sodium 133 L (137-145) mmol/L BUN 57 H (9-20) mg/dL Creatinine 3.72 H (0.66-1.25) mg/dL Glucose 132 H (74-99) mg/dL POC Glucose (mg/dL) 120 H (70-110) mg/dL Calcium 7.8 L (8.4-10.2) mg/dL Assessment and Plan Assessment: Syncopal episode, secondary to weakness, caused by nausea and diarrhea. Mediastinal/thoracic adenopathy, which will need to be evaluated as an outpatient, initially with a PET scan. Acute on chronic kidney disease. Diabetes with diabetic neuropathy. History of hypertension. History of hyperlipidemia. History of melanoma. History of bladder cancer. History of urinary tract infection. Acute L2 compression fracture. History of T12 compression fracture. Plan: Plan dated 01/18/2023. The patient was seen in the emergency department. The patient is not having any respiratory issues. Computed tomography scan showed some enlarging thoracic/mediastinal adenopathy, worked up as an outpatient. The patient will need a PET scan initially, and then possibly a biopsy. We will continue to follow the patient, and make recommendations along the way. He does have a history of melanoma. Certainly that is a concern. Prognosis is guarded. Plan dated 01/19/2023. The patient's heparin can be discontinued. The patient's on room air. The patient never had any respiratory issues. The patient is receiving D5W at 100 mL an hour. Labs, x-rays, medications are reviewed. The patient's thoracic/mediastinal adenopathy, just enlarged, compared to a prior computed tomography scan, will be evaluated as an outpatient, with a PET scan. Additional recommendations and suggestions to follow. We will continue to follow along in the care of this patient. Plan dated 01/20/2023. The patient's respiratory status and hemodynamic status is very stable. His most recent blood pressure is 150/83 with a mean of 105. His saturations are between 90 and 96% on room air. The patient is currently on a sodium bicarbonate drip, and also receiving dopamine, to improve renal function. His kidney function has improved since his day of admission. We will continue to follow make recommendations along the way. We will consulted for now normal computed tomography scan revealing evidence of thoracic and mediastinal adenopathy, which is larger compared to prior CAT scan. The patient will have an outpatient PET scan. Plan dated 01/21/2023. The patient is seen today in room 354. Clinically, he is feeling better. He continues on a dopamine drip. He is on room air. Labs, x-rays, and medications are reviewed. The patient is being seen by orthopedics for her new L2 compression fracture. The patient does have an old T12 compression fracture as well. In addition, computed tomography scan of the abdomen reveals changes which could be consistent with pneumatosis. The patient has been seen will be seen by surgery. His overall prognosis remains guarded. Plan dated 01/22/2023. Yesterday, the patient was on sodium bicarbonate drip, and IV dopamine, to impr ove renal function. Since he has been here, his renal function has improved a little bit. The patient is also being seen by orthopedics for a new L2 compression fracture. Labs, x-rays, and medications are reviewed. He is currently not on any IV fluids, and he is currently not receiving any suppl emental oxygen. We will continue to follow make recommendations along the way. Prognosis is guarded. Time with Patient: Less than 30
[2023-01-22] MEDS: PANTOPRAZOLE 40 MG/10 ML VIAL IV SCH (09:56)
[2023-01-22] MEDS: FENOFIBRATE 160 MG TAB PO SCH (09:56)
[2023-01-22] MEDS: amLODIPine 10 MG TAB PO SCH (09:56)
[2023-01-22] MEDS: LORATADINE 10 MG TAB PO SCH (09:56)
[2023-01-22] MEDS: CALCIUM ACETATE 667 MG TAB PO SCH ×3 (09:56→15:29)
[2023-01-22] MEDS: ISOSORBIDE MONONITRATE ER 30 MG TAB.ER.24H PO SCH (09:56)
[2023-01-22] MEDS: HEPARIN SODIUM,PORCINE 5,000 UNIT/ML 1 ML VIAL SQ SCH ×2 (09:56→21:08)
[2023-01-22] MEDS: TAMSULOSIN 0.4 MG CAP.ER.24H PO SCH ×2 (09:57→21:09)
[2023-01-22] MEDS: HYDROmorphone 1 MG/ML 1 ML SYRINGE IVP PRN ×2 (09:57→16:24)
[2023-01-22] MEDS: polyethylene glycoL 3350 17 GM POWD.PACK PO SCH (09:58)
[2023-01-22] MEDS: FLUTICASONE 50MCG/SPRAY NASAL 16GM EA NOSTRIL SCH (09:58)
--- NOTE | 2023-01-22 10:06 | P.PN ---
Subjective Progress Note Date: 01/22/23 History of present illness: This is a 67-year-old male with past medical history of coronary artery disease status post angioplasty, hypertension, dyslipidemia, history of melanoma. Patient presented to the hospital due to syncopal event at home following diarrhea, nausea and vomiting. His d-dimer was elevated and he went for a VQ scan which revealed intermediate risk for pulmonary embolism. Echocardiogram reveals EF of 35-40% limited study. Patient has been continued on heparin drip and pulmonary medicine is following. Pulmonary has recommended outpatient PET scan for mediastinal adenopathy and pulmonary embolism has been ruled out. Patient is complaining of significant back pain and unable to move in bed since the fall. Repeat blood work reveals hemoglobin 10.5, BUN 62 creatinine 4.21, potassium 3.9. Magnesium 2.0. 01/20 This morning, patient is complaining of nausea and just not feeling well in general. An EKG was done during the night that revealed a sinus rhythm with a first-degree block. Patient had episode of bradycardia with third-degree block was not captured on the EKG. Toprol-XL was discontinued. Patient was started on dopamine drip. Renal function is improving with BUN 52 and creatinine 3.2, potassium 2.8, hemoglobin 9.8. Sodium was 130. Potassium has been replaced. 01/21 Patient states he has a little nausea and a little abdominal discomfort today. This seems to be improved from yesterday. He is currently nothing by mouth and has been seen by general surgery. He underwent a CAT scan of the abdomen and pelvis which revealed gaseous distention throughout the several loops of the colon and to a lesser degree small bowel without gross evidence of obstructive etiology. Findings highly concerning for pneumatosis within the wall of the stomach correlate for ischemic etiology. Moderate to severe compression deformity T12, mild compression deformity L2. Mild bilateral perinephric stranding. Blood pressure 172/86 this morning heart rate is in the 80s sinus rhythm. Repeat blood work is not available at the time of this dictation. He did have repeat lab work yesterday afternoon which revealed BUN 58 creatinine 3.94 and potassium 3.4. Patient is on dopamine drip 2 micrograms per kilo per minute. 01/22 Patient states he had quite a bit of bowel movements yesterday and abdominal pain has resolved. Yesterday, we increased amlodipine to 10 mg for blood pressure control and also discontinued dopamine drip. His blood pressure remains elevated this morning at 176/95. Repeat blood work reveals BUN 57, creatinine 3.72, potassium 3.9. Patient states that he has not been out of bed due to his back pain. He has no lightheadedness or dizziness while laying in bed. No chest pain or shortness of breath. Telemetry sinus rhythm with no ep isodes of third-degree block for greater than 48 hours. Physical examination: Gen: This is a 67-year-old male. He is resting and appears to be comfortable and in no acute distress. VS: reviewed HEENT: Head is atraumatic, normocephalic. Pupils equal, round. Sclerae is anicteric. LUNGS: Clear to auscultation. No wheezes or rhonchi. No intercostal retractions. HEART: Regular rate and rhythm. No murmur. ABDOMEN: Soft No tenderness. EXTREMITIES: No pedal edema. No calf tenderness. NEUROLOGICAL: Patient is awake, alert and oriented x3. Assessment: Syncope most likely due to intermittent third-degree block or vasovagal episode Third-degree heart block Nonsustained V. tach on 01/21 early a.m. Pulmonary embolism ruled out by pulmonary medicine Mediastinal adenopathy Coronary artery disease status post angioplasty Acute kidney injury, nephrology following Nausea vomiting and diarrhea, abdominal pain, resolved Plan: Patient is not on AV nesha blocking agents Continue amlodipine 10 mg daily Add hydralazine 50 mg 3 times daily Continue other cardiac medications Nurse practitioner note has been reviewed, I agree with documented findings and plan of care. Patient was seen and examined. Objective - Vital Signs Vital signs: Vital Signs Temp 97.4 F L 01/21/23 20:00 Pulse 81 01/22/23 04:00 Resp 16 01/22/23 04:00 BP 176/95 01/22/23 04:00 Pulse Ox 96 01/22/23 04:00 FiO2 Intake & Output 01/21/23 01/22/23 01/22/23 18:59 06:59 18:59 Intake Total 540.574 560 10 Output Total 825 300 650 Balance -284.426 260 -640 Intake: IV 10 20 10 Invasive Line 3 10 20 10 Intake, IV Titration 92.574 Amount DOPamine DRIP 800 mg In 92.574 Dextrose/Water 1 250ml. bag @ 2 MCG/KG/MIN 3.147 mls/hr IV .Q24H [facility] Rx#: [id number] Oral 438 540 Output: Urine 825 300 650 Straight 825 300 650 Other: Voiding Method Self-Catheterization Self-Catheterization # Bowel Movements 3 1 - Labs CBC & Chem 7: 01/21/23 08:47 01/22/23 08:11 Labs: Abnormal Lab Results - Last 24 Hours (Table) 01/21/23 01/21/23 01/21/23 Range/Units 08:47 08:47 19:51 RBC 3.99 L (4.30-5.90) m/uL Hgb 11.2 L (13.0-17.5) gm/dL Hct 33.4 L (39.0-53.0) % RDW 16.5 H (11.5-15.5) % Lymphocytes # 0.9 L (1.0-4.8) k/uL Sodium 136 L (137-145) mmol/L BUN 54 H (9-20) mg/dL Creatinine 3.97 H (0.66-1.25) mg/dL POC Glucose (mg/dL) 144 H (70-110) mg/dL Calcium 7.8 L (8.4-10.2) mg/dL 01/22/23 Range/Units 06:00 RBC (4.30-5.90) m/uL Hgb (13.0-17.5) gm/dL Hct (39.0-53.0) % RDW (11.5-15.5) % Lymphocytes # (1.0-4.8) k/uL Sodium (137-145) mmol/L BUN (9-20) mg/dL Creatinine (0.66-1.25) mg/dL POC Glucose (mg/dL) 120 H (70-110) mg/dL Calcium (8.4-10.2) mg/dL
--- NOTE | 2023-01-22 10:41 | P.PN ---
Subjective Patient is seen for follow-up for acute kidney injury mostly ATN associated with severe volume depletion. Maintained on IV fluids. Status post dopamine for bradycardia. Patient has had good urine output with straight catheterizations. No diarrhea nausea or vomiting currently. Complaining of back pain. Serum creatinine at 3.9-3.7 mg/dL. Baseline creatinine is around 3.5-3.3 mg/dL. No significant complaints today. Objective - Vital Signs Vital signs: Vital Signs Temp 98.7 F 01/22/23 09:53 Pulse 86 01/22/23 09:53 Resp 16 01/22/23 09:53 BP 166/87 01/22/23 09:53 Pulse Ox 95 01/22/23 09:53 FiO2 Intake & Output 01/21/23 01/22/23 01/22/23 18:59 06:59 18:59 Intake Total 540.574 560 130 Output Total 825 300 650 Balance -284.426 260 -520 Intake: IV 10 20 10 Invasive Line 3 10 20 10 Intake, IV Titration 92.574 Amount DOPamine DRIP 800 mg In 92.574 Dextrose/Water 1 250ml. bag @ 2 MCG/KG/MIN 3.147 mls/hr IV .Q24H [facility] Rx#: [id number] Oral 438 540 120 Output: Urine 825 300 650 Straight 825 300 650 Other: Voiding Method Self-Catheterization Self-Catheterization Self-Catheterization # Bowel Movements 3 1 - Exam Patient is awake, alert oriented 3 No acute distress Examination of the heart S1 and S2 Examination of the lungs bilateral breath sounds are heard Abdomen is soft nontender Examination lower extremity shows no evidence of edema [employer]IVE exam grossly intact - Labs CBC & Chem 7: 01/21/23 08:47 01/22/23 08:11 Labs: Abnormal Lab Results - Last 24 Hours (Table) 01/21/23 01/22/23 01/22/23 Range/Units 19:51 06:00 08:11 Sodium 133 L (137-145) mmol/L BUN 57 H (9-20) mg/dL Creatinine 3.72 H (0.66-1.25) mg/dL Glucose 132 H (74-99) mg/dL POC Glucose (mg/dL) 144 H 120 H (70-110) mg/dL Calcium 7.8 L (8.4-10.2) mg/dL Assessment and Plan Assessment: 1. Acute kidney injury ATN currently nonoliguric. No documentation of hypote nsion. Patient was severely dehydrated. Currently maintained on IV fluids. No obstruction noted on CT scanning. Renal function slightly improved. Baseline creatinine has been around 3.3-2.5 mg/dL. 2. Chronic kidney disease NKF stage IV with baseline creatinine around 3. Etiology is obstructive uropathy and nephrosclerosis. Currently self catheterizing 3-4 times a day. Significant proteinuria noted with all serological workup in September being negative. 3. Severe non-gap metabolic acidosis secondary to diarrhea and renal failure. 4. Mediastinal adenopathy and possible right lung mass being followed by pulmonary with plans for further workup as outpatient 5. History of urine retention currently self catheterizing about 4 times a day 6. History of bladder cancer being followed by urology 7. History of CHF with EF of 40% in 2021 8. CK D mineral bone disorder with serum phosphorus at 6.2 Plan: Continue with saline Repeat labs in a.m. Continue with straight catheterization 4 times a day Avoid nephrotoxic agents Add PhosLo 1 tablet 3 times a day with meals
[2023-01-22 11:29] LABS: Glucose,Whole Blood 127 mg/dL (70-110)
[2023-01-22] MEDS ORDERED: hydrALAZINE HCL 25 MG TAB PO STA (12:12)
--- NOTE | 2023-01-22 14:44 | P.PN ---
Subjective Progress Note Date: 01/22/23 He is passing moderate flatus. He denies abdominal pain. Distention moderate resolved. He is tolerating regular diet. Disposition pending from orthopedic standpoint. He reports needing to self-cath. Objective - Vital Signs Vital signs: Vital Signs Temp 98.1 F 01/22/23 11:13 Pulse 78 01/22/23 11:13 Resp 16 01/22/23 11:13 BP 158/87 01/22/23 11:13 Pulse Ox 97 01/22/23 11:13 FiO2 Intake & Output 01/21/23 01/22/23 01/22/23 18:59 06:59 18:59 Intake Total 540.574 560 250 Output Total 825 300 650 Balance -284.426 260 -400 Intake: IV 10 20 10 Invasive Line 3 10 20 10 Intake, IV Titration 92.574 Amount DOPamine DRIP 800 mg In 92.574 Dextrose/Water 1 250ml. bag @ 2 MCG/KG/MIN 3.147 mls/hr IV .Q24H [facility] Rx#: [id number] Oral 438 540 240 Output: Urine 825 300 650 Straight 825 300 650 Other: Voiding Method Self-Catheterization Self-Catheterization Self-Catheterization # Bowel Movements 3 1 - Labs CBC & Chem 7: 01/21/23 08:47 01/22/23 08:11 Labs: Abnormal Lab Results - Last 24 Hours (Table) 01/21/23 01/22/23 01/22/23 Range/Units 19:51 06:00 08:11 Sodium 133 L (137-145) mmol/L BUN 57 H (9-20) mg/dL Creatinine 3.72 H (0.66-1.25) mg/dL Glucose 132 H (74-99) mg/dL POC Glucose (mg/dL) 144 H 120 H (70-110) mg/dL Calcium 7.8 L (8.4-10.2) mg/dL 01/22/23 Range/Units 11:27 Sodium (137-145) mmol/L BUN (9-20) mg/dL Creatinine (0.66-1.25) mg/dL Glucose (74-99) mg/dL POC Glucose (mg/dL) 127 H (70-110) mg/dL Calcium (8.4-10.2) mg/dL
[2023-01-22 16:12] LABS: Glucose,Whole Blood 130 mg/dL (70-110)
[2023-01-22] MEDS: hydrALAZINE HCL 50 MG TAB PO SCH ×2 (16:21→21:09)
[2023-01-22 20:38] LABS: Glucose,Whole Blood 159 mg/dL (70-110)
[2023-01-22] MEDS: diphenhydrAMINE 50 MG/ML 1 ML VIAL IVP PRN (21:08)
[2023-01-23 06:24] LABS: Glucose,Whole Blood 140 mg/dL (70-110)
[2023-01-23] MEDS: SODIUM CHLORIDE 0.9% 1,000 ML IV SCH ×2 (06:40→16:31)
[2023-01-23] MEDS: INSULIN ASPART (NovoLOG) 100 UNIT/ML VIAL SQ SCH ×5 (06:41→20:42)
[2023-01-23] MEDS: CALCIUM ACETATE 667 MG TAB PO SCH ×3 (06:50→16:29)
[2023-01-23] MEDS: HYDROmorphone 1 MG/ML 1 ML SYRINGE IVP PRN ×3 (07:02→23:32)
[2023-01-23 08:19] LABS: Anisocytosis Slight; Basophils % (A) 0 %; Eosinophils # (A) 0.1 k/uL (0-0.7); Eosinophils % (A) 3 %; HCT 33.9 % (39.0-53.0); HGB 11.2 gm/dL (13.0-17.5); Lymphocytes # (A) 1.1 k/uL (1.0-4.8); Lymphocytes % (A) 25 %; MCHC 33.1 g/dL (31.0-37.0); MCV 84.4 fL (80.0-100.0); Mean Platelet Volume 8.4; Monocytes # (A) 0.3 k/uL (0-1.0); Monocytes % (A) 7 %; Neutrophils # (A) 2.7 k/uL (1.3-7.7); Neutrophils % (A) 62 %; Platelet Count 165 k/uL (150-450); RBC 4.01 m/uL (4.30-5.90); RDW 16.3 % (11.5-15.5); WBC 4.4 k/uL (3.8-10.6)
[2023-01-23] MEDS: amLODIPine 10 MG TAB PO SCH (08:35)
[2023-01-23] MEDS: hydrALAZINE HCL 50 MG TAB PO SCH (08:35)
[2023-01-23] MEDS: TAMSULOSIN 0.4 MG CAP.ER.24H PO SCH ×2 (08:35→20:39)
[2023-01-23] MEDS: PANTOPRAZOLE 40 MG/10 ML VIAL IV SCH (08:35)
[2023-01-23] MEDS: LORATADINE 10 MG TAB PO SCH (08:35)
[2023-01-23] MEDS: ISOSORBIDE MONONITRATE ER 30 MG TAB.ER.24H PO SCH (08:35)
[2023-01-23] MEDS: FENOFIBRATE 160 MG TAB PO SCH (08:35)
[2023-01-23] MEDS: FLUTICASONE 50MCG/SPRAY NASAL 16GM EA NOSTRIL SCH (08:35)
[2023-01-23] MEDS: polyethylene glycoL 3350 17 GM POWD.PACK PO SCH (08:36)
[2023-01-23] MEDS: HEPARIN SODIUM,PORCINE 5,000 UNIT/ML 1 ML VIAL SQ SCH ×2 (08:36→20:40)
[2023-01-23 08:39] LABS: African American GFR (CKD) 18 (>60 ml/min/1.73 sqM); Anion Gap 7 mmol/L; Blood Urea Nitrogen 56 mg/dL (9-20); Calcium 7.9 mg/dL (8.4-10.2); Carbon Dioxide 22 mmol/L (22-30); Chloride 104 mmol/L (98-107); Glucose 129 mg/dL (74-99); Non-African American GFR(CKD) 16 (>60 ml/min/1.73 sqM); Potassium 4.3 mmol/L (3.5-5.1); Sodium 133 mmol/L (137-145)
--- NOTE | 2023-01-23 09:32 | P.PN ---
Subjective Patient is seen in follow-up for acute kidney injury on chronic kidney disease. Renal function stable. Catheterizations being done by nurse at this time. Currently not receiving IV fluids. No vomiting or diarrhea. Vital signs are stable. General: No acute distress. HEENT: Head exam is unremarkable. LUNGS: No audible rhonchi or wheezes. HEART: Rate and Rhythm are regular. ABDOMEN: Nontender. EXTREMITITES: No edema. Objective - Vital Signs Vital signs: Vital Signs Temp 98.0 F 01/23/23 04:00 Pulse 85 01/23/23 08:00 Resp 16 01/23/23 08:00 BP 160/88 01/23/23 08:00 Pulse Ox 95 01/23/23 08:00 FiO2 Intake & Output 01/22/23 01/23/23 01/23/23 18:59 06:59 18:59 Intake Total 610 Output Total 1300 850 Balance -690 -850 Intake: IV 10 Invasive Line 3 10 Oral 600 Output: Urine 1300 850 Straight 1300 850 Other: Voiding Method Self-Catheterization Self-Catheterization - Labs CBC & Chem 7: 01/23/23 07:16 01/23/23 07:16 Labs: Abnormal Lab Results - Last 24 Hours (Table) 01/22/23 01/22/23 01/22/23 Range/Units 11:27 16:10 20:36 RBC (4.30-5.90) m/uL Hgb (13.0-17.5) gm/dL Hct (39.0-53.0) % RDW (11.5-15.5) % Sodium (137-145) mmol/L BUN (9-20) mg/dL Creatinine (0.66-1.25) mg/dL Glucose (74-99) mg/dL POC Glucose (mg/dL) 127 H 130 H 159 H (70-110) mg/dL Calcium (8.4-10.2) mg/dL 01/23/23 01/23/23 01/23/23 Range/Units 06:20 07:16 07:16 RBC 4.01 L (4.30-5.90) m/uL Hgb 11.2 L (13.0-17.5) gm/dL Hct 33.9 L (39.0-53.0) % RDW 16.3 H (11.5-15.5) % Sodium 133 L (137-145) mmol/L BUN 56 H (9-20) mg/dL Creatinine 3.74 H (0.66-1.25) mg/dL Glucose 129 H (74-99) mg/dL POC Glucose (mg/dL) 140 H (70-110) mg/dL Calcium 7.9 L (8.4-10.2) mg/dL Assessment and Plan Plan: Assessment: 1. Acute kidney injury secondary to ATN. Renal function improved little with IV hydration. 2. Chronic kidney disease stage IV with baseline creatinine near 3 secondary to obstructive uropathy and nephrosclerosis. Patient performs self catheterizations at home. Serologies negative September 2022. 3. Diabetes mellitus. 4. Chronic systolic CHF with ejection fraction of 40%. 5. Hypertension with chronic kidney disease. 6. Chronic kidney disease mineral bone disease maintained on PhosLo. Phosphorus level 6.2 dated 01/19/2023. Plan: Resume IV fluids. Normal saline at 50 mL an hour. Encourage oral intake. Avoid nephrotoxins. Continue with intermittent catheterizations. Increase hydralazine dose to 75 mg.
--- NOTE | 2023-01-23 11:04 | P.PN ---
Subjective HISTORY OF PRESENT ILLNESS: This is a 67-year-old male with past medical history of coronary artery disease status post angioplasty, hypertension, dyslipidemia, history of melanoma. Patient presented to the hospital due to syncopal event at home following diarrhea, nausea and vomiting. His d-dimer was elevated and he went for a VQ scan which revealed intermediate risk for pulmonary embolism. Echocardiogram reveals EF of 35-40% limited study. Patient has been continued on heparin drip and pulmonary medicine is following. Pulmonary has recommended outpatient PET scan for mediastinal adenopathy and pulmonary embolism has been ruled out. Patient is complaining of significant back pain and unable to move in bed since the fall. Repeat blood work reveals hemoglobin 10.5, BUN 62 creatinine 4.21, potassium 3.9. Magnesium 2.0. 01/20 This morning, patient is complaining of nausea and just not feeling well in gen eral. An EKG was done during the night that revealed a sinus rhythm with a first-degree block. Patient had episode of bradycardia with third-degree block was not captured on the EKG. Toprol-XL was discontinued. Patient was started on dopamine drip. Renal function is improving with BUN 52 and creatinine 3.2, potassium 2.8, hemoglobin 9.8. Sodium was 130. Potassium has been replaced. 01/21 Patient states he has a little nausea and a little abdominal discomfort today. This seems to be improved from yesterday. He is currently nothing by mouth and has been seen by general surgery. He underwent a CAT scan of the abdomen and pelvis which revealed gaseous distention throughout the several loops of the colon and to a lesser degree small bowel without gross evidence of obstructive etiology. Findings highly concerning for pneumatosis within the wall of the stomach correlate for ischemic etiology. Moderate to severe compression deformity T12, mild compression deformity L2. Mild bilateral perinephric stranding. Blood pressure 172/86 this morning heart rate is in the 80s sinus rhythm. Repeat blood work is not available at the time of this dictation. He did have repeat lab work yesterday afternoon which revealed BUN 58 creatinine 3.94 and potassium 3.4. Patient is on dopamine drip 2 micrograms per kilo per minute. 01/22 Patient states he had quite a bit of bowel movements yesterday and abdominal pain has resolved. Yesterday, we increased amlodipine to 10 mg for blood pre ssure control and also discontinued dopamine drip. His blood pressure remains elevated this morning at 176/95. Repeat blood work reveals BUN 57, creatinine 3.72, potassium 3.9. Patient states that he has not been out of bed due to his back pain. He has no lightheadedness or dizziness while laying in bed. No chest pain or shortness of breath. Telemetry sinus rhythm with no episodes of third-degree block for greater than 48 hours. 01/23/2023 Patient examined this morning at the bedside. Patient denies chest pain or pressure. He denies shortness of breath. Blood pressure this morning is stable. Telemetry reveals sinus mechanism with first-degree AV block. PHYSICAL EXAM: VITAL SIGNS: Reviewed. GENERAL: Well-developed in no acute distress. NECK: Supple. No JVD or thyromegaly LUNGS: Respirations even and unlabored. Lungs essentially clear to auscultation bilaterally. HEART: Regular rate and rhythm. S1 and S2 heard. EXTREMITIES: Normal range of motion. No clubbing or cyanosis. Peripheral pulses intact. No lower extremity edema ASSESSMENT: Syncope most likely due to intermittent third-degree block (noted on telemetry) or vasovagal episode Third-degree heart block Nonsustained V. tach on 01/21 early a.m. Pulmonary embolism ruled out by pulmonary medicine Mediastinal adenopathy Coronary artery disease status post angioplasty Acute kidney injury, nephrology following Nausea vomiting and diarrhea, abdominal pain, resolved PLAN: Continue current cardiac medications Repeat EKG Obtain orthostatic blood pressures Avoid AV nesha blocking agents Continue telemetry monitoring Further recommendations pending patient's course Patient to follow-up post discharge with Dr. Hudson Nurse practitioner note has been reviewed by physician. Signing provider agrees with the documented findings, assessment, and plan of care. Objective - Vital Signs Vital signs: Vital Signs Temp 98.0 F 01/23/23 04:00 Pulse 85 01/23/23 08:00 Resp 16 01/23/23 08:00 BP 160/88 01/23/23 08:00 Pulse Ox 95 01/23/23 08:00 FiO2 Intake & Output 01/22/23 01/23/23 01/23/23 18:59 06:59 18:59 Intake Total 610 Output Total 1300 850 0 Balance -690 -850 0 Weight 83.915 kg Intake: IV 10 Invasive Line 3 10 Oral 600 Output: Urine 1300 850 Straight 1300 850 Stool 0 Other: Voiding Method Self-Catheterization Self-Catheterization Self-Catheterization - Labs CBC & Chem 7: 01/23/23 07:16 01/23/23 07:16 Labs: Abnormal Lab Results - Last 24 Hours (Table) 01/22/23 01/22/23 01/22/23 Range/Units 11:27 16:10 20:36 RBC (4.30-5.90) m/uL Hgb (13.0-17.5) gm/dL Hct (39.0-53.0) % RDW (11.5-15.5) % Sodium (137-145) mmol/L BUN (9-20) mg/dL Creatinine (0.66-1.25) mg/dL Glucose (74-99) mg/dL POC Glucose (mg/dL) 127 H 130 H 159 H (70-110) mg/dL Calcium (8.4-10.2) mg/dL 01/23/23 01/23/23 01/23/23 Range/Units 06:20 07:16 07:16 RBC 4.01 L (4.30-5.90) m/uL Hgb 11.2 L (13.0-17.5) gm/dL Hct 33.9 L (39.0-53.0) % RDW 16.3 H (11.5-15.5) % Sodium 133 L (137-145) mmol/L BUN 56 H (9-20) mg/dL Creatinine 3.74 H (0.66-1.25) mg/dL Glucose 129 H (74-99) mg/dL POC Glucose (mg/dL) 140 H (70-110) mg/dL Calcium 7.9 L (8.4-10.2) mg/dL
--- NOTE | 2023-01-23 11:05 | P.PN ---
Subjective Patient was 69-year-old male presented to the hospital after syncopal episode was having diarrhea for last few days. Patient syncope didn't appear to be vasovagal. Patient baseline creatinine is around 2.5 slightly worse to around 4.2. Patient was also complaining of back pain. CT of the abdomen and pelvis and lung is significant for osteoarthritis and SI joint degenerative disc disease and ankylosing spondylitis which is probably intermittent is faint apart from soft tissue injury from the fall. CT of the lung did show lipid of the which is increased compared to the previous imaging studies. Pulmonology evaluated for that reason recommending outpatient PET scan the differentials include granulomatous disease like sarcoidosis, malignancy. Patient doesn't smoke. Echocardiogram is being obtained as a part of for syncope workup EKG showed some nonspecific ST-T wave changes in the inferior leads. Cardiology evaluated the patient. No significant troponin elevation at this time. Patient also found to have highly elevated d-dimer above 34. Patient will undergo VQ scan today troponin is negative. 01/19/2023 Patient is evaluated today resting in bed. Pulmonary felt VQ did not reflect pulmonary embolism and IV heparin has been discontinued. Lasix remains on hold, patient is being hydrated on bicarb gtt at 100 mls/hr. Continues with significant back pain due to the fall, cannot have IV morphine due to the renal function medications will be adjusted. PT/OT following. Patient denies any further episodes of diarrhea however he has been reporting vomiting and unable to keep much food down. He reports as bile like not black or bloody emesis. He is being straight cathed as needed. Echocardiogram showing EF 35-40% slightly decreased from prior EF of 40%. 01/20/2023 Patient still in bed, feeling generally weak and complaining of from severe back pain related to some nausea and low appetite, has been constipated. Denies abdominal pain, no chest pain or dyspnea. He was bradycardic area more than has lost 20s as per staff, patient currently on dopamine drip and his heart rate is 85. Vital signs stable. Creatinine as of yesterday 4.2, today he is on sodium bicarb 100 mL per day and dopamine drip. Nephrology is following closely and repeat creatinine is pending. Hemoglobin 9.8. Computed tomography scan shows circumferential wall thickening of the descending and sigmoid colon and rectum but patient says had a bowel movement for about 4 days ago, patient says it was loose which at his usual for him. Patient feels generally weak cardiology is also following closely we will do kub bmp shows cr 3.2, glu more 700 and ca 5.9, we will repeat bmp 01/21/2023 Patient feels better today, he feels more relaxed. His abdomen looks soft with little or no tenderness, less nausea vomiting. He had CT of the abdomen and pelvis today and showing dilated small bowel and possible air in the stomach wall suspicious for ischemic etiology and compression fracture of T12 and to lesser degree L2, patient developed by surger y team and discussed the case with surgeon, patient abdomen soft and recommended to advance diet and Dulcolax suppository. Breathing his stable. No other new complaints or symptoms. Creatinine slightly better today at 3.9 and patient currently kept on dopamine drip and sodium bicarb at 75 mL/h. 01/22/2023 Patient feels improved today, no abdominal pain and he tolerates liquid diet has been advanced out He had a bowel movement last night Back pain only with movement and orthopedic team recommended to place which can be done tomorrow No respiratory issues. Continue to straight cath Dopamine drip and normal saline then stop. Patient is aware of the plan for outpatient PET scan and possible biopsy of his lung mass 01/23/2023 Patient feels better and improving every day, is awake and alert, states his abdominal pain is better, he eats his solid foods with no problems. He has a 3 bowel movement last night and his abdomen looks soft. His main complaint in his back pain which is mainly with movement, orthopedic team are planning for providing a brace for him. No respiratory issues however patient is aware about his lung mass and needed to follow-up with Dr. Ruth soon after discharge to get lung biopsy for his mass possibly seeing on the images reattempts risk of cancer is explained for him and he is aware. 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 Possible discharge in 24-48 hours if he keeps improving Objective - Vital Signs Vital signs: Vital Signs Temp 98.0 F 01/23/23 04:00 Pulse 85 01/23/23 08:00 Resp 16 01/23/23 08:00 BP 160/88 01/23/23 08:00 Pulse Ox 95 01/23/23 08:00 FiO2 Intake & Output 01/22/23 01/23/23 01/23/23 18:59 06:59 18:59 Intake Total 610 Output Total 1300 850 0 Balance -690 -850 0 Weight 83.915 kg Intake: IV 10 Invasive Line 3 10 Oral 600 Output: Urine 1300 850 Straight 1300 850 Stool 0 Other: Voiding Method Self-Catheterization Self-Catheterization Self-Catheterization - Exam -GENERAL: The patient is alert and oriented x3, not in any acute distress. Well developed, well nourished. Generally weak HEENT: Pupils are round and equally reacting to light. EOMI. No scleral icterus. No conjunctival pallor. Normocephalic, atraumatic. No pharyngeal erythema. No thyromegaly. CARDIOVASCULAR: S1 and S2 present. No murmurs, rubs, or gallops. PULMONARY: Chest is clear to auscultation, no wheezing , no crackles. ABDOMEN: Soft, nontender, nondistended, normoactive bowel sounds. No palpable organomegaly. -MUSCULOSKELETAL: No joint swelling or deformity. Lower back tenderness around the area of T12 EXTREMITIES: No cyanosis, clubbing, or pedal edema. NEUROLOGICAL: Gross neurological examination did not reveal any focal deficits. SKIN: No rashes. no petechiae. - Labs CBC & Chem 7: 01/23/23 07:16 01/23/23 07:16 Labs: Abnormal Lab Results - Last 24 Hours (Table) 01/22/23 01/22/23 01/22/23 Range/Units 11:27 16:10 20:36 RBC (4.30-5.90) m/uL Hgb (13.0-17.5) gm/dL Hct (39.0-53.0) % RDW (11.5-15.5) % Sodium (137-145) mmol/L BUN (9-20) mg/dL Creatinine (0.66-1.25) mg/dL Glucose (74-99) mg/dL POC Glucose (mg/dL) 127 H 130 H 159 H (70-110) mg/dL Calcium (8.4-10.2) mg/dL 01/23/23 01/23/23 01/23/23 Range/Units 06:20 07:16 07:16 RBC 4.01 L (4.30-5.90) m/uL Hgb 11.2 L (13.0-17.5) gm/dL Hct 33.9 L (39.0-53.0) % RDW 16.3 H (11.5-15.5) % Sodium 133 L (137-145) mmol/L BUN 56 H (9-20) mg/dL Creatinine 3.74 H (0.66-1.25) mg/dL Glucose 129 H (74-99) mg/dL POC Glucose (mg/dL) 140 H (70-110) mg/dL Calcium 7.9 L (8.4-10.2) mg/dL Assessment and Plan Assessment: Syncope probably secondary to intravascular depletion from nausea vomiting diarrhea sever back pain with history of sever T12 compression fracture Severe bradycardia (transient ) requiring dopamine drip Nausea, vomiting and diarrhea possibly from a viral gastroenteritis CT chest abdomen pelvis showing colitis. Acute kidney injury due to ATN from dehydration Chronic kidney disease stage IV baseline creatinine around 3. History of urinary retention and obstructive uropathy with hx of bladder cancer maintained on urinary straight catheterizations Mediastinal lymphadenopathy and possible right lung mass , patient and at bedside are aware also about follow-up outpatient PET scan/biopsy History of heart failure Hypertension Type 2 Diabetes Mellitus and diabetic neuropathy Back pain secondary to fall Known T12 compression fracture Hyperlipidemia Plan: Continue with normal saline 50 ml per hr Brace for his back pain by orthopedic team Cardiology and surgery team on the case and he looks currently stable. 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 Continue same treatment. Continue with symptomatic treatment. Resume home medication. Monitor labs and vitals. DVT and GI prophylaxis. Further recommendations as per clinical course of the patient DVT prophylaxis: Subcutaneous heparin GI Prophylaxis: Pepcid PT/OT: Pending from healthcare versus subacute rehab, patient prefers [facility] Prognosis is guarded
[2023-01-23 11:19] LABS: Glucose,Whole Blood 108 mg/dL (70-110)
--- NOTE | 2023-01-23 12:36 | P.PN ---
Subjective Progress Note Date: 01/23/23 Weakness, nausea, diarrhea. Pulmonary consult dated 01/18/2023. 67-year-old male with a history of diabetes, hyperlipidemia, hypertension, diabetic neuropathy, melanoma, bladder cancer, among other things, presents to the emergency department, with weakness, and syncope. The patient states that he initially developed diarrhea, and nausea, and on the way to the bathroom, fell, because of severe back pain he could not get up. The patient does have a history of previous T12 compression fracture. The patient sees Dr. Jocelyne Choe as a primary. The patient is seen in the emergency department, room #1. He's currently on room air and getting saline at 75 mL an hour. We were asked to see the patient, because a computed tomography scan of the chest revealed evidence of significant thoracic and mediastinal adenopathy. The patient had a previous computed tomography scan done about a year prior, and the adenopathy appears larger. He will need an outpatient workup including a PET scan, and possibly a biopsy. I explained all this to the patient. White count is 5, hemoglobin 11.6, hematocrit 35, and platelet count 182,000. D-dimer was greater than 34. Sodium 135, potassium 4.3, chlorides 112, CO2 13, anion gap 10, BUN 65, and creatinine 4.26. Glucose 139. Troponins were 0.026 and 0.026 respectively. A ventilation perfusion lung scan was indeterminate. This computed tomography scan showed mediastinal adenopathy which is increased in size compared to a scan done 12/17/2021. Progress note dated 01/19/2023. 67-year-old male seen yesterday in the emergency department. Currently, the patient's on room air. He is getting dextrose at 100 mL an hour, and IV heparin. He had an indeterminate/intermediate, ventilation perfusion lung scan. He had a matched defect in the left lower lobe, which is where there is an infiltrate. The patient does not have a pulmonary embolism in my opinion, and IV heparin can be discontinued. White count 6.2, hemoglobin 10.5, hematocrit 33, and platelet count 161,000. Sodium 137, potassium 3.9, chlorides 107, CO2 21, BUN 62, and creatinine 4.21. Albumin is 2.6. Progress note dated 01/20/2023. 67-year-old male, seen in the emergency department, 2 days ago. The patient apparently was found at home, very weak, and on the floor. The patient was dehydrated, and was having severe diarrhea, and was noted to have worsening renal function. Currently, the patient's resting comfortably in room 354. He is on room air. The patient's receiving dopamine at 2 mcg/kg/m, and a sodium bicarbonate drip. He has been seen by nephrology. White count is 4.6, hemoglobin 9.8, hematocrit 30.7, and platelet count is 140,000. Sodium 1:30, potassium 2.8, chlorides 81, CO2 39, BUN 52, and creatinine 3.20. Glucose 723. TSH is normal. Calcium is 5.9. Progress note dated 01/21/2023. 67-year-old male seen a couple days ago consultation. The patient's doing a bit better. He is currently seen in room 354. He is on room air. He is getting dopamine at 2.0 mcg/kg/m, and also saline at 75 mL an hour. He's being seen by orthopedics, because of an old T12 fracture, and a new L2 fracture. The patient was found to have thoracic and mediastinal adenopathy, which will be worked up as an outpatient, and initially, the patient will need a PET scan. No new labs today other than a glucose of 84. His last BUN and creatinine were 58 and 3.94. Progress note dated 01/22/2023. 67-year-old male seen today in room 354. The patient's currently on room air. He's not receiving any IV fluids. Clinically, the patient feels like he is improved. Yesterday, he was on a dopamine drip. That has since been discontinued. Current laboratory data includes a sodium 133, potassium 3.9, chlorides 101, CO2 23, BUN 57, and creatinine 3.72. Calcium is 7.8. Glucose 132. On today's evaluation of 01/23/2023, the patient has no specific complaints. His resting comfortably in bed. History complaining of pain in his back and the patient is awaiting a back brace. I reviewed the CAT scan of the chest. This was done without any contrast of the patient's chronic kidney disease. There is concerning lymphadenopathy and the patient is going to need a PET scan to be done on outpatient basis. No respiratory distress. Blood work from today show ed a lesions count of 4.4 with a hemoglobin of 11.2 and a platelet count of 165. BUN is 56 with a creatinine 3.7 and sodium levels of 133. No nausea. No vomiting. No diarrhea. Comorbid conditions include diabetes mellitus, hypertension hyperlipidemia and he has previous history of melanoma bladder cancer. Objective - Vital Signs Vital signs: Vital Signs Temp 98.0 F 01/23/23 04:00 Pulse 85 01/23/23 08:00 Resp 16 01/23/23 08:00 BP 160/88 01/23/23 08:00 Pulse Ox 95 01/23/23 08:00 FiO2 Intake & Output 01/22/23 01/23/23 01/23/23 18:59 06:59 18:59 Intake Total 610 Output Total 1300 850 Balance -690 -850 Intake: IV 10 Invasive Line 3 10 Oral 600 Output: Urine 1300 850 Straight 1300 850 Other: Voiding Method Self-Catheterization Self-Catheterization - Exam No acute distress, oriented 3. Currently on room air. No respiratory distress. HEENT examination is grossly unremarkable. Neck supple. Full range of motion. No adenopathy thyromegaly or neck vein distention. Cardiovascular examination reveals regular rhythm rate. S1-S2 normal. No S3 or S4. No discernible murmur noted. Heart rate 81 bpm. Lungs reveal clear breath sounds. Breath sounds are equal bilaterally. No adventitious lung sounds including wheezes rhonchi or crackles. Room air saturations are 96 %. Abdomen soft bowel sounds are heard. No masses or tenderness. Extremities are intact. No cyanosis clubbing or edema. Skin is without rash or lesion. Neurologic examination is brief but nonfocal. - Labs CBC & Chem 7: 01/23/23 07:16 01/23/23 07:16 Labs: Abnormal Lab Results - Last 24 Hours (Table) 01/22/23 01/22/23 01/22/23 Range/Units 11:27 16:10 20:36 RBC (4.30-5.90) m/uL Hgb (13.0-17.5) gm/dL Hct (39.0-53.0) % RDW (11.5-15.5) % Sodium (137-145) mmol/L BUN (9-20) mg/dL Creatinine (0.66-1.25) mg/dL Glucose (74-99) mg/dL POC Glucose (mg/dL) 127 H 130 H 159 H (70-110) mg/dL Calcium (8.4-10.2) mg/dL 01/23/23 01/23/23 01/23/23 Range/Units 06:20 07:16 07:16 RBC 4.01 L (4.30-5.90) m/uL Hgb 11.2 L (13.0-17.5) gm/dL Hct 33.9 L (39.0-53.0) % RDW 16.3 H (11.5-15.5) % Sodium 133 L (137-145) mmol/L BUN 56 H (9-20) mg/dL Creatinine 3.74 H (0.66-1.25) mg/dL Glucose 129 H (74-99) mg/dL POC Glucose (mg/dL) 140 H (70-110) mg/dL Calcium 7.9 L (8.4-10.2) mg/dL Assessment and Plan Plan: Syncopal episode, secondary to weakness, caused by nausea and diarrhea. The patient is free of any diarrhea. No nausea and emesis or abdominal pain. Mediastinal/thoracic adenopathy, which will need to be evaluated as an outpatient, initially with a PET scan. The PET scan is to be done on outpatient basis Acute on chronic kidney disease. Creatinine is gradually improving and the patient's creatinine is down to 3.74 Diabetes with diabetic neuropathy. History of hypertension. History of hyperlipidemia. History of melanoma. History of bladder cancer. History of urinary tract infection. Acute L2 compression fracture. History of T12 compression fracture. Plan: Monitor renal function Increase diet Currently on room air oxygen Back brace Increase mobility Continue using the senna spirometer Thank you control We'll follow
--- NOTE | 2023-01-23 12:36 | P.PN ---
Subjective Progress Note Date: 01/23/23 CHIEF COMPLAINT: Abdominal distention HISTORY OF PRESENT ILLNESS: Surgical service on for abdominal ileus. Patient denies any abdominal pain. Denies any nausea or vomiting. Patient's last bowel movement was 2 days ago. He is passing a lot of flatus. He is tolerating regular diet. Afebrile. WBC 4.4 PHYSICAL EXAM: VITAL SIGNS: Reviewed. GENERAL: Well-developed in no acute distress. ABDOMEN: Softer. Nontender. Mildly distended. NEUROLOGIC: Alert and oriented. Cranial nerves II through XII grossly intact. ASSESSMENT: 1. Abdominal ileus resolving PLAN: -Continue regular diet -Continue Dulcolax suppository as needed for constipation Physician Edge Trimmer note has been reviewed by physician. Signing provider agrees with the documented findings, assessment, and plan of care. Objective - Vital Signs Vital signs: Vital Signs Temp 98.0 F 01/23/23 04:00 Pulse 85 01/23/23 08:00 Resp 16 01/23/23 08:00 BP 160/88 01/23/23 08:00 Pulse Ox 95 01/23/23 08:00 FiO2 Intake & Output 01/22/23 01/23/23 01/23/23 18:59 06:59 18:59 Intake Total 610 Output Total 1300 850 0 Balance -690 -850 0 Weight 83.915 kg Intake: IV 10 Invasive Line 3 10 Oral 600 Output: Urine 1300 850 Straight 1300 850 Stool 0 Other: Voiding Method Self-Catheterization Self-Catheterization Self-Catheterization - Labs CBC & Chem 7: 01/23/23 07:16 01/23/23 07:16 Labs: Abnormal Lab Results - Last 24 Hours (Table) 01/22/23 01/22/23 01/22/23 Range/Units 11:27 16:10 20:36 RBC (4.30-5.90) m/uL Hgb (13.0-17.5) gm/dL Hct (39.0-53.0) % RDW (11.5-15.5) % Sodium (137-145) mmol/L BUN (9-20) mg/dL Creatinine (0.66-1.25) mg/dL Glucose (74-99) mg/dL POC Glucose (mg/dL) 127 H 130 H 159 H (70-110) mg/dL Calcium (8.4-10.2) mg/dL 01/23/23 01/23/23 01/23/23 Range/Units 06:20 07:16 07:16 RBC 4.01 L (4.30-5.90) m/uL Hgb 11.2 L (13.0-17.5) gm/dL Hct 33.9 L (39.0-53.0) % RDW 16.3 H (11.5-15.5) % Sodium 133 L (137-145) mmol/L BUN 56 H (9-20) mg/dL Creatinine 3.74 H (0.66-1.25) mg/dL Glucose 129 H (74-99) mg/dL POC Glucose (mg/dL) 140 H (70-110) mg/dL Calcium 7.9 L (8.4-10.2) mg/dL
--- NOTE | 2023-01-23 13:38 | P.PN ---
Subjective Progress Note Date: 01/23/23 Principal diagnosis: Low back pain. Acute ileus. Chronic T12 compression fracture. Acute L2 compression fracture. This is a 67-year-old male admitted to the hospital after a syncopal episode 2 days ago. He has been having low back pain since the episode. He states that he does have history of a compression fracture in the past. He states that he is having pain from his mid to low back directly in the midline about his spine. He denies pain radiating into his legs. He denies any numbness or tingling. The patient has a history of urinary retention and does have to self catheterize. He is also having severe constipation at this time. He reports no urinary or bowel incontinence. We are consulted for orthopedic evaluation of his low back pain. 01/21/2023: The patient is stable from an orthopedic standpoint. He has no new complaints or concerns. He admits to mid to low back pain with movement. He denies any nausea or vomiting. He continues to have abdominal pain. Vital signs are stable. 01/23/2023: The patient is doing well. He does continue to have back pain. He reports no fever or chills. His abdomen is feeling better. Vital signs are stable. Objective - Vital Signs Vital signs: Vital Signs Temp 98.0 F 01/23/23 04:00 Pulse 84 01/23/23 12:00 Resp 16 01/23/23 12:00 BP 168/90 01/23/23 12:00 Pulse Ox 97 01/23/23 12:00 FiO2 Intake & Output 01/22/23 01/23/23 01/23/23 18:59 06:59 18:59 Intake Total 610 Output Total 1276 182 4738 Balance -690 -850 -1200 Weight 83.915 kg Intake: IV 10 Invasive Line 3 10 Oral 600 Output: Urine 8612 151 0869 Straight 1300 850 600 Stool 0 Other: Voiding Method Self-Catheterization Self-Catheterization Self-Catheterization - Exam This is a pleasant 67-year-old male in no acute distress. His exam is essen tially unchanged from yesterday's evaluation. He continues to have pain about the lower thoracic and upper lumbar spine. Minimal paraspinal musculature tenderness. He continues to have a distended abdomen. Full motion to the lower extremities with no neuro deficits noted. - Labs CBC & Chem 7: 01/23/23 07:16 11/13/23 07:16 Labs: Abnormal Lab Results - Last 24 Hours (Table) 01/22/23 01/22/23 01/23/23 Range/Units 16:10 20:36 06:20 RBC (4.30-5.90) m/uL Hgb (13.0-17.5) gm/dL Hct (39.0-53.0) % RDW (11.5-15.5) % Sodium (137-145) mmol/L BUN (9-20) mg/dL Creatinine (0.66-1.25) mg/dL Glucose (74-99) mg/dL POC Glucose (mg/dL) 130 H 159 H 140 H (70-110) mg/dL Calcium (8.4-10.2) mg/dL 01/23/23 01/23/23 Range/Units 07:16 07:16 RBC 4.01 L (4.30-5.90) m/uL Hgb 11.2 L (13.0-17.5) gm/dL Hct 33.9 L (39.0-53.0) % RDW 16.3 H (11.5-15.5) % Sodium 133 L (137-145) mmol/L BUN 56 H (9-20) mg/dL Creatinine 3.74 H (0.66-1.25) mg/dL Glucose 129 H (74-99) mg/dL POC Glucose (mg/dL) (70-110) mg/dL Calcium 7.9 L (8.4-10.2) mg/dL Assessment and Plan (1) Low back pain Current Visit: Yes Status: Acute Code(s): M54.50 - LOW BACK PAIN, UNSPECIFIED SNOMED Code(s): 081652646 (2) Syncope due to orthostatic hypotension Current Visit: Yes Status: Acute Code(s): I95.1 - ORTHOSTATIC HYPOTENSION SNOMED Code(s): 849831429 (3) Ileus Current Visit: No Status: Acute Code(s): K56.7 - ILEUS, UNSPECIFIED SNOMED Code(s): 724298043 Plan: The clinical and x-ray findings are discussed with the patient. X-rays of the lumbar spine reveal an acute L2 compression fracture compared to previous images with approximately 25% loss of height. Continued chronic T12 compression fracture. It is recommended that he be immobilized in a lumbar corset. However, with his abdominal distention and be difficult for him to wear the corset. We will order the brace on Monday and we'll have him wearing the brace as soon as it is possible to do so. Continue current care. He may be discharged to home when cleared medically.
[2023-01-23 16:06] LABS: Glucose,Whole Blood 178 mg/dL (70-110)
[2023-01-23] MEDS: hydrALAZINE HCL 25 MG TAB PO SCH ×2 (16:29→20:38)
[2023-01-23 20:54] LABS: Glucose,Whole Blood 131 mg/dL (70-110)
[2023-01-23] MEDS: diphenhydrAMINE 50 MG/ML 1 ML VIAL IVP PRN (23:34)
[2023-01-24] MEDS: HYDROcodone/APAP 7.5-325MG 1 EACH TAB PO PRN ×2 (04:23→21:20)
[2023-01-24 04:59] LABS: Glucose,Whole Blood 161 mg/dL (70-110)
[2023-01-24] MEDS: INSULIN ASPART (NovoLOG) 100 UNIT/ML VIAL SQ SCH ×4 (05:51→21:17)
[2023-01-24] MEDS: CALCIUM ACETATE 667 MG TAB PO SCH ×3 (06:09→16:56)
[2023-01-24] MEDS: polyethylene glycoL 3350 17 GM POWD.PACK PO SCH (08:24)
[2023-01-24] MEDS: PANTOPRAZOLE 40 MG/10 ML VIAL IV SCH (08:24)
[2023-01-24] MEDS: FENOFIBRATE 160 MG TAB PO SCH (08:25)
[2023-01-24] MEDS: TAMSULOSIN 0.4 MG CAP.ER.24H PO SCH ×2 (08:25→20:22)
[2023-01-24] MEDS: hydrALAZINE HCL 25 MG TAB PO SCH (08:25)
[2023-01-24] MEDS: HEPARIN SODIUM,PORCINE 5,000 UNIT/ML 1 ML VIAL SQ SCH ×2 (08:25→20:22)
[2023-01-24] MEDS: LORATADINE 10 MG TAB PO SCH (08:25)
[2023-01-24] MEDS: amLODIPine 10 MG TAB PO SCH (08:25)
[2023-01-24] MEDS: FLUTICASONE 50MCG/SPRAY NASAL 16GM EA NOSTRIL SCH (08:25)
[2023-01-24] MEDS: ISOSORBIDE MONONITRATE ER 30 MG TAB.ER.24H PO SCH (08:25)
[2023-01-24] MEDS: HYDROmorphone 1 MG/ML 1 ML SYRINGE IVP PRN (08:26)
[2023-01-24 10:02] LABS: African American GFR (CKD) 21 (>60 ml/min/1.73 sqM); Anion Gap 6 mmol/L; Blood Urea Nitrogen 50 mg/dL (9-20); Calcium 7.8 mg/dL (8.4-10.2); Carbon Dioxide 23 mmol/L (22-30); Chloride 105 mmol/L (98-107); Glucose 123 mg/dL (74-99); Magnesium 2.1 mg/dL (1.6-2.3); Non-African American GFR(CKD) 18 (>60 ml/min/1.73 sqM); Potassium 4.5 mmol/L (3.5-5.1); Sodium 134 mmol/L (137-145)
--- NOTE | 2023-01-24 10:50 | P.PN ---
Subjective Progress Note Date: 01/24/23 Weakness, nausea, diarrhea. Pulmonary consult dated 01/18/2023. 67-year-old male with a history of diabetes, hyperlipidemia, hypertension, diabetic neuropathy, melanoma, bladder cancer, among other things, presents to the emergency department, with weakness, and syncope. The patient states that he initially developed diarrhea, and nausea, and on the way to the bathroom, fell, because of severe back pain he could not get up. The patient does have a history of previous T12 compression fracture. The patient sees Dr. Jocelyne Choe as a primary. The patient is seen in the emergency department, room #1. He's currently on room air and getting saline at 75 mL an hour. We were asked to see the patient, because a computed tomography scan of the chest revealed evidence of significant thoracic and mediastinal adenopathy. The patient had a previous computed tomography scan done about a year prior, and the adenopathy appears larger. He will need an outpatient workup including a PET scan, and possibly a biopsy. I explained all this to the patient. White count is 5, hemoglobin 11.6, hematocrit 35, and platelet count 182,000. D-dimer was greater than 34. Sodium 135, potassium 4.3, chlorides 112, CO2 13, anion gap 10, BUN 65, and creatinine 4.26. Glucose 139. Troponins were 0.026 and 0.026 respectively. A ventilation perfusion lung scan was indeterminate. This computed tomography scan showed mediastinal adenopathy which is increased in size compared to a scan done 12/17/2021. Progress note dated 01/19/2023. 67-year-old male seen yesterday in the emergency department. Currently, the patient's on room air. He is getting dextrose at 100 mL an hour, and IV heparin. He had an indeterminate/intermediate, ventilation perfusion lung scan. He had a matched defect in the left lower lobe, which is where there is an infiltrate. The patient does not have a pulmonary embolism in my opinion, and IV heparin can be discontinued. White count 6.2, hemoglobin 10.5, hematocrit 33, and platelet count 161,000. Sodium 137, potassium 3.9, chlorides 107, CO2 21, BUN 62, and creatinine 4.21. Albumin is 2.6. Progress note dated 01/20/2023. 67-year-old male, seen in the emergency department, 2 days ago. The patient apparently was found at home, very weak, and on the floor. The patient was dehydrated, and was having severe diarrhea, and was noted to have worsening renal function. Currently, the patient's resting comfortably in room 354. He is on room air. The patient's receiving dopamine at 2 mcg/kg/m, and a sodium bicarbonate drip. He has been seen by nephrology. White count is 4.6, hemoglobin 9.8, hematocrit 30.7, and platelet count is 140,000. Sodium 1:30, potassium 2.8, chlorides 81, CO2 39, BUN 52, and creatinine 3.20. Glucose 723. TSH is normal. Calcium is 5.9. Progress note dated 01/21/2023. 67-year-old male seen a couple days ago consultation. The patient's doing a bit better. He is currently seen in room 354. He is on room air. He is getting dopamine at 2.0 mcg/kg/m, and also saline at 75 mL an hour. He's being seen by orthopedics, because of an old T12 fracture, and a new L2 fracture. The patient was found to have thoracic and mediastinal adenopathy, which will be worked up as an outpatient, and initially, the patient will need a PET scan. No new labs today other than a glucose of 84. His last BUN and creatinine were 58 and 3.94. Progress note dated 01/22/2023. 67-year-old male seen today in room 354. The patient's currently on room air. He's not receiving any IV fluids. Clinically, the patient feels like he is improved. Yesterday, he was on a dopamine drip. That has since been discontinued. Current laboratory data includes a sodium 133, potassium 3.9, chlorides 101, CO2 23, BUN 57, and creatinine 3.72. Calcium is 7.8. Glucose 132. On today's evaluation of 01/23/2023, the patient has no specific complaints. His resting comfortably in bed. History complaining of pain in his back and the patient is awaiting a back brace. I reviewed the CAT scan of the chest. This was done without any contrast of the patient's chronic kidney disease. There is concerning lymphadenopathy and the patient is going to need a PET scan to be done on outpatient basis. No respiratory distress. Blood work from today show ed a lesions count of 4.4 with a hemoglobin of 11.2 and a platelet count of 165. BUN is 56 with a creatinine 3.7 and sodium levels of 133. No nausea. No vomiting. No diarrhea. Comorbid conditions include diabetes mellitus, hypertension hyperlipidemia and he has previous history of melanoma bladder cancer. On 01/24/2023, the patient has been provided with a back brace. He is still comfortably laying down in bed. He has not ablated yet. He takes Dilaudid for pain control. No respiratory difficulties. The blood work from today shows a sodium level of 134, BUN is a 50 with a creatinine of 3.37 and as such that his steady improvement in his renal function. White Cell count from yesterday was 4.4 with a hemoglobin of 11.2. Objective - Vital Signs Vital signs: Vital Signs Temp 97.5 F L 01/24/23 08:00 Pulse 89 01/24/23 08:00 Resp 16 01/24/23 08:00 BP 171/93 01/24/23 08:00 Pulse Ox 98 01/24/23 08:00 FiO2 Intake & Output 01/23/23 01/24/23 01/24/23 18:59 06:59 18:59 Intake Total 476 240 Output Total 1800 1300 Balance -1324 -1300 240 Weight 83.915 kg Intake: Oral 476 240 Output: Urine 1800 1300 Straight 1200 1300 Stool 0 0 Other: Voiding Method Self-Catheterization Self-Catheterization # Voids 1 # Bowel Movements 1 - Exam No acute distress, oriented 3. Currently on room air. No respiratory distress. HEENT examination is grossly unremarkable. Neck supple. Full range of motion. No adenopathy thyromegaly or neck vein distention. Cardiovascular examination reveals regular rhythm rate. S1-S2 normal. No S3 or S4. No discernible murmur noted. Heart rate 81 bpm. Lungs reveal clear breath sounds. Breath sounds are equal bilaterally. No ad ventitious lung sounds including wheezes rhonchi or crackles. Room air saturations are 96 %. Abdomen soft bowel sounds are heard. No masses or tenderness. Extremities are intact. No cyanosis clubbing or edema. Skin is without rash or lesion. Neurologic examination is brief but nonfocal. - Labs CBC & Chem 7: 01/23/23 07:16 01/24/23 09:34 Labs: Abnormal Lab Results - Last 24 Hours (Table) 01/23/23 01/23/23 01/24/23 Range/Units 16:04 20:42 04:58 POC Glucose (mg/dL) 178 H 131 H 161 H (70-110) mg/dL Assessment and Plan Plan: Syncopal episode, secondary to weakness, caused by nausea and diarrhea. The patient is free of any diarrhea. No nausea and emesis or abdominal pain. Mediastinal/thoracic adenopathy, which will need to be evaluated as an outpatient, initially with a PET scan. The PET scan is to be done on outpatient basis Acute on chronic kidney disease. Creatinine is gradually improving and the patient's creatinine is down to 3.37 Diabetes with diabetic neuropathy. History of hypertension. History of hyperlipidemia. History of melanoma. History of bladder cancer. History of urinary tract infection. Acute L2 compression fracture. History of T12 compression fracture. Plan: Renal function continues to improve Increase mobility, physical therapy has been involved Monitor renal function Increase diet Currently on room air oxygen Back brace hasn't provided Increase mobility Continue using the senna spirometer
--- NOTE | 2023-01-24 10:57 | P.PN ---
Subjective HISTORY OF PRESENT ILLNESS: This is a 67-year-old male with past medical history of coronary artery disease status post angioplasty, hypertension, dyslipidemia, history of melanoma. Patient presented to the hospital due to syncopal event at home following diarrhea, nausea and vomiting. His d-dimer was elevated and he went for a VQ scan which revealed intermediate risk for pulmonary embolism. Echocardiogram reveals EF of 35-40% limited study. Patient has been continued on heparin drip and pulmonary medicine is following. Pulmonary has recommended outpatient PET scan for mediastinal adenopathy and pulmonary embolism has been ruled out. Patient is complaining of significant back pain and unable to move in bed since the fall. Repeat blood work reveals hemoglobin 10.5, BUN 62 creatinine 4.21, potassium 3.9. Magnesium 2.0. 01/20 This morning, patient is complaining of nausea and just not feeling well in gen eral. An EKG was done during the night that revealed a sinus rhythm with a first-degree block. Patient had episode of bradycardia with third-degree block was not captured on the EKG. Toprol-XL was discontinued. Patient was started on dopamine drip. Renal function is improving with BUN 52 and creatinine 3.2, potassium 2.8, hemoglobin 9.8. Sodium was 130. Potassium has been replaced. 01/21 Patient states he has a little nausea and a little abdominal discomfort today. This seems to be improved from yesterday. He is currently nothing by mouth and has been seen by general surgery. He underwent a CAT scan of the abdomen and pelvis which revealed gaseous distention throughout the several loops of the colon and to a lesser degree small bowel without gross evidence of obstructive etiology. Findings highly concerning for pneumatosis within the wall of the stomach correlate for ischemic etiology. Moderate to severe compression deformity T12, mild compression deformity L2. Mild bilateral perinephric stranding. Blood pressure 172/86 this morning heart rate is in the 80s sinus rhythm. Repeat blood work is not available at the time of this dictation. He did have repeat lab work yesterday afternoon which revealed BUN 58 creatinine 3.94 and potassium 3.4. Patient is on dopamine drip 2 micrograms per kilo per minute. 01/22 Patient states he had quite a bit of bowel movements yesterday and abdominal pain has resolved. Yesterday, we increased amlodipine to 10 mg for blood pre ssure control and also discontinued dopamine drip. His blood pressure remains elevated this morning at 176/95. Repeat blood work reveals BUN 57, creatinine 3.72, potassium 3.9. Patient states that he has not been out of bed due to his back pain. He has no lightheadedness or dizziness while laying in bed. No chest pain or shortness of breath. Telemetry sinus rhythm with no episodes of third-degree block for greater than 48 hours. 01/23/2023 Patient examined this morning at the bedside. Patient denies chest pain or pressure. He denies shortness of breath. Blood pressure this morning is stable. Telemetry reveals sinus mechanism with first-degree AV block. 01/24/2023 Patient examined this morning at the bedside. Patient denies chest pain or pressure. He denies shortness of breath. Telemetry reveals sinus mechanism with no evidence of AV block. Blood pressure 150s to 170s. PHYSICAL EXAM: VITAL SIGNS: Reviewed. GENERAL: Well-developed in no acute distress. NECK: Supple. No JVD or thyromegaly LUNGS: Respirations even and unlabored. Lungs essentially clear to auscultation bilaterally. HEART: Regular rate and rhythm. S1 and S2 heard. EXTREMITIES: Normal range of motion. No clubbing or cyanosis. Peripheral pulses intact. No lower extremity edema ASSESSMENT: Syncope most likely due to intermittent third-degree block (noted on telemetry) or vasovagal episode Third-degree heart block Nonsustained V. tach on 01/21 early a.m. Pulmonary embolism ruled out by pulmonary medicine Mediastinal adenopathy Coronary artery disease status post angioplasty Acute kidney injury, nephrology following Nausea vomiting and diarrhea, abdominal pain, resolved PLAN: Continue current cardiac medications Avoid AV nesha blocking agents Continue telemetry monitoring Patient to receive 30 day event monitor Continue to monitor blood pressure. Patient's hydralazine has been increased this morning per nephrology Patient is stable from a cardiac standpoint Patient to follow-up post discharge with Dr. Hudson Nurse practitioner note has been reviewed by physician. Signing provider agrees with the documented findings, assessment, and plan of care. Objective - Vital Signs Vital signs: Vital Signs Temp 97.5 F L 01/24/23 08:00 Pulse 89 01/24/23 08:30 Resp 16 01/24/23 08:30 BP 171/93 01/24/23 08:00 Pulse Ox 98 01/24/23 08:00 FiO2 Intake & Output 01/23/23 01/24/23 01/24/23 18:59 06:59 18:59 Intake Total 476 240 Output Total 1800 1300 0 Balance -1324 -1300 240 Weight 83.915 kg Intake: Oral 476 240 Output: Urine 1800 1300 Straight 1200 1300 Stool 0 0 0 Other: Voiding Method Self-Catheterization Self-Catheterization Self-Catheterization # Voids 1 # Bowel Movements 1 - Labs CBC & Chem 7: 01/23/23 07:16 01/24/23 09:34 Labs: Abnormal Lab Results - Last 24 Hours (Table) 01/23/23 01/23/23 01/24/23 Range/Units 16:04 20:42 04:58 Sodium (137-145) mmol/L BUN (9-20) mg/dL Creatinine (0.66-1.25) mg/dL Glucose (74-99) mg/dL POC Glucose (mg/dL) 178 H 131 H 161 H (70-110) mg/dL Calcium (8.4-10.2) mg/dL 01/24/23 Range/Units 09:34 Sodium 134 L (137-145) mmol/L BUN 50 H (9-20) mg/dL Creatinine 3.37 H (0.66-1.25) mg/dL Glucose 123 H (74-99) mg/dL POC Glucose (mg/dL) (70-110) mg/dL Calcium 7.8 L (8.4-10.2) mg/dL
[2023-01-24 11:13] LABS: Glucose,Whole Blood 113 mg/dL (70-110)
--- NOTE | 2023-01-24 11:25 | XR ---
EXAMINATION TYPE: XR chest 1V DATE OF EXAM: 01/24/2023 HISTORY: Shortness of breath. COMPARISON: 10/26/2022 TECHNIQUE: Single view of the chest is submitted. FINDINGS: Demonstrated are scattered senescent parenchymal change. There is no evidence for focal infiltrate. There appears to be chronic pulmonary venous decompensation with mild congestive failure suggested. M ild Cardiomegaly. Hilar and mediastinal structures are within normal limits. Degenerative changes are seen of the dorsal spine. IMPRESSION: 1. There appears to be chronic pulmonary venous decompensation with mild congestive failure suggeste d. Mild Cardiomegaly.
[2023-01-24] MEDS: traMADol 50 MG TAB PO PRN ×2 (11:43→17:51)
[2023-01-24] MEDS: ONDANSETRON ODT 4 MG TAB PO PRN (11:43)
[2023-01-24] MEDS: SODIUM CHLORIDE 0.9% 1,000 ML IV SCH (11:44)
--- NOTE | 2023-01-24 13:17 | P.PN ---
Subjective Progress Note Date: 01/24/23 CHIEF COMPLAINT: Abdominal distention HISTORY OF PRESENT ILLNESS: Surgical service following for abdominal ileus. Patient denies any abdominal pain. Denies any nausea or vomiting. Patient had BM yesterday. He is having flatus. Denies any nausea vomiting. Tolerating regular diet. Afebrile. Sodium 134 creatinine 3.37 Patient felt the cardiology and to receive a 30 day event monitor. PHYSICAL EXAM: VITAL SIGNS: Reviewed. GENERAL: Well-developed in no acute distress. ABDOMEN: soft. Nondistended Nontender. NEUROLOGIC: Alert and oriented. Cranial nerves II through XII grossly intact. ASSESSMENT: 1. Abdominal ileus resolving PLAN: -Continue regular diet -Continue Dulcolax suppository as needed for constipation -Increase activity level Physician Senior [employer] Administrator note has been reviewed by physician. Signing provider agrees with the documented findings, assessment, and plan of care. Objective - Vital Signs Vital signs: Vital Signs Temp 97.8 F 01/24/23 11:52 Pulse 90 01/24/23 11:52 Resp 16 01/24/23 11:52 BP 149/77 01/24/23 11:52 Pulse Ox 96 01/24/23 11:52 FiO2 Intake & Output 01/23/23 01/24/23 01/24/23 18:59 06:59 18:59 Intake Total 476 240 Output Total 1800 1300 900 Balance -1324 -1300 -660 Weight 83.915 kg Intake: Oral 476 240 Output: Urine 1800 1300 900 Straight 1200 1300 900 Stool 0 0 0 Other: Voiding Method Self-Catheterization Self-Catheterization Self-Catheterization # Voids 1 # Bowel Movements 1 - Labs CBC & Chem 7: 01/23/23 07:16 01/24/23 09:34 Labs: Abnormal Lab Results - Last 24 Hours (Table) 01/23/23 01/23/23 01/24/23 Range/Units 16:04 20:42 04:58 Sodium (137-145) mmol/L BUN (9-20) mg/dL Creatinine (0.66-1.25) mg/dL Glucose (74-99) mg/dL POC Glucose (mg/dL) 178 H 131 H 161 H (70-110) mg/dL Calcium (8.4-10.2) mg/dL 01/24/23 01/24/23 Range/Units 09:34 11:12 Sodium 134 L (137-145) mmol/L BUN 50 H (9-20) mg/dL Creatinine 3.37 H (0.66-1.25) mg/dL Glucose 123 H (74-99) mg/dL POC Glucose (mg/dL) 113 H (70-110) mg/dL Calcium 7.8 L (8.4-10.2) mg/dL
--- NOTE | 2023-01-24 13:20 | P.PN ---
Subjective Patient was 69-year-old male presented to the hospital after syncopal episode was having diarrhea for last few days. Patient syncope didn't appear to be vasovagal. Patient baseline creatinine is around 2.5 slightly worse to around 4.2. Patient was also complaining of back pain. CT of the abdomen and pelvis and lung is significant for osteoarthritis and SI joint degenerative disc disease and ankylosing spondylitis which is probably intermittent is faint apart from soft tissue injury from the fall. CT of the lung did show lipid of the which is increased compared to the previous imaging studies. Pulmonology evaluated for that reason recommending outpatient PET scan the differentials include granulomatous disease like sarcoidosis, malignancy. Patient doesn't smoke. Echocardiogram is being obtained as a part of for syncope workup EKG showed some nonspecific ST-T wave changes in the inferior leads. Cardiology evaluated the patient. No significant troponin elevation at this time. Patient also found to have highly elevated d-dimer above 34. Patient will undergo VQ scan today troponin is negative. 01/19/2023 Patient is evaluated today resting in bed. Pulmonary felt VQ did not reflect pulmonary embolism and IV heparin has been discontinued. Lasix remains on hold, patient is being hydrated on bicarb gtt at 100 mls/hr. Continues with significant back pain due to the fall, cannot have IV morphine due to the renal function medications will be adjusted. PT/OT following. Patient denies any further episodes of diarrhea however he has been reporting vomiting and unable to keep much food down. He reports as bile like not black or bloody emesis. He is being straight cathed as needed. Echocardiogram showing EF 35-40% slightly decreased from prior EF of 40%. 01/20/2023 Patient still in bed, feeling generally weak and complaining of from severe back pain related to some nausea and low appetite, has been constipated. Denies abdominal pain, no chest pain or dyspnea. He was bradycardic area more than has lost 20s as per staff, patient currently on dopamine drip and his heart rate is 85. Vital signs stable. Creatinine as of yesterday 4.2, today he is on sodium bicarb 100 mL per day and dopamine drip. Nephrology is following closely and repeat creatinine is pending. Hemoglobin 9.8. Computed tomography scan shows circumferential wall thickening of the descending and sigmoid colon and rectum but patient says had a bowel movement for about 4 days ago, patient says it was loose which at his usual for him. Patient feels generally weak cardiology is also following closely we will do kub bmp shows cr 3.2, glu more 700 and ca 5.9, we will repeat bmp 01/21/2023 Patient feels better today, he feels more relaxed. His abdomen looks soft with little or no tenderness, less nausea vomiting. He had CT of the abdomen and pelvis today and showing dilated small bowel and possible air in the stomach wall suspicious for ischemic etiology and compression fracture of T12 and to lesser degree L2, patient developed by surger y team and discussed the case with surgeon, patient abdomen soft and recommended to advance diet and Dulcolax suppository. Breathing his stable. No other new complaints or symptoms. Creatinine slightly better today at 3.9 and patient currently kept on dopamine drip and sodium bicarb at 75 mL/h. 01/22/2023 Patient feels improved today, no abdominal pain and he tolerates liquid diet has been advanced out He had a bowel movement last night Back pain only with movement and orthopedic team recommended to place which can be done tomorrow No respiratory issues. Continue to straight cath Dopamine drip and normal saline then stop. Patient is aware of the plan for outpatient PET scan and possible biopsy of his lung mass 01/23/2023 Patient feels better and improving every day, is awake and alert, states his abdominal pain is better, he eats his solid foods with no problems. He has a 3 bowel movement last night and his abdomen looks soft. His main complaint in his back pain which is mainly with movement, orthopedic team are planning for providing a brace for him. No respiratory issues however patient is aware about his lung mass and needed to follow-up with Dr. Ruth soon after discharge to get lung biopsy for his mass possibly seeing on the images reattempts risk of cancer is explained for him and he is aware. Fire Protection Equipment Technician on the case, currently patient of any dopamine drip Magnetic Resonance Imaging Coordinator recommended to continue with normal saline 50 mL/h, creatinine is slightly less today at 3.7, hemoglobin is stable at 11.2. Possible discharge in 24-48 hours if he keeps improving 01/24/2023 Patient clinically looks the same He tolerates diet with no or minimal GI symptoms, no abdominal pain. No diarrhea. Breathing is stable and is currently on room air. Patient was recommended to have a lung biopsy for his lung mass as an outpatient with Dr. Ruth. Already an appointment made for him on 02/03. Patient was taken off leaving to [place], patient was counseled against flying at this time given his multiple medical problems and he verbalized understanding and acceptance. Brace is delivered at bedside for his back pain which is his main problem now, his pain is minimal with rest but significantly increased with mobility. Plan for him to go to rehab upon discharge if he agrees [address] [place], with case was discussed with social work professor about the plan. Risks benefits and expected for patient details and he verbalized understanding and acceptance. He remains on normal saline at 50 mL per hour, creatinine is improving down to 3.3. Fire Protection Equipment Technician recommended 30 day event monitor upon discharge Possible discharge in 24-48 hours if cleared by her consultants and remains clinically stable. Objective - Vital Signs Vital signs: Vital Signs Temp 97.8 F 01/24/23 11:52 Pulse 90 01/24/23 11:52 Resp 16 01/24/23 11:52 BP 149/77 01/24/23 11:52 Pulse Ox 96 01/24/23 11:52 FiO2 Intake & Output 01/23/23 01/24/23 01/24/23 18:59 06:59 18:59 Intake Total 476 240 Output Total 1800 1300 900 Balance -1323 -1300 -660 Weight 83.915 kg Intake: Oral 476 240 Output: Urine 1800 1300 900 Straight 1200 1300 900 Stool 0 0 0 Other: Voiding Method Self-Catheterization Self-Catheterization Self-Catheterization # Voids 1 # Bowel Movements 1 - Exam -GENERAL: The patient is alert and oriented x3, not in any acute distress. Well developed, well nourished. Generally weak HEENT: Pupils are round and equally reacting to light. EOMI. No scleral icterus. No conjunctival pallor. Normocephalic, atraumatic. No pharyngeal erythema. No thyromegaly. CARDIOVASCULAR: S1 and S2 present. No murmurs, rubs, or gallops. PULMONARY: Chest is clear to auscultation, no wheezing , no crackles. ABDOMEN: Soft, nontender, nondistended, normoactive bowel sounds. No palpable organomegaly. -MUSCULOSKELETAL: No joint swelling or deformity. Lower back tenderness around the area of T12 EXTREMITIES: No cyanosis, clubbing, or pedal edema. NEUROLOGICAL: Gross neurological examination did not reveal any focal deficits. SKIN: No rashes. no petechiae. - Labs CBC & Chem 7: 01/23/23 07:16 01/24/23 09:34 Labs: Abnormal Lab Results - Last 24 Hours (Table) 01/23/23 01/23/23 01/24/23 Range/Units 16:04 20:42 04:58 Sodium (137-145) mmol/L BUN (9-20) mg/dL Creatinine (0.66-1.25) mg/dL Glucose (74-99) mg/dL POC Glucose (mg/dL) 178 H 131 H 161 H (70-110) mg/dL Calcium (8.4-10.2) mg/dL 01/24/23 01/24/23 Range/Units 09:34 11:12 Sodium 134 L (137-145) mmol/L BUN 50 H (9-20) mg/dL Creatinine 3.37 H (0.66-1.25) mg/dL Glucose 123 H (74-99) mg/dL POC Glucose (mg/dL) 113 H (70-110) mg/dL Calcium 7.8 L (8.4-10.2) mg/dL Assessment and Plan Assessment: Syncope probably secondary to intravascular depletion from nausea vomiting diarrhea sever back pain with history of sever T12 compression fracture Severe bradycardia (transient ) requiring dopamine drip Nausea, vomiting and diarrhea possibly from a viral gastroenteritis CT chest abdomen pelvis showing colitis. Acute kidney injury due to ATN from dehydration Chronic kidney disease stage IV baseline creatinine around 3. History of urinary retention and obstructive uropathy with hx of bladder cancer maintained on urinary straight catheterizations Mediastinal lymphadenopathy and possible right lung mass , patient and at bedside are aware also about follow-up outpatient PET scan/biopsy History of heart failure Hypertension Type 2 Diabetes Mellitus and diabetic neuropathy Back pain secondary to fall Known T12 compression fracture Hyperlipidemia Plan: Continue with normal saline 50 ml per hr Brace for his back pain by orthopedic team Cardiology and surgery team on the case and he looks currently stable. Patient will require outpatient PET scan and biopsy for his possible lung mass, risk of cancer explained, patient and at bedside, are aware and agreeable breakdown worker consulted for subacute rehab Nephrology encourage consult Consult orthopedic team surgery team on the case and advanced diet to liquid consistency Labs and medication were reviewed.. Continue same treatment. Continue with symptomatic treatment. Resume home medication. Monitor labs and vitals. DVT and GI prophylaxis. Further recommendations as per clinical course of the patient DVT prophylaxis: Subcutaneous heparin GI Prophylaxis: Pepcid PT/OT: Pending from healthcare versus subacute rehab, patient prefers [facility] Prognosis is guarded
--- NOTE | 2023-01-24 13:36 | P.PN ---
Subjective Patient is seen in follow-up for acute kidney injury on chronic kidney disease. Renal function stable. Catheterizations being done by nurse at this time. On IV fluids. Vomited once this morning. No active complaints. Vital signs are stable. General: No acute distress. HEENT: Head exam is unremarkable. LUNGS: No audible rhonchi or wheezes. HEART: Rate and Rhythm are regular. ABDOMEN: Nontender. EXTREMITITES: No edema. Objective - Vital Signs Vital signs: Vital Signs Temp 97.8 F 01/24/23 11:52 Pulse 90 01/24/23 11:52 Resp 16 01/24/23 11:52 BP 149/77 01/24/23 11:52 Pulse Ox 96 01/24/23 11:52 FiO2 Intake & Output 01/23/23 01/24/23 01/24/23 18:59 06:59 18:59 Intake Total 476 360 Output Total 1800 1300 900 Balance -1324 -1300 -540 Weight 83.915 kg Intake: Oral 476 360 Output: Urine 1800 1300 900 Straight 1200 1300 900 Stool 0 0 0 Other: Voiding Method Self-Catheterization Self-Catheterization Self-Catheterization # Voids 1 # Bowel Movements 1 - Labs CBC & Chem 7: 01/23/23 07:16 01/24/23 09:34 Labs: Abnormal Lab Results - Last 24 Hours (Table) 01/23/23 01/23/23 01/24/23 Range/Units 16:04 20:42 04:58 Sodium (137-145) mmol/L BUN (9-20) mg/dL Creatinine (0.66-1.25) mg/dL Glucose (74-99) mg/dL POC Glucose (mg/dL) 178 H 131 H 161 H (70-110) mg/dL Calcium (8.4-10.2) mg/dL 01/24/23 01/24/23 Range/Units 09:34 11:12 Sodium 134 L (137-145) mmol/L BUN 50 H (9-20) mg/dL Creatinine 3.37 H (0.66-1.25) mg/dL Glucose 123 H (74-99) mg/dL POC Glucose (mg/dL) 113 H (70-110) mg/dL Calcium 7.8 L (8.4-10.2) mg/dL Assessment and Plan Plan: Assessment: 1. Acute kidney injury secondary to ATN. Renal function improved little with IV hydration. Creatinine 3.37 today. 2. Chronic kidney disease stage IV with baseline creatinine near 3 secondary to obstructive uropathy and nephrosclerosis. Patient performs self catheterizations at home. Serologies negative September 2022. 3. Diabetes mellitus. 4. Chronic systolic CHF with ejection fraction of 40%. 5. Hypertension with chronic kidney disease. 6. Chronic kidney disease mineral bone disease maintained on PhosLo. Phosphorus level 6.2 dated 01/19/2023. Plan: Hep-Lock IV fluids. Encouraged oral intake. Avoid nephrotoxins. Continue with intermittent catheterizations. Increase hydralazine dose to 100 mg.
[2023-01-24 16:35] LABS: Glucose,Whole Blood 263 mg/dL (70-110)
[2023-01-24] MEDS: hydrALAZINE HCL 50 MG TAB PO SCH ×2 (16:57→20:23)
[2023-01-24] MEDS: ONDANSETRON 4 MG/2 ML VIAL IVP PRN (16:57)
[2023-01-24 21:11] LABS: Glucose,Whole Blood 106 mg/dL (70-110)
[2023-01-24] MEDS: diphenhydrAMINE 50 MG/ML 1 ML VIAL IVP PRN (21:20)
[2023-01-25] MEDS: traMADol 50 MG TAB PO PRN ×2 (03:58→10:09)
[2023-01-25 06:06] LABS: Glucose,Whole Blood 108 mg/dL (70-110)
[2023-01-25] MEDS: INSULIN ASPART (NovoLOG) 100 UNIT/ML VIAL SQ SCH ×2 (06:15→11:58)
[2023-01-25] MEDS: CALCIUM ACETATE 667 MG TAB PO SCH ×2 (06:47→12:00)
[2023-01-25 08:01] VITALS: RESP 15
[2023-01-25] MEDS: FENOFIBRATE 160 MG TAB PO SCH (08:09)
[2023-01-25] MEDS: FLUTICASONE 50MCG/SPRAY NASAL 16GM EA NOSTRIL SCH (08:09)
[2023-01-25] MEDS: polyethylene glycoL 3350 17 GM POWD.PACK PO SCH (08:09)
[2023-01-25] MEDS: amLODIPine 10 MG TAB PO SCH (08:09)
[2023-01-25] MEDS: LORATADINE 10 MG TAB PO SCH (08:10)
[2023-01-25] MEDS: HEPARIN SODIUM,PORCINE 5,000 UNIT/ML 1 ML VIAL SQ SCH (08:10)
[2023-01-25 08:11] LABS: African American GFR (CKD) 21 (>60 ml/min/1.73 sqM); Anion Gap 7 mmol/L; Blood Urea Nitrogen 43 mg/dL (9-20); Calcium 8.1 mg/dL (8.4-10.2); Carbon Dioxide 21 mmol/L (22-30); Chloride 106 mmol/L (98-107); Glucose 112 mg/dL (74-99); Magnesium 2.1 mg/dL (1.6-2.3); Non-African American GFR(CKD) 18 (>60 ml/min/1.73 sqM); Potassium 4.4 mmol/L (3.5-5.1); Sodium 134 mmol/L (137-145)
[2023-01-25] MEDS: ISOSORBIDE MONONITRATE ER 30 MG TAB.ER.24H PO SCH (08:11)
[2023-01-25] MEDS: TAMSULOSIN 0.4 MG CAP.ER.24H PO SCH (08:11)
[2023-01-25] MEDS: hydrALAZINE HCL 50 MG TAB PO SCH (08:11)
[2023-01-25] MEDS: HYDROcodone/APAP 7.5-325MG 1 EACH TAB PO PRN ×2 (08:12→14:04)
[2023-01-25] MEDS: PANTOPRAZOLE 40 MG/10 ML VIAL IV SCH (10:05)
--- NOTE | 2023-01-25 11:14 | P.PN ---
Subjective Patient is seen in follow-up for acute kidney injury on chronic kidney disease. Renal function stable. Catheterizations being done by nurse at this time. On IV fluids. No active complaints. Refused to get orthostatic vital signs done. Vital signs are stable. General: No acute distress. HEENT: Head exam is unremarkable. LUNGS: No audible rhonchi or wheezes. HEART: Rate and Rhythm are regular. ABDOMEN: Nontender. EXTREMITITES: No edema. Objective - Vital Signs Vital signs: Vital Signs Temp 98.2 F 01/25/23 07:47 Pulse 93 01/25/23 08:30 Resp 15 01/25/23 08:30 BP 157/81 01/25/23 07:47 Pulse Ox 96 01/25/23 07:47 FiO2 Intake & Output 01/24/23 01/25/23 01/25/23 18:59 06:59 18:59 Intake Total 360 420 480 Output Total 1800 950 500 Balance -1440 -530 -20 Intake: Oral 360 420 480 Output: Urine 1800 950 500 Straight 1350 950 500 Stool 0 0 Other: Voiding Method Self-Catheterization Self-Catheterization Self-Catheterization # Voids 1 - Labs CBC & Chem 7: 01/23/23 07:16 01/25/23 07:28 Labs: Abnormal Lab Results - Last 24 Hours (Table) 01/24/23 01/24/23 01/25/23 Range/Units 11:12 16:33 07:28 Sodium 134 L (137-145) mmol/L Carbon Dioxide 21 L (22-30) mmol/L BUN 43 H (9-20) mg/dL Creatinine 3.33 H (0.66-1.25) mg/dL Glucose 112 H (74-99) mg/dL POC Glucose (mg/dL) 113 H 263 H (70-110) mg/dL Calcium 8.1 L (8.4-10.2) mg/dL Assessment and Plan Plan: Assessment: 1. Acute kidney injury secondary to ATN. Renal function improved little with IV hydration. Creatinine 3.33 today. 2. Chronic kidney disease stage IV with baseline creatinine near 3 secondary to obstructive uropathy and nephrosclerosis. Patient performs self catheterizations at home. Serologies negative September 2022. 3. Diabetes mellitus. 4. Chronic systolic CHF with ejection fraction of 40%. 5. Hypertension with chronic kidney disease. 6. Chronic kidney disease mineral bone disease maintained on PhosLo. Phosphorus level 6.2 dated 01/19/2023. Plan: Hep-Lock IV fluids. Encouraged oral intake. Avoid nephrotoxins. Continue with intermittent catheterizations. Add low-dose Coreg. Follow for outpatient 1 week post discharge.
[2023-01-25] MEDS ORDERED: carvediloL 3.125 MG TAB PO SCH (11:15)
[2023-01-25 11:52] LABS: Glucose,Whole Blood 95 mg/dL (70-110)
[2023-01-25 11:57] VITALS: BP 148/82; PULSE 87; TEMP 97.8
--- NOTE | 2023-01-25 12:16 | P.PN ---
Subjective HISTORY OF PRESENT ILLNESS: This is a 67-year-old male with past medical history of coronary artery disease status post angioplasty, hypertension, dyslipidemia, history of melanoma. Patient presented to the hospital due to syncopal event at home following diarrhea, nausea and vomiting. His d-dimer was elevated and he went for a VQ scan which revealed intermediate risk for pulmonary embolism. Echocardiogram reveals EF of 35-40% limited study. Patient has been continued on heparin drip and pulmonary medicine is following. Pulmonary has recommended outpatient PET scan for mediastinal adenopathy and pulmonary embolism has been ruled out. Patient is complaining of significant back pain and unable to move in bed since the fall. Repeat blood work reveals hemoglobin 10.5, BUN 62 creatinine 4.21, potassium 3.9. Magnesium 2.0. 01/20 This morning, patient is complaining of nausea and just not feeling well in gen eral. An EKG was done during the night that revealed a sinus rhythm with a first-degree block. Patient had episode of bradycardia with third-degree block was not captured on the EKG. Toprol-XL was discontinued. Patient was started on dopamine drip. Renal function is improving with BUN 52 and creatinine 3.2, potassium 2.8, hemoglobin 9.8. Sodium was 130. Potassium has been replaced. 01/21 Patient states he has a little nausea and a little abdominal discomfort today. This seems to be improved from yesterday. He is currently nothing by mouth and has been seen by general surgery. He underwent a CAT scan of the abdomen and pelvis which revealed gaseous distention throughout the several loops of the colon and to a lesser degree small bowel without gross evidence of obstructive etiology. Findings highly concerning for pneumatosis within the wall of the stomach correlate for ischemic etiology. Moderate to severe compression deformity T12, mild compression deformity L2. Mild bilateral perinephric stranding. Blood pressure 172/86 this morning heart rate is in the 80s sinus rhythm. Repeat blood work is not available at the time of this dictation. He did have repeat lab work yesterday afternoon which revealed BUN 58 creatinine 3.94 and potassium 3.4. Patient is on dopamine drip 2 micrograms per kilo per minute. 01/22 Patient states he had quite a bit of bowel movements yesterday and abdominal pain has resolved. Yesterday, we increased amlodipine to 10 mg for blood pre ssure control and also discontinued dopamine drip. His blood pressure remains elevated this morning at 176/95. Repeat blood work reveals BUN 57, creatinine 3.72, potassium 3.9. Patient states that he has not been out of bed due to his back pain. He has no lightheadedness or dizziness while laying in bed. No chest pain or shortness of breath. Telemetry sinus rhythm with no episodes of third-degree block for greater than 48 hours. 01/23/2023 Patient examined this morning at the bedside. Patient denies chest pain or pressure. He denies shortness of breath. Blood pressure this morning is stable. Telemetry reveals sinus mechanism with first-degree AV block. 01/24/2023 Patient examined this morning at the bedside. Patient denies chest pain or pressure. He denies shortness of breath. Telemetry reveals sinus mechanism with no evidence of AV block. Blood pressure 150s to 170s. 01/25/2023 Patient examined this morning at the bedside. Patient denies chest pain or pressure. He denies shortness of breath. The patient states yesterday when he attempted to sit up on the side of the bed he became nauseous and started vomiting. Blood pressure today 140/82. Telemetry reveals sinus mechanism. PHYSICAL EXAM: VITAL SIGNS: Reviewed. GENERAL: Well-developed in no acute distress. NECK: Supple. No JVD or thyromegaly LUNGS: Respirations even and unlabored. Lungs essentially clear to auscultation bilaterally. HEART: Regular rate and rhythm. S1 and S2 heard. EXTREMITIES: Normal range of motion. No clubbing or cyanosis. Peripheral pu lses intact. No lower extremity edema ASSESSMENT: Syncope most likely due to intermittent third-degree block (noted on telemetry) or vasovagal episode Third-degree heart block Nonsustained V. tach on 01/21 early a.m. Pulmonary embolism ruled out by pulmonary medicine Mediastinal adenopathy Coronary artery disease status post angioplasty Acute kidney injury, nephrology following Nausea vomiting and diarrhea, abdominal pain, resolved PLAN: Continue current cardiac medications Avoid AV nesha blocking agents Continue telemetry monitoring Patient to receive 30 day event monitor Continue to monitor blood pressure Patient is stable from a cardiac standpoint Patient to follow-up post discharge with Dr. Hudson Nurse practitioner note has been reviewed by physician. Signing provider agrees with the documented findings, assessment, and plan of care. Objective - Vital Signs Vital signs: Vital Signs Temp 97.8 F 11/15/23 11:49 Pulse 87 01/25/23 11:49 Resp 15 01/25/23 11:49 BP 148/82 01/25/23 11:49 Pulse Ox 95 01/25/23 11:49 FiO2 Intake & Output 01/24/23 01/25/23 01/25/23 18:59 06:59 18:59 Intake Total 360 420 480 Output Total 1800 950 500 Balance -1440 -530 -20 Intake: Oral 360 420 480 Output: Urine 1800 950 500 Straight 1350 950 500 Stool 0 0 Other: Voiding Method Self-Catheterization Self-Catheterization Self-Catheterization # Voids 1 - Labs CBC & Chem 7: 01/23/23 07:16 01/25/23 07:28 Labs: Abnormal Lab Results - Last 24 Hours (Table) 01/24/23 01/25/23 Range/Units 16:33 07:28 Sodium 134 L (137-145) mmol/L Carbon Dioxide 21 L (22-30) mmol/L BUN 43 H (9-20) mg/dL Creatinine 3.33 H (0.66-1.25) mg/dL Glucose 112 H (74-99) mg/dL POC Glucose (mg/dL) 263 H (70-110) mg/dL Calcium 8.1 L (8.4-10.2) mg/dL
--- NOTE | 2023-01-25 12:28 | P.PN ---
Subjective Progress Note Date: 01/25/23 CHIEF COMPLAINT: Abdominal distention HISTORY OF PRESENT ILLNESS: Surgical service following for abdominal ileus. Patient denies any abdominal pain. Denies any nausea or vomiting. Patient is having bowel movements and flatus. He is tolerating diet. PHYSICAL EXAM: VITAL SIGNS: Reviewed. GENERAL: Well-developed in no acute distress. ABDOMEN: soft. Nondistended Nontender. NEUROLOGIC: Alert and oriented. Cranial nerves II through XII grossly intact. ASSESSMENT: 1. Abdominal ileus resolving PLAN: -Continue regular diet -Increase activity level -Patient can be discharged from surgical standpoint when medically cleared Physician Slurry Control Operator Helper note has been reviewed by physician. Signing provider agrees with the documented findings, assessment, and plan of care. Objective - Vital Signs Vital signs: Vital Signs Temp 97.8 F 01/25/23 11:49 Pulse 87 01/25/23 11:49 Resp 15 01/25/23 11:49 BP 148/82 01/25/23 11:49 Pulse Ox 95 01/25/23 11:49 FiO2 Intake & Output 01/24/23 01/25/23 01/25/23 18:59 06:59 18:59 Intake Total 360 420 480 Output Total 1800 950 500 Balance -1440 -530 -20 Intake: Oral 360 420 480 Output: Urine 1800 950 500 Straight 1350 950 500 Stool 0 0 Other: Voiding Method Self-Catheterization Self-Catheterization Self-Catheterization # Voids 1 - Labs CBC & Chem 7: 01/23/23 07:16 01/25/23 07:28 Labs: Abnormal Lab Results - Last 24 Hours (Table) 01/24/23 01/25/23 Range/Units 16:33 07:28 Sodium 134 L (137-145) mmol/L Carbon Dioxide 21 L (22-30) mmol/L BUN 43 H (9-20) mg/dL Creatinine 3.33 H (0.66-1.25) mg/dL Glucose 112 H (74-99) mg/dL POC Glucose (mg/dL) 263 H (70-110) mg/dL Calcium 8.1 L (8.4-10.2) mg/dL
--- NOTE | 2023-01-25 14:23 | P.DS ---
Providers Date of admission: 01/18/23 07:00 Attending physician: Rhianna Parnell Consults: 01/18/23 06:58 Consult Physician Routine Consulting Provider: Adam Kee Consult Reason/Comments: renalFAil Do you want consulting provider notified?: Yes Consult Physician Routine Consulting Provider: Wesley Scott Consult Reason/Comments: syncope Do you want consulting provider notified?: Yes 01/18/23 07:00 Consult Physician Routine Consulting Provider: Amber Bruner Consult Reason/Comments: mass,PE Do you want consulting provider notified?: Yes 01/20/23 08:35 Consult Physician Routine Consulting Provider: Marcelino Arango Consult Reason/Comments: sever back pain Do you want consulting provider notified?: Yes 01/20/23 13:40 Consult Physician Urgent Consulting Provider: Liam Lafleur Consult Reason/Comments: ileus Do you want consulting provider notified?: Yes Primary care physician: Brett Choe [facility] Course: Diagnoses: Syncope probably secondary to intravascular depletion from nausea vomiting diarrhea sever back pain with acute L2 compression fracture compared to previous images with approximately 25% loss of height. Continued chronic T12 compression fracture. Status post breast Severe bradycardia (transient ) requiring dopamine drip. Currently resolved Nausea, vomiting and diarrhea possibly from a viral gastroenteritis CT chest abdomen pelvis showing colitis. Currently resolved Acute kidney injury due to ATN from dehydration . Improving Chronic kidney disease stage IV baseline creatinine around 3. History of urinary retention and obstructive uropathy with hx of bladder cancer maintained on urinary straight catheterizations Mediastinal lymphadenopathy and possible right lung mass , patient and at bedside are aware also about follow-up outpatient PET scan/biopsy. Patient agrees with appointment with Dr. Ruth on 02/03 History of heart failure Hypertension Type 2 Diabetes Mellitus and diabetic neuropathy Back pain secondary to fall Hyperlipidemia Hospital course: Patient was 69-year-old male presented to the hospital after syncopal episode was having diarrhea for last few days. Patient syncope didn't appear to be vasovagal. Patient baseline creatinine is around 2.5 slightly worse to around 4.2 on the presentation. Patient was also complaining of severe back pain. CT of the abdomen and pelvis and lung showed circumferential wall thickening of the descending and sigmoid colon and rectum suspicious for colitis as well as CT of the chest showing mediastinal lymphadenopathy with possible right lung mass, right infrahilar mass. Patient and are aware about the mass, risk of cancer explained for him over several occasions, patient evaluated by pulmonary who recommended outpatient workup including PET scan and possible lung biopsy. Patient is aware about his appointment with Dr. Ruth on 01/24 in the pulmonary clinic and states he will follow-up. Also surgery team evaluated the patient for his ileus and colitis and he was treated conservatively, patient showed interval improvement and currently his abdomen is soft he tolerates that well and he passing gas and bowel movement. Currently he is on regular diet. Most of patient's symptoms has improved. His main residual problem is the severe back pain which is significantly increased with movement, lumbar imaging showing evidence of acute L2 compression fracture with 25% loss of height and severe chronic T12 compression fractures. Patient evaluated by orthopedic team and they recommended a brace which is delivered at bedside. Patient continued to have some pain even with a brace, patient would benefit from ECF for subacute rehab and patient is agreeable. Patient is cleared for discharge by orthopedic team His creatinine Improving with IV fluids and creatinine came down to 3.3 prior to discharge. He is a known case of chronic kidney disease stage IV. Patient was cleared for discharge by nephrology team as well with recommendation to continue with intermittent self-catheterization. Today patient mentation at baseline, no chest pain or dyspnea, no GI symptoms. His urine habits looks fine and he continued to do self-catheterization, is stil l complains from back pain but the breast developed at bedside and continue with pain medication and patient agreeable to go to rehab today. No other new complaints. Patient was cleared for discharge by all consultants including drywall sander, pole truck driver, exhaust and muffler fitter, orthopedic team and general surgery team. Problems and management plan were discussed with the patient and he verbalized understanding and acceptance Patient was found stable and can be discharged to detention in guarded prognosis however he needs follow-up as an outpatient. Patient was instructed to follow up with PCP within one week and patient agrees Patient was instructed to follow up with orthopedic Dr. Ruth in 2 weeks, drywall sander Dr. Hudson in 10 days, pole truck driver Dr. Kee in one week and urologist Dr. So in 4 weeks. Also emphasized to the patient several times about his appointment with Dr. Griffin out on 02/03 for possible PET scan and possible lung biopsy and he told me he is going to keep this appointment and he will follow up with that. (Patient initially was thinking of moving to [place] where he has house there but now he agrees to stay in [place] and continue treatment and workup outpatient as instructed above including his appointment with Dr. Ruth) Physical exam Gen: patient is a AAOx3, no distress CVS: S1-S2, RRR, no murmur Lungs: B/L CTA, no wheezing Abdomen: soft, no distention, no tenderness, positive bowel sounds Extremity: no leg edema or induration. -MUSCULOSKELETAL: No joint swelling or deformity. Back tenderness Time spent more than 35 minutes Patient Condition at Discharge: Serious Plan - Discharge Summary New Discharge Prescriptions: Discontinued Metoprolol Succinate [Toprol XL] 50 mg PO BID No Action Fenofibrate [Lofibra] 160 mg PO DAILY Exenatide Microspheres [Bydureon Bcise Auto-Injector] 2 mg SQ VALDEZ Glucagon [Gvoke Pfs 1-Pack Syringe] 1 mg SQ DIRECTED PRN PRN Reason: Blood Sugar - Low Tamsulosin [Flomax] 0.4 mg PO BID #60 cap lisinopriL [Zestril] 40 mg PO DAILY Spironolactone 50 mg PO DAILY Ondansetron Odt [Zofran Odt] 4 mg PO Q8HR PRN PRN Reason: Nausea And Vomiting Ticagrelor [Brilinta] 90 mg PO BID #60 tab Isosorbide Mononitrate ER [Imdur] 30 mg PO DAILY #30 tab Discharge Medication List Ticagrelor [Brilinta] 90 mg PO BID #60 tab 12/19/21 [Rx] Exenatide Microspheres [Bydureon Bcise Auto-Injector] 2 mg SQ VALDEZ 01/09/22 [History] Fenofibrate [Lofibra] 160 mg PO DAILY 01/09/22 [History] Glucagon [Gvoke Pfs 1-Pack Syringe] 1 mg SQ DIRECTED PRN 09/27/22 [History] Isosorbide Mononitrate ER [Imdur] 30 mg PO DAILY #30 tab 10/04/22 [Rx] Tamsulosin [Flomax] 0.4 mg PO BID #60 cap 10/26/22 [Rx] Ondansetron Odt [Zofran Odt] 4 mg PO Q8HR PRN 01/18/23 [History] Spironolactone 50 mg PO DAILY 01/18/23 [History] lisinopriL [Zestril] 40 mg PO DAILY 01/18/23 [History] Follow up Appointment(s)/Referral(s): Nabil Mojica DO [Doctor of Osteopathic Medicine] - 2 Weeks (spine orthopedic surgeon ) Ramses Hudson MD [STAFF PHYSICIAN] - 10 Days (heart doctor) Yousuf Ruth DO [Doctor of Osteopathic Medicine] - 02/03/23 9:45 am Brett Choe DO [Primary Care Provider] - 1-2 days Adam Kee DO [STAFF PHYSICIAN] - 1 Week Neo Mejia MD [STAFF PHYSICIAN] - 4 Weeks (urologist ) Activity/Diet/Wound Care/Special Instructions: Wear the lumbar corset brace whenever up. May have off in bed. Follow-up with Dr. Mojica in 2 weeks.
== END 2023-01-25 15:57 | DRG 551 ==
LOC: EC 04:14 → 3SCARD 07:00
PROVIDERS: ADMIT Hospitalist; ATTEND Hospitalist
PROC: 3E033XZ Introduction of Vasopressor into Peripheral Vein, Percutaneous Approach (ICD-10-PCS; principal; 2023-01-20)
DX: S32.029A Unspecified fracture of second lumbar vertebra, initial encounter for closed fracture (principal); N17.0 Acute kidney failure with tubular necrosis; E87.20 Acidosis, unspecified; I13.0 Hypertensive heart and chronic kidney disease with heart failure and stage 1 through stage 4 chronic kidney disease, or unspecified chronic kidney disease; I44.2 Atrioventricular block, complete; I50.22 Chronic systolic (congestive) heart failure; K56.7 Ileus, unspecified; I47.20 Ventricular tachycardia, unspecified; N18.4 Chronic kidney disease, stage 4 (severe); E86.0 Dehydration; M48.54XG Collapsed vertebra, not elsewhere classified, thoracic region, subsequent encounter for fracture with delayed healing; E11.22 Type 2 diabetes mellitus with diabetic chronic kidney disease; E11.40 Type 2 diabetes mellitus with diabetic neuropathy, unspecified; E78.5 Hyperlipidemia, unspecified; E87.8 Other disorders of electrolyte and fluid balance, not elsewhere classified; E87.6 Hypokalemia; M53.3 Sacrococcygeal disorders, not elsewhere classified; A08.4 Viral intestinal infection, unspecified; M19.90 Unspecified osteoarthritis, unspecified site; M45.9 Ankylosing spondylitis of unspecified sites in spine; M89.8X9 Other specified disorders of bone, unspecified site; N13.9 Obstructive and reflux uropathy, unspecified; R91.8 Other nonspecific abnormal finding of lung field; R33.9 Retention of urine, unspecified; R79.1 Abnormal coagulation profile; R00.1 Bradycardia, unspecified; R59.0 Localized enlarged lymph nodes; Y92.019 Unspecified place in single-family (private) house as the place of occurrence of the external cause; K59.00 Constipation, unspecified; K63.89 Other specified diseases of intestine; I25.10 Atherosclerotic heart disease of native coronary artery without angina pectoris; W19.XXXA Unspecified fall, initial encounter; I95.1 Orthostatic hypotension; Z98.61 Coronary angioplasty status; Z87.440 Personal history of urinary (tract) infections; Z86.16 Personal history of COVID-19; Z85.820 Personal history of malignant melanoma of skin; Z85.51 Personal history of malignant neoplasm of bladder; Z79.899 Other long term (current) drug therapy; Z79.02 Long term (current) use of antithrombotics/antiplatelets
CPT/HCPCS: 36415; 70450; 71045; 71250; 72020; 72100; 72125; 74018; 74176; 78582; 80048; 80053; 81001; 82550; 83605; 83735; 84100; 84145; 84443; 84484; 85025; 85379; 85610; 85730; 93005; 93270; 93306; 96361; 96365; 96366; 96368; 96375; 96376; 99285

== ENCOUNTER 2023-02-02 08:55 | Inpatient (IN) | payer MEDICARE, OTHER ==
[2023-02-02] MEDS ORDERED: SODIUM CHLORIDE 0.9% 1,000 ML IV STA (09:26)
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
[2023-02-02 10:08] LABS: Basophils % (A) 0 %; Eosinophils % (A) 0 %; HCT 39.7 % (39.0-53.0); HGB 12.8 gm/dL (13.0-17.5); Lymphocytes # (A) 0.4 k/uL (1.0-4.8); Lymphocytes % (A) 4 %; MCH 27.4 pg (25.0-35.0); MCHC 32.4 g/dL (31.0-37.0); MCV 84.7 fL (80.0-100.0); Mean Platelet Volume 7.4; Monocytes # (A) 0.4 k/uL (0-1.0); Monocytes % (A) 4 %; Neutrophils % (A) 92 %; Platelet Count 311 k/uL (150-450); RBC 4.68 m/uL (4.30-5.90); RDW 15.9 % (11.5-15.5); WBC 10.9 k/uL (3.8-10.6)
--- NOTE | 2023-02-02 10:30 | XR ---
EXAMINATION TYPE: XR chest 1V portable DATE OF EXAM: 02/02/2023 HISTORY: Shortness of breath. COMPARISON: 01/24/2023 TECHNIQUE: Single view of the chest is submitted. FINDINGS: Demonstrated are scattered senescent parenchymal change. There is chronic elevation left hemidiaphragm with left basilar parenchymal scar atelectasis. Infiltr ate is able to exclude. The heart is stable. Hilar and mediastinal structures are within normal limits. Degenerative changes are seen of the dorsal spine. IMPRESSION: 1. There is chronic elevation left hemidiaphragm with left basilar parenchymal scar atelectasis. Inf iltrate is able to exclude.
[2023-02-02 10:46] LABS: ALT 23 U/L (4-49); AST 31 U/L (17-59); African American GFR (CKD) 11 (>60 ml/min/1.73 sqM); Albumin 3.4 g/dL (3.5-5.0); Alkaline Phosphatase 79 U/L (38-126); Anion Gap 15 mmol/L; Blood Urea Nitrogen 62 mg/dL (9-20); Calcium 9.6 mg/dL (8.4-10.2); Carbon Dioxide 19 mmol/L (22-30); Chloride 101 mmol/L (98-107); Glucose 99 mg/dL (74-99); Magnesium 2.1 mg/dL (1.6-2.3); Non-African American GFR(CKD) 9 (>60 ml/min/1.73 sqM); Potassium 4.7 mmol/L (3.5-5.1); Sodium 135 mmol/L (137-145); Total Bilirubin 0.6 mg/dL (0.2-1.3); Total Protein 7.4 g/dL (6.3-8.2)
[2023-02-02] MEDS ORDERED: ONDANSETRON 4 MG/2 ML VIAL IVP PRN (11:49)
[2023-02-02] MEDS ORDERED: ACETAMINOPHEN TAB 325 MG TAB PO PRN ×2 (11:49→13:40)
[2023-02-02] MEDS ORDERED: NALOXONE 0.4 MG/ML 1 ML VIAL IV PRN (11:49)
[2023-02-02] MEDS: SODIUM CHLORIDE 0.9% 1,000 ML IV SCH (12:03)
[2023-02-02] MEDS ORDERED: ONDANSETRON 4 MG TAB PO PRN (13:40)
[2023-02-02] MEDS ORDERED: MAGNESIUM HYDROXIDE 2,400 MG/30 ML CUP PO PRN (13:40)
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
[2023-02-02] MEDS ORDERED: ACETAMINOPHEN IV (For NPO) 1,000 MG in EMPTY BAG 1 BAG IVPB PRN (14:15)
[2023-02-02] MEDS ORDERED: METOCLOPRAMIDE 5 MG/ML 2 ML VIAL IVP STA ×2 (14:17→16:09)
[2023-02-02] MEDS ORDERED: LIDOCAINE 5% PATCH TOPICAL SCH (14:30)
--- NOTE | 2023-02-02 14:35 | XR ---
EXAMINATION TYPE: XR KUB portable DATE OF EXAM: 02/02/2023 COMPARISON: 01/20/2023 HISTORY: Pain TECHNIQUE: Single supine KUB image of the abdomen is obtained FINDINGS: Redemonstrated is gaseous distention of small and large bowel moderate fecal stasis within the rectos igmoid region. Correlate for a diffuse ileus. Overall there may be slight improvement. No convincing evidence for pneumoperitoneum. No unusual calcifications. The lung bases are clear. The osseous structures are intact. IMPRESSION: 1. Redemonstrated is gaseous distention of small and large bowel moderate fecal stasis within the re ctosigmoid region. Correlate for a diffuse ileus. Overall there may be slight improvement
[2023-02-02] MEDS: hydrALAZINE HCL 50 MG TAB PO SCH ×2 (15:48→20:40)
[2023-02-02] MEDS: HYDROcodone/APAP 7.5-325MG 1 EACH TAB PO PRN ×2 (16:21→21:29)
[2023-02-02] MEDS: IOPAMIDOL CONTRAST (ORAL USE) VIAL PO PRN ×2 (16:25→17:30)
[2023-02-02] MEDS ORDERED: TICAGRELOR 90 MG TAB PO SCH (17:00)
[2023-02-02] MEDS ORDERED: CALCIUM ACETATE 667 MG TAB PO SCH (17:30)
[2023-02-02] MEDS: HYDROmorphone 0.5 MG/0.5 ML SYRINGE IVP PRN (18:26)
[2023-02-02 20:17] VITALS: TEMP 98
[2023-02-02] MEDS ORDERED: TAMSULOSIN 0.4 MG CAP.ER.24H PO SCH (21:00)
[2023-02-02] MEDS ORDERED: diphenhydrAMINE 25 MG CAP PO SCH (21:30)
--- NOTE | 2023-02-02 21:49 | CT ---
EXAMINATION TYPE: CT abdomen pelvis wo con CT DLP: 632.40 mGycm, Automated exposure control for dose reduction was used. DATE OF EXAM: 02/02/2023 6:17 PM COMPARISON: 01/20/2023 CT CLINICAL INDICATION:Male, 68 years old with history of Suspect bowel obstruction; Suspect bowel obstr uction. Pt did not tolerate oral contrast well and threw up most of it. TECHNIQUE: Axial CT of the abdomen and pelvis. Sagittal and coronal reformats were created on a [employer] workstation. Contrast used: mL of , (none if empty) Oral contrast used: with Oral Contrast (none if empty) FINDINGS: Exam is limited by lack of contrast. LOWER CHEST: Consolidative opacity in the left lung base with air bronchograms, and somewhat lesser p atchy consolidative opacity in the right lung base. A 6 mm nodule seen in the anterior right middle l obe image 9. Partially seen reticulonodular densities in the inferior right upper lobe near the horiz ontal fissure. Heart size is upper normal. Calcifications of the aortic valve are noted. No pericardi al effusion. ABDOMEN LIVER: Unremarkable GALLBLADDER AND BILE DUCTS: Unremarkable. PANCREAS: Appears somewhat atrophic without acute finding. SPLEEN: Unremarkable. ADRENAL GLANDS: Unremarkable. KIDNEYS AND URETERS: No evidence of renal/ureteral calculus or hydronephrosis. PELVIS BLADDER: Partially decompressed with a Argueta balloon terminating in its lumen. Foci of gas are also s een within the bladder. REPRODUCTIVE: Prostate appears mildly prominent measuring up to 5.7 cm with some coarse parenchymal c alcifications. ABDOMEN & PELVIS There is significant eventration along the posterior aspect of the left hemidiaphragm, and a signific ant portion of the proximal stomach extends into this as does a segment of colon. STOMACH AND BOWEL: Stomach contains only small amounts of intraluminal contrast. Stomach isquite dist ended, as is the duodenum and proximal aspects of the jejunum, with air-fluid levels evident. Some vickey wel loops are dilated up to 4.9 cm. Suspected transition point is identified in the left upper quadra nt, with loops of nondistended small bowel seen more distally. There is also a grouping of small angelia l loops in the left upper quadrant laterally, with a somewhat tethered appearance of the mesentery wi th mild haziness suggesting edema or inflammation; an internal hernia is not excluded. Appendix is no t identified with certainty, however there is no inflammatory process seen in the RLQ. Moderate stool throughout the colon, intermixed with radiodensity which is probably contrast from a prior administr ation. No definite bowel wall pneumatosis, mesenteric or portal venous gas identified. PERITONEUM/RETROPERITONEUM: No evidence of pneumoperitoneum or free fluid. VASCULATURE: Mild atherosclerotic calcification of the aorta and branches. No evidence of AAA. MUSCULOSKELETAL: Generalized osseous demineralization. Mild/moderate degenerative changes. Stable sarbjit earance of moderate to severe chronic compression deformity of T12, and mild heterogeneity and verteb ral body height loss at L2 likely subacute fracture. LYMPH NODES: No gross evidence for lymphadenopathy. SOFT TISSUE/ABDOMINAL WALL: No acute abnormality. Small fat-containing left inguinal hernia. IMPRESSION: 1. High-grade small bowel obstruction, with suspected transition point in the left upper quadrant. C ould be related to adhesions, with internal hernia not excluded. 2. No evidence of bowel wall pneumatosis or free intraperitoneal air. 3. Patchy consolidative opacities in the lung bases, plus some small reticulonodular opacities in th e right lung, likely reflect infectious/inflammatory process, possibly with an element of atelectasis . 4. Argueta catheter in place with gas in the urinary bladder lumen highly likely related to the cathet er. 5. Other chronic and likely incidental findings, as described above.
[2023-02-03] MEDS: HYDROmorphone 0.5 MG/0.5 ML SYRINGE IVP PRN (00:13)
[2023-02-03] MEDS: SODIUM CHLORIDE 0.9% 1,000 ML IV SCH (02:05)
[2023-02-03 03:18] VITALS: PULSE 80; RESP 20
[2023-02-03 04:07] VITALS: BP 135/85
[2023-02-03] MEDS ORDERED: EPINEPHrine 10 ML SYRINGE (0.1 MG/ML) ONE (05:29)
[2023-02-03] MEDS ORDERED: CALCIUM CHLORIDE 100 MG/ML 10 ML SYRINGE ONE (05:29)
[2023-02-03] MEDS ORDERED: SODIUM BICARB 8.4% 50 ML SYR (1 MEQ/ML) ONE (05:29)
[2023-02-03 05:37] LABS: Glucose,Whole Blood 152 mg/dL (70-110)
[2023-02-03] MEDS ORDERED: PANTOPRAZOLE 40 MG TABLET PO SCH (06:00)
--- NOTE | 2023-02-03 06:14 | P.EN ---
Code blue note Activated at 5:30 AM. Arrived at the scene shortly after. The patient was undergoing CPR. Reviewed the chart and discussed the case with the RN. This patient with an extensive PMH was admitted the prior evening for intractable nausea and vomiting with KEAGAN on CKD. The patient was found cyanotic and enciso by the nurse with the last known well around 5 AM. Upon chart review, no obvious electrolyte abnormalities were noted. ACLS protocol was immediately initiated with asystole on the monitor. Patient was given epinephrine IV push 8, sodium bicarbonate 1, and calcium chloride 1. The patient continued to have asystole. He was subsequently pronounced at 5:55 AM. The patient's family and the primary team were notified. Please refer to the code sheet for further details. Time spent providing critical care to this patient: 30 minutes
[2023-02-03] MEDS ORDERED: FLUTICASONE 50MCG/SPRAY NASAL 16GM EA NOSTRIL SCH (08:00)
[2023-02-03] MEDS ORDERED: FENOFIBRATE 160 MG TAB PO SCH (08:00)
[2023-02-03] MEDS ORDERED: LORATADINE 10 MG TAB PO SCH (08:00)
[2023-02-03] MEDS ORDERED: amLODIPine 10 MG TAB PO SCH (08:00)
[2023-02-03] MEDS ORDERED: ISOSORBIDE MONONITRATE ER 30 MG TAB.ER.24H PO SCH (08:00)
--- NOTE | 2023-02-03 08:57 | P.DS ---
Providers Date of admission: 02/02/23 11:49 Expected date of discharge: 02/03/23 Attending physician: Tiarra Bledsoe MD Consults: 02/02/23 11:49 Consult Physician Routine Consulting Provider: Reji Rodriguez Consult Reason/Comments: alexandra Do you want consulting provider notified?: Yes Primary care physician: [facility] Course: 68-year-old gentleman with past medical history significant for chronic kidney disease stage IV, obstructive uropathy with history of bladder cancer on intermittent catheterization, history of congestive heart failure, hypertension, coronary artery disease, diabetes mellitus hyperlipidemia, but asked no lymphadenopathy, compression fracture of L2 vertebrae chronic thoracic 12 compression fracture who was recently discharged on 2 rehab facility presents to the emergency department with complains of nausea, vomiting and abdominal pain. Patient was discharged to [facility] after compression fracture for therapy patient said he was having significant nausea and multiple episodes of vomiting. * Workup initiated in ER included CBC which showed WBC of 10.9 over 12.8 platelet count of 311, hemoglobin of 12.8 platelet count of 311. Serum chemistry sodium 135 potassium 4.7 BUN 62 creatinine 5.7 to albumin 3.4 * Patient tested negative for influenza RSV and Covid * Patient admitted to medical for started on fluid resuscitation bladder management protocol * 02/02/2023: Patient was transferred to medical floor 5 [place], x-ray KUB was ordered, CT abdomen and pelvis with oral contrast was ordered While admitted on medical floor in the evening patient family requested transfer to [facility].. Sound team was contacted and they accepted the patient to be transferred around 6 PM on 02/02 however would follow-up on morning rounds on 02/03/23. Patient was treated with conservative management, made nothing by mouth and aspiration precautions were initiated. Patient was treated with fluid resuscitation and IV antiemetics were ordered. Pain control for lumbar compression fracture with when necessary medications was ordered as well. Nephrology was consulted for evaluation secondary to worsening renal failure. Bladder management protocol was initiated. 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 Patient had multiple rounds of epinephrine given, CPR was initiated, patient was intubated during the code please see code sheet for details, unfortunately patient could not be resuscitated and on 02/03/23. Patient family was contacted during the code by the code team and notified about the significant events Assessment: Assessment and plan * Acute kidney injury on chronic kidney disease stage IV * Recurrent nausea vomiting with high-grade bowel obstruction * History of congestive heart failure systolic diastolic dysfunction * Coronary artery disease * Hypertension * History of bladder outlet obstruction on Flomax * Compression fracture of lumbar spine subacute * Medicine thoracic lymphadenopathy * History of bladder cancer * History of T12 compression fracture * History of melanoma * In regards to renal failure patient was initiated on IV fluid with consultation from nephrology, Argueta catheter was placed in ER * In regards to recurrent nausea and vomiting x-ray KUB ordered, CT abdomen pelvis ordered, consulted management was initiated with nothing by mouth, as needed IV antiemetics and aspiration precautions, however patient unfortunately aspirated and coded * In regards to congestive heart failure, patient was cautiously treated with IV fluids, * In regards to coronary artery disease, home medications were reviewed and reconciled however nothing by mouth, patient unfortunately * In regards to bladder outlet obstruction, Argueta catheter was placed * Patient after sentinal event suspected aspiration and asystole. Patient Condition at Discharge: Undetermined Plan - Discharge Summary Discharge Rx Participant: Yes New Discharge Prescriptions: No Action Fenofibrate [Lofibra] 160 mg PO DAILY@0800 Exenatide Microspheres [Bydureon Bcise Auto-Injector] 2 mg SQ MO@0800 Glucagon [Gvoke Pfs 1-Pack Syringe] 1 mg SQ DIRECTED PRN PRN Reason: Blood Sugar - Low bisacodyL [Dulcolax] 10 mg RECTAL DAILY PRN suppositor PRN Reason: Constipation Magnesium Hydroxide [Milk of Magnesia Concentrate] 7,200 mg PO DAILY PRN PRN Reason: Constipation Na Phos,M-B/Na Phos,Di-Ba [Fleet Adult] 133 ml RECTAL DAILY PRN PRN Reason: Constipation hydrALAZINE HCL [Hydralazine HCl] 100 mg PO TID@0800,1400,2100 Ticagrelor [Brilinta] 90 mg PO BID@0800,1700 Tamsulosin [Flomax] 0.4 mg PO BID@0800,2100 Pantoprazole Sodium [Protonix] 40 mg PO DAILY@0600 Fluticasone Nasal [place] [Flonase Nasal [place]] 2 spr EA NOSTRIL DAILY@0800 Calcium Acetate [PhosLo] 667 mg PO TID-W/MEALS tab Ondansetron [Zofran] 4 mg PO Q8HR PRN PRN Reason: Nausea And Vomiting Acetaminophen Tab [Tylenol] 650 mg PO Q4H PRN PRN Reason: Pain Promethazine Hcl 25mg Solution 25 mg IM Q6H PRN PRN Reason: Nausea And Vomiting HYDROcodone/APAP 7.5-325MG [[place] 7.5-325] 1 tab PO Q6H PRN PRN Reason: Pain Sennosides/Docusate Sodium [Senna Plus 8.6-50 mg Tablet] 1 tab PO BID@0800,1700 polyethylene glycoL 3350 [Miralax] 17 gm PO DAILY@0800 amLODIPine [Norvasc] 10 mg PO DAILY@0800 Loratadine [Claritin] 5 mg PO DAILY@0800 Isosorbide Mononitrate ER [Imdur] 30 mg PO DAILY@0800 diphenhydrAMINE HCL [Benadryl] 25 mg PO HS@2130 Discharge Medication List Exenatide Microspheres [Bydureon Bcise Auto-Injector] 2 mg SQ MO@0800 01/09/22 [History] Fenofibrate [Lofibra] 160 mg PO DAILY@0800 01/09/22 [History] Glucagon [Gvoke Pfs 1-Pack Syringe] 1 mg SQ DIRECTED PRN 09/27/22 [History] Calcium Acetate [PhosLo] 667 mg PO TID-W/MEALS tab 01/25/23 [Rx] bisacodyL [Dulcolax] 10 mg RECTAL DAILY PRN suppositor 01/25/23 [Rx] Acetaminophen Tab [Tylenol] 650 mg PO Q4H PRN 02/02/23 [History] Fluticasone Nasal [place] [Flonase Nasal [place]] 2 spr EA NOSTRIL DAILY@0800 02/02/23 [History] HYDROcodone/APAP 7.5-325MG [[place] 7.5-325] 1 tab PO Q6H PRN 02/02/23 [History] Isosorbide Mononitrate ER [Imdur] 30 mg PO DAILY@0800 02/02/23 [History] Loratadine [Claritin] 5 mg PO DAILY@0800 02/02/23 [History] Magnesium Hydroxide [Milk of Magnesia Concentrate] 7,200 mg PO DAILY PRN 02/02/23 [History] Na Phos,M-B/Na Phos,Di-Ba [Fleet Adult] 133 ml RECTAL DAILY PRN 02/02/23 [History] Ondansetron [Zofran] 4 mg PO Q8HR PRN 02/02/23 [History] Pantoprazole Sodium [Protonix] 40 mg PO DAILY@0600 02/02/23 [History] Promethazine Hcl 25mg Solution 25 mg IM Q6H PRN 02/02/23 [History] Sennosides/Docusate Sodium [Senna Plus 8.6-50 mg Tablet] 1 tab PO BID@0800,1700 02/02/23 [History] Tamsulosin [Flomax] 0.4 mg PO BID@0800,2100 02/02/23 [History] Ticagrelor [Brilinta] 90 mg PO BID@0800,1700 02/02/23 [History] amLODIPine [Norvasc] 10 mg PO DAILY@0800 02/02/23 [History] diphenhydrAMINE HCL [Benadryl] 25 mg PO HS@212902/02/23 [History] hydrALAZINE HCL [Hydralazine HCl] 100 mg PO TID@0800,1400,2100 02/02/23 [History] polyethylene glycoL 3350 [Miralax] 17 gm PO DAILY@0800 02/02/23 [History] Follow up Appointment(s)/Referral(s): Brett Choe DO [Primary Care Provider] - 1-2 days Discharge Disposition: - Preliminary Cause of Preliminary Cause of : Bowel obstruction
[2023-02-03 09:10] LABS: HCT 37.8 % (39.6-50.0); HGB 11.5 g/dL (13.0-17.0); MCH 27.4 pg (27.0-32.0); MCHC 30.4 g/dL (32.0-37.0); MCV 90.2 FL (80.0-97.0); Mean Platelet Volume 11.1 FL (9.5-12.2); NRBC Per 100 WBC 0 X 10*3/uL (0.00-0.01); Platelet Count 395 X 10*3/uL (140-440); RBC 4.19 X 10*6/uL (4.40-5.60); WBC 11.19 X 10*3/uL (4.50-10.00)
[2023-02-03 09:12] LABS: BUN/Creat Ratio 11.27 Ratio (12.00-20.00); Blood Urea Nitrogen 74.4 mg/dL (9.0-27.0); Calcium 9.4 mg/dL (8.7-10.3); Chloride 98 mmol/L (96-109); Glucose 183 mg/dL (70-110); Sodium 138 mmol/L (135-145)
== END 2023-02-03 09:50 | disposition expired | DRG 683 ==
LOC: EC 08:55 → 5NMEDONC 11:49
PROVIDERS: ADMIT Internal Medicine; ATTEND Internal Medicine
PROC: 0BH17EZ Insertion of Endotracheal Airway into Trachea, Via Natural or Artificial Opening (ICD-10-PCS; principal; 2023-02-03)
PROC: 5A12012 Performance of Cardiac Output, Single, Manual (ICD-10-PCS; principal; 2023-02-03)
DX: N17.9 Acute kidney failure, unspecified (principal); I13.0 Hypertensive heart and chronic kidney disease with heart failure and stage 1 through stage 4 chronic kidney disease, or unspecified chronic kidney disease; I50.42 Chronic combined systolic (congestive) and diastolic (congestive) heart failure; K56.609 Unspecified intestinal obstruction, unspecified as to partial versus complete obstruction; M48.56XA Collapsed vertebra, not elsewhere classified, lumbar region, initial encounter for fracture; I46.9 Cardiac arrest, cause unspecified; N32.0 Bladder-neck obstruction; E78.5 Hyperlipidemia, unspecified; I25.10 Atherosclerotic heart disease of native coronary artery without angina pectoris; N18.4 Chronic kidney disease, stage 4 (severe); E11.22 Type 2 diabetes mellitus with diabetic chronic kidney disease; E11.40 Type 2 diabetes mellitus with diabetic neuropathy, unspecified; T17.918A Gastric contents in respiratory tract, part unspecified causing other injury, initial encounter; Z79.02 Long term (current) use of antithrombotics/antiplatelets; Z79.4 Long term (current) use of insulin; Z79.899 Other long term (current) drug therapy; Z82.3 Family history of stroke; Z85.51 Personal history of malignant neoplasm of bladder; Z85.820 Personal history of malignant melanoma of skin; Z86.16 Personal history of COVID-19; Z86.73 Personal history of transient ischemic attack (TIA), and cerebral infarction without residual deficits; Z11.52 Encounter for screening for COVID-19
CPT/HCPCS: 36415; 51702; 71045; 74018; 74176; 80048; 80053; 83735; 85025; 85027; 87636; 92950; 93005; 96361; 96374; 96375; 99285